=== PATIENT | female | born 1940 | race Caucasian/White ===

== ENCOUNTER 2016-12-10 15:22 | Emergency (ER) | payer OTHER, MEDICARE ==
[~2016-12-10] VITALS: Ht 154.9 cm; Wt 56.2 kg
[~2016-12-10 15:22] MED LIST: ACETAZOLAMIDE250 MG PO; ACETAZOLAMIDE500 MG; ALBUTEROL 3 ML3 ML INH; ALENDRONATE SOD70 M1 PO; ALLOPURINOL100 MG PO; AMOXIL500 MG PO; AUGMENTIN 875875 MG PO; Avelox PO; CARDIZEM 180 M180 MG PO; CARDIZEM CD 12120 MG PO; CIPRO500 M1 PO; COZAAR 25MG TAB25 MG PO; DIAMOX PO; DIFLUCAN100 M1 PO; DILTIAZEM HCL30 MG PO; DILTIAZEM30 MG PO; DULCOLAX5 MG PO; Dulcolax PO; FERROUS GLUCON325 MG PO; FOLIC ACID 1 MG PO; FUROSEMIDE20 MG PO; FUROSEMIDE40 MG PO; JANUVIA 100MG100 MG PO; K-DUR 20MEQ TA20 MEQ PO; KLOR-CON M1010 MEQ PO; KLOR-CON M2020 MEQ PO; LANTUS SOLOS100 U/ML SC; LASIX20 MG PO; LASIX40 MG PO; LEVOTHROID SOD0.1 MG PO; LEVOTHYROXIN0.112 MG PO; LEVOTHYROXIN0.125 M1 PO; LOSARTAN POTASS25 MG PO; MAG-OX 400400 MG PO; METOLAZONE5 MG PO; MIRALAX17 GM PO; NORCO 325 MG-51 TAB PO; NOVOLOG 10300 UNITS/; NOVOLOG 10300 UNITS/ SC; NOVOLOG FLEX100 U/ML SC; NOVOLOG100 U/ML SC; OMEPRAZOLE20 MG PO; OYSCO 500500 MG PO; PREDNISONE 10MG10 M1 PO; PREDNISONE 20MG20 MG PO; PREDNISONE10 MG PO; PREDNISONE5 MG PO; ROXICODONE5 MG PO; SALINE NAS; SENOKOT S 50 MG1 TAB PO; SPIRIVA 18 MCG18 MCG INH; SYMBICORT 160/41 PUF INH; Senokot S PO; THEO-24200 MG PO; TYLENOL500 MG PO; VANCO 1 GR1 GM/250 M IV; VITAMIN D2000 I1 PO; ZAROXOLYN - DIUL5 MG PO; ZOLOFT25 MG PO
--- NOTE | 2016-12-10 15:33 | ED SYNCOPE COMPLAINT ---
History of Present Illness General Chief Complaint: Syncope and Near-Syncope Stated Complaint: BIBA, SYNCOPE Source: patient, old records Exam Limitations: no limitations Vital Signs & Intake/Output Vital Signs & Intake/Output Vital Signs Date Time Temp Pulse Resp B/P B/P Pulse O2 O2 Flow FiO2 Mean Ox Delivery Rate 12/10 1714 96.8 101 20 142/69 92 Nasal 3.0L Cannula 12/10 1544 Room Air 12/10 1532 97.1 94 22 121/80 83 Nasal 3.0L Cannula Allergies Coded Allergies: heparin (Severe, BLEEDING 08/10/15) naproxen (Severe, GI BLEED 08/10/15) aspirin (Intermediate, BLEEDING 08/10/15) ibuprofen (Intermediate, STOMACH ULCERS 08/10/15) morphine (Intermediate, DROP IN BP 08/10/15) Reconcile Medications Acetazolamide (Diamox Sequels) 500 MG CAPSULE.ER 1 CAP PO Thursday UNKNOWN (Reported) Budesonide/Formoterol Fumarate (Symbicort 160-4.5 Mcg Inhaler) 160 MCG-4.5 MCG/ ACTUATION HFA.AER.AD 2 PUF INH BID RESPIRATORY (Reported) Calcium Carbonate/Vitamin D3 (Calcium 600 + Vit D 200 Tablet) (Unknown Strength) TABLET (Unknown Dose) PO DAILY SUPPLEMENT (Reported) Cholecalciferol (Vitamin D3) (Vitamin D3) 2,000 UNIT CAPSULE 1 CAP PO DAILY SUPPLEMENT (Reported) Cyanocobalamin (Vitamin B-12) (Vitamin B-12) 100 MCG TABLET 1 TAB PO DAILY SUPPLEMENT (Reported) Diltiazem HCl (Diltiazem 24HR ER) 180 MG CAP.ER.24H 1 CAP PO DAILY HEART/BP ( Reported) Ferrous Sulfate 325 MG (65 MG IRON) TABLET 1 TAB PO DAILY SUPPLEMENT ( Reported) Folic Acid 1 MG TABLET 1 TAB PO DAILY SUPPLEMENT (Reported) Furosemide 20 MG TABLET 60 MG PO BID DIURETIC (Reported) Insulin Detemir (Levemir Flextouch) 100 UNIT/ML (3 ML) INSULN.PEN 22 UNITS SC QPM DM (Reported) Levothyroxine Sodium 112 MCG TABLET 1 TAB PO DAILY THYROID (Reported) Magnesium Oxide 400 MG TABLET 1 TAB PO DAILY SUPPLEMENT (Reported) Omeprazole 20 MG CAPSULE.DR 1 CAP PO DAILY GI (Reported) Potassium Chloride (Klor-Con 10) 10 MEQ TABLET.ER 2 TAB PO BID SUPPLEMENT ( Reported) Prednisone 5 MG TABLET 1 TAB PO EOD STEROID (Reported) Prednisone 10 MG TABLET 1 TAB PO EOD STEROID (Reported) Sertraline HCl 50 MG TABLET 1 TAB PO QHS MENTAL HEALTH (Reported) Theophylline Anhydrous (Lawrence-24) 200 MG CAP.ER.24H 1 CAP PO EOD UNKNOWN ( Reported) Theophylline Anhydrous (Lawrence-24) 200 MG CAP.ER.24H 2 CAP PO EOD UNKNOWN ( Reported) Tiotropium [place] (Spiriva) 18 MCG CAP.W.DEV 1 CAP INH DAILY RESPIRATORY ( Reported) Triage Note: PT BIBA S/P FALL AT [facility]... PER PT SHE WENT TO THE BATHROOM AND SHE SQUATS AND DOES NOT SIT ON THE TOILET.. PT STATES THAT SHE THINKS THAT SHE PASSED OUT.. PT HIT HER HEAD, -LOC, - BLOOD THINNERS Triage Nurses Notes Reviewed? yes Timing: recent history Precipitating Factors: none Context: S/P IV LASIX Loss of Consciousness: dazed Associated Symptoms: DENIES HPI: 76 Year old female with past medical history of COPD currently on home oxygen, lung cancer, diabetes mellitus, hypertension, CHF presents brought in by ambulance after she had a fall while in the bathroom at the [facility]. The patient just went for her diuretic confusion which she goes for every other week. She states that she was sitting without her oxygen talking to the nurses, to the bathroom. She was squatting over the toilet she states she fell forward hitting her head. She is not sure she blacked out. The patient denies any prodromal dizziness lightheadedness chest pain palpitations prior to her fall. On arrival she presents without any complaints she is not on any blood thinners no neck or back pain. She denies any current chest pain shortness of breath abdominal pain (JAZZY WEI) Past History Travel History Traveled to [place] past 21 day No Medical History Any Pertinent Medical History? see below for history Neurological: NONE EENT: epistaxis Cardiovascular: CHF, hypertension Respiratory: COPD, LUNG CA Gastrointestinal: lower GI bleed Hepatic: NONE Renal: NONE Musculoskeletal: NONE Psychiatric: NONE Endocrine: diabetes, hypothyroidism Blood Disorders: NONE Cancer(s): LUNG TUMOR PREPLEATER/Reproductive: NONE History of MRSA: No History of VRE: No History of CDIFF: No Pneumonia Vaccine: 10/13/13 Surgical History Surgical History: L ELBOW SEPTIC LEFT OLECRANON BURSA BURSECTOMY Psychosocial History Who do you live with Spouse Services at Home Nursing, Oxygen What is your primary language Czech Family History Family History, If Any: MOTHER FH: diabetes mellitus FATHER (renal cell ca). FHx: kidney cancer BROTHER (multiple myleoma). Hx Contributory? No (JAZZY WEI) Review of Systems Review of Systems Constitutional: Reports: see HPI. All Other Systems: Reviewed and Negative Comments Review of systems: See HPI, All other systems negative. Constitutional, no chills no fever, no malaise HEENT: No visual changes no sore throat no congestion Cardiovascular: No chest pain , no palpitation , no orthopnea Skin: no rashes, no change in skin Respiratory: No dyspnea no cough no sputum GI: No nausea no vomiting, no diarrhea : No dysuria Muscle skeletal: No joint pain, no joint swelling, no back pain, no neck pain, Neurologic: No numbness no headache Psych: No stress Heme/endocrine: No bruising Immunology: No lymphadenopathy (JAZZY WEI) Physical Exam Physical Exam General Appearance: well developed/nourished, alert, awake Cranial Nerves: normal hearing, normal speech, PERRL Comments: Superficial abrasion noted to the left parietal scalp with dry blood Nontender small hematoma versus scalp and face are atraumatic Well-developed well- nourished person in no acute distress HEENT: Normal EENT exam; PERRL, EOMI, no nystagmus. HEAD is atraumatic. moist mucous membranes. Neck: Supple, , normal range of motion without pain or tenderness Back: Nontender, no CVA tenderness. Full range of motion Cardiovascular: Regular rate and rhythms no murmurs rubs Respiratory:No respiratory distress. Patient speaking in full complete sentences. Breath sounds clear to auscultation bilaterally: NO W/R/R Abdomen: Soft, nontender nondistended, no appreciable organomegaly. Normal bowel sounds. No rebound/guarding, Extremity: No edema, full range of motion of extremities, normal and equal pulses bilaterally, 5 out of 5 strength noted to bilateral upper and lower extremities Neuro: Alert oriented x3, motor sensory normal, cranial nerves II through XII grossly intact. There were no obvious focal neurologic abnormalities. Skin: No appreciable rash on exposed skin, skin is warm and dry. Psych: Mood and affect is normal, memory and judgment is normal. Core Measures ACS in differential dx? Yes CVA/TIA Diagnosis: No Severe Sepsis Present: No Septic Shock Present: No (ALMA GUNTER,JAZZY) Progress Differential Diagnosis: AMI, aortic dissection, aortic valve, drug induced syncope, hyperventilation, orthostatic syncope, pacemaker malfunction, pericardial tamponade, pulmonary embolus, subarachnoid hem., TIA/CVA Plan of Care: Orders Procedure Date/time Status Heart Healthy Diet 12/11 B Active MISTAKE 12/10 1530 Active Telemetry/Cad Technician 12/10 1530 Active FingerStick- Glucose 12/10 1530 Active TROPONIN LEVEL 12/10 1530 Complete COMPREHENSIVE METABOLIC PANEL 12/10 153 Complete CBC WITHOUT DIFFERENTIAL 12/10 153 Complete EKG 12/10 1530 Active Laboratory Tests 12/10/16 1547: Anion Gap 13, Estimated GFR 44 L, BUN/Creatinine Ratio 30.0 H, Glucose 101 H, Calcium 10.2, Total Bilirubin 0.8, AST 32, ALT 29, Alkaline Phosphatase 94, Troponin I 0.02, Total Protein 7.2, Albumin 4.7, Globulin 2.5, Albumin/Globulin Ratio 1.9, CBC w Diff MAN DIFF ORDERED, RBC 7.27 H, MCV 61.1 L, MCH 18.6 L, RDW 18.2 H, MPV 9.0, Gran % 91.3 H, Lymphocytes % 5.4 L, Monocytes % 3.1, Eosinophils % 0.2, Basophils % 0 L, Absolute Granulocytes 16.3 H, Absolute Lymphocytes 1.0 L, Absolute Monocytes 0.5, Absolute Eosinophils 0, Absolute Basophils 0, Platelet Estimate ADEQUATE, Hypochromic-Microcytic 1+, Poikilocytosis 1+, Target Cells 1+, Elliptocytes 1+, Schistocytes RARE, PUBS MCHC 30.5 L Patient offers no complaints at this time labs ordered old records reviewed CAT scan ordered chest x-ray ordered orthostatics are negative case discussed with Dr. Suazo The oxygen saturation of 82% taken in triage was without oxygen that she was not given while in transport. 1714 patient has been ambulatory around the emergency room with steady gait she denies any symptoms-however 02 saturations drop into the 80s on 5 L with ambulation she reports feeling dyspneic after walking given recent syncope and oxygen saturations knee as I believe premature discharge.Overall orthostatics are negative discussed with her at length all of her lab results her elevated white blood cell count is unchanged chronic she is on prednisone. I answered all of her questions she feels comfortable with plan. call placed to dr jolly the patient has no shortness of breath she states that she feels that she normally does I spoke with the patient's primary care physician Dr. jolly- he believes it could be a question of over diuresis today he states that is normal for her to desaturate given her end-stage COPD, he advised to have her double her prednisone dose I discussed with the patient return precautions and adverse effects of elevated prednisone need to continue monitoring her blood sugar, advised return anytime sooner with any concerns the patient feels comfortable with discharge- (ALMA GUNTER,JAZZY) Diagnostic Imaging: Viewed by Me: Radiology Read, CT Scan. Discussed w/RAD: Radiology Read, CT Scan. Radiology Impression: PATIENT: KEVIN IQBAL PRESENT AGE: 76 PATIENT ACCOUNT NO: [id number] : 41 LOCATION: [facility] ORDERING PHYSICIAN: JAZZY GUNTER SERVICE DATE: 12/10/16 EXAM TYPE: RAD - XRY-PORTABLE CHEST XRAY EXAMINATION: XR PORTABLE CHEST CLINICAL INFORMATION: Dyspnea, syncope COMPARISON: A 20 08/04/2015. TECHNIQUE: Portable frontal view of the chest was obtained. FINDINGS: The cardiomediastinal silhouette is unremarkable. There is been an increase in the nodularity in the left upper lung field laterally at the level of the aortic arch which may be an associated osseous lesion. Follow-up CT imaging on a nonurgent basis is recommended. There is scarring versus a small amount of fluid in the right costophrenic angle laterally. The lungs and pleural spaces otherwise appear clear without evidence of congestion, consolidation, or significant appearing effusion or atelectasis. There is no evidence of pneumothorax or pulmonary edema. Included osseous structures appear largely unremarkable. IMPRESSION: No evidence of an acute intrathoracic process, increasing nodule left upper lobe. DICTATED BY: BARBER RIOS MD DATE/TIME DICTATED:12/10/161611 FLEXOGRAPHIC PRESS PLATE SETTER:MONTY DATE/TIME TRANSCRIBED:12/10/161611 CONFIDENTIAL, DO NOT COPY WITHOUT APPROPRIATE AUTHORIZATION. <Electronically signed in Other Vendor System> SIGNED BY: BARBER RIOS MD 12/10/16 1621, PATIENT: KEVIN IQBAL PRESENT AGE: 76 PATIENT ACCOUNT NO: [id number] : 41 LOCATION: [facility] ORDERING PHYSICIAN: JAZZY GUNTER SERVICE DATE: 12/10/16 EXAM TYPE: CAT - CT HEAD WO IV CONTRAST EXAMINATION: CT HEAD WITHOUT CONTRAST CLINICAL INFORMATION: Trauma to head. Fall. Syncope. COMPARISON: 02/21/2014. TECHNIQUE: Contiguous axial images of the brain were obtained without IV contrast. DLP: 610 mGy-cm. FINDINGS: There are no pathologic extra-axial fluid collections. The lateral, third, fourth ventricles are mildly prominent, but age-appropriate, stable and concordant with the appearance of the sulci. There is a 9 mm high attenuation focus near the third ventricle, likely metals sales representative of a colloid cyst. There is no evidence for acute intraparenchymal hemorrhage or infarct. There is neither mass nor mass effect. There is no shift of midline structures. The paranasal sinuses and mastoid air cells are clear. There are no osseous lesions. IMPRESSION: No evidence for acute intracranial injury. Stable age-appropriate appearance of the brain. 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 DICTATED BY: TRACY RITTER MD DATE/TIME DICTATED:12/10/161644 FLEXOGRAPHIC PRESS PLATE SETTER:MONTY DATE/TIME TRANSCRIBED:12/10/161644 CONFIDENTIAL, DO NOT COPY WITHOUT APPROPRIATE AUTHORIZATION. <Electronically signed in Other Vendor System> SIGNED BY: TRACY RITTER MD 12/10/16 1654 Initial ED EKG: normal intervals, normal p-waves, normal QRS complex, normal sinus rhythm (90) (JAZZY WEI) Departure Departure Time of Disposition: 1713 Disposition: HOME OR SELF CARE Condition: Stable Clinical Impression Primary Impression: Syncope Referrals: CARRIE JOLLY MD (PCP/Family) Additional Instructions: FOLLOW UP WITH DR JOLLY TOMORROW. RETURN WITH ANY CONCERNS Departure Forms: Customer Survey General Discharge Information (JAZZY WEI) PA/KST OPERATOR Co-Sign Statement Statement: ED Attending supervision documentation- [X] I saw and evaluated the patient. I have also reviewed all the pertinent lab results and diagnostic results. I agree with the findings and the plan of care as documented in the PA's/KST OPERATOR's documentation. [X] I have reviewed the ED Record and agree with the PA's/KST OPERATOR's documentation. [] Additions or exceptions (if any) to the PAs/KST OPERATOR's note and plan are summarized below: [] (KEZIA CARBALLO,JAX)
[2016-12-10 15:59] LABS: ABSOLUTE BASOPHIL COUNT 0 /CUMM (0.0-0.2); BASOPHIL % 0 % (0.0-2.0)
[2016-12-10 16:04] LABS: ABSOLUTE EOSINOPHIL COUNT 0 /CUMM (0.0-0.7); ABSOLUTE GRANULOCYTE CT 16.3 /CUMM (1.4-6.5); ABSOLUTE MONOCYTE COUNT 0.5 /CUMM (0.10-0.60); EOSINOPHIL % 0.2 % (0-5); GRANULOCYTE % 91.3 % (42.2-75.2); HEMATOCRIT 44.4 % (37-47); MEAN CORPUSCULAR HGB 18.6 PG (27.0-31.0); MEAN CORPUSCULAR HGB CONC 30.5 G/DL (33.0-37.0); MEAN CORPUSCULAR VOLUME 61.1 FL (81.0-99.0); PLATELET COUNT 107 /CUMM (130-400); RBC DISTRIBUTION WIDTH 18.2 % (11.5-14.5)
[2016-12-10 16:05] LABS: RED BLOOD CELL CT 7.27 /CUMM (4.20-5.40); WHITE BLOOD CELL COUNT 17.9 /CUMM (4.8-10.8)
[2016-12-10] MEDS ORDERED: [UNRECOGNIZED DRUG - CODE] PO ×2 (16:13→16:14)
[2016-12-10] MEDS ORDERED: DILTIAZEM 24HR180 MG PO (16:13)
[2016-12-10] MEDS ORDERED: FOLIC ACID1 M1 PO (16:14)
[2016-12-10] MEDS ORDERED: FERROUS SULFAT325 M3 PO (16:15)
[2016-12-10] MEDS ORDERED: CALCIUM 600 +1 EA10 PO (16:15)
[2016-12-10] MEDS ORDERED: SYMBICORT 16010.2 GM INH (16:17)
[2016-12-10] MEDS ORDERED: SPIRIVA18 MCG INH (16:18)
[2016-12-10] MEDS ORDERED: VITAMIN D32000 UNIT PO (16:18)
[2016-12-10] MEDS ORDERED: OMEPRAZOLE20 M2 PO (16:19)
[2016-12-10] MEDS ORDERED: KLOR-CON 1010 ME1 PO (16:19)
[2016-12-10] MEDS ORDERED: SERTRALINE HCL50 MG PO (16:21)
--- NOTE | 2016-12-10 16:21 | RADIOLOGY REPORT ---
EXAMINATION: XR PORTABLE CHEST CLINICAL INFORMATION: Dyspnea, syncope COMPARISON: A 08/04/2015. TECHNIQUE: Portable frontal view of the chest was obtained. FINDINGS: The cardiomediastinal silhouette is unremarkable. There is been an increase in the nodularity in the left upper lung field laterally at the level of the aortic arch which may be an associated osseous lesion. Follow-up CT imaging on a nonurgent basis is recommended. There is scarring versus a small amount of fluid in the right costophrenic angle laterally. The lungs and pleural spaces otherwise appear clear without evidence of congestion, consolidation, or significant appearing effusion or atelectasis. There is no evidence of pneumothorax or pulmonary edema. Included osseous structures appear largely unremarkable. IMPRESSION: No evidence of an acute intrathoracic process, increasing nodule left upper lobe.
[2016-12-10] MEDS ORDERED: FUROSEMIDE20 M1 PO (16:22)
[2016-12-10] MEDS ORDERED: DIAMOX SEQUELS500 MG PO (16:22)
[2016-12-10] MEDS ORDERED: LEVEMIR FL100 UNIT/1 SC (16:23)
[2016-12-10] MEDS ORDERED: MAGNESIUM OXID400 M1 PO (16:24)
[2016-12-10] MEDS ORDERED: PREDNISONE5 M1 PO (16:24)
[2016-12-10] MEDS ORDERED: PREDNISONE10 M2 PO (16:26)
[2016-12-10] MEDS ORDERED: LEVOTHYROXINE112 MCG PO (16:27)
[2016-12-10] MEDS ORDERED: VITAMIN B-12100 MC1 PO (16:28)
--- NOTE | 2016-12-10 16:54 | CT SCAN REPORT ---
EXAMINATION: CT HEAD WITHOUT CONTRAST CLINICAL INFORMATION: Trauma to head. Fall. Syncope. COMPARISON: 02/21/2014. TECHNIQUE: Contiguous axial images of the brain were obtained without IV contrast. DLP: 610 mGy-cm. FINDINGS: There are no pathologic extra-axial fluid collections. The lateral, third, fourth ventricles are mildly prominent, but age-appropriate, stable and concordant with the appearance of the sulci. There is a 9 mm high attenuation focus near the third ventricle, likely operations representative of a colloid cyst. There is no evidence for acute intraparenchymal hemorrhage or infarct. There is neither mass nor mass effect. There is no shift of midline structures. The paranasal sinuses and mastoid air cells are clear. There are no osseous lesions. IMPRESSION: No evidence for acute intracranial injury. Stable age-appropriate appearance of the brain. 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
[2016-12-10 17:14] VITALS: BP 142/69
== END 2016-12-10 18:25 ==
LOC: ERH 15:22
PROVIDERS: Physician Assistant Medical
DX: R55 Syncope and collapse (principal)
CPT/HCPCS: 93005; 93010

== ENCOUNTER 2017-08-12 13:01 | Inpatient (IN) | payer OTHER, MEDICARE ==
[~2017-08-12] VITALS: Ht 157.5 cm; Wt 53.2 kg
[~2017-08-12 13:01] MED LIST changes: +AZITHROMYCIN250 M1 PO; +CALCIUM 600 +1 EA10 PO; +CEFUROXIME250 M1 PO; +CEFUROXIME500 MG PO; +DIAMOX SEQUELS500 MG PO; +DILTIAZEM 24HR180 MG PO; +FERROUS SULFAT325 M3 PO; +FOLIC ACID1 M1 PO; +FUROSEMIDE20 M1 PO; +KLOR-CON 1010 ME1 PO; +LEVEMIR FL100 UNIT/1 SC; +LEVOTHYROXINE112 MCG PO; +MAGNESIUM OXID400 M1 PO; +OMEPRAZOLE20 M2 PO; +PREDNISONE10 M2 PO; +PREDNISONE5 M1 PO; +PROAIR HFA8.5 GM INH; +SERTRALINE HCL50 MG PO; +SPIRIVA18 MCG INH; +SYMBICORT 16010.2 GM INH; +VITAMIN B-12100 MC1 PO; +VITAMIN D32000 UNIT PO; +[UNRECOGNIZED DRUG - CODE] PO
--- NOTE | 2017-08-12 13:26 | ED GENERAL ADULT ---
History of Present Illness General Chief Complaint: Syncope and Near-Syncope Stated Complaint: BIBA SYNCOPE Source: patient, family, old records, EMS Exam Limitations: no limitations Vital Signs & Intake/Output Vital Signs & Intake/Output Vital Signs Date Time Temp Pulse Resp B/P B/P Pulse O2 O2 Flow FiO2 Mean Ox Delivery Rate 08/12 1741 97.9 82 18 94/63 92 Nasal 3.0L Cannula 08/12 1637 98.4 78 18 115/55 99 08/12 1335 74 115/59 08/12 1314 95.6 74 18 98 Nasal 2.0L Cannula 08/12 1312 96 Nasal 2.0L Cannula Allergies Coded Allergies: rivaroxaban (From XARELTO) (Severe, RECTAL BLEEDING? 04/29/17) heparin (Severe, BLEEDING 04/29/17) naproxen (Severe, GI BLEED 04/29/17) aspirin (Intermediate, BLEEDING 04/29/17) ibuprofen (Intermediate, STOMACH ULCERS 04/29/17) morphine (Intermediate, DROP IN BP 04/29/17) Reconcile Medications Albuterol Sulfate (Proair Hfa) 90 MCG HFA.AER.AD 2 PUF INH Q4-6 PRN PRN RESP. (Reported) Azithromycin 250 MG TABLET 1 DP PO DAILY ANTIBIOTIC, INFECTION (Reported) 2 the first day followed by 1 for days 2-5 Budesonide/Formoterol Fumarate (Symbicort 160-4.5 Mcg Inhaler) 160 MCG-4.5 MCG/ ACTUATION HFA.AER.AD 2 PUF INH BID RESPIRATORY (Reported) Calcium Carbonate/Vitamin D3 (Calcium 600 + Vit D 200 Tablet) (Unknown Strength) TABLET (Unknown Dose) PO DAILY SUPPLEMENT (Reported) Cholecalciferol (Vitamin D3) (Vitamin D3) 2,000 UNIT CAPSULE 1 CAP PO DAILY SUPPLEMENT (Reported) Ciprofloxacin HCl 250 MG TABLET 1 TAB PO BID ANTIBIOTIC, INFECTION (Reported) Cyanocobalamin (Vitamin B-12) (Vitamin B-12) 100 MCG TABLET 1 TAB PO DAILY SUPPLEMENT (Reported) Diltiazem HCl (Diltiazem 24HR ER) 180 MG CAP.ER.24H 1 CAP PO DAILY HEART/BP ( Reported) Folic Acid 1 MG TABLET 1 TAB PO DAILY SUPPLEMENT (Reported) Furosemide 20 MG TABLET 1 TAB PO DAILY CHF Insulin Detemir (Levemir Flextouch) 100 UNIT/ML (3 ML) INSULN.PEN 8 UNITS SC BID DM (Reported) Levothyroxine Sodium 112 MCG TABLET 1 TAB PO DAILY THYROID (Reported) Magnesium Oxide 400 MG TABLET 1 TAB PO DAILY SUPPLEMENT (Reported) Omeprazole 20 MG CAPSULE.DR 1 CAP PO DAILY GI (Reported) Potassium Chloride (Klor-Con 10) 10 MEQ TABLET.ER 2 TAB PO BID SUPPLEMENT ( Reported) Prednisone 5 MG TABLET 3 TAB PO DAILY COPD (Reported) Sertraline HCl 50 MG TABLET 1 TAB PO QHS MENTAL HEALTH (Reported) Theophylline Anhydrous 200 MG TAB.ER.12H 2 CAP PO Q48 BREATHING PROBLEMS ( Reported) Theophylline Anhydrous 200 MG TAB.ER.12H 1 TAB PO Q48 BREATHING PROBLEMS ( Reported) Tiotropium [place] (Spiriva) 18 MCG CAP.W.DEV 1 CAP INH DAILY RESPIRATORY ( Reported) Triage Nurses Notes Reviewed? yes Onset: Gradual Duration: worse persistent since (OVER PAST 3 MONTHS) Timing: recent history Injury Environment: home Severity: moderate Modifying Factors: Improves With: immobilization. Worsens With: movement. 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 Most recently last Thursday. Patient reports it's mostly with positional changes. She usually sits on the toilet for "a while". She is comfortable she's been in the bathroom and gets up and gets lightheaded and dizzy and then falls to the ground. Patient usually ends up falling onto her face she reports. Unsure if she blacks out. She knows she hits her head because she gets bruising on her face. Patient also reports that on Thursday she hurt her neck. Denies any chest pain or shortness of breath prior to onset of syncopal episodes. She reports that she's been eating and drinking. No nausea or vomiting. Denies any change in bowel habits. No blood in the stool. (Dina Yanes) Past History Travel History Traveled to [place] past 21 day No Medical History Any Pertinent Medical History? 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 FHx: kidney cancer BROTHER (multiple myleoma). Hx Contributory? No (Dina Yanes) Review of Systems Review of Systems Constitutional: Reports: see HPI, malaise. Comments Review of systems: See HPI, All other systems negative. Constitutional, no chills fever or weight loss HEENT: No visual changes no sore throat no congestion Cardiovascular: No chest pain ,palpitation , orthopnea or ankle swelling Skin, no jaundice no rashes Respiratory: No dyspnea cough sputum or hemoptysis GI: No nausea no vomiting : No dysuria No hematuria Muscle skeletal: no back pain, no neck pain, Neurologic: No numbness no headaches Psych: No stress anxiety or depression,. Heme/endocrine: No bruising no bleeding no polyuria or polydipsia Immunology: No splenectomy or history of AIDS (Dina Yanes) Physical Exam Physical Exam General Appearance: no apparent distress, alert, awake, comfortable, thin Comments: THIN person in no acute distress HEENT: extraocular motion intact, no nystagmus. Pupils equally round and reactive to light and accommodation. Nose is atraumatic. External auditory canal and Tympanic membranes clear. Pharynx normal. No swelling or edema. No hemotympanum noted. Mild amount of cerumen in the external canal bilaterally. Ecchymosis noted above the right orbit, nontender to palpation. Ecchymosis approximately 3 cm in diameter. Dry oral mucosa. Neck: Supple, no lymphadenopathy, normal range of motion, tenderness palpation over the right cervical paraspinal muscles. Positive ecchymosis that tracts over the right trapezius muscle. Positive C-spine tenderness over C5, C6. Back: Nontender, no CVA tenderness. Full range of motion. No step-off deformities noted. No palpable crepitus. Patient does have diffuse ecchymosis over the low back, non-blanchable. Cardiovascular: Regular rate and rhythms , positive murmur appreciated. Respiratory: Chest nontender. No respiratory distress.breath sounds diminished to auscultation bilaterally, on nasal cannula. Abdomen: Soft, nontender nondistended, no appreciable organomegaly. Normal bowel sounds. No ascites, no rebound or guarding. Patient does have diffuse ecchymosis noted over the mid and lower abdomen. Lesions appear to be old. RECTAL: Brown stool, guaiac-negative, nontender. Extremity: No edema, no calf tenderness to palpation, normal and equal pulses. Full range of motion of lower extremities without difficulty or pain. Able to perform straight leg raise without difficulty. Muscular strength is 4 out of 5 in all extremities. Oceanographer Assistant strength is equal and symmetric bilaterally. Small area of ecchymosis and skin abrasion noted to right elbow. Abrasion is approximately 1 cm in size, no active bleeding. Nontender to palpation over this area. Full range of motion of right elbow without pain. Patient does have pain to palpation over bilateral shoulders with limited range of motion of right upper and left upper extremity secondary to pain in the shoulder. Neuro: Alert oriented x3, motor sensory normal, cranial nerves II through XII grossly intact. Patellar reflexes are 2+ bilaterally. Skin: See extremity and abdominal exam. OTHERWISE No appreciable rash on exposed skin, skin is warm and dry. Psych: Mood and affect is normal, memory and judgment is normal. Core Measures ACS in differential dx? Yes CVA/TIA Diagnosis: No Sepsis Present: No Sepsis Focused Exam Completed? No ([place]lando GUNTER,Dina) Progress Differential Diagnoses I considered the following diagnoses in my evaluation of the patient: Vasovagal episode, orthostatic hypotension, electrolyte abnormality, symptomatic anemia, cardiac arrhythmia, intracranial hemorrhage, intra-abdominal bleeding, thrombocytopenia Diagnostic Imaging: Viewed by Me: Radiology Read, CT Scan. Discussed w/RAD: Radiology Read, CT Scan. Radiology Impression: PATIENT: KEVIN IQBAL PRESENT AGE: 76 PATIENT ACCOUNT NO: [id number] : 41 LOCATION: [facility] ORDERING PHYSICIAN: Dina GUNTER SERVICE DATE: 08/12/17 EXAM TYPE: CAT - CT ABD & PELVIS W IV CONTRAST; CTA CHEST-PULMONARY EMBOLISM EXAMINATIONS: CT PULMONARY EMBOLISM STUDY AND CT ABDOMEN AND PELVIS WITH CONTRAST CLINICAL INFORMATION: Ecchymosis. Trauma. Pain. Fall. Syncope. COMPARISON: Same day chest radiograph. Chest CT from April 2017. TECHNIQUE: Contiguous helical images of the chest were obtained following the administration of IV contrast. Multiplanar reconstructions were performed. MIPS were obtained and reviewed. Contiguous helical images of the abdomen and pelvis were obtained following the administration of IV contrast. Oral contrast was not administered. DLP: 619 mGy-cm. CONTRAST: 95 mL of Optiray 320 were demonstrated without incident. FINDINGS: The heart is of normal size. There is no pericardial effusion. The great vessels are unremarkable. Specifically, there is no pulmonary arterial filling defect. There is no CT evidence for pulmonary embolism. There are no chest wall masses. Review of lung windows demonstrates that there are neither pleural effusions nor pneumothoraces. There is emphysema. There is a stable calcified pleural plaque within the anterior upper left hemithorax. Within the right upper lobe on image 73/462, there is a 3 mm nodular density. Also within the right upper lobe on image 95, there is a 4 mm nodular density. Within the right lower lobe on image 168, there is a semisolid nodular density identified, more prominent than on the prior exam measuring approximately 6 mm. Within the lateral segment right middle lobe on image 259, there is a stable 5 mm nodule. Newly identified within the left upper lobe is a irregular shaped 3.7 cm opacity. The liver is of normal size and attenuation without focal lesions nor intrahepatic biliary ductal dilation. A normal gallbladder is identified. There is no wall thickening or discernible pericholecystic fluid. The spleen, pancreas, adrenal glands are unremarkable. Both kidneys are of normal size and attenuation without hydronephrosis or nephrolithiasis. Following the administration of IV contrast, prompt symmetric nephrograms are displayed. There is no abdominal free fluid. There is neither mesenteric nor retroperitoneal lymphadenopathy. Normal unopacified loops of small and large bowel are identified. There are several calcified fibroids present. There is no pelvic free fluid. The urinary bladder is unremarkable. There is neither pelvic nor inguinal lymphadenopathy. There is multilevel disc height loss within the lumbar spine. IMPRESSION: No CT evidence for pulmonary embolism. Emphysema. Multiple subcentimeter pulmonary nodules and nodular densities. New demonstration of 3.7 cm wedge-shaped opacity within the left upper lobe. There is a broad differential diagnosis for this appearance including infarction (though none is seen at this time), pneumonia and mass lesion. A follow-up chest CT is warranted to assure resolution of this appearance following treatment and/or resolution of symptoms. DICTATED BY: Patrick Ramirez MD DATE/TIME DICTATED:08/12/171625 CHOPPER OPERATOR:MONTY DATE/ TIME TRANSCRIBED:08/12/171625 CONFIDENTIAL, DO NOT COPY WITHOUT APPROPRIATE AUTHORIZATION. <Electronically signed in Other Vendor System> SIGNED BY: Patrick Ramirez MD 08/12/171713, PATIENT: KEVIN IQBAL PRESENT AGE: 76 PATIENT ACCOUNT NO: [id number] : 41 LOCATION: ER ORDERING PHYSICIAN: Dina GUNTER SERVICE DATE: 08/12/17- EXAM TYPE: RAD - XRY-SHOULDER COMPLETE-LEFT; XRY-SHOULDER COMPLETE-RIGHT EXAMINATION: BILATERAL SHOULDERS. CLINICAL INFORMATION: Status post fall. COMPARISON: None TECHNIQUE: 3 views left shoulder and 3 views right shoulder. FINDINGS: LEFT SHOULDER: There is no visible fracture, dislocation or soft tissue abnormality. There is soft tissue calcification adjacent to greater tuberosity likely calcific bursitis. Small enthesophytes are seen along the lateral acromion and calcification superior AC joint laxity likely capsular calcification. RIGHT SHOULDER: No visible acute fracture, dislocation or subluxation seen. The soft tissues are normal. IMPRESSION: No visible acute fracture or dislocation in either shoulder joints. There is calcific bursitis left shoulder. In addition mild arthritic changes with capsular calcification left AC joint is noted. The right shoulder joint appears unremarkable. DICTATED BY: Zhao Almonte MD DATE/ TIME DICTATED:08/12/171701 CHOPPER OPERATOR:MONTY DATE/TIME TRANSCRIBED: 08/12/171701 CONFIDENTIAL, DO NOT COPY WITHOUT APPROPRIATE AUTHORIZATION. < Electronically signed in Other Vendor System> SIGNED BY: Zhao Almonte MD [id number], PATIENT: KEVIN IQBAL PRESENT AGE: 76 PATIENT ACCOUNT NO: [id number] : 41 LOCATION: [facility] ORDERING PHYSICIAN: Dina GUNTER SERVICE DATE: 08/12/17-1459 EXAM TYPE: CAT - CT CERV SPINE WO IV CONTRAST; CT HEAD WO IV CONTRAST EXAMINATION: CT HEAD WITHOUT CONTRAST CT CERVICAL SPINE WITHOUT CONTRAST CLINICAL INFORMATION: Pain after fall. Head strike. COMPARISON: Head and cervical spine CT from 03/08/2014. TECHNIQUE: Contiguous axial imaging was performed from the skull base to vertex without intravenous administration of contrast. In addition, helical noncontrast CT imaging was acquired through the cervical spine and source images were reviewed along with axial reconstructions and sagittal and coronal MPRs. 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 There is been no change in the caliber of the ventricular system, and there is no transependymal migration of CSF.. No hemorrhage, edema, mass effect, hydrocephalus, extra-axial collection, or shift the normally midline structures. There is mild generalized prominence of the ventricles and sulci, stable. Minor hypoattenuation scattered within the bihemispheric white matter compatible with chronic microangiopathy, stable. No acute osseous abnormalities. The imaged paranasal sinuses, mastoid air cells and middle ear cavities are clear. CERVICAL SPINE: There is no evidence of acute fracture. There is 6 mm of anterolisthesis of C4 on C5, progressive from 4 mm on the prior. This appears on the basis of progressive, advanced facet hypertrophy. There is no evidence of abnormal density within or surrounding the canal at this level and there is no evidence of prevertebral soft tissue swelling. There is also been progressive degenerative change at C3-C4 where there is now near complete intervertebral disc height loss with vacuum phenomenon, endplate sclerosis and spurring which was not present on the prior study. Severe degenerative changes at C5-C6 and C6-C7 are more stable. There remains moderate canal stenosis at C3-C4, C5-C6 and C6-C7. There appears to be fairly high-grade canal stenosis at C4-C5. If there are symptoms of myelopathy, correlation with MRI is recommended. As above there is no pre or paravertebral soft tissue abnormality identified. No adenopathy. No discrete thyroid lesions. There is a medialized right carotid creating an impression on the right pharyngeal wall. There are extensive emphysematous changes at the lung apices with mild biapical pleural-parenchymal scarring. IMPRESSION: 1. No acute intracranial pathology. 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 2. No convincing fracture or acute traumatic subluxation. There has been progressive anterolisthesis of C4 on C5, currently measuring 6 mm, appearing to be on the basis of progressive advanced facet hypertrophy. There is fairly pronounced canal stenosis at this level. If there are any symptoms of myelopathy, correlation with MRI of the cervical spine is recommended to assess the cord. There has been progressive degenerative change at C3-C4 with similar moderate canal stenosis. DICTATED BY: Tim Dixon MD DATE/TIME DICTATED:08/12/171622 CHOPPER OPERATOR:MONTY DATE/TIME TRANSCRIBED:08/12/171622 CONFIDENTIAL, DO NOT COPY WITHOUT APPROPRIATE AUTHORIZATION. <Electronically signed in Other Vendor System> SIGNED BY: Tim Dixon MD 08/12/17 1644 Initial ED EKG: SINUS RHYTHM AT 71 BPM (Orlando GUNTER,Dina) Differential Diagnoses I considered the following diagnoses in my evaluation of the patient: Plan of Care: Orders Procedure Date/time Status Regular Diet 08/13 B Active Misc Message 08/12 1918 Active ED Holding Orders 08/12 1918 Active Admit to inpatient 08/12 191 Active Vital Signs 08/12 1918 Active Code Status 08/12 191 Active MISTAKE 08/12 1331 Active Telemetry/Presser All Around 08/12 1331 Active URINALYSIS 08/12 1331 Complete TROPONIN LEVEL 08/12 1331 Complete PARTIAL THROMBOPLASTIN TIME 08/12 1331 Complete PROTHROMBIN TIME 08/12 1331 Complete COMPREHENSIVE METABOLIC PANEL 08/12 1331 Complete CBC WITHOUT DIFFERENTIAL 08/12 1331 Complete EKG 08/12 1326 Active Current Medications Sig/Vero Start time Last Medication Dose Stop Time Status Admin Sodium Chloride 1,000 ML BOLUS ONE 08/12 1845 CAN (Normal Saline 0.9%) 08/12 2043 Laboratory Tests 08/12/17 1520: Urinalysis LIGHT H, Urine Color YEL, Urine Clarity CLDY H, Urine pH 7.5, Ur Specific [place] 1.010, Urine Protein NEG, Urine Ketones NEG, Urine Nitrite NEG, Urine Bilirubin NEG, Urine Urobilinogen 0.2, Ur Leukocyte Esterase MOD H, Ur Microscopic SEDIMENT EXAMINED, Urine WBC 5-10 H, Ur Epithelial Cells FEW, Urine Bacteria MANY H, Urine Hemoglobin NEG, Urine Glucose NEG 08/12/17 1333: Anion Gap 10, Estimated GFR 44 L, BUN/Creatinine Ratio 27.5 H, Glucose 55 L, Calcium 9.8, Total Bilirubin 0.8, AST 22, ALT 20, Alkaline Phosphatase 64, Troponin I 0.02, Total Protein 5.6 L, Albumin 3.4 L, Globulin 2.2, Albumin/ Globulin Ratio 1.5, PT 11.0, INR 1.05, APTT 29, CBC w Diff NO MAN DIFF REQ, RBC 3.90 L, MCV 63.6 L, MCH 19.9 L, MCHC 31.3 L, RDW 16.6 H, MPV 9.5, Gran % 85.8 H, Lymphocytes % 6.6 L, Monocytes % 7.3, Eosinophils % 0.3, Basophils % 0 , Absolute Granulocytes 11.9 H, Absolute Lymphocytes 0.9 L, Absolute Monocytes 1.0 H, Absolute Eosinophils 0, Absolute Basophils 0 Patient informed of all lab work results and imaging study results. Patient will be admitted for frequent falls, symptomatic anemia and syncope. She'll need further evaluation. Patient increased fall risk. D/W DR MARIEE AND HE AGREES WITH PLAN. (Dina Yanes) Comments: 08/12/2017 7:17:59 PM patient's case discussed with Dr. Rudolph who recommends admission and transfusion of unit of blood. (Valerie CARBALLO,Wally Sanford) Departure Departure Time of Disposition: 1923 Disposition: STILL A PATIENT Condition: Stable Clinical Impression Primary Impression: Symptomatic anemia Secondary Impressions: Frequent falls Syncope Qualifiers: Syncope type: unspecified Qualified Code: R55 - Syncope and collapse Urinary tract infection Qualifiers: Urinary tract infection type: site unspecified Hematuria presence: without hematuria Qualified Code: N39.0 - Urinary tract infection, site not specified Weakness Referrals: Rachid Rudolph MD (PCP/Family) Departure Forms: Customer Survey General Discharge Information Admission Note Documentation of Exam: Documentation of any treatments & extenuating circumstances including Concerns Regarding Discharge (functional status, medication knowledge or non-compliance, living conditions, etc.) that warrant an admission rather than observation: Patient requiring physical therapy consultation secondary to weakness and frequent falls, may require hematology consultation due to acute on chronic anemia, consider transfusion if patient still symptomatic, IV hydration for dehydration, IV antibiotics for urinary tract infection, potential rehabilitation placement, discharge at this time is medically harmful as patient likely to home and FALL again. (Dina Yanes) Admission Note Spoke With: Ronni CARBALLO,Rachid Mcgee PA/SPOOLING MACHINE OPERATOR Co-Sign Statement Statement: ED Attending supervision documentation- [x] I saw and evaluated the patient. I have also reviewed all the pertinent lab results and diagnostic results. I agree with the findings and the plan of care as documented in the PA's/SPOOLING MACHINE OPERATOR's documentation. Patient presents for evaluation of multiple falls over the past few months. Physical examination reveals scattered ecchymoses consistent with falling. [] I have reviewed the ED Record and agree with the PA's/SPOOLING MACHINE OPERATOR's documentation. [] Additions or exceptions (if any) to the PAs/SPOOLING MACHINE OPERATOR's note and plan are summarized below: [] (Valerie CARBALLO,Wally Sanford) Critical Care Note Critical Care Note Critical Care Time: 30-74 min (Dina Yanes)
[2017-08-12 13:44] LABS: HEMATOCRIT 24.8 % (37-47); MEAN CORPUSCULAR HGB 19.9 PG (27.0-31.0); MEAN CORPUSCULAR HGB CONC 31.3 G/DL (33.0-37.0); MEAN CORPUSCULAR VOLUME 63.6 FL (81.0-99.0); MEAN PLATELET VOLUME 9.5 FL (7.4-10.4); PLATELET COUNT 196 /CUMM (130-400); RBC DISTRIBUTION WIDTH 16.6 % (11.5-14.5)
[2017-08-12 14:00] LABS: PTT 29 SEC (25-37)
[2017-08-12 14:05] LABS: ABSOLUTE BASOPHIL COUNT 0 /CUMM (0.0-0.2); ABSOLUTE EOSINOPHIL COUNT 0 /CUMM (0.0-0.7); ABSOLUTE GRANULOCYTE CT 11.9 /CUMM (1.4-6.5); ABSOLUTE LYMPH COUNT 0.9 /CUMM (1.2-3.4); BASOPHIL % 0 % (0.0-2.0); EOSINOPHIL % 0.3 % (0-5); GRANULOCYTE % 85.8 % (42.2-75.2); WHITE BLOOD CELL COUNT 13.8 /CUMM (4.8-10.8)
--- NOTE | 2017-08-12 14:27 | RADIOLOGY REPORT ---
EXAMINATION: XR PORTABLE CHEST CLINICAL INFORMATION: 76-year-old female with trauma to the chest. COMPARISON: CT the chest on 05/01/2017. (Emphysema and chronic scarring with calcification left upper lobe). Chest x-ray on 04/29/2017. TECHNIQUE: Portable AP semierect view of the chest was obtained. FINDINGS: The ill-defined opacity in left upper lobe corresponds to the dense pleural calcification and calcified scar demonstrated on the recent CT exam. The heart is top normal in size considering the AP technique. Emphysematous alterations of both upper lobes results in redistribution of blood flow to the lower lobes. There is no evidence of consolidating pneumonia or pleural effusion. No dilatation of the proximal pulmonary arteries and main pulmonary artery is consistent with some degree of pulmonary hypertension. There is no rib fracture, pneumothorax, or hemothorax. IMPRESSION: No pneumonia. No contusion. No definite fractures.
[2017-08-12] MEDS ORDERED: PREDNISONE5 M1 PO (14:42)
[2017-08-12] MEDS ORDERED: AZITHROMYCIN250 M1 PO (14:44)
[2017-08-12] MEDS ORDERED: CIPROFLOXACIN250 M1 PO (14:44)
[2017-08-12] MEDS ORDERED: THEOPHYLLINE A200 MG PO ×2 (14:45→14:46)
--- NOTE | 2017-08-12 16:44 | CT SCAN REPORT ---
EXAMINATION: CT HEAD WITHOUT CONTRAST CT CERVICAL SPINE WITHOUT CONTRAST CLINICAL INFORMATION: Pain after fall. Head strike. COMPARISON: Head and cervical spine CT from 03/08/2014. TECHNIQUE: Contiguous axial imaging was performed from the skull base to vertex without intravenous administration of contrast. In addition, helical noncontrast CT imaging was acquired through the cervical spine and source images were reviewed along with axial reconstructions and sagittal and coronal MPRs. 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 There is been no change in the caliber of the ventricular system, and there is no transependymal migration of CSF.. No hemorrhage, edema, mass effect, hydrocephalus, extra-axial collection, or shift the normally midline structures. There is mild generalized prominence of the ventricles and sulci, stable. Minor hypoattenuation scattered within the bihemispheric white matter compatible with chronic microangiopathy, stable. No acute osseous abnormalities. The imaged paranasal sinuses, mastoid air cells and middle ear cavities are clear. CERVICAL SPINE: There is no evidence of acute fracture. There is 6 mm of anterolisthesis of C4 on C5, progressive from 4 mm on the prior. This appears on the basis of progressive, advanced facet hypertrophy. There is no evidence of abnormal density within or surrounding the canal at this level and there is no evidence of prevertebral soft tissue swelling. There is also been progressive degenerative change at C3-C4 where there is now near complete intervertebral disc height loss with vacuum phenomenon, endplate sclerosis and spurring which was not present on the prior study. Severe degenerative changes at C5-C6 and C6-C7 are more stable. There remains moderate canal stenosis at C3-C4, C5-C6 and C6-C7. There appears to be fairly high-grade canal stenosis at C4-C5. If there are symptoms of myelopathy, correlation with MRI is recommended. As above there is no pre or paravertebral soft tissue abnormality identified. No adenopathy. No discrete thyroid lesions. There is a medialized right carotid creating an impression on the right pharyngeal wall. There are extensive emphysematous changes at the lung apices with mild biapical pleural-parenchymal scarring. IMPRESSION: 1. No acute intracranial pathology. 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 2. No convincing fracture or acute traumatic subluxation. There has been progressive anterolisthesis of C4 on C5, currently measuring 6 mm, appearing to be on the basis of progressive advanced facet hypertrophy. There is fairly pronounced canal stenosis at this level. If there are any symptoms of myelopathy, correlation with MRI of the cervical spine is recommended to assess the cord. There has been progressive degenerative change at C3-C4 with similar moderate canal stenosis.
--- NOTE | 2017-08-12 17:08 | RADIOLOGY REPORT ---
EXAMINATION: BILATERAL SHOULDERS. CLINICAL INFORMATION: Status post fall. COMPARISON: None TECHNIQUE: 3 views left shoulder and 3 views right shoulder. FINDINGS: LEFT SHOULDER: There is no visible fracture, dislocation or soft tissue abnormality. There is soft tissue calcification adjacent to greater tuberosity likely calcific bursitis. Small enthesophytes are seen along the lateral acromion and calcification superior AC joint laxity likely capsular calcification. RIGHT SHOULDER: No visible acute fracture, dislocation or subluxation seen. The soft tissues are normal. IMPRESSION: No visible acute fracture or dislocation in either shoulder joints. There is calcific bursitis left shoulder. In addition mild arthritic changes with capsular calcification left AC joint is noted. The right shoulder joint appears unremarkable.
--- NOTE | 2017-08-12 17:14 | CT SCAN REPORT ---
EXAMINATIONS: CT PULMONARY EMBOLISM STUDY AND CT ABDOMEN AND PELVIS WITH CONTRAST CLINICAL INFORMATION: Ecchymosis. Trauma. Pain. Fall. Syncope. COMPARISON: Same day chest radiograph. Chest CT from April 2017. TECHNIQUE: Contiguous helical images of the chest were obtained following the administration of IV contrast. Multiplanar reconstructions were performed. MIPS were obtained and reviewed. Contiguous helical images of the abdomen and pelvis were obtained following the administration of IV contrast. Oral contrast was not administered. DLP: 619 mGy-cm. CONTRAST: 95 mL of Optiray 320 were demonstrated without incident. FINDINGS: The heart is of normal size. There is no pericardial effusion. The great vessels are unremarkable. Specifically, there is no pulmonary arterial filling defect. There is no CT evidence for pulmonary embolism. There are no chest wall masses. Review of lung windows demonstrates that there are neither pleural effusions nor pneumothoraces. There is emphysema. There is a stable calcified pleural plaque within the anterior upper left hemithorax. Within the right upper lobe on image 73/462, there is a 3 mm nodular density. Also within the right upper lobe on image 95, there is a 4 mm nodular density. Within the right lower lobe on image 168, there is a semisolid nodular density identified, more prominent than on the prior exam measuring approximately 6 mm. Within the lateral segment right middle lobe on image 259, there is a stable 5 mm nodule. Newly identified within the left upper lobe is a irregular shaped 3.7 cm opacity. The liver is of normal size and attenuation without focal lesions nor intrahepatic biliary ductal dilation. A normal gallbladder is identified. There is no wall thickening or discernible pericholecystic fluid. The spleen, pancreas, adrenal glands are unremarkable. Both kidneys are of normal size and attenuation without hydronephrosis or nephrolithiasis. Following the administration of IV contrast, prompt symmetric nephrograms are displayed. There is no abdominal free fluid. There is neither mesenteric nor retroperitoneal lymphadenopathy. Normal unopacified loops of small and large bowel are identified. There are several calcified fibroids present. There is no pelvic free fluid. The urinary bladder is unremarkable. There is neither pelvic nor inguinal lymphadenopathy. There is multilevel disc height loss within the lumbar spine. IMPRESSION: No CT evidence for pulmonary embolism. Emphysema. Multiple subcentimeter pulmonary nodules and nodular densities. New demonstration of 3.7 cm wedge-shaped opacity within the left upper lobe. There is a broad differential diagnosis for this appearance including infarction (though none is seen at this time), pneumonia and mass lesion. A follow-up chest CT is warranted to assure resolution of this appearance following treatment and/or resolution of symptoms.
--- NOTE | 2017-08-12 20:37 | History & Physical ---
See Addendum General Information and HPI MD Statement: I have seen and personally examined KEVIN IQBAL and documented this H&P. The patient is a 76 year old F who presented with a patient stated chief complaint of [Syncope]. 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 Patient was recently at our emergency department for altered mental status and hypoglycemia, she was also having generalized fatigue at that time, she was discharged from the emergency department to [facility], patient reports that since she was at [facility] she wasn't feeling good she had her medications missed up including her Lasix dose and her antibiotic for UTI, after she left the [facility] she was using a walker to walk, with physical therapy visiting at home, her physical therapy course was finished at early June, she was doing fine after arteaga and able to ambulate without a walker, in the last 2 weeks she feels unsteady in her gait, she had to hold on things to walk so, she started to use the walker again. however she mentioned that over the last 3 months she at least fell one time, this month she fell twice, the last fall was last Thursday, she was at the bathroom when she finished, she tried to get up she fell forward, hit her face to the floor with brief loss of consciousness for seconds, she denies any palpitation, diaphoresis, vision changes, headache before the fall " it happened so quickly and I couldn't notice any symptoms", she didn't seek medical advice on Thursday because she is tired from being in hospital and she thought she will do well. Patient reports that over the last 2 weeks she sleeps a lot, she is all the time on her bed feeling tired, she had decreased appetite, "she used to cook at home"but in the last 2 weeks she was not able to do that, she reports that she lost weight, at [facility] her weight was 120's, last [facility] at [facility] which she followed for CHF and lung function"her weight was 114 "BUT THAT COULD BE RELATED TO LASIX ", patient denies any bleeding, no black stool. 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 Patient also reports burning sensation, funny smelling of the urine, she thinks that her urine infection is not cleared since she was on [place], she usually has frequency secondary to the Lasix. She denies any chest pain, palpitation, fever, chills, ear pain, sore throat, and there is no change in bowel habits. The only recent change in her medication as ciprofloxacin for UTI, and azithromycin was added. Offnote: As mentioned above, patient had history of GI bleed 2 years ago at that time she received about 10 units of blood transfusion, an extensive workup was done which include pillcam, with no clear source of bleeding, per patient she supposed to get colectomy!? or other kind of procedure that will endup with ileostomy bag BUT she refused. Allergies/Medications Allergies: Coded Allergies: rivaroxaban (From XARELTO) (Severe, RECTAL BLEEDING? 04/29/17) heparin (Severe, BLEEDING 04/29/17) naproxen (Severe, GI BLEED 04/29/17) aspirin (Intermediate, BLEEDING 04/29/17) ibuprofen (Intermediate, STOMACH ULCERS 04/29/17) morphine (Intermediate, DROP IN BP 04/29/17) Home Med list Albuterol Sulfate (Proair Hfa) 90 MCG HFA.AER.AD 2 PUF INH Q4-6 PRN PRN RESP. (Reported) Azithromycin 250 MG TABLET 1 DP PO DAILY ANTIBIOTIC, INFECTION (Reported) 2 the first day followed by 1 for days 2-5 Budesonide/Formoterol Fumarate (Symbicort 160-4.5 Mcg Inhaler) 160 MCG-4.5 MCG/ ACTUATION HFA.AER.AD 2 PUF INH BID RESPIRATORY (Reported) Calcium Carbonate/Vitamin D3 (Calcium 600 + Vit D 200 Tablet) (Unknown Strength) TABLET (Unknown Dose) PO DAILY SUPPLEMENT (Reported) Cholecalciferol (Vitamin D3) (Vitamin D3) 2,000 UNIT CAPSULE 1 CAP PO DAILY SUPPLEMENT (Reported) Ciprofloxacin HCl 250 MG TABLET 1 TAB PO BID ANTIBIOTIC, INFECTION (Reported) Cyanocobalamin (Vitamin B-12) (Vitamin B-12) 100 MCG TABLET 1 TAB PO DAILY SUPPLEMENT (Reported) Diltiazem HCl (Diltiazem 24HR ER) 180 MG CAP.ER.24H 1 CAP PO DAILY HEART/BP ( Reported) Folic Acid 1 MG TABLET 1 TAB PO DAILY SUPPLEMENT (Reported) Furosemide 20 MG TABLET 1 TAB PO DAILY CHF Insulin Detemir (Levemir Flextouch) 100 UNIT/ML (3 ML) INSULN.PEN 8 UNITS SC BID DM (Reported) Levothyroxine Sodium 112 MCG TABLET 1 TAB PO DAILY THYROID (Reported) Magnesium Oxide 400 MG TABLET 1 TAB PO DAILY SUPPLEMENT (Reported) Omeprazole 20 MG CAPSULE.DR 1 CAP PO DAILY GI (Reported) Potassium Chloride (Klor-Con 10) 10 MEQ TABLET.ER 2 TAB PO BID SUPPLEMENT ( Reported) Prednisone 5 MG TABLET 3 TAB PO DAILY COPD (Reported) Sertraline HCl 50 MG TABLET 1 TAB PO QHS MENTAL HEALTH (Reported) Theophylline Anhydrous 200 MG TAB.ER.12H 2 CAP PO Q48 BREATHING PROBLEMS ( Reported) Theophylline Anhydrous 200 MG TAB.ER.12H 1 TAB PO Q48 BREATHING PROBLEMS ( Reported) Tiotropium Umpire (Spiriva) 18 MCG CAP.W.DEV 1 CAP INH DAILY RESPIRATORY ( Reported) Compliance With Home Meds: GOOD Past History Travel History Traveled to [place] past 21 day No Medical History Neurological: NONE EENT: epistaxis Cardiovascular: CHF, hypertension Respiratory: COPD, LUNG CA Gastrointestinal: lower GI bleed Hepatic: NONE Renal: NONE Musculoskeletal: NONE Psychiatric: NONE Endocrine: diabetes, hypothyroidism Blood Disorders: anemia 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 FHx: kidney cancer BROTHER (multiple myleoma). Psychosocial History Who Do You Live With? spouse Services at Home: Nursing, Oxygen Functional Ability ADLs Independent: dressing, eating, toileting, bathing. Ambulation: independent IADLs Independent: shopping, housework, finances, food prep, telephone, transportation , medication admin. Review of Systems Review of Systems Constitutional: Reports: malaise. EENTM: Reports: no symptoms. Cardiovascular: Reports: no symptoms. Respiratory: Reports: no symptoms. GI: Reports: no symptoms. Genitourinary: Reports: dysuria, frequency. Musculoskeletal: Reports: joint pain, muscle pain, neck pain. Skin: Reports: change in skin color (Bruise). Neurological/Psychological: Reports: weakness. Hematologic/Endocrine: Reports: bruising. Immunologic/Allergic: Reports: no symptoms. All Other Systems: Reviewed and Negative Exam & Diagnostic Data Last 24 Hrs of Vital Signs/I&O Vital Signs Date Time Temp Pulse Resp B/P B/P Pulse O2 O2 Flow FiO2 Mean Ox Delivery Rate 08/12 1929 80 20 107/58 95 Nasal 3.0L Cannula 08/12 1741 97.9 82 18 94/63 92 Nasal 3.0L Cannula 08/12 1637 98.4 78 18 115/55 99 08/12 1335 74 115/59 08/12 1314 95.6 74 18 98 Nasal 2.0L Cannula 08/12 1312 96 Nasal 2.0L Cannula Intake & Output 08/12 1600 08/12 0800 08/12 0000 Intake Total Output Total Balance Patient 110 lb Weight Weight Reported by Patient Measurement Method Physical Exam General Appearance Alert, Oriented X3, Cooperative, No Acute Distress Skin No Rashes, No Breakdown, LARGE PAINLESS EARLY PURPLE BRUISE ON THE LOWER ABDOMEN EXTENDING TO THE BACK, BRUISE ON THE EPIGASTRIC REGION ATTRIBUTED TO INSULIN INJECTION, BRUISE ON THE RIGHT PERIORBITAL REGION Skin Temp/Moisture Exam: Warm/Dry HEENT PERRLA, EOMI, DRY MUCOUS MEMBRANE Neck Supple, No JVD, No thryomegaly Lymphatic Axillary nl, Cervical nl Cardiovascular Regular Rate, Normal S1, Normal S2, No Murmurs Lungs DECRAESE AIR ENTRY B/L Abdomen Normal Bowel Sounds, Soft, CVA TENDERNESS ON THE RIGHT, Neurological Normal Speech, Strength at 5/5 X4 Ext, Normal Tone, Sensation Intact Extremities No Edema, Normal Pulses Vascular Normal Pulses, Pulses Symmetrical Last 24 Hrs of Labs/Rayo: Laboratory Tests 08/12/17 1520: Urinalysis LIGHT H, Urine Color YEL, Urine Clarity CLDY H, Urine pH 7.5, Ur Specific [place] 1.010, Urine Protein NEG, Urine Ketones NEG, Urine Nitrite NEG, Urine Bilirubin NEG, Urine Urobilinogen 0.2, Ur Leukocyte Esterase MOD H, Ur Microscopic SEDIMENT EXAMINED, Urine WBC 5-10 H, Ur Epithelial Cells FEW, Urine Bacteria MANY H, Urine Hemoglobin NEG, Urine Glucose NEG 08/12/17 1333: Anion Gap 10, Estimated GFR 44 L, BUN/Creatinine Ratio 27.5 H, Glucose 55 L, Calcium 9.8, Total Bilirubin 0.8, AST 22, ALT 20, Alkaline Phosphatase 64, Troponin I 0.02, Total Protein 5.6 L, Albumin 3.4 L, Globulin 2.2, Albumin/ Globulin Ratio 1.5, PT 11.0, INR 1.05, APTT 29, CBC w Diff NO MAN DIFF REQ, RBC 3.90 L, MCV 63.6 L, MCH 19.9 L, MCHC 31.3 L, RDW 16.6 H, MPV 9.5, Gran % 85.8 H, Lymphocytes % 6.6 L, Monocytes % 7.3, Eosinophils % 0.3, Basophils % 0 , Absolute Granulocytes 11.9 H, Absolute Lymphocytes 0.9 L, Absolute Monocytes 1.0 H, Absolute Eosinophils 0, Absolute Basophils 0 Diagnostic Data EKG Results Sinus rhythm, rate 71, QTC 457 There is right bundle branch block, incomplete left axis diffusion, T-wave inversion on the inferior lead CXR Results No acute abnormality identified Other Results shoulder x-ray: IMPRESSION: No visible acute fracture or dislocation in either shoulder joints. There is calcific bursitis left shoulder. In addition mild arthritic changes with capsular calcification left AC joint is noted. The right shoulder joint appears unremarkable. CT Abdomen/pelvis, and chest CTA as the following: IMPRESSION: No CT evidence for pulmonary embolism. Emphysema. Multiple subcentimeter pulmonary nodules and nodular densities. New demonstration of 3.7 cm wedge-shaped opacity within the left upper lobe. There is a broad differential diagnosis for this appearance including infarction (though none is seen at this time), pneumonia and mass lesion. A follow-up chest CT is warranted to assure resolution of this appearance following treatment and/or resolution of symptoms. HEAD CT, cervical spine CT: IMPRESSION: 1. No acute intracranial pathology. 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 2. No convincing fracture or acute traumatic subluxation. There has been progressive anterolisthesis of C4 on C5, currently measuring 6 mm, appearing to be on the basis of progressive advanced facet hypertrophy. There is fairly pronounced canal stenosis at this level. If there are any symptoms of myelopathy, correlation with MRI of the cervical spine is recommended to assess the cord. There has been progressive degenerative change at C3-C4 with similar moderate canal stenosis. 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 Vitals, examination, labs, and imaging as above Assessment: #Syncopal episode #Symptomatic anemia #Frequent falls/unsteady gait #Hypoglycemia #UTI #Hypokalemia #History of COPD #History of diastolic dysfunction/right ventricular failure/pulmonary hypertension #History of GI bleed Plan: * We'll admit the patient to telemetry floor * exercise planner for any arrhythmia * Fall precautions * Check orthostatics * We'll repeat CBC at a.m., will order type and screen * Accu-Chek, insulin sliding scale, will start Levemir from tomorrow * We'll hydrate with IV normal saline * Urine culture * IV ceftriaxone * Check Guaiac * TRC evaluation/Nebs * Will repeat troponin and EKG now * We'll replete potassium * Vitals every shift * PT evaluation * We'll continue home medications except for Lasix * We'll repeat BEP at a.m. * Pain management pathway DVT prophylaxis with Alps She is a full code Above discussed with attending As Ranked By This Provider Problem List: 1. Hypoglycemia 2. Dehydration 3. Symptomatic anemia 4. Frequent falls 5. Weakness Core Measures/Misc (03/01) Acute Coronary Syndrome ACS Diagnosis: No Congestive Heart Failure Congestive Heart Failure Diagnosis No Cerebrovascular Accident CVA/TIA Diagnosis: No VTE (View Protocol) VTE Risk Factors Acute Medical Illness No Mechanical VTE Prophylaxis d/t N/A MechProphylax Ordered No VTE Pharm Prophylaxis d/t Other Sepsis (View protocol) Sepsis Present: No
[2017-08-13 05:57] VITALS: BP 107/56
[2017-08-13 06:16] LABS: ABSOLUTE BASOPHIL COUNT 0 /CUMM (0.0-0.2); ABSOLUTE EOSINOPHIL COUNT 0.1 /CUMM (0.0-0.7); ABSOLUTE GRANULOCYTE CT 7.8 /CUMM (1.4-6.5); ABSOLUTE LYMPH COUNT 1.2 /CUMM (1.2-3.4); ABSOLUTE MONOCYTE COUNT 0.3 /CUMM (0.10-0.60); BASOPHIL % 0 % (0.0-2.0); EOSINOPHIL % 0.7 % (0-5); GRANULOCYTE % 82.8 % (42.2-75.2); HEMATOCRIT 22.7 % (37-47); MEAN CORPUSCULAR HGB CONC 31.3 G/DL (33.0-37.0); MEAN PLATELET VOLUME 9.3 FL (7.4-10.4); PLATELET COUNT 171 /CUMM (130-400); RBC DISTRIBUTION WIDTH 16.7 % (11.5-14.5); RED BLOOD CELL CT 3.54 /CUMM (4.20-5.40); WHITE BLOOD CELL COUNT 9.4 /CUMM (4.8-10.8)
--- NOTE | 2017-08-13 08:07 | PN- Housestaff ---
See Addendum Subjective Follow-up For: Syncopal episode Symptomatic anemia Subjective: Patient resting comfortably, states she has bruises all over her abdomen and back which she was unaware of until the nurse in ER mentioned it to her. Also reports shoulder pain after the fall. Review of Systems Constitutional: Reports: no symptoms. EENTM: Reports: no symptoms. Cardiovascular: Reports: no symptoms. Respiratory: Reports: no symptoms. Gastrointestinal: Reports: no symptoms. Genitourinary: Reports: no symptoms. Musculoskeletal: Reports: joint pain. Skin: Reports: see HPI. Neurological/Psychological: Reports: no symptoms. Hematologic/Endocrine: Reports: no symptoms. Immunologic/Allergic: Reports: no symptoms. Objective Last 24 Hrs of Vital Signs/I&O Vital Signs Date Time Temp Pulse Resp B/P B/P Pulse O2 O2 Flow FiO2 Mean Ox Delivery Rate 08/13 1256 98.2 83 20 113/55 93 Room Air 08/13 0819 98.0 76 18 109/59 97 Nasal 4.0L Cannula 08/13 0810 96 Nasal 2.0L Cannula 08/13 0557 97.9 75 18 107/56 94 Nasal 4.0L Cannula 08/13 0550 97.9 75 18 107/56 94 Nasal 4.0L Cannula 08/13 0251 Room Air 08/12 2210 75 20 113/56 96 Nasal 4.0L Cannula 08/12 1929 80 20 107/58 95 Nasal 3.0L Cannula 08/12 1741 97.9 82 18 94/63 92 Nasal 3.0L Cannula 08/12 1637 98.4 78 18 115/55 99 Intake & Output 08/13 1600 08/13 0800 08/13 0000 Intake Total Output Total 250 500 Balance -250 -500 Output, Urine 250 500 Patient 110 lb Weight Physical Exam General Appearance: Alert, Oriented X3, Cooperative Skin: No Rashes, No Breakdown, Ecchymosis all over the lower abdomen and back. Cardiovascular: Regular Rate, Normal S1, Normal S2 Lungs: decreased breath sounds Abdomen: Normal Bowel Sounds, Soft, No Tenderness Extremities: No Clubbing, No Cyanosis, No Edema Current Medications: Current Medications Sig/Vero Start time Last Medication Dose Route Stop Time Status Admin Acetaminophen 650 MG Q6P PRN 08/12 2029 AC PO Acetaminophen 1,000 MG Q6P PRN 02/28 2030 AC IV Albuterol Sulfate 2 PUF Q4-6 PRN PRN 08/12 2230 AC INH Budesonide/ 2 PUF BID 08/13 1000 AC 08/13 Formoterol Fumarate INH 1010 Ceftriaxone Sodium 0 .STK-MED ONE 08/12 1903 DC .ROUTE Ceftriaxone Sodium 1,000 MG ONCE ONE 08/12 1845 DC 08/12 IV 08/12 1846 1929 Cholecalciferol 1,000 IU DAILY 08/13 1000 AC 08/13 PO 1010 Cyanocobalamin 1,000 MCG DAILY 08/13 1000 AC 08/13 PO 1010 Diltiazem HCl 180 MG DAILY 08/13 1000 AC 08/13 PO 1010 Folic Acid 1 MG DAILY 08/13 1000 AC 08/13 PO 1010 Insulin Detemir 8 UNITS BID 08/13 1000 AC 08/13 SC 1045 Levothyroxine Sodium 0.112 MG DAILY AC 08/13 0700 AC 08/13 PO 0658 Magnesium Oxide 400 MG DAILY 08/13 1000 AC 08/13 PO 1010 Omeprazole 20 MG DAILY 08/13 1000 AC 08/13 PO 1010 Potassium Chloride 20 MEQ BID 08/13 1000 AC 08/13 PO 1010 Potassium Chloride 80 MEQ ONCE ONE 08/13 0800 CAN PO 08/13 0801 Potassium Chloride 0 .STK-MED ONE 08/13 0649 DC PO Potassium Chloride 10 MEQ Q1H 08/13 0645 DC 08/13 IV 08/13 0746 0902 Potassium Chloride 80 MEQ ONCE ONE 08/13 0645 DC 08/13 PO 08/13 0646 0658 Potassium Chloride 10 MEQ Q1H 08/12 2215 DC 08/13 IV 08/12 2316 0002 Sertraline HCl 50 MG 2200 08/13 2200 AC PO Sodium Chloride 1,000 ML Q13H 08/12 2045 AC 08/13 IV 0902 Sodium Chloride 1,000 ML BOLUS ONE 08/12 1845 CAN IV 08/12 2044 Sodium Chloride 1,000 ML BOLUS ONE 08/12 1500 DC 08/12 IV 08/12 1659 1612 Theophylline 200 MG Q48 08/14 1000 AC PO Tiotropium [place] 1 PUF DAILY 08/13 1000 AC 08/13 INH 1010 Tramadol HCl 0 .STK-MED ONE 08/13 1104 DC PO Tramadol HCl 50 MG ONCE ONE 08/13 1100 DC 08/13 PO 08/13 1101 1112 Last 24 Hrs of Lab/Rayo Results Last 24 Hrs of Labs/Mics: Laboratory Tests 08/13/17 1253: CBC w Diff MAN DIFF ORDERED, RBC 3.62 L, MCV 63.4 L, MCH 19.6 L, MCHC 30.9 L , RDW 16.6 H, MPV 9.3, Segmented Neutrophils 93 H, Lymphocytes 3 L, Monocytes 2, Eosinophils 2, Platelet Estimate ADEQUATE, Polychromasia 1+, Hypochromic- Microcytic 3+, Poikilocytosis 2+, Basophilic Stippling , Anisocytosis 2+, Microcytic Cells 3+, Ovalocytes 1+, Schistocytes 1+ 08/13/17 1237: 08/13/17 0547: Anion Gap 8, Estimated GFR 44 L, BUN/Creatinine Ratio 21.7, CBC w Diff MAN DIFF ORDERED, RBC 3.54 L, MCV 64.0 L, MCH 20.0 L, MCHC 31.3 L, RDW 16.7 H, MPV 9.3, Gran % 82.8 H, Lymphocytes % 13.3 L, Monocytes % 3.2, Eosinophils % 0.7, Basophils % 0, Absolute Granulocytes 7.8 H, Segmented Neutrophils 78 H, Absolute Lymphocytes 1.2, Lymphocytes 12 L, Monocytes 7, Absolute Monocytes 0.3 , Eosinophils 2, Absolute Eosinophils 0.1, Basophils 1, Absolute Basophils 0, Platelet Estimate ADEQUATE, Normocytic RBCs VERIFIED, Normochromic RBCs VERIFIED 08/12/17 2215: Troponin I 0.03 08/12/17 1520: Urinalysis LIGHT H, Urine Color YEL, Urine Clarity CLDY H, Urine pH 7.5, Ur Specific [place] 1.010, Urine Protein NEG, Urine Ketones NEG, Urine Nitrite NEG, Urine Bilirubin NEG, Urine Urobilinogen 0.2, Ur Leukocyte Esterase MOD H, Ur Microscopic SEDIMENT EXAMINED, Urine WBC 5-10 H, Ur Epithelial Cells FEW, Urine Bacteria MANY H, Urine Hemoglobin NEG, Urine Glucose NEG Microbiology 08/13 0208 URINE ROUT: Urine Culture - RECD Assessment/Plan Assessment: Patient is a 76 YO F with PMH significant for 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 Problem list; #Syncopal episode #Symptomatic anemia #Frequent falls/unsteady gait #Hypoglycemia #UTI #Hypokalemia Plan: - Hemoglobin dropped down from 7.8 to 7.1 this morning. Repeat H&H at noon remains the same. Will transfuse 1 unot of PRBC. - Stool Guaiac - Continue gentle IV fluids. - Potassium repleted, repeat BEP in am. - Continue ceftriaxone for UTI. - Urine culture pending. - Accu-Chek, insulin sliding scale, will start Levemir from tomorrow - PT evaluation; Pending - We'll continue home medications except for Lasix DVT prophylaxis with Alps only given symptomatic anemia Patient is full code Problem List: 1. Symptomatic anemia 2. Hypoglycemia 3. Frequent falls Pain Ratin Pain Location: Shoulder Pain Goal: Remain pain free Pain Plan: Pain pathway Tomorrow's Labs & Rationales: CBC(Anemia),BEP
[2017-08-13 13:02] LABS: MEAN CORPUSCULAR HGB 19.6 PG (27.0-31.0); MEAN CORPUSCULAR HGB CONC 30.9 G/DL (33.0-37.0); MEAN CORPUSCULAR VOLUME 63.4 FL (81.0-99.0); MEAN PLATELET VOLUME 9.3 FL (7.4-10.4); PLATELET COUNT 169 /CUMM (130-400); RBC DISTRIBUTION WIDTH 16.6 % (11.5-14.5); RED BLOOD CELL CT 3.62 /CUMM (4.20-5.40); WHITE BLOOD CELL COUNT 10.2 /CUMM (4.8-10.8)
--- NOTE | 2017-08-13 13:30 | ECHOCARDIOGRAM REPORT ---
KEVIN IQBAL Age: 76 : 1940 Gender: F Exam Date: 08/13/2017 10:16 Exam Location: ER Ht (in): 61 Wt (lb): 110 BSA: 1.47 BP: 107 / 56 Ordering Physician: Renan Elmore MD Referring Physician: Renan Elmore MD Technologist: Fdiencio Bee ROXANN Room Number: 5 Indications: PRESYNCOPE/SYNCOPE Rhythm: Sinus Technical Quality: fair FINDINGS Left Ventricle Normal global left ventricular size, wall thickness, systolic function with no obvious regional wall motion abnormalities. Normal left ventricular ejection fraction estimated at 60-65%. Right Ventricle Mild right ventricular dilatation. Mildly reduced right ventricular global systolic function. Right Atrium Mild right atrial dilatation. Left Atrium Normal left atrial size. Mitral Valve Structurally normal mitral valve. Trace to mild mitral regurgitation. Aortic Valve Aortic valve is normal in structure and function. Tricuspid Valve Tricuspid valve is normal in structure and function. Moderate tricuspid regurgitation. Right ventricular systolic pressure estimated to be elevated at greater than 60 mmHg. Pulmonic Valve Pulmonic valve not well visualized, grossly normal. Pericardium No pericardial effusion. Great Vessels Normal size aortic root. CONCLUSIONS Normal left ventricular systolic function. Dilated Right Ventricle and right atrium with severe Pulmonary hypertension. Feliberto Oliver M.D. (Electronically Signed) Final Date: 13 August 2017 13:30 MEASUREMENTS (Male / Female) Normal Values 2D ECHO LV Diastolic Diameter PLAX 4.1 cm 4.2 - 5.9 / 3.9 - 5.3 cm LV Systolic Diameter PLAX 2.2 cm 2.1 - 4.0 cm LV Fractional Shortening PLAX 46.3 % 25 - 46 % LV Ejection Fraction 2D Teich 78.2 % IVS Diastolic Thickness 1.0 cm LVPW Diastolic Thickness 0.8 cm LV Relative Wall Thickness 0.4 RV Internal Dim ED PLAX 3.5 cm 1.9 - 3.8 cm LVOT Diameter 1.9 cm Aortic Root Diameter 3.0 cm LA Systolic Diameter LX 2.5 cm 3.0 - 4.0 / 2.7 - 3.8 cm LA Volume 25.0 cm 18 - 58 / 22 - 52 cm Ascending Aorta Diameter 3.2 cm DOPPLER AV Peak Velocity 141.0 cm/s AV Peak Gradient 8.0 mmHg AV Mean Velocity 94.9 cm/s AV Mean Gradient 4.0 mmHg AV Velocity Time Integral 27.9 cm LVOT Peak Velocity 83.7 cm/s LVOT Peak Gradient 2.8 mmHg LVOT Mean Velocity 57.0 cm/s LVOT Mean Gradient 2.0 mmHg LVOT Velocity Time Integral 19.4 cm LVOT Stroke Volume 55.0 cm AV Area Cont Eq vti 2.0 cm AV Area Cont Eq pk 1.7 cm MV Peak Velocity 137.0 cm/s MV Peak Gradient 7.5 mmHg MV Mean Velocity 89.8 cm/s MV Mean Gradient 4.0 mmHg Mitral E Point Velocity 104.0 cm/s Mitral A Point Velocity 122.0 cm/s Mitral E to A Ratio 0.9 MV PHT Velocity 116.0 cm/s MV Deceleration [place] 402.0 cm/s MV Pressure Half Time 86.6 ms MV Area PHT 2.5 cm MV Deceleration Time 194.0 ms TR Peak Velocity 453.0 cm/s TR Peak Gradient 82.1 mmHg Right Atrial Pressure 5.0 mmHg Pulmonary Artery Systolic Pressu 87.1 mmHg Right Ventricular Systolic Press 87.1 mmHg PV Peak Velocity 76.1 cm/s PV Peak Gradient 2.3 mmHg PV Mean Velocity 53.8 cm/s PV Mean Gradient 1.0 mmHg PV Velocity Time Integral 15.4 cm LV E' Lateral Velocity 15.9 cm/s Mitral E to LV E' Lateral Ratio 6.5 LV E' Septal Velocity 4.7 cm/s Mitral E to LV E' Septal Ratio 22.2
[2017-08-13 16:09] VITALS: BP 92/50
[2017-08-13 22:21] VITALS: BP 96/54
[2017-08-13 23:46] LABS: ABSOLUTE BASOPHIL COUNT 0 /CUMM (0.0-0.2); ABSOLUTE EOSINOPHIL COUNT 0.1 /CUMM (0.0-0.7); ABSOLUTE GRANULOCYTE CT 9.6 /CUMM (1.4-6.5); ABSOLUTE LYMPH COUNT 0.8 /CUMM (1.2-3.4); ABSOLUTE MONOCYTE COUNT 0.7 /CUMM (0.10-0.60); BASOPHIL % 0 % (0.0-2.0); HEMATOCRIT 27.9 % (37-47); MEAN CORPUSCULAR HGB 20.6 PG (27.0-31.0); MEAN CORPUSCULAR HGB CONC 30.4 G/DL (33.0-37.0); MEAN PLATELET VOLUME 9.4 FL (7.4-10.4); PLATELET COUNT 177 /CUMM (130-400); RBC DISTRIBUTION WIDTH 20.5 % (11.5-14.5); RED BLOOD CELL CT 4.13 /CUMM (4.20-5.40); WHITE BLOOD CELL COUNT 11.1 /CUMM (4.8-10.8)
[2017-08-13 23:51] LABS: MEAN CORPUSCULAR VOLUME 67.5 FL (81.0-99.0)
[2017-08-14 06:00] VITALS: BP 92/54
--- NOTE | 2017-08-14 06:15 | RADIOLOGY REPORT ---
EXAMINATION: XR PORTABLE CHEST CLINICAL INFORMATION: Shortness of breath COMPARISON: 08/12/2017 TECHNIQUE: Portable frontal view of the chest was obtained. FINDINGS: Cardiac leads overlie the chest. The lungs are well expanded. There is a small left pleural effusion which is new from prior. Minimal streaky basilar opacities. No pneumothorax. The cardiomediastinal silhouette is unchanged, with a calcified aorta. IMPRESSION: There is a new small left pleural effusion. Streaky bibasilar atelectasis.
--- NOTE | 2017-08-14 07:29 | PN- Housestaff ---
Subjective Follow-up For: Syncopal episode Symptomatic anemia Tele-Events Since Last Visit: Normal sinus rhythm Heart rate 68-83. Subjective: Patient is very lethargic and sleepy this am. States mild exertion, even going to the bathroom this am, makes her very tired. Review of Systems Constitutional: Reports: malaise. EENTM: Reports: no symptoms. Cardiovascular: Reports: no symptoms. Respiratory: Reports: no symptoms. Gastrointestinal: Reports: no symptoms. Genitourinary: Reports: no symptoms. Musculoskeletal: Reports: joint pain. Skin: Reports: no symptoms. Neurological/Psychological: Reports: no symptoms. Hematologic/Endocrine: Reports: no symptoms. Immunologic/Allergic: Reports: no symptoms. Objective Last 24 Hrs of Vital Signs/I&O Vital Signs Date Time Temp Pulse Resp B/P B/P Pulse O2 O2 Flow FiO2 Mean Ox Delivery Rate 08/14 1000 74/40 08/14 0600 98.7 72 18 92/54 92 Nasal 4.0L Cannula 08/14 0329 95 Nasal 6.0L Cannula 08/13 2221 98.7 83 20 96/54 93 Nasal Cannula 08/13 2057 Nasal 3.5L Cannula 08/13 2000 96 Nasal 4.5L Cannula 08/13 1609 98.7 77 20 92/50 93 Nasal Cannula 08/13 1602 Nasal 4.0L Cannula 08/13 1500 97.4 85 18 95/51 94 Nasal 4.0L Cannula 08/13 1450 97.6 84 18 94/51 92 Nasal 4.0L Cannula 08/13 1256 98.2 83 20 113/55 93 Room Air 08/13 1200 Nasal 4.0L Cannula Intake & Output 08/14 1600 08/14 0800 08/14 0000 Intake Total 525 150 Output Total 50 Balance 525 100 Intake, IV 525 150 Number 1 Bowel Movements Output, Urine 50 Patient 110 lb Weight Physical Exam General Appearance: Alert, Oriented X3, Cooperative Skin: No Rashes, No Breakdown Cardiovascular: Regular Rate, Normal S1, Normal S2 Lungs: decreased breath sounds Abdomen: Normal Bowel Sounds, Soft, No Tenderness, bruises all over the lower abdomen extending down the buttocks and all over her back Extremities: No Clubbing, No Cyanosis, No Edema Current Medications: Current Medications Sig/Vero Start time Last Medication Dose Route Stop Time Status Admin Acetaminophen 650 MG Q6P PRN 02/28 2030 AC PO Acetaminophen 1,000 MG Q6P PRN 08/12 2030 AC IV Albuterol Sulfate 3 ML BID 08/13 2200 AC 08/14 INH 1032 Albuterol Sulfate 2 PUF Q4-6 PRN PRN 08/12 2230 AC INH Budesonide/ 2 PUF BID 08/13 1000 AC 08/14 Formoterol Fumarate INH 0958 Ceftriaxone Sodium 1,000 MG 1900 08/13 1900 AC 08/13 IV 1836 Cholecalciferol 1,000 IU DAILY 08/13 1000 AC 08/14 PO 0956 Cyanocobalamin 1,000 MCG DAILY 08/13 1000 AC 08/14 PO 0956 Diltiazem HCl 180 MG DAILY 08/13 1000 AC 08/13 PO 1010 Folic Acid 1 MG DAILY 08/13 1000 AC 08/14 PO 0956 Insulin Detemir 8 UNITS BID 08/13 1000 AC 08/14 SC 0954 Levothyroxine Sodium 0.112 MG DAILY AC 08/13 0700 AC 08/14 PO 0509 Magnesium Oxide 400 MG DAILY 08/13 1000 AC 08/14 PO 0956 Omeprazole 20 MG DAILY 08/13 1000 AC 08/14 PO 0956 Polyethylene Glycol 17 GM DAILY 08/13 1656 AC 08/14 PO 0958 Potassium Chloride 20 MEQ BID 08/13 1000 AC 08/14 PO 0956 Prednisone 15 MG DAILY 08/14 1000 AC 08/14 PO 0956 Senna/Docusate Sodium 1 TAB BID PRN 08/13 1700 AC PO Sertraline HCl 50 MG 2200 08/13 2200 AC 08/13 PO 2042 Sodium Chloride 500 ML BOLUS ONE 08/14 1000 DC 08/14 IV 08/14 1059 1000 Sodium Chloride 2 SPRAY Q4P PRN 08/14 0145 AC TAMIE Sodium Chloride 500 ML BOLUS ONE 08/13 1630 DC 08/13 IV 08/13 1729 1804 Sodium Chloride 1,000 ML Q13H 08/12 2045 AC 08/13 IV 0902 Theophylline 400 MG Q48 08/15 1000 AC PO Theophylline 200 MG Q48 08/14 1000 AC 08/14 PO 0955 Tiotropium [place] 1 PUF DAILY 08/13 1000 AC 08/14 INH 0957 Tramadol HCl 25 MG Q4 HRS NEEDED PRN 08/13 1630 AC 08/14 PO 0119 Last 24 Hrs of Lab/Rayo Results Last 24 Hrs of Labs/Mics: Laboratory Tests 08/14/17 0614: Anion Gap 8, Estimated GFR 48 L, BUN/Creatinine Ratio 20.0, PT 10.7, INR 1.02, APTT 31, CBC w Diff NO MAN DIFF REQ, RBC 4.03 L, MCV 67.2 L, MCH 21.1 L, MCHC 31.4 L, RDW 19.2 H, MPV 9.5, Gran % 83.6 H, Lymphocytes % 8.9 L, Monocytes % 7.0, Eosinophils % 0.5, Basophils % 0, Absolute Granulocytes 9.8 H, Absolute Lymphocytes 1.0 L, Absolute Monocytes 0.8 H, Absolute Eosinophils 0.1, Absolute Basophils 0 08/13/17 2300: CBC w Diff NO MAN DIFF REQ, RBC 4.13 L, MCV 67.5 L, MCH 20.6 L, MCHC 30.4 L, RDW 20.5 H, MPV 9.4, Gran % 86.0 H, Lymphocytes % 7.0 L, Monocytes % 6.0, Eosinophils % 1.0, Basophils % 0, Absolute Granulocytes 9.6 H, Absolute Lymphocytes 0.8 L, Absolute Monocytes 0.7 H, Absolute Eosinophils 0.1, Absolute Basophils 0 08/13/17 1253: CBC w Diff MAN DIFF ORDERED, RBC 3.62 L, MCV 63.4 L, MCH 19.6 L, MCHC 30.9 L , RDW 16.6 H, MPV 9.3, Segmented Neutrophils 93 H, Lymphocytes 3 L, Monocytes 2, Eosinophils 2, Platelet Estimate ADEQUATE, Polychromasia 1+, Hypochromic- Microcytic 3+, Poikilocytosis 2+, Basophilic Stippling , Anisocytosis 2+, Microcytic Cells 3+, Ovalocytes 1+, Schistocytes 1+ 08/13/17 1237: Assessment/Plan Assessment: Patient is a 76 YO F with PMH significant for 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 Problem list; # Syncopal episode # Symptomatic anemia # Frequent falls/unsteady gait # ?? UTI # Severe Pulmonary Hypertension with End stage COPD # relative Cortisol deficiency Plan: -Patient was transfused 1 unit of PRBCs yesterday, repeat CBC this a.m. shows H& H of 7.8/27.1. Will continue to monitor. - Stool Guaiac - pending. patient deffered the stool guaiac on multiple occasions. - Blood pressure of 74/40, 500 mL of normal saline bolus given. Continue gentle IV fluids. - Patient is on prednisone 15mg daily at home, which was not given to her since her admisson to the hospital. Cortisol level was 10.7. Patient was given stress dose of steroid and started on a prednisone taper starting from 40mg daily. - Patient choked on her medication this morning, states she has experienced the same before at home as well. Swallow evaluation done, recommends continuing regular diet. Suggests GI Consult for dysphagia. - Cardiology consult; awaiting recommendations. - Potassium repleted. - Urine culture shows no growth after 1 day, Discontinue LAsix. - Accu-Chek, insulin sliding scale, and Levemir 8 units twice a day. - PT evaluation; Pending - We'll continue home medications except for Lasix. DVT prophylaxis with Alps only given symptomatic anemia Patient is full code Problem List: 1. Frequent falls 2. Symptomatic anemia 3. Syncope Pain Ratin Pain Location: Shoulder Pain Goal: Remain pain free Pain Plan: Pain Pathway Tomorrow's Labs & Rationales: CBC(Anemia)
[2017-08-14 08:02] LABS: ABSOLUTE BASOPHIL COUNT 0 /CUMM (0.0-0.2); ABSOLUTE EOSINOPHIL COUNT 0.1 /CUMM (0.0-0.7); ABSOLUTE GRANULOCYTE CT 9.8 /CUMM (1.4-6.5); ABSOLUTE MONOCYTE COUNT 0.8 /CUMM (0.10-0.60); BASOPHIL % 0 % (0.0-2.0); EOSINOPHIL % 0.5 % (0-5); HEMATOCRIT 27.1 % (37-47); MEAN CORPUSCULAR HGB 21.1 PG (27.0-31.0); MEAN CORPUSCULAR HGB CONC 31.4 G/DL (33.0-37.0); MEAN CORPUSCULAR VOLUME 67.2 FL (81.0-99.0); MEAN PLATELET VOLUME 9.5 FL (7.4-10.4); PLATELET COUNT 171 /CUMM (130-400); RBC DISTRIBUTION WIDTH 19.2 % (11.5-14.5); RED BLOOD CELL CT 4.03 /CUMM (4.20-5.40); WHITE BLOOD CELL COUNT 11.8 /CUMM (4.8-10.8)
[2017-08-14 08:29] LABS: PT 10.7 SEC (9.4-12.5); PTT 31 SEC (25-37)
[2017-08-14 09:21] LABS: GRANULOCYTE % 83.6 % (42.2-75.2)
[2017-08-14 10:00] VITALS: BP 74/40
--- NOTE | 2017-08-14 11:46 | Cons- Cardiology ---
General Information and HPI Consulting Request Date of Consult: 08/14/17 Requested By: Ronni CARBALLO,Rachid Mcgee Reason for Consult: Dyspnea, syncope Source of Information: patient, old records Exam Limitations: no limitations History of Present Illness: The patient is a 76-year-old woman with a past medical history of severe COPD and sees on home O2), severe pulmonary hypertension with RV dysfunction, diabetes mellitus, status post left upper lobe resection, prior GI bleed and documented congestive heart failure with preserved LV systolic function. She presents to our hospital with increasing dyspnea as well as possible syncopal episode. The patient states she arose from a seated position on the toilet approximately one week before arrival and had a syncopal episode with fall. Drum of chest pain nor palpitations noted. She denies a postictal state. She has had multiple such falls including other mechanical related falls. Presentation however, she states feeling severe increasing dyspnea as well. The patient has had multiple admissions to our hospital secondary to dyspnea, and is being followed in the outpatient CHF clinic for predominantly right sided failure. Allergies/Medications Allergies: Coded Allergies: rivaroxaban (From XARELTO) (Severe, RECTAL BLEEDING? 04/29/17) heparin (Severe, BLEEDING 04/29/17) naproxen (Severe, GI BLEED 04/29/17) aspirin (Intermediate, BLEEDING 04/29/17) ibuprofen (Intermediate, STOMACH ULCERS 04/29/17) morphine (Intermediate, DROP IN BP 04/29/17) Home Med List: Albuterol Sulfate (Proair Hfa) 90 MCG HFA.AER.AD 2 PUF INH Q4-6 PRN PRN RESP. (Reported) Azithromycin 250 MG TABLET 1 DP PO DAILY ANTIBIOTIC, INFECTION (Reported) 2 the first day followed by 1 for days 2-5 Budesonide/Formoterol Fumarate (Symbicort 160-4.5 Mcg Inhaler) 160 MCG-4.5 MCG/ ACTUATION HFA.AER.AD 2 PUF INH BID RESPIRATORY (Reported) Calcium Carbonate/Vitamin D3 (Calcium 600 + Vit D 200 Tablet) (Unknown Strength) TABLET (Unknown Dose) PO DAILY SUPPLEMENT (Reported) Cholecalciferol (Vitamin D3) (Vitamin D3) 2,000 UNIT CAPSULE 1 CAP PO DAILY SUPPLEMENT (Reported) Ciprofloxacin HCl 250 MG TABLET 1 TAB PO BID ANTIBIOTIC, INFECTION (Reported) Cyanocobalamin (Vitamin B-12) (Vitamin B-12) 100 MCG TABLET 1 TAB PO DAILY SUPPLEMENT (Reported) Diltiazem HCl (Diltiazem 24HR ER) 180 MG CAP.ER.24H 1 CAP PO DAILY HEART/BP ( Reported) Folic Acid 1 MG TABLET 1 TAB PO DAILY SUPPLEMENT (Reported) Furosemide 20 MG TABLET 1 TAB PO DAILY CHF Insulin Detemir (Levemir Flextouch) 100 UNIT/ML (3 ML) INSULN.PEN 8 UNITS SC BID DM (Reported) Levothyroxine Sodium 112 MCG TABLET 1 TAB PO DAILY THYROID (Reported) Magnesium Oxide 400 MG TABLET 1 TAB PO DAILY SUPPLEMENT (Reported) Omeprazole 20 MG CAPSULE.DR 1 CAP PO DAILY GI (Reported) Potassium Chloride (Klor-Con 10) 10 MEQ TABLET.ER 2 TAB PO BID SUPPLEMENT ( Reported) Prednisone 5 MG TABLET 3 TAB PO DAILY COPD (Reported) Sertraline HCl 50 MG TABLET 1 TAB PO QHS MENTAL HEALTH (Reported) Theophylline Anhydrous 200 MG TAB.ER.12H 2 CAP PO Q48 BREATHING PROBLEMS ( Reported) Theophylline Anhydrous 200 MG TAB.ER.12H 1 TAB PO Q48 BREATHING PROBLEMS ( Reported) Tiotropium [place] (Spiriva) 18 MCG CAP.W.DEV 1 CAP INH DAILY RESPIRATORY ( Reported) Current Medications: Current Medications Sig/Vero Start time Last Medication Dose Route Stop Time Status Admin Acetaminophen 650 MG Q6P PRN 08/12 2030 AC PO Acetaminophen 1,000 MG Q6P PRN 08/12 2030 AC IV Albuterol Sulfate 3 ML BID 08/13 2200 AC 08/14 INH 1032 Albuterol Sulfate 2 PUF Q4-6 PRN PRN 08/12 2230 AC INH Budesonide/ 2 PUF BID 08/13 1000 AC 08/14 Formoterol Fumarate INH 0958 Ceftriaxone Sodium 1,000 MG 1900 08/13 1900 AC 08/13 IV 1836 Cholecalciferol 1,000 IU DAILY 08/13 1000 AC 08/14 PO 0956 Cyanocobalamin 1,000 MCG DAILY 08/13 1000 AC 08/14 PO 0956 Diltiazem HCl 180 MG DAILY 08/13 1000 AC 08/13 PO 1010 Folic Acid 1 MG DAILY 08/13 1000 AC 08/14 PO 0956 Insulin Detemir 8 UNITS BID 08/13 1000 AC 08/14 SC 0954 Levothyroxine Sodium 0.112 MG DAILY AC 08/13 0700 AC 08/14 PO 0509 Magnesium Oxide 400 MG DAILY 08/13 1000 AC 08/14 PO 0956 Omeprazole 20 MG DAILY 08/13 1000 AC 08/14 PO 0956 Polyethylene Glycol 17 GM DAILY 08/13 1656 AC 08/14 PO 0958 Potassium Chloride 20 MEQ BID 08/13 1000 AC 08/14 PO 0956 Prednisone 15 MG DAILY 08/14 1000 AC 08/14 PO 0956 Senna/Docusate Sodium 1 TAB BID PRN 08/13 1700 AC PO Sertraline HCl 50 MG 2200 08/13 2200 AC 08/13 PO 2042 Sodium Chloride 500 ML BOLUS ONE 08/14 1000 DC 08/14 IV 08/14 1059 1000 Sodium Chloride 2 SPRAY Q4P PRN 08/14 0145 AC TAMIE Sodium Chloride 500 ML BOLUS ONE 08/13 1630 DC 08/13 IV 08/13 1729 1804 Sodium Chloride 1,000 ML Q13H 08/12 2045 AC 08/13 IV 0902 Theophylline 400 MG Q48 08/15 1000 AC PO Theophylline 200 MG Q48 08/14 1000 AC 08/14 PO 0955 Tiotropium [place] 1 PUF DAILY 08/13 1000 AC 08/14 INH 0957 Tramadol HCl 25 MG Q4 HRS NEEDED PRN 08/13 1630 AC 08/14 PO 0119 Review of Systems Review of Systems: The review of systems is negative for chest pains, palpitations nor lightheadedness. There has been multiple falls as well as syncopal episodes and dyspnea as above The remainder of the 14 point review of systems is noncontributory with the exception of above. 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 FHx: kidney cancer BROTHER (multiple myleoma). Psychosocial History Where Do You Live? Home Who Do You Live With? spouse Services at Home: Nursing, Oxygen Smoking Status: Former Smoker Functional Ability ADLs Independent: dressing, eating, toileting, bathing. Ambulation: independent IADLs Independent: shopping, housework, finances, food prep, telephone, transportation , medication admin. ECHO Results (as available) Report: Report date 04/03/2017. Normal left ventricular systolic function with septal abnormality consistent with right ventricular pressure overload. Severe pulmonary hypertension with right ventricle systolic pressure about 100 mmHg. Exam & Diagnostic Data Vital Signs and I&O Vital Signs Date Time Temp Pulse Resp B/P B/P Pulse O2 O2 Flow FiO2 Mean Ox Delivery Rate 08/14 1000 74/40 08/14 0600 98.7 72 18 92/54 92 Nasal 4.0L Cannula 08/14 0329 95 Nasal 6.0L Cannula 08/13 2221 98.7 83 20 96/54 93 Nasal Cannula 08/13 2057 Nasal 3.5L Cannula 08/13 2000 96 Nasal 4.5L Cannula 08/13 1609 98.7 77 20 92/50 93 Nasal Cannula 08/13 1602 Nasal 4.0L Cannula 08/13 1500 97.4 85 18 95/51 94 Nasal 4.0L Cannula 08/13 1450 97.6 84 18 94/51 92 Nasal 4.0L Cannula 08/13 1256 98.2 83 20 113/55 93 Room Air 08/13 1200 Nasal 4.0L Cannula Intake & Output 08/14 1600 08/14 0800 08/14 0000 08/13 1600 08/13 0800 08/13 0000 Intake Total 525 150 Output Total 50 250 500 Balance 525 100 -250 -500 Intake, IV 525 150 Number 1 Bowel Movements Output, Urine 50 250 500 Patient 110 lb 110 lb Weight Physical Exam: General: Nontoxic, no apparent distress. HEENT: Sclera and conjunctiva within normal limits, without xanthelasmas. Neck: Carotids 2+ without bruits. Respiratory: Diffuse rhonchi, air movement is decreased throughout, without accessory respiratory muscle use. Heart: Distant, Regular rate and rhythm, without murmurs, without JVD. Abdomen: Soft, nontender, no masses, normoactive bowel sounds. Extremities: Without clubbing, cyanosis, trace edema. Neuro: Nonfocal exam, strength, 5 out of 5 Skin: Within normal limits without lesions. Psych: Mood and affect: Normal Labs/Rayo Results: Laboratory Tests 08/14 08/13 0614 2300 Chemistry Sodium (137 - 145 mmol/L) 141 Potassium (3.5 - 5.1 mmol/L) 5.0 Chloride (98 - 107 mmol/L) 111 H Carbon Dioxide (22 - 30 mmol/L) 22 Anion Gap (5 - 16) 8 BUN (7 - 17 mg/dL) 22 H Creatinine (0.5 - 1.0 mg/dL) 1.1 H Estimated GFR (>60 ml/min) 48 L BUN/Creatinine Ratio (7 - 25 %) 20.0 Coagulation PT (9.4 - 12.5 SEC) 10.7 INR (0.90 - 1.19) 1.02 APTT (25 - 37 SEC) 31 Hematology CBC w Diff NO MAN DIFF REQ NO MAN DIFF REQ WBC (4.8 - 10.8 /CUMM) 11.8 H 11.1 H RBC (4.20 - 5.40 /CUMM) 4.03 L 4.13 L Hgb (12.0 - 16.0 G/DL) 8.5 L 8.5 L Hct (37 - 47 %) 27.1 L 27.9 L MCV (81.0 - 99.0 FL) 67.2 L 67.5 L MCH (27.0 - 31.0 PG) 21.1 L 20.6 L MCHC (33.0 - 37.0 G/DL) 31.4 L 30.4 L RDW (11.5 - 14.5 %) 19.2 H 20.5 H Plt Count (130 - 400 /CUMM) 171 177 MPV (7.4 - 10.4 FL) 9.5 9.4 Gran % (42.2 - 75.2 %) 83.6 H 86.0 H Lymphocytes % (20.5 - 51.1 %) 8.9 L 7.0 L Monocytes % (1.7 - 9.3 %) 7.0 6.0 Eosinophils % (0 - 5 %) 0.5 1.0 Basophils % (0.0 - 2.0 %) 0 0 Absolute Granulocytes (1.4 - 6.5 /CUMM) 9.8 H 9.6 H Absolute Lymphocytes (1.2 - 3.4 /CUMM) 1.0 L 0.8 L Absolute Monocytes (0.10 - 0.60 /CUMM) 0.8 H 0.7 H Absolute Eosinophils (0.0 - 0.7 /CUMM) 0.1 0.1 Absolute Basophils (0.0 - 0.2 /CUMM) 0 0 08/13 08/13 1253 1237 Chemistry Potassium (3.5 - 5.1 mmol/L) 4.6 Hematology CBC w Diff MAN DIFF ORDERED WBC (4.8 - 10.8 /CUMM) 10.2 RBC (4.20 - 5.40 /CUMM) 3.62 L Hgb (12.0 - 16.0 G/DL) 7.1 *L Hct (37 - 47 %) 23.0 L MCV (81.0 - 99.0 FL) 63.4 L MCH (27.0 - 31.0 PG) 19.6 L MCHC (33.0 - 37.0 G/DL) 30.9 L RDW (11.5 - 14.5 %) 16.6 H Plt Count (130 - 400 /CUMM) 169 MPV (7.4 - 10.4 FL) 9.3 Segmented Neutrophils (42.2 - 75.2 %) 93 H Lymphocytes (20.5 - 51.1 %) 3 L Monocytes (1.7 - 9.3 %) 2 Eosinophils (0 - 5.0 %) 2 Platelet Estimate (ADEQUATE) ADEQUATE Polychromasia 1+ Hypochromic-Microcytic 3+ Poikilocytosis 2+ Basophilic Stippling Anisocytosis 2+ Microcytic Cells 3+ Ovalocytes 1+ Schistocytes 1+ 08/13 08/12 0547 2215 Chemistry Sodium (137 - 145 mmol/L) 139 Potassium (3.5 - 5.1 mmol/L) 2.9 *L Chloride (98 - 107 mmol/L) 106 Carbon Dioxide (22 - 30 mmol/L) 25 Anion Gap (5 - 16) 8 BUN (7 - 17 mg/dL) 26 H Creatinine (0.5 - 1.0 mg/dL) 1.2 H Estimated GFR (>60 ml/min) 44 L BUN/Creatinine Ratio (7 - 25 %) 21.7 Troponin I (< 0.11 ng/ml) 0.03 Hematology CBC w Diff MAN DIFF ORDERED WBC (4.8 - 10.8 /CUMM) 9.4 RBC (4.20 - 5.40 /CUMM) 3.54 L Hgb (12.0 - 16.0 G/DL) 7.1 *L Hct (37 - 47 %) 22.7 L MCV (81.0 - 99.0 FL) 64.0 L MCH (27.0 - 31.0 PG) 20.0 L MCHC (33.0 - 37.0 G/DL) 31.3 L RDW (11.5 - 14.5 %) 16.7 H Plt Count (130 - 400 /CUMM) 171 MPV (7.4 - 10.4 FL) 9.3 Gran % (42.2 - 75.2 %) 82.8 H Lymphocytes % (20.5 - 51.1 %) 13.3 L Monocytes % (1.7 - 9.3 %) 3.2 Eosinophils % (0 - 5 %) 0.7 Basophils % (0.0 - 2.0 %) 0 Absolute Granulocytes (1.4 - 6.5 /CUMM) 7.8 H Segmented Neutrophils (42.2 - 75.2 %) 78 H Absolute Lymphocytes (1.2 - 3.4 /CUMM) 1.2 Lymphocytes (20.5 - 51.1 %) 12 L Monocytes (1.7 - 9.3 %) 7 Absolute Monocytes (0.10 - 0.60 /CUMM) 0.3 Eosinophils (0 - 5.0 %) 2 Absolute Eosinophils (0.0 - 0.7 /CUMM) 0.1 Basophils (0.0 - 2.0 %) 1 Absolute Basophils (0.0 - 0.2 /CUMM) 0 Platelet Estimate (ADEQUATE) ADEQUATE Normocytic RBCs VERIFIED Normochromic RBCs VERIFIED 08/12 08/12 1520 1333 Chemistry Sodium (137 - 145 mmol/L) 137 Potassium (3.5 - 5.1 mmol/L) 3.4 L Chloride (98 - 107 mmol/L) 99 Carbon Dioxide (22 - 30 mmol/L) 28 Anion Gap (5 - 16) 10 BUN (7 - 17 mg/dL) 33 H Creatinine (0.5 - 1.0 mg/dL) 1.2 H Estimated GFR (>60 ml/min) 44 L BUN/Creatinine Ratio (7 - 25 %) 27.5 H Glucose (65 - 99 mg/dL) 55 L Calcium (8.4 - 10.2 mg/dL) 9.8 Total Bilirubin (0.2 - 1.3 mg/dL) 0.8 AST (14 - 36 U/L) 22 ALT (9 - 52 U/L) 20 Alkaline Phosphatase (<127 U/L) 64 Troponin I (< 0.11 ng/ml) 0.02 Total Protein (6.3 - 8.2 g/dL) 5.6 L Albumin (3.5 - 5.0 g/dL) 3.4 L Globulin (1.9 - 4.2 gm/dL) 2.2 Albumin/Globulin Ratio (1.1 - 2.2 %) 1.5 Coagulation PT (9.4 - 12.5 SEC) 11.0 INR (0.90 - 1.19) 1.05 APTT (25 - 37 SEC) 29 Hematology CBC w Diff NO MAN DIFF REQ WBC (4.8 - 10.8 /CUMM) 13.8 H RBC (4.20 - 5.40 /CUMM) 3.90 L Hgb (12.0 - 16.0 G/DL) 7.8 L Hct (37 - 47 %) 24.8 L MCV (81.0 - 99.0 FL) 63.6 L MCH (27.0 - 31.0 PG) 19.9 L MCHC (33.0 - 37.0 G/DL) 31.3 L RDW (11.5 - 14.5 %) 16.6 H Plt Count (130 - 400 /CUMM) 196 MPV (7.4 - 10.4 FL) 9.5 Gran % (42.2 - 75.2 %) 85.8 H Lymphocytes % (20.5 - 51.1 %) 6.6 L Monocytes % (1.7 - 9.3 %) 7.3 Eosinophils % (0 - 5 %) 0.3 Basophils % (0.0 - 2.0 %) 0 Absolute Granulocytes (1.4 - 6.5 /CUMM) 11.9 H Absolute Lymphocytes (1.2 - 3.4 /CUMM) 0.9 L Absolute Monocytes (0.10 - 0.60 /CUMM) 1.0 H Absolute Eosinophils (0.0 - 0.7 /CUMM) 0 Absolute Basophils (0.0 - 0.2 /CUMM) 0 Urines Urinalysis LIGHT H Urine Color (YEL,AMB,STR) YEL Urine Clarity (CLEAR) CLDY H Urine pH (5.0 - 8.0) 7.5 Ur Specific [place] (1.001 - 1.035) 1.010 Urine Protein (NEG,<30 MG/DL) NEG Urine Ketones (NEG) NEG Urine Nitrite (NEG) NEG Urine Bilirubin (NEG) NEG Urine Urobilinogen (0.1 - 1.0 EU/dl) 0.2 Ur Leukocyte Esterase (NEG) MOD H Ur Microscopic SEDIMENT EXAMINED Urine WBC (0 - 2 /HPF) 5-10 H Ur Epithelial Cells (NONE,FEW) FEW Urine Bacteria (NEG/NONE) MANY H Urine Hemoglobin (NEG) NEG Urine Glucose (N MG/DL) NEG Assessment/Plan Assessment/Plan 76-year-old woman with a past medical history of severe COPD and sees on home O2 ), severe pulmonary hypertension with RV dysfunction, diabetes mellitus, status post left upper lobe resection, prior GI bleed and documented congestive heart failure with preserved LV systolic function. She presents to our hospital with increasing dyspnea as well as possible syncopal episode. Syncope: Patient presents with syncope which may be multifactorial. She was profoundly hypokalemic on admission which has been subsequently repleted, and so arrhythmias may be an underlying etiology. She has well has known severe pulmonary hypertension and is diuresed for peripheral edema. This likely significantly affects her overall blood pressures and cardiac output predisposing her to significant orthostatic changes. Dehydration avoidance will need to be closely monitored. At this point, she appears euvolemic and not in acute congestive heart failure. I would therefore attempt to maintain an overall euvolemic state. Systolic blood pressures may be checked. Dyspnea: Predominately due to severe underlying COPD and pulmonary hypertension. Given her pulmonary hypertension, anticoagulation should be considered; however, is currently contraindicated given her frequent falls. Continued input as per pulmonary will be followed. Thank you for allowing us to participate in the care of your patient. Please do not hesitate to contact us further with any questions. Sincerely, Kyle Stephens MD [facility] Consult Acknowledgment - Thank you for your consult request.
[2017-08-14 14:40] VITALS: BP 92/40
--- NOTE | 2017-08-14 14:50 | PN- Pulmonary ---
Subjective HPI/Critical Care Issues: Doing poorly Fatigue Objective Current Medications: Current Medications Sig/Vero Start time Last Medication Dose Route Stop Time Status Admin Acetaminophen 650 MG Q6P PRN 08/12 2030 AC PO Acetaminophen 1,000 MG Q6P PRN 08/12 2030 AC IV Albuterol Sulfate 3 ML BID 08/13 2200 AC 08/14 INH 1032 Albuterol Sulfate 2 PUF Q4-6 PRN PRN 08/12 2230 AC INH Budesonide/ 2 PUF BID 08/13 1000 AC 08/14 Formoterol Fumarate INH 0958 Ceftriaxone Sodium 1,000 MG 1900 08/13 1900 AC 08/13 IV 1836 Cholecalciferol 1,000 IU DAILY 08/13 1000 AC 08/14 PO 0956 Cyanocobalamin 1,000 MCG DAILY 08/13 1000 AC 08/14 PO 0956 Diltiazem HCl 180 MG DAILY 08/13 1000 AC 08/13 PO 1010 Folic Acid 1 MG DAILY 08/13 1000 AC 08/13 PO 1010 Hydrocortisone 50 MG Q8 08/14 2200 AC Sodium Succinate IV Hydrocortisone 100 MG ONE ONE 08/14 1200 DC 08/14 Sodium Succinate IV 08/14 1201 1424 Insulin Detemir 8 UNITS BID 08/13 1000 AC 08/14 SC 0954 Levothyroxine Sodium 0.112 MG DAILY AC 08/13 0700 AC 08/14 PO 0509 Magnesium Oxide 400 MG DAILY 08/13 1000 AC 08/14 PO 0956 Omeprazole 20 MG DAILY 08/13 1000 AC 08/13 PO 1010 Polyethylene Glycol 17 GM DAILY 08/13 1656 AC 08/14 PO 0958 Potassium Chloride 20 MEQ BID 08/13 1000 DC 08/13 PO 2042 Prednisone 15 MG DAILY 08/14 1000 DC PO Senna/Docusate Sodium 1 TAB BID PRN 08/13 1700 AC PO Sertraline HCl 50 MG 2200 08/13 2200 AC 08/13 PO 2042 Sodium Chloride 500 ML BOLUS ONE 08/14 1000 DC 08/14 IV 08/14 1059 1000 Sodium Chloride 2 SPRAY Q4P PRN 08/14 0145 AC TAMIE Sodium Chloride 500 ML BOLUS ONE 08/13 1630 DC 03 IV 08/13 1729 1804 Sodium Chloride 1,000 ML Q13H 08/12 2045 AC 08/13 IV 0902 Theophylline 400 MG Q48 08/15 1000 AC PO Theophylline 200 MG Q48 08/14 1000 AC 08/14 PO 0955 Tiotropium [place] 1 PUF DAILY 08/13 1000 AC 08/14 INH 0957 Tramadol HCl 25 MG Q4 HRS NEEDED PRN 08/13 1630 AC 08/14 PO 1332 Vital Signs & I&O Last 24 Hrs of Vitals and I&O: Vital Signs Date Time Temp Pulse Resp B/P B/P Pulse O2 O2 Flow FiO2 Mean Ox Delivery Rate 08/14 1030 93 Nasal 6.0L Cannula 08/14 1000 74/40 08/14 0600 98.7 72 18 92/54 92 Nasal 4.0L Cannula 08/14 0329 95 Nasal 6.0L Cannula 08/13 2221 98.7 83 20 96/54 93 Nasal Cannula 08/13 2057 Nasal 3.5L Cannula 08/13 2000 96 Nasal 4.5L Cannula 08/13 1609 98.7 77 20 92/50 93 Nasal Cannula 08/13 1602 Nasal 4.0L Cannula 08/13 1500 97.4 85 18 95/51 94 Nasal 4.0L Cannula 08/13 1450 97.6 84 18 94/51 92 Nasal 4.0L Cannula Intake & Output 08/14 1600 08/14 0800 08/14 0000 Intake Total 525 150 Output Total 50 Balance 525 100 Intake, IV 525 150 Number 1 Bowel Movements Output, Urine 50 Patient 110 lb Weight Impression/Plan Impression/Plan Impression/Plan: CHIOMA EOMI CHest mild crackles abd soft sig eccymosis trace edema This is a lady with end-stage COPD, cor pulmonale, 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, history of lung cancer status post radiation to the left upper lobe with gamma knife therapy with stage I lung cancer presumed cure with no recurrent lesion noted in the recent CAT scan now here with * Syncope or near sycope with multiple falls, pt with severe PUlm htn from copd, with sig corpulmonale, previous full work up for other causes are neg (no vte, no vasculitis etc) * Symtomatic anemia with sig ccymosis due to prednisone * RElative cortisol def * End stage copd with chronic resp failure * REcurrent diastolic chf now euvolemic after ivf as she was dehydrated upon admission * Profound fatigue significant shortness of breath muscle weakness most likely related to cortisol deficiency as she's been on steroids for years * Cor pulmonale with chronic right heart dysfunction with profound shortness of breath due to end-stage COPD and heart disease. Her lower extremity edema is related to that. * No clinical evidence suggestive of venous thromboembolism, neg ct * CHest ct abormality wedge shaped (no pe, prob atx vs pna unlikely malignancy) * History of lung cancer status post radiation therapy rule out recurrence * Diabetes on insulin * Hypothyroidism on appropriate supplementation therapy REC Prednisone 40 for 3 30 for 3 and then 20 daily COnt nebs hold lasix IVF till am and stop if stable Theophylline level HOld abx Watch crit and transfuse Check bnp for prognosis Will follow Ez de souza
--- NOTE | 2017-08-14 15:42 | Patient Discharge Instructions ---
Discharge Instructions General Discharge Information You were seen/treated for: # Right-sided heart failure. # Symptomatic anemia # Deep venous thrombosis # Syncopal episode # Leukocytosis Special Instructions: Please follow up with your speech professor within a week after discharge. Please follow-up with your accounts payable assistant in 1 week discharge please use Ipratropium only for nebs Please follow up with your PCP within a week after discharge. Please get CBCT in 3 days of discharge Diet Continue normal diet: Yes Recommended Diet: Heart Healthy Activity Full Activity/No Limits: Yes Acute Coronary Syndrome Inclusion Criteria At DC or during hospital stay patient has or had the following: ACS DIAGNOSIS No Discharge Core Measures Meds if any: Prescribed or Continued at Discharge Meds if any: NOT Prescribed or Continued at Discharge Congestive Heart Failure Inclusion Criteria At DC or during hospital stay patient has or had the following: CHF DIAGNOSIS No Discharge Core Measures Meds if any: Prescribed or Continued at Discharge Meds if any: NOT Prescribed or Continued at Discharge Cerebrovascular accident Inclusion Criteria At DC or during hospital stay patient has or had the following: CVA/TIA Diagnosis No Discharge Core Measures Meds if any: Prescribed or Continued at Discharge Meds if any: NOT Prescribed or Continued at Discharge Venous thromboembolism Inclusion Criteria VTE Diagnosis No VTE Type NONE VTE Confirmed by (Test) CT CHEST ANGIOGRAM Discharge Core Measures - Per Current guidelines, there needs to be overlap - treatment for the first 5 days of Warfarin therapy. - If discharged on Warfarin prior to 5 days of - overlap therapy, the patient will need to be - assessed for post discharge needs including - *Post discharge parental anticoagulation - *Warfarin and/or parental anticoagulation education - *Follow up date to check INR post discharge At least 5 days overlap therapy as Inpatient No Meds if any: Prescribed or Continued at Discharge Note: Overlap Therapy is Warfarin and Anticoagulant Meds if any: NOT Prescribed or Continued at Discharge
[2017-08-14 19:00] VITALS: BP 70/40
[2017-08-14 19:05] VITALS: BP 88/40
--- NOTE | 2017-08-14 19:55 | RADIOLOGY REPORT ---
EXAMINATION: XR PORTABLE CHEST CLINICAL INFORMATION: Hypoxia. Rule out fluid overload and aspiration COMPARISON: 08/14/2017 at 5:50 AM TECHNIQUE: Portable frontal view of the chest was obtained at 7:04 PM. FINDINGS: Pulmonary vascularity remains slightly prominent, unchanged from prior. Minimal bibasilar atelectasis. No new focal consolidation or mass. Chronic calcification of the left anterior chest again noted. Small left pleural effusion again noted. A tiny right pleural effusion may be present. Aortic arch is calcified and tortuous. Cardiac silhouette is enlarged. No acute osseous abnormality. IMPRESSION: Minimal prominence of the pulmonary vascularity consistent with pulmonary venous hypertension. No steve pulmonary edema. Small left pleural effusion and possible tiny right pleural effusion again seen. The cardiac silhouette remains enlarged.
[2017-08-14 21:30] VITALS: BP 78/44
--- NOTE | 2017-08-14 22:40 | Event Note ---
Event Note Event Note: Situation Worsening respiratory status requiring high flow, low blood pressure with Right sided heart failure Brief Patient is a 76 YO F with endstage COPD, Right sided failure presented with symptomatic anemia and syncope. She remained hypotensive requiring IV pushes and IV steroids occasionally. She became acutely dyspneic requiring high flow oxygen in the eveing. EKG shows junctional rhythm with diffuse T wave inversions, Troponins were negative. ProBNP elevated to 36,000. Assessment Worsening of cardiopulmonary status with increased work of breathing. EKG did show diffuse T wave inversions without any elevated troponin. Hypotensive however mentating well. Currently saturating well on high flow. Rediscussed goals of care - patient prefers full code Plan Transfer to ICU Maintain BP with gentle hydration Single dose of steroid If continues to drop consider dobutamine drip after talking to cardiology , aware.
--- NOTE | 2017-08-14 23:16 | Discharge Summary ---
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 Patient had recently been evaluated at [facility] emergency department for altered mental status, generalized fatigue and hypoglycemia. She was subsequently discharged from the emergency department to [facility] for rehabilitation. She was treated for UTI in the rehab and discharged home in early June 2017. However she experienced gait instability and multiple falls at home. One week prior to presentation, she arose from a seated position on the toilet and had a syncopal episode with fall. She did not recall how she fell and episode lasted for a few seconds. She denied preceding chest pain, palpitations. She did however, have severe increasing dyspnea. She also had a poor appetite for the past few weeks. In addition, she complained of burning sensation on urination. Vital signs on presentation as follows: T 95.6 F, P 74 bpm, RR 18/min, O2 sat 96 % on 2 L O2 by nasal canula. Physical exam at presentation: General Appearance Alert, Oriented X3, Cooperative, No Acute Distress Skin No Rashes, No Breakdown, LARGE PAINLESS EARLY PURPLE BRUISE ON THE LOWER ABDOMEN EXTENDING TO THE BACK, BRUISE ON THE EPIGASTRIC REGION ATTRIBUTED TO INSULIN INJECTION, BRUISE ON THE RIGHT PERIORBITAL REGION Skin Temp/Moisture Exam: Warm/Dry HEENT PERRLA, EOMI, DRY MUCOUS MEMBRANE Neck Supple, No JVD, No thryomegaly Lymphatic Axillary nl, Cervical nl Cardiovascular Regular Rate, Normal S1, Normal S2, No Murmurs Lungs DECRAESE AIR ENTRY B/L Abdomen Normal Bowel Sounds, Soft, CVA TENDERNESS ON THE RIGHT, Neurological Normal Speech, Strength at 5/5 X4 Ext, Normal Tone, Sensation Intact Extremities No Edema, Normal Pulses Vascular Normal Pulses, Pulses Symmetrical Significant labs on presentation: WBC 13.8, Hgb 7.8, platelets 196, K 3.4, Na 137, CO2 28, creatnine 1.2,troponin 0.02, glucose 55. EKG at presentation showed right bundle branch block, incomplete left axis diffusion, T-wave inversion on the inferior leads. CT head showed no intracranial bleed, and cervical CT showed no acute abnormality. Chest CT Angiogram was negative for a pulmonary embolism, but showed a 3.7 cm wedge-shaped opacity within the left upper lobe. She was admitted for syncope on the telemetry floor. She was initially started on IV ceftriaxone due to a urinalysis with WBCs and positive leukocyte esterase, but this was discontinued after her urine culture was negative. Serial EKG's and troponin were negative for an acute coronary syndrome. She had an echocardiogram that showed a normal ejection fraction of 60% but with elevated right ventricular systolic pressure of 60 mmhg. She was reviewed by batch heat treat operator Dr. Stephens. She had multiple episodes of hypotension on admission and a random AM cortisol was 10, which suggested partial adrenal insufficiency. She was treated IV normal saline and increased doses of by mouth prednisone However, she developed worsening shortness of breath requiring high flow oxygen as well as worsening hypotension despite IV fluid and IV steroid administration and she was transferred to the ICU. In the ICU: She was transferred to ICU on 08/14 for worsening respiratory status requiring high flow oxygen to maintain oxygen saturation and hypotension 82/52. Her random cortisol level was 10.7 she required 50 mg IV hydrocortisone and 2500 mL fluid bolus for BP maintaince. In ICU patient was treated for acute on chronic hypoxemic respiratory failure with end-stage COPD resulting in cor pulmonale/right sided heart failure. Initially she was maintained on BiPAP and later transitioned to high flow and is now on nasal cannula. Per pulmonology avoid CPAP at night if patient tolerates. For right-sided heart failure patient was started on dobutamine drip on and that was discontinued on 08/22. She was diuresed with Lasix IV and currently on 40 mg PO. Theophyline was initially held with the level of 9.6 was restarted on 08/19 200mg. Patient had transaminitis and hyperbilirubinemia likely secondary to congestion in setting of right-sided heart failure, her LFTs are improving. Patient was on prednisone 15mg daily at home, which was not given to her intially on admisson, recieved stress dose of hydrocortisone 50mg on 08/14 and was receiving IV methylprednisone in ICU for relative cortisol insufficiency and later transitioned to by mouth prednisone currently on 20 mg daily. Cardizem was initially held because of relative bradycardia which resolved and Cardizem was restarted on 08/17. On 08/18 patient was found to have nonocclusive right axillary vein DVT, DVT in one of the paired brachial veins and in the right basilic vein, likely secondary to right-sided passive congestion and patient's immobility. She was started on Lovenox 60 mg daily after performing guaiac which was negative. Her platelets initially downtrended and now are stable. HIT panel was negative. Patient is continued on lovenox with close monitoring of platelets. Patient presented with leukocytosis likely secondary to steroid use the patient was started on ceftriaxone for suspected UTI later was discontinued because urine culture was negative. Patient is being monitored off antibiotics. Her syncopal episode was likely multifactorial secondary to hypokalemia which could have contributed to arrhythmia vs orthostatic secondary to her diuresis. She also had LISSETT secondary to prerenal azotemia in setting of the diureses which is resolved now. Patient was initially hypokalemic and became hyperkalemic with repletion received calcium gluconate, insulin 10 units, dextrose 3 and Kayexalate 2 She became hypokalemic after diuresis, we have monitored and actively repleted her potassium. Of note patient has history of diverticular GI bleed and was resistant to Lovenox initially. Now is receiving Lovenox daily with close monitoring. As per Tele notes pt choked on her medication on 08/14, states she has experienced the same before at home as well. No dysphagia during ICU, consider GI consult outpatient. Mechanical ventilation None Noninvasive positive pressure ventilation BIPAP, CPAP Antibiotic plan None Patient was transferred to telemetry after stabilization and was treated for the following conditions: #Acute on chronic hypoxemic respiratory failure with end-stage COPD resulting in cor pulmonale/right-sided heart failure. She was kept on high flow oxygen with frequent attempt to switch to nasal cannula, however she was not able to be tapered off high oxygen due to frequent desaturation and shortness of breath. She was kept off off CPAP when possible, Goals greater than O2 88% -TRC/nebs. Only ipratropium for nebs, avoid albuterol due to tachycardia unless severe wheezing. -She was kept on prednisone 20 mg -Was treated with Theophyline-home dose #Leukocytosis: Most likely was secondary to steroid use , CT chest showed wedge-shaped opacity probably atelectasis, PNA, malignancy less likely. Patient remained afebrile. WBC was monitored #Suspected UTI Patient was initially started on ceftriaxone which was later on discontinued She was monitored off antibiotics #Syncopal episode Likely multifactorial. Patient was hypokalemic which could have contributed to an arrhythmia. She has hx of severe pulmonary hypertension and is diuresed for peripheral edema . She has relative cortisol deficiency due to steroid use Orthostatics contributing to her episodes. She was also hypoglycemic on presentation. #Right sided heart failure -She was treated with 12 PO 40 mg lasix - potassium replacement with Lasix administration #Hypotension, resolved Patient's blood pressure dropped and she required 2500 mL fluid bolus and 50 mg IV hydrocortisone secondary to relative cortisol deficiency. Patient was kept on prednisone 20 mg p.o. daily #Relative bradycardia, Resolved -continue p.o. Cardizem 180 mg daily # Symptomatic anemia Status post 1 unit PRBCs 08/13. Of note patient had history of GI bleed 2 years ago requiring 10 units of PRBC transfusion, likely diverticular. -Stool Guaiac - negative -H/H Stable continued to monitor #Thrombocytopenia: Patient's platelets have been downtrending, currently at 90, 000. Decline may be attributed to initiation of lovenox for anticoagulation. HIT planel was sent which was negative. Due to patient's significant bleeding risk, lovenox is the choice for anticoagualtion as it can be reversed with protamine. Platelets has been stable -Continued Lovenox 60 mg daily #Deep venous thrombosis: Per RUE ultrasound on August 18/2018: pt has DVT in the right upper extremity with nonocclusive right axillary vein DVT, DVT in one of the paired brachial veinsand in the right basilic vein. Etiology likely due to r. sided passive congeston and pt moving very little. #Hypokalemia/ Hyperkalemia-improved Patient was initially hypokalemic and became hyperkalemic with repletion received calcium gluconate, insulin 10 units, dextrose 3 and Kayexalate 2 She became hypokalemic after diuresis, potassium has been replaced and today potassium is 4.2 -Continue to monitor and replete #Relative Cortisol deficiency Cortisol level was 10.7. Patient is on prednisone 15mg daily at home, which was not given to her since her admisson to the hospital. Patient was given stress dose of steroid and started on a prednisone taper starting from 40mg daily. Overnight patient's blood pressure dropped and she received 50 mg IV hydrocortisone Continue p.o. prednisone 20 mg, and continue as above. #Transaminitis and hyperbilirubinemia Likely secondary to congestion in setting of right-sided heart failure.Transaminitis hyperbilirubinemia improving -Continue to monitor LFTs #DM One episode of hypoglycemia on 08/19 -Accu-Chek, insulin sliding scale -Levemir dose changed to 8 units BID, continue to monitor #Hypothyroidism -TSH/freeT4 WNL continue home dose of synthroid #Frequent falls/unsteady gait - PT evaluation - patient is currently an assist of 2. Will require STR after discharge. #Dysphagia Patient choked on her medication on 08/14, states she has experienced the same before at home as well. -No events -Consider GI Consult for dysphagia is persistent inpt vs outpt #LISSETT-Secondary to prerenal azotemia in setting of diuresis-resolved -Encourage PO intake -Continue to monitor Cr curve -Avoid nephrotoxins DVT prophylaxis: with Alps and lovenox Code Status: DNR/DNI Allergies: Coded Allergies: rivaroxaban (From XARELTO) (Severe, RECTAL BLEEDING? 04/29/17) heparin (Severe, BLEEDING 04/29/17) naproxen (Severe, GI BLEED 04/29/17) aspirin (Intermediate, BLEEDING 04/29/17) ibuprofen (Intermediate, STOMACH ULCERS 04/29/17) morphine (Intermediate, DROP IN BP 04/29/17) Disposition Summary Disposition Principal Diagnosis: 1. Syncope 2. Acute blood loss anemia 3. Hypotension 4. Partial adrenal insufficiency 5. Pulmonary hypertension 6. Diastolic heart failure Additional Diagnosis: 7. Endstage COPD 8. Diabetes Discharge Disposition: SNF Discharge Instructions General Discharge Information Code Status: Full Code Patient's Diet: Heart healthy diet Patient's Activity: Self-limited activity Follow-Up Instructions/Appts: 1please follow-up with your PCP in 1 week discharge 2please follow-up with your accreditation specialist in 1 week of discharge 3please follow-up with your batch heat treat operator in 1 week of discharge 4please get CBCs checked in 3 days of discharge Medications at Discharge Discharge Medications: Stop taking the following medications: Furosemide (Furosemide) 20 MG TABLET ORAL DAILY Qty = 60 Prednisone (Prednisone) 5 MG TABLET ORAL DAILY Ciprofloxacin HCl (Ciprofloxacin HCl) 250 MG TABLET ORAL TWICE DAILY Qty = 10 Azithromycin (Azithromycin) 250 MG TABLET ORAL DAILY Qty = 15 Continue taking these medications: Diltiazem HCl (Diltiazem 24HR ER) 180 MG CAP.ER.24H 1 Capsule ORAL DAILY Qty = 90 Comments: Last Taken: 09/01/17 Time: 0945 Folic Acid (Folic Acid) 1 MG TABLET 1 Tablet ORAL DAILY Qty = 90 Comments: Last Taken: NOT GIVEN IN HOSPITAL Time: Calcium Carbonate/Vitamin D3 (Calcium 600 + Vit D 200 Tablet) (Unknown Strength) TABLET Unknown Dose ORAL DAILY Comments: Last Taken: NOT GIVEN IN HOSPITAL Time: Budesonide/Formoterol Fumarate (Symbicort 160-4.5 Mcg Inhaler) 160 MCG-4.5 MCG/ ACTUATION HFA.AER.AD 2 Puff Inhale through mouth TWICE DAILY Qty = 10 Comments: Last Taken: 09/01/17 Time: 0945 Tiotropium [place] (Spiriva) 18 MCG CAP.W.DEV 1 Capsule Inhale through mouth DAILY Qty = 30 Comments: Last Taken: 09/01/17 Time: 0945 Cholecalciferol (Vitamin D3) (Vitamin D3) 2,000 UNIT CAPSULE 1 Capsule ORAL DAILY Comments: Last Taken: NOT GIVEN IN HOSPITAL Time: Omeprazole (Omeprazole) 20 MG CAPSULE.DR 1 Capsule ORAL DAILY Qty = 90 Comments: Last Taken: 09/01/17 Time: 0945 (RECEIVED IV PROTONIX) Potassium Chloride (Klor-Con 10) 10 MEQ TABLET.ER 2 Tablet ORAL TWICE DAILY Qty = 540 Comments: Last Taken: 09/01/17 Time: 0945 Sertraline HCl (Sertraline HCl) 50 MG TABLET 1 Tablet ORAL TAKE AT BEDTIME Qty = 90 Comments: Last Taken: 08/31/17 Time: 2200 Insulin Detemir (Levemir Flextouch) 100 UNIT/ML (3 ML) INSULN.PEN 8 Units Inject into fatty tissue TWICE DAILY Qty = 15 Comments: Last Taken: 09/01/17 Time: 1000 Magnesium Oxide (Magnesium Oxide) 400 MG TABLET 1 Tablet ORAL DAILY Qty = 90 Comments: Last Taken: 09/01/17 Time: 0945 Levothyroxine Sodium (Levothyroxine Sodium) 112 MCG TABLET 1 Tablet ORAL DAILY Qty = 90 Comments: Last Taken: 09/01/17 Time: 0645 Cyanocobalamin (Vitamin B-12) (Vitamin B-12) 100 MCG TABLET 1 Tablet ORAL DAILY Comments: Last Taken: NOT GIVEN IN HOSPITAL Time: Albuterol Sulfate (Proair Hfa) 90 MCG HFA.AER.AD 2 Puff Inhale through mouth EVERY 4-6 HOURS NEEDED as needed for RESP. Qty = 9 Comments: Last Taken: NOT GIVEN IN HOSPITAL Time: Theophylline Anhydrous (Theophylline Anhydrous) 200 MG TAB.ER.12H 2 Capsule ORAL EVERY 48 HOURS (Every 2 days) Theophylline Anhydrous (Theophylline Anhydrous) 200 MG TAB.ER.12H 1 Tablet ORAL EVERY 48 HOURS (Every 2 days) Comments: Last Taken: 09/01/17 Time: 0945 Start taking the following new medications: Enoxaparin Sodium (Lovenox) 60 MG/0.6 ML SYRINGE 60 Milligram Inject into fatty tissue 5 PM Qty = 30 No Refills Comments: Last Taken: 08/31/17 Time: 1700 Acetaminophen (Tylenol) 325 MG TABLET 650 Milligram ORAL EVERY SIX HOURS NEEDED as needed for PAIN SCALE 1-3 ( MILD) Qty = 90 No Refills Comments: Last Taken: NOT GIVEN IN HOSPITAL Time: Acetaminophen (Ofirmev) 1,000 MG/100 ML (10 MG/ML) VIAL 1,000 Milligram INTRAVEN EVERY 12 HOURS as needed for PAIN SCALE 7-10 ( SEVERE) Qty = 20 No Refills Comments: Last Taken: NOT GIVEN IN HOSPITAL Time: Furosemide (Lasix) 40 MG TABLET 40 Milligram ORAL DAILY Qty = 30 No Refills Comments: Last Taken: 09/01/17 Time: 0945 Guaifenesin (Guaifenesin ER) 600 MG TAB.ER.12H 600 Milligram ORAL EVERY 12 HOURS as needed for cough Qty = 60 No Refills Comments: Last Taken: 09/01/17 Time: 0945 Sodium Chloride (Deep Sea) 0.65 % SPRAY 2 [place] In the nose EVERY 4 HOURS NEEDED as needed for CONGESTION Days = 28 No Refills Comments: Last Taken: NOT GIVEN IN HOSPITAL Time: Calcium Carbonate (Calcium Carbonate) 200 MG CALCIUM (500 MG) TAB.CHEW 500 Milligram ORAL THREE TIMES A DAY NEEDED as needed for indigestion Qty = 60 No Refills Comments: Last Taken: 08/24/17 Time: 1050 Polyethylene Glycol 3350 (Miralax) 17 GRAM/DOSE POWDER 17 Gram ORAL DAILY as needed for constipation Days = 30 No Refills Comments: Last Taken: 09/01/17 Time: 0945 Sennosides/Docusate Sodium (Senna Plus Tablet) 8.6 MG-50 MG TABLET 1 Tablet ORAL TWICE DAILY as needed for CONSTIPATION Days = 60 No Refills Comments: Last Taken: NOT GIVEN IN HOSPITAL Time: Prednisone (Prednisone) 20 MG TABLET 20 Milligram ORAL DAILY Days = 30 No Refills Comments: Last Taken: 09/01/17 Time: 45 Insulin Aspart (Novolog) 100 UNIT/ML VIAL 0 Units Inject into fatty tissue 3 TIMES DAILY BEFORE MEALS Days = 30 No Refills Instructions: blood sugar insulin less than 80 initiate hypoglycemia <150 mg/dl No change 151-200 mg/dl one unit 201-250 mg/dl two units 251-300 mg/dl three units 301-350 mg/dl four units 351-400 mg/dl six units more than 400 plus eight units and call MD Comments: Last Taken: 08/31/17 Time: 09 Lidocaine (Lidoderm) 5 % ADH..PATCH 1 Patch ON SKIN DAILY as needed for pain Days = 30 No Refills Comments: Last Taken: 08/31/17 Time: 1800 Diphenhydramine HCl/Zinc Acet (Itch Relief Cream) 2 %-0.1 % CREAM..G. 1 Application On the skin THREE TIMES DAILY as needed for itch Days = 30 No Refills Comments: Last Taken: 09/01/17 Time: 45 Emollient Combination No.92 (Lubriderm Daily Moisture) 177 ML LOTION 1 Application ON SKIN THREE TIMES DAILY as needed for dry skin Days = 30 No Refills Comments: Last Taken: 09/01/17 Time: 45 Multivitamin (One Daily Multivitamin) 1 EACH TABLET 1 Tablet ORAL DAILY Days = 30 No Refills Comments: Last Taken: 09/01/17 Time: 45 Copies To: Ronni CARBALLO,Rachid Mcgee; Angelo CARBALLO,Kyle
[2017-08-15] VITALS: BP 100/52
[2017-08-15 03:00] LABS: MEAN CORPUSCULAR HGB 20.9 PG (27.0-31.0); MEAN CORPUSCULAR VOLUME 67.4 FL (81.0-99.0); MEAN PLATELET VOLUME 9.3 FL (7.4-10.4); PLATELET COUNT 195 /CUMM (130-400); RBC DISTRIBUTION WIDTH 20.3 % (11.5-14.5); WHITE BLOOD CELL COUNT 15.2 /CUMM (4.8-10.8)
[2017-08-15 08:00] VITALS: BP 82/52
--- NOTE | 2017-08-15 08:15 | Cons- [facility] ---
General Information and HPI Allergies/Medications Allergies: Coded Allergies: rivaroxaban (From XARELTO) (Severe, RECTAL BLEEDING? 04/29/17) heparin (Severe, BLEEDING 04/29/17) naproxen (Severe, GI BLEED 04/29/17) aspirin (Intermediate, BLEEDING 04/29/17) ibuprofen (Intermediate, STOMACH ULCERS 04/29/17) morphine (Intermediate, DROP IN BP 04/29/17) Home Med List: Albuterol Sulfate (Proair Hfa) 90 MCG HFA.AER.AD 2 PUF INH Q4-6 PRN PRN RESP. (Reported) Azithromycin 250 MG TABLET 1 DP PO DAILY ANTIBIOTIC, INFECTION (Reported) 2 the first day followed by 1 for days 2-5 Budesonide/Formoterol Fumarate (Symbicort 160-4.5 Mcg Inhaler) 160 MCG-4.5 MCG/ ACTUATION HFA.AER.AD 2 PUF INH BID RESPIRATORY (Reported) Calcium Carbonate/Vitamin D3 (Calcium 600 + Vit D 200 Tablet) (Unknown Strength) TABLET (Unknown Dose) PO DAILY SUPPLEMENT (Reported) Cholecalciferol (Vitamin D3) (Vitamin D3) 2,000 UNIT CAPSULE 1 CAP PO DAILY SUPPLEMENT (Reported) Ciprofloxacin HCl 250 MG TABLET 1 TAB PO BID ANTIBIOTIC, INFECTION (Reported) Cyanocobalamin (Vitamin B-12) (Vitamin B-12) 100 MCG TABLET 1 TAB PO DAILY SUPPLEMENT (Reported) Diltiazem HCl (Diltiazem 24HR ER) 180 MG CAP.ER.24H 1 CAP PO DAILY HEART/BP ( Reported) Folic Acid 1 MG TABLET 1 TAB PO DAILY SUPPLEMENT (Reported) Furosemide 20 MG TABLET 1 TAB PO DAILY CHF Insulin Detemir (Levemir Flextouch) 100 UNIT/ML (3 ML) INSULN.PEN 8 UNITS SC BID DM (Reported) Levothyroxine Sodium 112 MCG TABLET 1 TAB PO DAILY THYROID (Reported) Magnesium Oxide 400 MG TABLET 1 TAB PO DAILY SUPPLEMENT (Reported) Omeprazole 20 MG CAPSULE.DR 1 CAP PO DAILY GI (Reported) Potassium Chloride (Klor-Con 10) 10 MEQ TABLET.ER 2 TAB PO BID SUPPLEMENT ( Reported) Prednisone 5 MG TABLET 3 TAB PO DAILY COPD (Reported) Sertraline HCl 50 MG TABLET 1 TAB PO QHS MENTAL HEALTH (Reported) Theophylline Anhydrous 200 MG TAB.ER.12H 2 CAP PO Q48 BREATHING PROBLEMS ( Reported) Theophylline Anhydrous 200 MG TAB.ER.12H 1 TAB PO Q48 BREATHING PROBLEMS ( Reported) Tiotropium [place] (Spiriva) 18 MCG CAP.W.DEV 1 CAP INH DAILY RESPIRATORY ( Reported) Past History Travel History Traveled to [place] past 21 day No Medical History Blood Transfusion Hx: No Neurological: NONE EENT: epistaxis Cardiovascular: CHF, hypertension Respiratory: COPD, LUNG CA Gastrointestinal: lower GI bleed Hepatic: NONE Renal: NONE Musculoskeletal: NONE Psychiatric: NONE Endocrine: diabetes, hypothyroidism Blood Disorders: anemia 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 FHx: kidney cancer BROTHER (multiple myleoma). Psychosocial History Where Do You Live? Home Who Do You Live With? spouse Services at Home: Nursing, Oxygen Smoking Status: Former Smoker Functional Ability ADLs Independent: dressing, eating, toileting, bathing. Ambulation: independent IADLs Independent: shopping, housework, finances, food prep, telephone, transportation , medication admin. Assessment/Plan [facility] Consult Acknowledgment - Thank you for your consult request.
--- NOTE | 2017-08-15 09:11 | PN- Resident CRCU ---
See Addendum Jayme CARBALLO,Sangita 08/15/17 0910: Subjective HPI/CRCU Issues: Patient seen and examined. Lying in bed on high flow oxygen. emotional about her diagnosis. States becoming short of breath despite movement. Tmax 98 Heart rate ranging from 40s to 60s Junction rhythm on the telemetry strip respiratory rate ranging from 18-26 blood pressure borderline 100 over 50s on high guilherme FiO2 55% 24 Hour Events: She was transferred to ICU overnight for worsening respiratory status requiring high flow oxygen to maintain oxygen saturation and hypotension. Her random cortisol level was 7. She received 50 mg IV hydrocortisone and to 500 mL boluses to maintain her blood pressure during the day she has been relatively bradycardic and maintaining blood pressure 106/56 Hypotension was 6.5 she received calcium gluconate 10 units of insulin and dextrosex2 and Kayexalate as well Objective Vital Signs & I&O Last 8 Hrs of Vitals and I&O: Vital Signs Date Time Temp Pulse Resp B/P B/P Pulse O2 O2 Flow FiO2 Mean Ox Delivery Rate 08/15 1135 64 100 08/15 1123 96 Nasal 55% Cannula 08/15 0800 96 Nasal 45% Cannula 08/15 0800 98.0 60 30 82/52 96 Nasal 45% Cannula 08/15 0400 97 Nasal 55% Cannula 08/15 0059 96 Nasal 55% Cannula 08/15 0000 95 Nasal 55% Cannula 08/15 0000 98.9 64 20 100/52 95 Nasal 55% Cannula 08/14 2231 95 Nasal 55% Cannula 08/14 2130 97.3 67 22 78/44 90 / 1905 66 88/40 08/14 1900 68 70/40 08/14 1900 92 Nasal 45% Cannula 08/14 1825 100 Non 100% ReBreather 08/14 1600 Nasal 4.0L Cannula Intake & Output 08/15 1600 08/15 0800 08/15 0000 Intake Total 885 700 Output Total 100 200 Balance 785 500 Intake, IV 585 450 Intake, Oral 300 250 Number 0 1 Bowel Movements Output, Urine 100 200 Patient 134 lb Weight Weight Bed scale Measurement Method Exam General Appearance: alert, awake, anxious Head: contusions, ecchymosis Neck: normal inspection Respiratory: chest non-tender, rhonchi, wheezing Cardiovascular: regular rate/rhythm Gastrointestinal: soft, non-tender, brusies Extremities: normal inspection Cranial Nerves: normal hearing, normal speech Skin: intact Current Medications: Current Medications Sig/Vero Start time Last Medication Dose Route Stop Time Status Admin Acetaminophen 650 MG Q6P PRN 08/12 2030 AC PO Acetaminophen 1,000 MG Q6P PRN 08/12 2030 AC IV Albuterol Sulfate 3 ML BID 08/13 2200 AC 08/15 INH 1120 Albuterol Sulfate 2 PUF Q4-6 PRN PRN 08/12 2230 AC INH Budesonide/ 2 PUF BID 08/13 1000 AC 08/15 Formoterol Fumarate INH 0834 Calcium Gluconate 1 GM ONCE ONE 08/15 1045 DC 08/15 Sodium Chloride 100 ML IV 08/15 1144 1122 Calcium Gluconate 1 GM ONCE ONE 08/15 0330 DC 08/15 Sodium Chloride 100 ML IV 08/15 0429 0349 Ceftriaxone Sodium 1,000 MG 1900 08/13 1900 DC 08/13 IV 1836 Cholecalciferol 1,000 IU DAILY 08/13 1000 AC 08/15 PO 1431 Cyanocobalamin 1,000 MCG DAILY 08/13 1000 AC 08/15 PO 1431 Dextrose 25 GM ONCE ONE 08/15 1045 DC 08/15 IV 08/15 1046 1122 Dextrose 25 GM ONCE ONE 08/15 0330 DC 08/15 IV 08/15 0331 0349 Diltiazem HCl 180 MG DAILY 08/13 1000 AC 08/15 PO 0833 Folic Acid 1 MG DAILY 08/13 1000 AC 08/15 PO 1440 Hydrocortisone 50 MG Q8 08/14 2200 CAN Sodium Succinate IV Hydrocortisone 50 MG ONE ONE 08/14 2200 DC 08/14 Sodium Succinate IV 08/14 2201 2234 Insulin Aspart 6 UNITS ONCE ONE 08/15 0400 DC 08/15 SC 08/15 0401 0359 Insulin Detemir 8 UNITS BID 08/13 1000 AC 08/15 SC 1127 Insulin Human Regular 10 UNITS ONCE ONE 08/15 1045 DC 08/15 IV 08/15 1046 1127 Insulin Human Regular 10 UNITS ONCE ONE 08/15 0330 DC 08/15 IV 08/15 0331 0355 Levothyroxine Sodium 0.112 MG DAILY AC 08/13 0700 AC 08/15 PO 1432 Lidocaine 1 PAT DAILY 08/14 2215 AC 08/15 EXT 0836 Magnesium Oxide 400 MG DAILY 08/13 1000 AC 03/03 PO 1431 Omeprazole 20 MG DAILY 08/13 1000 AC 08/15 PO 0833 Ondansetron HCl 4 MG ONCE ONE 08/15 1430 DC 08/15 PO 08/15 1431 1424 Patient Medication 1 ED ONE ONE 08/14 1530 DC Teaching ED 08/14 1531 Polyethylene Glycol 17 GM DAILY 08/13 1656 AC 08/15 PO 1440 Prednisone 20 MG 1500 08/20 1500 AC PO 08/27 1459 Prednisone 30 MG 1500 08/17 1500 AC PO 08/20 1459 Prednisone 30 MG DAILY 08/15 1000 DC PO Prednisone 40 MG DAILY 08/14 1500 CAN PO 08/27 1459 Prednisone 40 MG 1500 08/14 1500 AC 08/14 PO 08/17 1459 1720 Senna/Docusate Sodium 1 TAB BID PRN 08/13 1700 AC PO Sertraline HCl 50 MG 2200 08/13 2200 AC 08/14 PO 2124 Sodium Chloride 2 SPRAY Q4P PRN 08/14 0145 AC TAMIE Sodium Chloride 1,000 ML Q13H 08/12 2045 AC 08/15 IV 0230 Sodium Polystyrene 120 ML ONCE ONE 08/15 0400 DC 08/15 Sulfonate PO 08/15 0401 0418 Theophylline 400 MG Q48 08/15 1000 AC 08/15 PO 0835 Theophylline 200 MG Q48 / 1000 AC 08/14 PO 0955 Tiotropium [place] 1 PUF DAILY 08/13 1000 AC 08/15 INH 0838 Tramadol HCl 25 MG Q4 HRS NEEDED PRN 08/13 1630 AC 08/15 PO 0833 Impression/Plan Impression/Problem List Impression: Patient is a 76 YO F with PMH significant for 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 The patient was transferred overnight to ICU for increased oxygen requirement and hypotension. Respiratory #Acute on chronic hypoxemic respiratory failure with end-stage COPD resulting in cor pulmonale/right-sided heart failure. -Patient was started on BiPAP in am -Currently on high flow if respiratory distress restart on BiPAP -Goals greater than 88% -TRC/nebs -Continue steroids Infection #Leukocytosis secondary to steroid use most likely -Continue to monitor #Suspected UTI Patient was initially started on ceftriaxone which was later discontinued because urine culture was negative. Cardiology #Syncopal episode Likely multifactorial. Patient was hyp hypokalemic which could have contributed to an arrhythmia. She has hx of severe pulmonary hypertension and is diuresed for peripheral edema . She has relative cortisol deficiency due to steroid use Orthostatics contributing to her episodes. She was also hypoglycemic on presentation. And had -Continue to monitor on telemetry -Avoid dehydration, Lasix on hold -Maintain euvolemic state #Hypotension Patient's blood pressure dropped to she required 2500 mL fluid bolus and 50 mg IV hydrocortisone secondary to relative cortisol deficiency. -Normal saline at the rate of 75 ML per hour patient maintaining blood pressure 100s/50s -Discontinue Cardizem -Lasix on hold #Relative bradycardia -D/C Cardizem Hematology # Symptomatic anemia Status post 1 unit PRBCs 08/13. Of note patient had history of GI bleed 2 years ago requiring 10 units of PRBC transfusion, without any etiology being found -Stool Guaiac - pending. patient deffered the rectal exam on multiple occasions. -H/H Stable continue to monitor Metabolic #Hyperkalemia Initially the patient was hypokalemic and potassium was repleted aggressively at present patient hyperkalemic and has received calcium gluconate, insulin 10 units, dextrose 2 and Kayexalate 1 -Repeat BEP @4pm #Relative Cortisol deficiency Cortisol level was 10.7. Patient is on prednisone 15mg daily at home, which was not given to her since her admisson to the hospital. Patient was given stress dose of steroid and started on a prednisone taper starting from 40mg daily. Overnight patient's blood pressure dropped and she received 50 mg IV hydrocortisone -Continue steroid taper #DM Accu-Chek, insulin sliding scale, and Levemir 8 units twice a day. Musculoskeletal #Frequent falls/unsteady gait - PT evaluation; Pending Alimantary #Dysphagia Patient choked on her medication on 08/14, states she has experienced the same before at home as well. -Swallow evaluation done, recommends continuing regular diet. -Consider GI Consult for dysphagia is persistent inpt vs outpt Nephrology #[place] Creatinine is 1.2, Secondary to prerenal azotemia in setting of diuresis -Gentle IVF, encourage PO intake -Continue to monitor Cr curve -Avoid nephrotoxins Lasix on hold DVT prophylaxis with Alps and lovenox Code Status Full code, Dr. Grant talked to the patient she is considering changing to DNR/DNI Problem List: 1. CHRONIC RENAL FAILURE Pain Ratin Tomorrow's Labs & Rationales: alps Plan DVT/Prophylaxis: mechanical, pharmacological Code Status: Full Code Chandu Grant MD 08/15/17 0929: Attending MD Review Statement Attending Sign Off Attending Cosign Statement: I have: examined this patient, reviewed [facility] EMR data, personally reviewd images, discussd w/resident/PA/TIME BUYER, discussed mgmt plan w/sadaf, discussed mgmt plan w/CM, discussed mgmt plan w/pt, agreed w/resident/PA/TIME BUYER, amended to note. Other Findings: I, Chandu Grant M.D. have examined this patient, reviewed available EMR data, personally reviewed images, discussed with resident/PA/TIME BUYER, discussed management plan with housestaff and nursing staff, discussed managment plan all of healthcare providers, discussed management plan with patient and/or family, agreed with resident/PA/TIME BUYER. The past history and parts of the chart have been autopopulated. Impression 76 year old woman * end stage COPD with resultant cor pulmonale/right sided heart failure * hx of lung ca * acute on chronic hypoxemic respiratory failure Plan -supplementation of o2, goal >88% -cardiology follow up -steroids -trc/nebs -ins/outs -prognosis is poor DVT prophylaxis at all times TTS 35 min
--- NOTE | 2017-08-15 15:29 | PN- Cardiology ---
Subjective Subjective: The patient continues to be short of breath. She remains on high flow oxygen. No chest pain. benefits consultant reveals accelerated junctional rhythm at a rate of 62 Objective Vital Signs and I&Os Vital Signs Date Time Temp Pulse Resp B/P B/P Pulse O2 O2 Flow FiO2 Mean Ox Delivery Rate 08/15 1135 64 100 08/15 1123 96 Nasal 55% Cannula 08/15 0800 96 Nasal 45% Cannula 08/15 0800 98.0 60 30 82/52 96 Nasal 45% Cannula 08/15 0400 97 Nasal 55% Cannula 08/15 0059 96 Nasal 55% Cannula 08/15 0000 95 Nasal 55% Cannula 08/15 0000 98.9 64 20 100/52 95 Nasal 55% Cannula 08/14 2231 95 Nasal 55% Cannula 08/14 2130 97.3 67 22 78/44 90 08/14 1905 66 88/40 08/14 1900 68 70/40 08/14 1900 92 Nasal 45% Cannula 08/14 1825 100 Non 100% ReBreather 08/14 1600 Nasal 4.0L Cannula Intake & Output 08/15 1600 08/15 0800 08/15 0000 08/14 1600 08/14 0800 08/14 0000 Intake Total 520 761 7786 525 150 Output Total 100 200 275 50 Balance 924 845 9160 525 100 Intake, IV 585 450 875 525 150 Intake, Oral 300 250 400 Number 0 1 0 1 Bowel Movements Output, Urine 100 200 275 50 Patient 134 lb 110 lb Weight Weight Bed scale Measurement Method Physical Exam: Gen: NAD HEENT: normal Lungs: Decreased breath sounds, increased respiratory Heart: RRR, S1, S2, no murmurs Abdomen: Soft, nontender, no masses Extremities: No clubbing, cyanosis, or edema. Neuro: Alert and oriented x 3, cranial nerves intact Current Medications: Current Medications Sig/Vero Start time Last Medication Dose Route Stop Time Status Admin Acetaminophen 650 MG Q6P PRN 08/12 2029 AC PO Acetaminophen 1,000 MG Q6P PRN 08/12 2030 AC IV Albuterol Sulfate 3 ML BID 08/13 2200 AC 08/15 INH 1120 Albuterol Sulfate 2 PUF Q4-6 PRN PRN 08/12 2230 AC INH Budesonide/ 2 PUF BID 08/13 1000 AC 08/15 Formoterol Fumarate INH 0834 Calcium Gluconate 1 GM ONCE ONE 08/15 1045 DC 08/15 Sodium Chloride 100 ML IV 08/15 1144 1122 Calcium Gluconate 1 GM ONCE ONE 08/15 0330 DC 08/15 Sodium Chloride 100 ML IV 08/15 0429 0349 Cholecalciferol 1,000 IU DAILY 08/13 1000 AC 08/15 PO 1431 Cyanocobalamin 1,000 MCG DAILY 08/13 1000 AC 08/15 PO 1431 Dextrose 25 GM ONCE ONE 08/15 1045 DC 08/15 IV 08/15 1046 1122 Dextrose 25 GM ONCE ONE 08/15 0330 DC 08/15 IV 08/15 0331 0349 Diltiazem HCl 180 MG DAILY 08/13 1000 AC 08/15 PO 0833 Folic Acid 1 MG DAILY 08/13 1000 AC 08/15 PO 1440 Hydrocortisone 50 MG ONE ONE 08/14 2200 DC 08/14 Sodium Succinate IV 08/14 2201 2234 Insulin Aspart 6 UNITS ONCE ONE 08/15 0400 DC 08/15 SC 08/15 0401 0359 Insulin Detemir 8 UNITS BID 08/13 1000 AC 08/15 SC 1127 Insulin Human Regular 10 UNITS ONCE ONE 08/15 1045 DC 08/15 IV 08/15 1046 1127 Insulin Human Regular 10 UNITS ONCE ONE 08/15 0330 DC 08/15 IV 08/15 0331 0355 Levothyroxine Sodium 0.112 MG DAILY AC 08/13 0700 AC 08/15 PO 1432 Lidocaine 1 PAT DAILY 08/14 2215 AC 08/15 EXT 0836 Magnesium Oxide 400 MG DAILY 08/13 1000 AC 08/15 PO 1431 Omeprazole 20 MG DAILY 08/13 1000 AC 08/15 PO 0833 Ondansetron HCl 4 MG ONCE ONE 08/15 1430 DC 08/15 PO 08/15 1431 1424 Patient Medication 1 ED ONE ONE 08/14 1530 DC Teaching ED 08/14 1531 Polyethylene Glycol 17 GM DAILY 08/13 1656 AC 08/15 PO 1440 Prednisone 20 MG 1500 08/20 1500 AC PO 08/27 1459 Prednisone 30 MG 1500 08/17 1500 AC PO 08/20 1459 Prednisone 40 MG 1500 08/14 1500 AC 08/15 PO 08/17 1459 1504 Senna/Docusate Sodium 1 TAB BID PRN 08/13 1700 AC PO Sertraline HCl 50 MG 2200 08/13 2200 AC 08/14 PO 2124 Sodium Chloride 2 SPRAY Q4P PRN 08/14 0145 AC TAMIE Sodium Chloride 1,000 ML Q13H 08/12 2045 AC 08/15 IV 1448 Sodium Polystyrene 120 ML ONCE ONE 08/15 0400 DC 08/15 Sulfonate PO 08/15 0401 0418 Theophylline 400 MG Q48 08/15 1000 AC 08/15 PO 0835 Theophylline 200 MG Q48 08/14 1000 AC 08/14 PO 0955 Tiotropium [place] 1 PUF DAILY 08/13 1000 AC 08/15 INH 0838 Tramadol HCl 25 MG Q4 HRS NEEDED PRN 08/13 1630 AC 08/15 PO 0833 Results Last 48 Hrs of Labs/Mics: Laboratory Tests 08/15/17 0815: 08/15/17 0245: Troponin I 0.04 08/15/17 0245: Anion Gap 11, Estimated GFR 44 L, BUN/Creatinine Ratio 22.5, CBC w Diff MAN DIFF ORDERED, RBC 4.30, MCV 67.4 L, MCH 20.9 L, MCHC 31.0 L, RDW 20.3 H, MPV 9.3, Segmented Neutrophils 94 H, Band Neutrophils 4, Lymphocytes 1 L, Monocytes 1 L, Platelet Estimate ADEQUATE, Hypochromic-Microcytic 2+, Poikilocytosis 1+, Anisocytosis 1+, Microcytic Cells 1+, Target Cells FEW, Ovalocytes FEW, Triston Cells RARE, Elliptocytes 1+, Schistocytes 1+ 08/14/172109: pH 7.40, pCO2 23 L, pO2 61 L, HCO3 14 L, ABG O2 Sat (Measured) 89.0 L, P-50 (Temp Corrected) N, Carboxyhemoglobin 1.4 L, O2 Concentration % 50%, Temperature 97.9, O2 Delivery Method HIGH FLOW 45L, Phlebotomy Draw Site LEFT BRACHIAL 08/14/172001: Troponin I 0.04 08/14/17 2002: [id number] Pept 17923 H 08/14/17 1640: Theophylline 1.8 L 08/14/17 1459: Theophylline Cancelled 08/14/17 0614: Anion Gap 8, Estimated GFR 48 L, BUN/Creatinine Ratio 20.0, Cortisol AM Sample 10.7, PT 10.7, INR 1.02, APTT 31, CBC w Diff NO MAN DIFF REQ, RBC 4.03 L, MCV 67.2 L, MCH 21.1 L, MCHC 31.4 L, RDW 19.2 H, MPV 9.5, Gran % 83.6 H, Lymphocytes % 8.9 L, Monocytes % 7.0, Eosinophils % 0.5, Basophils % 0, Absolute Granulocytes 9.8 H, Absolute Lymphocytes 1.0 L, Absolute Monocytes 0.8 H, Absolute Eosinophils 0.1, Absolute Basophils 0 08/13/17 2300: CBC w Diff NO MAN DIFF REQ, RBC 4.13 L, MCV 67.5 L, MCH 20.6 L, MCHC 30.4 L, RDW 20.5 H, MPV 9.4, Gran % 86.0 H, Lymphocytes % 7.0 L, Monocytes % 6.0, Eosinophils % 1.0, Basophils % 0, Absolute Granulocytes 9.6 H, Absolute Lymphocytes 0.8 L, Absolute Monocytes 0.7 H, Absolute Eosinophils 0.1, Absolute Basophils 0 Assessment/Plan Assessment/Plan Assessment: 1. Severe COPD 2. Pulmonary hypertension 3. Diabetes mellitus 4. Respiratory failure and syncope 5. Borderline hypotension, and showed a junctional rhythm Recommendations: * Discontinue diltiazem given hypotension and relative bradycardia * Treatment of COPD as per pulmonate * Continue to monitor and to limit Continue telemetry? Yes
[2017-08-15 16:00] VITALS: BP 98/54
[2017-08-16] VITALS: BP 100/60
[2017-08-16 06:08] LABS: HEMATOCRIT 29.3 % (37-47); MEAN CORPUSCULAR HGB 21.3 PG (27.0-31.0); MEAN CORPUSCULAR HGB CONC 31.4 G/DL (33.0-37.0); MEAN CORPUSCULAR VOLUME 67.8 FL (81.0-99.0); MEAN PLATELET VOLUME 9.4 FL (7.4-10.4); PLATELET COUNT 203 /CUMM (130-400); RBC DISTRIBUTION WIDTH 21.7 % (11.5-14.5); RED BLOOD CELL CT 4.32 /CUMM (4.20-5.40)
[2017-08-16 08:00] VITALS: BP 102/62
--- NOTE | 2017-08-16 09:36 | PN- Resident CRCU ---
Impression/Plan Plan DVT/Prophylaxis: mechanical, pharmacological Code Status: Full Code
--- NOTE | 2017-08-16 10:25 | PN- Resident CRCU ---
Pankaj De Guzman 08/16/17 1024: Subjective HPI/CRCU Issues: 76-year-old woman with long-standing history of COPD (end-stage) with resultant cor pulmonale, history of lung cancer here with acute on chronic hypoxemic respiratory failure. Patient states that she continues to feel short of breath at rest and with conversation. She denies any chest pain, palpitations. Objective Vital Signs & I&O Last 8 Hrs of Vitals and I&O: Intake & Output 08/16 1600 Intake Total 1240 Output Total 700 Balance 540 Intake, IV 600 Intake, Oral 640 Output, Urine 700 Exam General Appearance: well developed/nourished, no apparent distress Neck: normal inspection Respiratory: decreased breath sounds, accessory muscle use, wheezing (expiratory ), respiratory distress Cardiovascular: regular rate/rhythm Gastrointestinal: normal bowel sounds, soft Extremities: normal inspection, normal capillary refill Current Medications: Current Medications Sig/Vero Start time Last Medication Dose Route Stop Time Status Admin Acetaminophen 650 MG Q6P PRN 08/12 2030 AC PO Acetaminophen 1,000 MG Q6P PRN 08/12 2030 AC IV Albuterol Sulfate 3 ML EVERY 4 HRS/AWAKE 08/16 1200 AC 08/16 INH 1200 Albuterol Sulfate 3 ML BID 08/13 2200 DC 08/16 INH 0815 Albuterol Sulfate 2 PUF Q4-6 PRN PRN 08/12 2230 AC INH Budesonide/ 2 PUF BID 08/13 1000 AC 08/16 Formoterol Fumarate INH 0810 Calcium Gluconate 1 GM ONCE ONE 08/15 1900 DC 08/15 Sodium Chloride 100 ML IV 08/15 1959 1908 Cholecalciferol 1,000 IU DAILY 08/13 1000 AC 08/16 PO 0809 Cyanocobalamin 1,000 MCG DAILY 08/13 1000 AC 08/16 PO 0809 Dextrose 25 GM ONCE ONE 08/15 1900 DC 08/15 IV 08/15 1901 1908 Diltiazem HCl 180 MG DAILY 08/13 1000 DC 08/15 PO 0833 Docusate Sodium 100 MG ONCE ONE 08/15 1800 DC PO 08/15 1801 Folic Acid 1 MG DAILY 08/13 1000 AC 08/16 PO 0857 Heparin Sodium 5,000 UNIT Q8 08/15 2200 DC (Porcine) SC Insulin Detemir 8 UNITS BID 08/13 1000 AC 08/16 SC 0930 Insulin Human Regular 10 UNITS ONCE ONE 08/15 1900 DC 08/15 IV 08/15 1901 1908 Lactulose 20 GM ONCE ONE 08/15 1900 DC 08/15 PO 08/15 1901 1856 Levothyroxine Sodium 0.112 MG DAILY AC 08/13 0700 AC 08/16 PO 0809 Lidocaine 1 PAT DAILY 08/14 2215 AC 08/16 EXT 0857 Magnesium Oxide 400 MG DAILY 08/13 1000 AC 08/16 PO 0809 Methylprednisolone 40 MG Q12 08/16 1032 AC IV Omeprazole 20 MG DAILY 08/13 1000 AC 08/16 PO 0857 Polyethylene Glycol 17 GM DAILY 08/13 1656 AC 08/16 PO 0857 Prednisone 20 MG 1500 08/20 1500 CAN PO 08/27 1459 Prednisone 30 MG 1500 08/17 1500 CAN PO 08/20 1459 Prednisone 40 MG 1500 08/14 1500 DC 08/15 PO 08/17 1459 1504 Senna/Docusate Sodium 1 TAB BID PRN 08/13 1700 AC PO Sertraline HCl 50 MG 2200 08/13 2200 AC 08/15 PO 2154 Sodium Chloride 2 SPRAY Q4P PRN 08/14 0145 AC TAMIE Sodium Chloride 1,000 ML Q13H 08/12 2045 AC 08/15 IV 1448 Sodium Polystyrene 60 ML ONCE ONE 08/16 0715 DC 08/16 Sulfonate [place] 08/16 0716 0809 Theophylline 400 MG Q48 08/15 1000 AC 08/15 PO 0835 Theophylline 200 MG Q48 08/14 1000 AC 08/16 PO 0812 Tiotropium [place] 1 PUF DAILY 08/13 1000 AC 08/16 INH 0810 Tramadol HCl 25 MG Q4 HRS NEEDED PRN 08/13 1630 AC 08/16 PO 1132 Impression/Plan Impression/Problem List Impression: 76-year-old woman with long-standing history of COPD (end-stage) with resultant cor pulmonale, history of lung cancer here with acute on chronic hypoxemic respiratory failure. 1. Acute on chronic hypoxemic respiratory failure. TRC nebs. Change by mouth prednisone to IV steroids. A chest CTA was obtained which showed no evidence of pulmonary embolism on 08/12/2017, but opacity was seen on the CT which was concerning for pneumonia or mass lesion (cancer recurrence may be a possibility) at the time. However, the white count trended down spontaneously (without antibiotics) following that, and subsequently started rising again the following day. She has been on steroids, and persistent leukocytosis has been attributed to the demargination of peripheral neutrophils. She has remained afebrile throughout. We will order chest x-ray today. Will order sputum culture. Strep pneumo, Legionella urinary antigen and aspergillus antigen given demonstration of left upper lobe with shift opacity, no eosinophilia noted. We'll obtain ID consult to guide us through the need for empiric treatment for pneumonic process. 2. Hyperkalemia. 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 Other etiology could be normal saline infusion and renal tubular compensation by removing excess sodium and retaining electropositive potassium. Kayexalate given this morning. Will recheck potassium later this evening. Tighter glucose control. Increase Levemir to 10 units twice a day. Especially while on steroids, and the steroids itself should help with transient hypoaldosteronism. BiPAP when necessary. Continue to monitor. Continue other medications as is. Full code. Heartily diet. Problem List: 1. TYPE 2 DIABETES Pain Ratin Tomorrow's Labs & Rationales: Critically Ill Plan DVT/Prophylaxis: mechanical, pharmacological Code Status: Full Code Chandu Grant MD 08/16/17 1024: Attending MD Review Statement Attending Sign Off Attending Cosign Statement: I have: examined this patient, reviewed [facility] EMR data, personally reviewd images, discussd w/resident/PA/FIRER MARINE, discussed mgmt plan w/sadaf, discussed mgmt plan w/CM, discussed mgmt plan w/pt, agreed w/resident/PA/FIRER MARINE, amended to note. Other Findings: Chandu Yan M.D. have examined this patient, reviewed available EMR data, personally reviewed images, discussed with resident/PA/FIRER MARINE, discussed management plan with housestaff and nursing staff, discussed managment plan all of healthcare providers, discussed management plan with patient and/or family, agreed with resident/PA/FIRER MARINE. The past history and parts of the chart have been autopopulated. Impression 76 year old woman * end stage COPD with resultant cor pulmonale/right sided heart failure * hx of lung ca * acute on chronic hypoxemic respiratory failure Plan -CXR today, ID consultation for worsened leukocytosis -supplementation of o2, goal >88%, use BIPAP as needed to reduce work of breathing -cardiology follow up -dc prednisone, begin solumedrol 40mg q12h -trc/nebs -ins/outs -prognosis is poor DVT prophylaxis at all times TTS 35 min
--- NOTE | 2017-08-16 11:53 | RADIOLOGY REPORT ---
EXAMINATION: XR PORTABLE CHEST CLINICAL INFORMATION: 76-year-old woman with leukocytosis. COMPARISON: 08/14/2017 chest radiograph TECHNIQUE: Portable frontal view of the chest was obtained. FINDINGS: The lungs remain generally well expanded. Patchy and groundglass airspace opacity is again seen in the right infrahilar region and at both lung bases. Calcification in the left anterior chest is again visualized as well. No overt pulmonary edema is identified. There may be small bilateral effusions. Moderate cardiomegaly is unchanged. IMPRESSION: Stable radiographic appearance of the chest.
--- NOTE | 2017-08-16 12:59 | Cons- Infect Disease ---
General Information and HPI Consulting Request Date of Consult: 08/16/17 Requested By: Ronni CARBALLO,Rachid Mcgee Reason for Consult: worsening leukocytosis Source of Information: patient, primary team Exam Limitations: clinical condition History of Present Illness: 76 y/o WF with PMH significant for end stage COPD (on 3L home oxygen), diastolic heart failure, pulm HTN, RV dysfunction, hypothyroidism, DM2, lung cancer stg I status post radiation to the left upper lobe with gamma knife therapy, GI bleed presented to emergency department with syncope on 08/12. Patient was recently at our emergency department for altered mental status and hypoglycemia, she was also having generalized fatigue at that time, [facility]. 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 On admision she also reported burning sensation when voiding. recently treated w / Cipro for UTI. She denied chest pain, palpitation, fever, chills, ear pain, sore throat, or any change in bowel habits. She was transferred to ICU 2 days ago overnight for worsening respiratory status requiring high flow oxygen to maintain oxygen saturation and hypotension. Blood work today revealed worsening leukocytosis; ID consult called for further advice Allergies/Medications Allergies: Coded Allergies: rivaroxaban (From XARELTO) (Severe, RECTAL BLEEDING? 04/29/17) heparin (Severe, BLEEDING 04/29/17) naproxen (Severe, GI BLEED 04/29/17) aspirin (Intermediate, BLEEDING 04/29/17) ibuprofen (Intermediate, STOMACH ULCERS 04/29/17) morphine (Intermediate, DROP IN BP 04/29/17) Home Med List: Albuterol Sulfate (Proair Hfa) 90 MCG HFA.AER.AD 2 PUF INH Q4-6 PRN PRN RESP. (Reported) Azithromycin 250 MG TABLET 1 DP PO DAILY ANTIBIOTIC, INFECTION (Reported) 2 the first day followed by 1 for days 2-5 Budesonide/Formoterol Fumarate (Symbicort 160-4.5 Mcg Inhaler) 160 MCG-4.5 MCG/ ACTUATION HFA.AER.AD 2 PUF INH BID RESPIRATORY (Reported) Calcium Carbonate/Vitamin D3 (Calcium 600 + Vit D 200 Tablet) (Unknown Strength) TABLET (Unknown Dose) PO DAILY SUPPLEMENT (Reported) Cholecalciferol (Vitamin D3) (Vitamin D3) 2,000 UNIT CAPSULE 1 CAP PO DAILY SUPPLEMENT (Reported) Ciprofloxacin HCl 250 MG TABLET 1 TAB PO BID ANTIBIOTIC, INFECTION (Reported) Cyanocobalamin (Vitamin B-12) (Vitamin B-12) 100 MCG TABLET 1 TAB PO DAILY SUPPLEMENT (Reported) Diltiazem HCl (Diltiazem 24HR ER) 180 MG CAP.ER.24H 1 CAP PO DAILY HEART/BP ( Reported) Folic Acid 1 MG TABLET 1 TAB PO DAILY SUPPLEMENT (Reported) Furosemide 20 MG TABLET 1 TAB PO DAILY CHF Insulin Detemir (Levemir Flextouch) 100 UNIT/ML (3 ML) INSULN.PEN 8 UNITS SC BID DM (Reported) Levothyroxine Sodium 112 MCG TABLET 1 TAB PO DAILY THYROID (Reported) Magnesium Oxide 400 MG TABLET 1 TAB PO DAILY SUPPLEMENT (Reported) Omeprazole 20 MG CAPSULE.DR 1 CAP PO DAILY GI (Reported) Potassium Chloride (Klor-Con 10) 10 MEQ TABLET.ER 2 TAB PO BID SUPPLEMENT ( Reported) Prednisone 5 MG TABLET 3 TAB PO DAILY COPD (Reported) Sertraline HCl 50 MG TABLET 1 TAB PO QHS MENTAL HEALTH (Reported) Theophylline Anhydrous 200 MG TAB.ER.12H 2 CAP PO Q48 BREATHING PROBLEMS ( Reported) Theophylline Anhydrous 200 MG TAB.ER.12H 1 TAB PO Q48 BREATHING PROBLEMS ( Reported) Tiotropium [place] (Spiriva) 18 MCG CAP.W.DEV 1 CAP INH DAILY RESPIRATORY ( Reported) Current Medications: Current Medications Sig/Vero Start time Last Medication Dose Route Stop Time Status Admin Acetaminophen 650 MG Q6P PRN 08/12 2030 AC PO Acetaminophen 1,000 MG Q6P PRN 08/12 2030 AC IV Albuterol Sulfate 3 ML EVERY 4 HRS/AWAKE 08/16 1200 AC 08/16 INH 1200 Albuterol Sulfate 3 ML BID 08/13 2200 DC 08/16 INH 0815 Albuterol Sulfate 2 PUF Q4-6 PRN PRN 08/12 2230 AC INH Budesonide/ 2 PUF BID 08/13 1000 AC 08/16 Formoterol Fumarate INH 0810 Calcium Gluconate 1 GM ONCE ONE 08/15 1900 DC 08/15 Sodium Chloride 100 ML IV 08/15 1959 1908 Cholecalciferol 1,000 IU DAILY 08/13 1000 AC 08/16 PO 0809 Cyanocobalamin 1,000 MCG DAILY 08/13 1000 AC 08/16 PO 0809 Dextrose 25 GM ONCE ONE 08/15 1900 DC 08/15 IV 08/15 1901 1908 Diltiazem HCl 180 MG DAILY 08/13 1000 DC 08/15 PO 0833 Docusate Sodium 100 MG ONCE ONE 08/15 1800 DC PO 08/15 1801 Folic Acid 1 MG DAILY 08/13 1000 AC 08/16 PO 0857 Heparin Sodium 5,000 UNIT Q8 08/15 2200 DC (Porcine) SC Insulin Detemir 8 UNITS BID 08/13 1000 AC 08/16 SC 0930 Insulin Human Regular 10 UNITS ONCE ONE 08/15 1900 DC 08/15 IV 08/15 1901 1908 Lactulose 20 GM ONCE ONE 08/15 1900 DC 08/15 PO 08/15 1901 1856 Levothyroxine Sodium 0.112 MG DAILY AC 08/13 0700 AC 08/16 PO 0809 Lidocaine 1 PAT DAILY 08/14 2215 AC 08/16 EXT 0857 Magnesium Oxide 400 MG DAILY 08/13 1000 AC 08/16 PO 0809 Methylprednisolone 40 MG Q12 08/16 1032 AC IV Omeprazole 20 MG DAILY 08/13 1000 AC 08/16 PO 0857 Ondansetron HCl 4 MG ONCE ONE 08/15 1430 DC 08/15 PO 08/15 1431 1424 Ondansetron HCl 4 MG .STK-MED ONE 08/15 1421 DC IM 08/15 1422 Polyethylene Glycol 17 GM DAILY 08/13 1656 AC 08/16 PO 0857 Prednisone 20 MG 1500 08/20 1500 CAN PO 08/27 1459 Prednisone 30 MG 1500 08/17 1500 CAN PO 08/20 1459 Prednisone 40 MG 1500 / 1500 DC 08/15 PO 08/17 1459 1504 Senna/Docusate Sodium 1 TAB BID PRN 08/13 1700 AC PO Sertraline HCl 50 MG 2200 08/13 2200 AC 08/15 PO 2154 Sodium Chloride 2 SPRAY Q4P PRN 08/14 0145 AC TAMIE Sodium Chloride 1,000 ML Q13H 08/12 2045 AC 08/15 IV 1448 Sodium Polystyrene 60 ML ONCE ONE 08/16 0715 DC 08/16 Sulfonate NM 08/16 0716 0809 Theophylline 400 MG Q48 08/15 1000 AC 08/15 PO 0835 Theophylline 200 MG Q48 08/14 1000 AC 08/16 PO 0812 Tiotropium [place] 1 PUF DAILY 08/13 1000 AC 08/16 INH 0810 Tramadol HCl 25 MG Q4 HRS NEEDED PRN 08/13 1630 AC 08/16 PO 1132 Past History Travel History Traveled to [place] past 21 day No Medical History Blood Transfusion Hx: No Neurological: NONE EENT: epistaxis Cardiovascular: CHF, hypertension Respiratory: COPD, LUNG CA Gastrointestinal: lower GI bleed Hepatic: NONE Renal: NONE Musculoskeletal: NONE Psychiatric: NONE Endocrine: diabetes, hypothyroidism Blood Disorders: anemia Cancer(s): LUNG TUMOR GLOBAL RECRUITER/Reproductive: NONE History of MRSA: No History of VRE: No History of CDIFF: No Isolation History: Standard Influenza Vaccine: 04/15/17 Surgical History Surgical History: L ELBOW SEPTIC LEFT OLECRANON BURSA BURSECTOMY Family History Relations & Conditions If Any: MOTHER FH: diabetes mellitus FATHER (renal cell ca). FHx: kidney cancer BROTHER (multiple myleoma). Psychosocial History Where Do You Live? Home Who Do You Live With? spouse Services at Home: Nursing, Oxygen Smoking Status: Former Smoker Functional Ability ADLs Independent: dressing, eating, toileting, bathing. Ambulation: independent IADLs Independent: shopping, housework, finances, food prep, telephone, transportation , medication admin. Review of Systems Comments 12 points reviewed as noted, otherwise negative. No palpitations, diaphoresis, vision changes, headaches. Exam & Diagnostic Data Last 24 Hrs of Vital Signs/I&O Vital Signs Date Time Temp Pulse Resp B/P B/P Pulse O2 O2 Flow FiO2 Mean Ox Delivery Rate 08/16 1211 98 08/16 1200 92 BIPAP 35% 08/16 0852 95 Nasal 55% Cannula 08/16 0851 59 95 08/16 0800 100 BIPAP 50% 08/16 0800 97.3 60 28 102/62 100 BIPAP 50% 08/16 0554 62 97 08/16 0400 98 Nasal 55% Cannula 08/16 0013 68 98 08/16 0000 98 Nasal 55% Cannula 08/16 0000 98.2 66 16 100/60 98 Nasal 55% Cannula 08/15 2237 98 Nasal 55% Cannula 08/15 2103 64 99 08/15 2000 98 BIPAP 50% 08/15 1925 92 Nasal 55% Cannula 08/15 1615 98 Nasal 55% Cannula 08/15 1600 96 Nasal 45% Cannula 08/15 1600 98.0 62 22 98/54 96 Nasal 45% Cannula Intake & Output 08/16 1600 08/16 0800 08/16 0000 Intake Total 562 605 Output Total 160 300 Balance 402 305 Intake, IV 562 545 Intake, Oral 0 60 Number 0 0 Bowel Movements Output, Urine 160 300 Patient 135 lb Weight Weight Bed scale Measurement Method Physical Exam Other Physical Findings: General Appearance: alert, awake, anxious Head: contusions, ecchymosis Neck: normal inspection Respiratory: chest non-tender, b/l rhonchi, wheezing Cardiovascular: regular rate/rhythm Gastrointestinal: soft, non-tender, brusies Extremities: normal inspection Cranial Nerves: normal hearing, normal speech Skin: intact, extensive bruising lower abd Last 24 Hours of Lab Results: Laboratory Tests 08/16 08/16 08/15 0555 0020 1720 Chemistry Sodium (137 - 145 mmol/L) 134 L 137 136 L Potassium (3.5 - 5.1 mmol/L) 6.2 *H 4.9 6.5 *H Chloride (98 - 107 mmol/L) 108 H 116 H 110 H Carbon Dioxide (22 - 30 mmol/L) 15 L 13 L 17 L Anion Gap (5 - 16) 10 9 9 BUN (7 - 17 mg/dL) 33 H 27 H 32 H Creatinine (0.5 - 1.0 mg/dL) 1.4 H 1.1 H 1.2 H Estimated GFR (>60 ml/min) 37 L 48 L 44 L BUN/Creatinine Ratio (7 - 25 %) 24.5 26.7 H Glucose (65 - 99 mg/dL) 227 H Calcium (8.4 - 10.2 mg/dL) 8.9 Phosphorus (2.5 - 4.5 mg/dL) 4.3 Magnesium (1.6 - 2.3 mg/dL) 2.2 1.8 Total Bilirubin (0.2 - 1.3 mg/dL) 1.6 H AST (14 - 36 U/L) 286 H ALT (9 - 52 U/L) 527 H Albumin (3.5 - 5.0 g/dL) 2.9 L Hematology CBC w Diff MAN DIFF ORDERED WBC (4.8 - 10.8 /CUMM) 27.0 H RBC (4.20 - 5.40 /CUMM) 4.32 Hgb (12.0 - 16.0 G/DL) 9.2 L Hct (37 - 47 %) 29.3 L MCV (81.0 - 99.0 FL) 67.8 L MCH (27.0 - 31.0 PG) 21.3 L MCHC (33.0 - 37.0 G/DL) 31.4 L RDW (11.5 - 14.5 %) 21.7 H Plt Count (130 - 400 /CUMM) 203 MPV (7.4 - 10.4 FL) 9.4 Segmented Neutrophils (42.2 - 75.2 %) 95 H Lymphocytes (20.5 - 51.1 %) 2 L Monocytes (1.7 - 9.3 %) 3 Nucleated RBCs (0.0 - 0.0 /100WBC) 1 H Platelet Estimate (ADEQUATE) ADEQUATE Polychromasia 1+ Hypochromic-Microcytic 1+ Poikilocytosis 1+ Anisocytosis 2+ Microcytic Cells 2+ Target Cells FEW Ovalocytes 1+ Other Body Source Fld Total RBCs Counted (%) 100 Last 24 Hours of Rayo Results: SPEC #: [id number] JONATHAN: 08/14/17 STATUS: COMP RECD: 08/14/[address] S[facility]: UPPER RESP ENTR: 08/14/[address]: RAIZAC: NOSTRILS ORDERED: ACT SURV NARES Procedure Result > ACTIVE SURVEILLANCE CULTURE Final 08/16/17 NO METHICILLIN RESISTANT STAPH AUREUS ISOLATED Diagnostic Data Recent Imaging Findings: CXR FINDINGS: The lungs remain generally well expanded. Patchy and groundglass airspace opacity is again seen in the right infrahilar region and at both lung bases. Calcification in the left anterior chest is again visualized as well. No overt pulmonary edema is identified. There may be small bilateral effusions. Moderate cardiomegaly is unchanged. IMPRESSION: Stable radiographic appearance of the chest. DICTATED BY: Martha Lobato MD DATE/TIME DICTATED:08/16/171148 RING CUTTER LATHE OPERATOR:MONTY DATE/TIME TRANSCRIBED:08/16/171148 CTA 08/12 IMPRESSION: No CT evidence for pulmonary embolism. Emphysema. Multiple subcentimeter pulmonary nodules and nodular densities. New demonstration of 3.7 cm wedge-shaped opacity within the left upper lobe. There is a broad differential diagnosis for this appearance including infarction (though none is seen at this time), pneumonia and mass lesion. A follow-up chest CT is warranted to assure resolution of this appearance following treatment and/or resolution of symptoms. DICTATED BY: Patrick Ramirez MD DATE/TIME DICTATED:08/12/171625 RING CUTTER LATHE OPERATOR:MONTY DATE/TIME TRANSCRIBED:08/12/171625 Assessment/Plan Assessment/Plan Impression: 76 y/o WF with PMH significant for end stage COPD (on 3L home oxygen), diastolic heart failure, pulm HTN, RV dysfunction, hypothyroidism, DM2, lung cancer status post RT*, GI bleed admitted 08/12. Worsening leukocytosis Abnormal CT chest (wedge shaped opacity); with broad differential diagnosis for this appearance including pneumonia and mass lesion; sputum cx from 05/01 (MSSA/mold). Suggestion: 1. Sputum cx if productive cough. Would observe off abx for now. 2. Aspergillus antigen. 3. Trend CBC. 4. C. difficile stool assay if diarrhea (got CTX on 08/13). 5. Interval f/u CT chest eval recurrent lung ca/? post obstructive pneumonia. Consult Acknowledgment - Thank you for your consult request.
--- NOTE | 2017-08-16 15:24 | PN- Cardiology ---
Subjective Subjective: The patient continues to be short of breath. She is on BiPAP. No chest pain. No palpitations. Diltiazem was discontinued, and she is now back in sinus rhythm Objective Vital Signs and I&Os Vital Signs Date Time Temp Pulse Resp B/P B/P Pulse O2 O2 Flow FiO2 Mean Ox Delivery Rate 08/16 1420 97 03/ 1211 98 03/ 1200 92 BIPAP 35% / 0852 95 Nasal 55% Cannula / 0851 59 95 / 0800 100 BIPAP 50% / 0800 97.3 60 28 102/62 100 BIPAP 50% 08/16 0554 62 97 03/04 0400 98 Nasal 55% Cannula / 0013 68 98 03/ 0000 98 Nasal 55% Cannula 08/16 0000 98.2 66 16 100/60 98 Nasal 55% Cannula 08/15 2237 98 Nasal 55% Cannula 08/15 2103 64 99 / 2000 98 BIPAP 50% 08/15 1925 92 Nasal 55% Cannula 08/15 1615 98 Nasal 55% Cannula 08/15 1600 96 Nasal 45% Cannula 08/15 1600 98.0 62 22 98/54 96 Nasal 45% Cannula Intake & Output 08/16 1600 / 0800 03/04 0000 /03 1600 08/15 0800 08/15 0000 Intake Total 562 605 800 885 700 Output Total 160 300 500 100 200 Balance 402 305 300 785 500 Intake, IV 562 545 700 585 450 Intake, Oral 0 60 100 300 250 Number 0 0 0 1 Bowel Movements Output, Urine 160 300 500 100 200 Patient 135 lb 134 lb Weight Weight Bed scale Bed scale Measurement Method Physical Exam: Gen: NAD HEENT: normal Lungs: Decreased breath sounds, increased respiratory Heart: RRR, S1, S2, no murmurs Abdomen: Soft, nontender, no masses Extremities: No clubbing, cyanosis, or edema. Neuro: Alert and oriented x 3, cranial nerves intact Current Medications: Current Medications Sig/Vero Start time Last Medication Dose Route Stop Time Status Admin Acetaminophen 650 MG Q6P PRN 08/12 2029 AC PO Acetaminophen 1,000 MG Q6P PRN 08/12 2030 AC IV Albuterol Sulfate 3 ML EVERY 4 HRS/AWAKE 08/16 1200 AC 08/16 INH 1200 Albuterol Sulfate 3 ML BID 08/13 2200 DC 08/16 INH 0815 Albuterol Sulfate 2 PUF Q4-6 PRN PRN 08/12 2230 AC INH Budesonide/ 2 PUF BID 08/13 1000 AC 08/16 Formoterol Fumarate INH 0810 Calcium Gluconate 1 GM ONCE ONE 08/15 1900 DC 08/15 Sodium Chloride 100 ML IV 08/15 1959 1908 Cholecalciferol 1,000 IU DAILY 08/13 1000 AC 08/16 PO 0809 Cyanocobalamin 1,000 MCG DAILY 08/13 1000 AC 08/16 PO 0809 Dextrose 25 GM ONCE ONE 08/15 1900 DC 08/15 IV 08/15 1901 1908 Diltiazem HCl 180 MG DAILY 08/13 1000 DC 08/15 PO 0833 Docusate Sodium 100 MG ONCE ONE 08/15 1800 DC PO 08/15 1801 Folic Acid 1 MG DAILY 08/13 1000 AC 08/16 PO 0857 Heparin Sodium 5,000 UNIT Q8 08/15 2200 DC (Porcine) SC Insulin Detemir 8 UNITS BID 08/13 1000 AC 08/16 SC 0930 Insulin Human Regular 10 UNITS ONCE ONE 08/15 1900 DC 08/15 IV 08/15 1901 1908 Lactulose 20 GM ONCE ONE 08/15 1900 DC 08/15 PO 08/15 1901 1856 Levothyroxine Sodium 0.112 MG DAILY AC 08/13 0700 AC 08/16 PO 0809 Lidocaine 1 PAT DAILY 08/14 2215 AC 08/16 EXT 0857 Magnesium Oxide 400 MG DAILY 08/13 1000 AC 08/16 PO 0809 Methylprednisolone 40 MG Q12 08/16 1032 AC IV Omeprazole 20 MG DAILY 08/13 1000 AC 08/16 PO 0857 Polyethylene Glycol 17 GM DAILY 08/13 1656 AC 08/16 PO 0857 Prednisone 20 MG 1500 08/20 1500 CAN PO 08/27 1459 Prednisone 30 MG 1500 08/17 1500 CAN PO 08/20 1459 Prednisone 40 MG 1500 08/14 1500 DC 08/15 PO 08/17 1459 1504 Senna/Docusate Sodium 1 TAB BID PRN 08/13 1700 AC PO Sertraline HCl 50 MG 2200 08/13 2200 AC 08/15 PO 2154 Sodium Chloride 2 SPRAY Q4P PRN 08/14 0145 AC TAMIE Sodium Chloride 1,000 ML Q13H 08/12 2045 AC 08/15 IV 1448 Sodium Polystyrene 60 ML ONCE ONE 08/16 0715 DC 08/16 Sulfonate [place] 08/16 0716 0809 Theophylline 400 MG Q48 08/15 1000 AC 08/15 PO 0835 Theophylline 200 MG Q48 08/14 1000 AC 08/16 PO 0812 Tiotropium [place] 1 PUF DAILY 08/13 1000 AC 08/16 INH 0810 Tramadol HCl 25 MG Q4 HRS NEEDED PRN 08/13 1630 AC 08/16 PO 1132 Results Last 48 Hrs of Labs/Mics: Laboratory Tests 08/16/17 0555: Anion Gap 10, Estimated GFR 37 L, Glucose 227 H, Calcium 8.9, Phosphorus 4.3, Magnesium 2.2, Total Bilirubin 1.6 H, AST 286 H, ALT 527 H, Albumin 2.9 L, CBC w Diff MAN DIFF ORDERED, RBC 4.32, MCV 67.8 L, MCH 21.3 L, MCHC 31.4 L, RDW 21.7 H, MPV 9.4, Segmented Neutrophils 95 H, Lymphocytes 2 L, Monocytes 3 , Nucleated RBCs 1 H, Platelet Estimate ADEQUATE, Polychromasia 1+, Hypochromic -Microcytic 1+, Poikilocytosis 1+, Anisocytosis 2+, Microcytic Cells 2+, Target Cells FEW, Ovalocytes 1+, Fld Total RBCs Counted 100 08/16/17 0020: Anion Gap 9, Estimated GFR 48 L, BUN/Creatinine Ratio 24.5, Magnesium 1.8 08/15/17 1720: Anion Gap 9, Estimated GFR 44 L, BUN/Creatinine Ratio 26.7 H 08/15/17 0815: 08/15/17 0245: Troponin I 0.04 08/15/17 0245: Anion Gap 11, Estimated GFR 44 L, BUN/Creatinine Ratio 22.5, CBC w Diff MAN DIFF ORDERED, RBC 4.30, MCV 67.4 L, MCH 20.9 L, MCHC 31.0 L, RDW 20.3 H, MPV 9.3, Segmented Neutrophils 94 H, Band Neutrophils 4, Lymphocytes 1 L, Monocytes 1 L, Platelet Estimate ADEQUATE, Hypochromic-Microcytic 2+, Poikilocytosis 1+, Anisocytosis 1+, Microcytic Cells 1+, Target Cells FEW, Ovalocytes FEW, [place] Cells RARE, Elliptocytes 1+, Schistocytes 1+ 08/14/172109: pH 7.40, pCO2 23 L, pO2 61 L, HCO3 14 L, ABG O2 Sat (Measured) 89.0 L, P-50 (Temp Corrected) N, Carboxyhemoglobin 1.4 L, O2 Concentration % 50%, Temperature 97.9, O2 Delivery Method HIGH FLOW 45L, Phlebotomy Draw Site LEFT BRACHIAL 08/14/17 2002: Troponin I 0.04 08/14/17 2002: Daj-S-Vuhyispdsvc Pept 20997 H 08/14/17 1640: Theophylline 1.8 L Microbiology 08/14 2204 UPPER RESP: Surveillance Culture - COMP 08/14 2204 GI: Surveillance Culture - COMP Recent Imaging Studies: The lungs remain generally well expanded. Patchy and groundglass airspace opacity is again seen in the right infrahilar region and at both lung bases. Calcification in the left anterior chest is again visualized as well. No overt pulmonary edema is identified. There may be small bilateral effusions. Moderate cardiomegaly is unchanged. Assessment/Plan Assessment/Plan Assessment: 1. Severe COPD 2. Pulmonary hypertension 3. Diabetes mellitus 4. Respiratory failure and syncope 5. Borderline hypotension, and showed a junctional rhythm 6. Acute kidney injury and had Recommendations: * Keep off diltiazem for now given recent hypotension and junctional rhythm * Treatment of COPD as per pulmonate * Monitor for further arrhythmia Continue telemetry? Yes
[2017-08-16 16:00] VITALS: BP 124/72
[2017-08-16 23:00] VITALS: BP 126/72
[2017-08-17 06:36] LABS: HEMATOCRIT 27.9 % (37-47); MEAN CORPUSCULAR HGB 20.9 PG (27.0-31.0); MEAN CORPUSCULAR HGB CONC 30.6 G/DL (33.0-37.0); MEAN CORPUSCULAR VOLUME 68.1 FL (81.0-99.0); MEAN PLATELET VOLUME 9.5 FL (7.4-10.4); PLATELET COUNT 164 /CUMM (130-400); RBC DISTRIBUTION WIDTH 22.8 % (11.5-14.5); WHITE BLOOD CELL COUNT 17.8 /CUMM (4.8-10.8)
--- NOTE | 2017-08-17 07:14 | PN- Resident CRCU ---
Subjective HPI/CRCU Issues: Acute on chronic hypoxemic respiratory failure with end-stage COPD resulting in cor pulmonale/right-sided heart failure. 24 Hour Events: Patient seen and examined. Lying in bed on high flow oxygen. Continues to complain of exertional dyspnea with minimal movement. -MAXIMUM TEMPERATURE 99.2, heart rate ranging in 100s to 60s is normal sinus rhythm junctional rythm, RR in 20s, results: Blood pressure ranging in 100 to 120s/60s to 70s, oxygen saturation and 100% on high flow Did not use BiPAP overnight prefers to be on high flow. Normal saline @75 ML per hour running Intake 2581 output 1575, no bm for past 3 days -WBC count has trended down from 27-17.8 ,H/H8.6/28 stable platelet count 164 -Sodium 137 potassium 4.7 chloride 109, HCO3 20, creatinine 1.1 BUN 33 -AST 424 ALT 928 total bili 0.2 CXR 3/4 Stable radiographic appearance of the chest. Objective Vital Signs & I&O Last 8 Hrs of Vitals and I&O: Vital Signs Date Time Temp Pulse Resp B/P B/P Pulse O2 O2 Flow FiO2 Mean Ox Delivery Rate 03/ 1435 94 Nasal 55% Cannula 03/05 1353 93 Nasal 55% Cannula 03/05 1220 92 Nasal 55% Cannula 03/05 1218 90 93 03/05 1200 95 BIPAP 40% 03/05 1040 103 93 03/05 0951 93 Nasal 55% Cannula 03/05 0800 96 Nasal 55% Cannula 03/05 0800 98.0 98 22 118/70 96 Nasal 55% Cannula 03/05 0400 93 Nasal 60% Cannula 03/05 0022 104 89 03/05 0000 96 Nasal 60% Cannula 03/04 2300 99.2 101 16 126/72 95 Nasal 60% Cannula 03/04 2018 95 BIPAP 40% 03/04 2000 93 BIPAP 40% 03/04 1930 90 95 03/04 1615 80 95 03/04 1600 88 Nasal 60% Cannula 03/04 1600 96.7 92 30 124/72 88 Nasal 60% Cannula Intake & Output 03/05 1600 03/05 0800 03/05 0000 Intake Total 741 610 731 Output Total 200 600 275 Balance 541 10 456 Intake, IV 381 490 371 Intake, Oral 360 120 360 Number 0 0 0 Bowel Movements Output, Urine 200 600 275 Intake & Output 08/17 1600 Intake Total 741 Output Total 200 Balance 541 Intake, IV 381 Intake, Oral 360 Number 0 Bowel Movements Output, Urine 200 Exam General Appearance: alert, awake, mild distress Head: atraumatic Neck: normal inspection Respiratory: crackles, stridor, wheezing Cardiovascular: regular rate/rhythm Gastrointestinal: normal bowel sounds, soft, non-tender Extremities: no edema Cranial Nerves: normal hearing, normal speech Current Medications: Current Medications Sig/Vero Start time Last Medication Dose Route Stop Time Status Admin Acetaminophen 650 MG Q6P PRN 08/12 2029 AC PO Acetaminophen 1,000 MG Q6P PRN 08/12 2030 AC IV Albuterol Sulfate 3 ML EVERY 4 HRS/AWAKE 08/16 1200 DC 08/17 INH 1351 Albuterol Sulfate 2 PUF Q4-6 PRN PRN 08/12 2230 DC INH Budesonide/ 2 PUF BID 08/13 1000 AC 08/17 Formoterol Fumarate INH 0850 Cholecalciferol 1,000 IU DAILY 08/13 1000 AC 08/17 PO 0849 Cyanocobalamin 1,000 MCG DAILY 08/13 1000 AC 08/17 PO 0849 Diltiazem HCl 180 MG DAILY 08/17 1500 AC PO Folic Acid 1 MG DAILY 08/13 1000 AC 08/17 PO 0849 Insulin Detemir 10 UNITS BID 08/16 2200 AC 08/17 SC 0849 Insulin Detemir 8 UNITS BID 08/13 1000 DC 08/16 SC 0930 Levothyroxine Sodium 0.112 MG DAILY AC 08/13 0700 AC 08/17 PO 0638 Lidocaine 1 PAT DAILY 08/14 2215 AC 08/17 EXT 1044 Magnesium Oxide 400 MG DAILY 08/13 1000 AC 08/17 PO 0849 Methylprednisolone 40 MG DAILY 08/18 1000 AC IV Methylprednisolone 40 MG Q12 08/16 1032 DC 05 IV 0849 Omeprazole 20 MG DAILY 08/13 1000 DC 08/17 PO 0849 Pantoprazole Sodium 40 MG DAILY 08/18 1000 AC IV Polyethylene Glycol 17 GM DAILY 08/13 1656 AC 05 PO 0849 Senna/Docusate Sodium 1 TAB BID PRN 08/13 1700 AC PO Sertraline HCl 50 MG 2200 08/13 2200 AC 04 PO 2122 Sodium Chloride 2 SPRAY Q4P PRN 03/02 0145 AC TAMIE Sodium Chloride 1,000 ML Q13H 08/12 2045 DC 05 IV 1049 Theophylline 400 MG Q48 08/15 1000 DC 08/17 PO 0850 Theophylline 200 MG Q48 08/14 1000 DC 08/16 PO 0812 Tiotropium [place] 1 PUF DAILY 08/13 1000 AC /05 INH 1045 Tramadol HCl 25 MG Q4 HRS NEEDED PRN 08/13 1630 AC 08/17 PO 1045 Impression/Plan Impression/Problem List Impression: Patient is a 76 YO F with PMH significant for 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 The patient was transferred overnight to ICU for increased oxygen requirement and hypotension. Respiratory #Acute on chronic hypoxemic respiratory failure with end-stage COPD resulting in cor pulmonale/right-sided heart failure. -Currently on high flow if respiratory distress restart on BiPAP -Goals greater than O2 88% -ABGs today -TRC/nebs. Only ipratropium for nebs, avoid albuterol unless severe wheezing. -Continue steroids, IV methylprednisone 40mg -D/C Theophylline Infection #Leukocytosis secondary to steroid use most likely -Continue to monitor -ID on board monitor off abx -CT chest showed wedge-shaped opacity probably atelectasis, PNA, malignancy less likely #Suspected UTI Patient was initially started on ceftriaxone which was later discontinued because urine culture was negative. Cardiology #Syncopal episode Likely multifactorial. Patient was hypokalemic which could have contributed to an arrhythmia. She has hx of severe pulmonary hypertension and is diuresed for peripheral edema . She has relative cortisol deficiency due to steroid use Orthostatics contributing to her episodes. She was also hypoglycemic on presentation. -Continue to monitor on telemetry -Avoid dehydration, Lasix on hold -Maintain euvolemic state #Right sided heart failure -Consider addition of dobutamine tomorrow, theophyline d/marcia today can potentiate tachycardia #Hypotension, resolving Patient's blood pressure dropped to she required 2500 mL fluid bolus and 50 mg IV hydrocortisone secondary to relative cortisol deficiency. -Lasix on hold -Maintaing blood pressure around 120/60s #Relative bradycardia, Resolved -Continue Cardizem, will start dobutamine tomorrow for right-sided heart failure Hematology # Symptomatic anemia Status post 1 unit PRBCs 08/13. Of note patient had history of GI bleed 2 years ago requiring 10 units of PRBC transfusion, without any etiology being found -Stool Guaiac - pending. patient deffered the rectal exam on multiple occasions. -H/H Stable continue to monitor Metabolic #Hyperkalemia Initially the patient was hypokalemic and potassium was repleted aggressively at present patient hyperkalemic and has received calcium gluconate, insulin 10 units, dextrose 3 and Kayexalate 2 -Resolved 4.7 today #Relative Cortisol deficiency Cortisol level was 10.7. Patient is on prednisone 15mg daily at home, which was not given to her since her admisson to the hospital. Patient was given stress dose of steroid and started on a prednisone taper starting from 40mg daily. Overnight patient's blood pressure dropped and she received 50 mg IV hydrocortisone -Continue IV methylprednisone 40 mg #DM Accu-Chek, insulin sliding scale, and Levemir 10 units twice a day. Musculoskeletal #Frequent falls/unsteady gait - PT evaluation; Pending Alimantary #Dysphagia Patient choked on her medication on 08/14, states she has experienced the same before at home as well. -Dr. Rudolph encouraged patient to take oral intake if not able try atleast liquids -Consider GI Consult for dysphagia is persistent inpt vs outpt Nephrology #[place]IS[place]T- improving Creatinine is 1.2, Secondary to prerenal azotemia in setting of diuresis -Gentle IVF, encourage PO intake -Continue to monitor Cr curve -Avoid nephrotoxins Lasix on hold DVT prophylaxis with Alps and lovenox Code Status DNR/DNI Problem List: 1. BRONCHITIS, CHRONIC OBSTRUCTIVE W/ACUTE EXACERBATION Pain Ratin Tomorrow's Labs & Rationales: cbc Plan DVT/Prophylaxis: mechanical, pharmacological Code Status: Full Code
[2017-08-17 08:00] VITALS: BP 118/70
--- NOTE | 2017-08-17 09:59 | PN- Infect Dx ---
Subjective Subjective: Afebrile on steroids. She does not offer any complaints and feels improved from yesterday. Objective Last 24 Hrs of Vital Signs/I&O Vital Signs Date Time Temp Pulse Resp B/P B/P Pulse O2 O2 Flow FiO2 Mean Ox Delivery Rate 08/17 0400 93 Nasal 60% Cannula 08/17 0022 104 89 08/17 0000 96 Nasal 60% Cannula 08/16 2300 99.2 101 16 126/72 95 Nasal 60% Cannula 08/16 2018 95 BIPAP 40% 08/17 1999 93 BIPAP 40% 08/16 1930 90 95 08/16 1615 80 95 08/16 1600 88 Nasal 60% Cannula 08/16 1600 96.7 92 30 124/72 88 Nasal 60% Cannula 08/16 1420 97 08/16 1211 98 08/16 1200 92 BIPAP 35% Intake & Output 08/17 1600 08/17 0800 08/17 0000 Intake Total 610 731 Output Total 600 275 Balance 10 456 Intake, IV 490 371 Intake, Oral 120 360 Number 0 0 Bowel Movements Output, Urine 600 275 Physical Exam Other Physical Findings: She appears comfortable on high flow oxygen in no acute distress Lungs bilateral inspiratory wheezes Heart regular rhythm with no murmur Abdomen is soft, nontender with positive bowel sounds Extremities no cyanosis, clubbing or edema Results Last 24 Hours of Lab Results: Laboratory Tests 08/17 08/17 08/16 0608 0000 1730 Chemistry Sodium (137 - 145 mmol/L) 137 140 138 Potassium (3.5 - 5.1 mmol/L) 4.7 4.5 5.4 H Chloride (98 - 107 mmol/L) 109 H 109 H 108 H Carbon Dioxide (22 - 30 mmol/L) 20 L 19 L 20 L Anion Gap (5 - 16) 8 11 10 BUN (7 - 17 mg/dL) 33 H 34 H 36 H Creatinine (0.5 - 1.0 mg/dL) 1.1 H 1.2 H 1.5 H Estimated GFR (>60 ml/min) 48 L 44 L 34 L Glucose (65 - 99 mg/dL) 195 H 213 H 196 H Calcium (8.4 - 10.2 mg/dL) 8.8 9.0 9.2 Phosphorus (2.5 - 4.5 mg/dL) 3.7 3.6 4.2 Magnesium (1.6 - 2.3 mg/dL) 2.1 2.0 2.1 Total Bilirubin (0.2 - 1.3 mg/dL) 2.2 H 2.1 H 2.1 H AST (14 - 36 U/L) 424 H 624 H 724 H ALT (9 - 52 U/L) 928 H 1064 H 1246 H Albumin (3.5 - 5.0 g/dL) 2.8 L 2.9 L 3.3 L Hematology CBC w Diff MAN DIFF ORDERED WBC (4.8 - 10.8 /CUMM) 17.8 H RBC (4.20 - 5.40 /CUMM) 4.10 L Hgb (12.0 - 16.0 G/DL) 8.6 L Hct (37 - 47 %) 27.9 L MCV (81.0 - 99.0 FL) 68.1 L MCH (27.0 - 31.0 PG) 20.9 L MCHC (33.0 - 37.0 G/DL) 30.6 L RDW (11.5 - 14.5 %) 22.8 H Plt Count (130 - 400 /CUMM) 164 MPV (7.4 - 10.4 FL) 9.5 Segmented Neutrophils (42.2 - 75.2 %) 94 H Band Neutrophils (0.0 - 5.0 %) 2 Lymphocytes (20.5 - 51.1 %) 2 L Monocytes (1.7 - 9.3 %) 2 Nucleated RBCs (0.0 - 0.0 /100WBC) 1 H Platelet Estimate (ADEQUATE) ADEQUATE Polychromasia 1+ Poikilocytosis 1+ Basophilic Stippling 1+ Anisocytosis 1+ Microcytic Cells 1+ Target Cells FEW [place] Cells 1+ Elliptocytes 1+ Last 24 Hours of Rayo Results: Urine strep pneumo antigen and Legionella antigen August 16 negative Assessment/Plan ID Impression: Stable off antibiotics with temperatures remaining normal (on steroids) and white blood cell count, though still elevated, decreasing and likely secondary to the steroids. Her chest x-ray and CT of the chest did reveal a wedge-shaped opacity, in the left upper lobe, of unclear significance and, as she appears to be stable, she can continue to be followed off antibiotics. Suggestion: 1. Continue to follow off antibiotics
--- NOTE | 2017-08-17 12:00 | PN- Cardiology ---
Subjective Subjective: The patient is awake, alert Telemetry demonstrates no further significant bradycardia The events of the last 24 hours as well as telemetry were reviewed. Review of Systems: The review of systems is negative for chest pains, palpitations nor lightheadedness. The remainder of the 14 point review of systems is noncontributory with the exception of above. Objective Vital Signs and I&Os Vital Signs Date Time Temp Pulse Resp B/P B/P Pulse O2 O2 Flow FiO2 Mean Ox Delivery Rate 08/17 1040 103 93 08/17 0951 93 Nasal 55% Cannula 08/17 0800 96 Nasal 55% Cannula 08/17 08 98.0 98 22 118/70 96 Nasal 55% Cannula 08/17 0400 93 Nasal 60% Cannula 08/17 0022 104 89 03/ 0000 96 Nasal 60% Cannula 08/16 2300 99.2 101 16 126/72 95 Nasal 60% Cannula 08/16 2018 95 BIPAP 40% 08/16 2000 93 BIPAP 40% 08/16 1930 90 95 08/16 1615 80 95 08/16 1600 88 Nasal 60% Cannula 08/16 1600 96.7 92 30 124/72 88 Nasal 60% Cannula 08/16 1420 97 / 1211 98 03/04 1200 92 BIPAP 35% Intake & Output 08/17 1600 / 0800 03/05 0000 03/04 1600 / 0800 03/ 0000 Intake Total 313 034 4298 562 605 Output Total 600 275 700 160 300 Balance 10 456 540 402 305 Intake, IV 490 371 600 562 545 Intake, Oral 120 360 640 0 60 Number 0 0 0 0 Bowel Movements Output, Urine 600 275 700 160 300 Patient 135 lb Weight Weight Bed scale Measurement Method Physical Exam: General: Nontoxic, no apparent distress. HEENT: Sclera and conjunctiva within normal limits, without xanthelasmas. Neck: Carotids 2+ without bruits. Respiratory: Scattered rhonchi, air movement is decreased at bases, without accessory respiratory muscle use. Heart: Regular rate and rhythm, without murmurs, without JVD. Abdomen: Soft, nontender, no masses, normoactive bowel sounds. Extremities: Without clubbing, cyanosis, without edema. Neuro: Nonfocal exam, strength, 5 out of 5 Skin: Within normal limits without lesions. Psych: Mood and affect: Normal Current Medications: Current Medications Sig/Vero Start time Last Medication Dose Route Stop Time Status Admin Acetaminophen 650 MG Q6P PRN 08/12 2030 AC PO Acetaminophen 1,000 MG Q6P PRN 08/12 2030 AC IV Albuterol Sulfate 3 ML EVERY 4 HRS/AWAKE 08/16 1200 AC 08/17 INH 0946 Albuterol Sulfate 2 PUF Q4-6 PRN PRN 08/12 2230 AC INH Budesonide/ 2 PUF BID 08/13 1000 AC 08/17 Formoterol Fumarate INH 0850 Cholecalciferol 1,000 IU DAILY 08/13 1000 AC 08/17 PO 0849 Cyanocobalamin 1,000 MCG DAILY 08/13 1000 AC 08/17 PO 0849 Folic Acid 1 MG DAILY 08/13 1000 AC 08/17 PO 0849 Insulin Detemir 10 UNITS BID 08/16 2200 AC 08/17 SC 0849 Insulin Detemir 8 UNITS BID 08/13 1000 DC 08/16 SC 0930 Levothyroxine Sodium 0.112 MG DAILY AC 08/13 0700 AC 08/17 PO 0638 Lidocaine 1 PAT DAILY 08/14 2215 AC 08/17 EXT 1044 Magnesium Oxide 400 MG DAILY 08/13 1000 AC 08/17 PO 0849 Methylprednisolone 40 MG DAILY 08/18 1000 AC IV Methylprednisolone 40 MG Q12 08/16 1032 DC 08/17 IV 0849 Omeprazole 20 MG DAILY 08/13 1000 DC 08/17 PO 0849 Pantoprazole Sodium 40 MG DAILY 08/18 1000 AC IV Polyethylene Glycol 17 GM DAILY 08/13 1656 AC 08/17 PO 0849 Senna/Docusate Sodium 1 TAB BID PRN 08/13 1700 AC PO Sertraline HCl 50 MG 2200 08/13 2200 AC 08/16 PO 2122 Sodium Chloride 2 SPRAY Q4P PRN 08/14 0145 AC TAMIE Sodium Chloride 1,000 ML Q13H 08/12 2045 DC 08/17 IV 1049 Theophylline 400 MG Q48 08/15 1000 AC 08/17 PO 0850 Theophylline 200 MG Q48 08/14 1000 AC 08/16 PO 0812 Tiotropium [place] 1 PUF DAILY 08/13 1000 AC 08/17 INH 1045 Tramadol HCl 25 MG Q4 HRS NEEDED PRN 08/13 1630 AC 08/17 PO 1045 Results Last 48 Hrs of Labs/Mics: Laboratory Tests 08/17/17 0608: Anion Gap 8, Estimated GFR 48 L, Glucose 195 H, Calcium 8.8, Phosphorus 3.7, Magnesium 2.1, Total Bilirubin 2.2 H, AST 424 H, ALT 928 H, Albumin 2.8 L, CBC w Diff MAN DIFF ORDERED, RBC 4.10 L, MCV 68.1 L, MCH 20.9 L, MCHC 30.6 L , RDW 22.8 H, MPV 9.5, Segmented Neutrophils 94 H, Band Neutrophils 2, Lymphocytes 2 L, Monocytes 2, Nucleated RBCs 1 H, Platelet Estimate ADEQUATE, Polychromasia 1+, Poikilocytosis 1+, Basophilic Stippling 1+, Anisocytosis 1+, Microcytic Cells 1+, Target Cells FEW, [place] Cells 1+, Elliptocytes 1+ 08/17/17 0000: Anion Gap 11, Estimated GFR 44 L, Glucose 213 H, Calcium 9.0, Phosphorus 3.6, Magnesium 2.0, Total Bilirubin 2.1 H, Direct Bilirubin 1.2 H, AST 624 H, ALT 1064 H, Alkaline Phosphatase 103, [id number] Pept 05677 H, Albumin 2.9 L, Theophylline 9.6 L 08/16/17 1730: Anion Gap 10, Estimated GFR 34 L, Glucose 196 H, Calcium 9.2, Phosphorus 4.2, Magnesium 2.1, Total Bilirubin 2.1 H, AST 724 H, ALT 1246 H, Albumin 3.3 L 08/16/17 0555: Anion Gap 10, Estimated GFR 37 L, Glucose 227 H, Calcium 8.9, Phosphorus 4.3, Magnesium 2.2, Total Bilirubin 1.6 H, AST 286 H, ALT 527 H, Albumin 2.9 L, CBC w Diff MAN DIFF ORDERED, RBC 4.32, MCV 67.8 L, MCH 21.3 L, MCHC 31.4 L, RDW 21.7 H, MPV 9.4, Segmented Neutrophils 95 H, Lymphocytes 2 L, Monocytes 3 , Nucleated RBCs 1 H, Platelet Estimate ADEQUATE, Polychromasia 1+, Hypochromic -Microcytic 1+, Poikilocytosis 1+, Anisocytosis 2+, Microcytic Cells 2+, Target Cells FEW, Ovalocytes 1+, Fld Total RBCs Counted 100 08/16/17 0020: Anion Gap 9, Estimated GFR 48 L, BUN/Creatinine Ratio 24.5, Magnesium 1.8 08/15/17 1720: Anion Gap 9, Estimated GFR 44 L, BUN/Creatinine Ratio 26.7 H Microbiology 08/16 175 URINE ROUT: Legionella Antigen - COMP 08/16 1749 URINE ROUT: Streptococcus pneumoniae Antigen (M - COMP Assessment/Plan Assessment/Plan 76-year-old woman with a past medical history of severe COPD and sees on home O2 ), severe pulmonary hypertension with RV dysfunction, diabetes mellitus, status post left upper lobe resection, prior GI bleed and documented congestive heart failure with preserved LV systolic function. She presents to our hospital with increasing dyspnea as well as possible syncopal episode. Syncope: Patient presents with syncope which may be multifactorial. She was profoundly hypokalemic on admission which has been subsequently repleted, and so arrhythmias may be an underlying etiology. She has well has known severe pulmonary hypertension and is diuresed for peripheral edema. This likely significantly affects her overall blood pressures and cardiac output predisposing her to significant orthostatic changes. Dehydration avoidance will need to be closely monitored. At this point, she appears euvolemic and not in acute congestive heart failure. I would therefore attempt to maintain an overall euvolemic state. Bradycardia: Following admission, the patient was corrected for electrolytes and became hyperkalemic with subsequent junctional rhythm/sinus bradycardia. She is currently improved and we will remain off of her regimen of metoprolol and diltiazem. Dyspnea: Predominately due to severe underlying COPD and pulmonary hypertension. Given her pulmonary hypertension, anticoagulation should be considered; however, is currently contraindicated given her frequent falls. Continued input as per pulmonary will be followed. Continue telemetry? Yes
--- NOTE | 2017-08-17 13:56 | PN- CRCU ---
Subjective HPI/Critical Care Issues: Doing poorly fatigued Still dyspnea Objective Current Medications: Current Medications Sig/Vero Start time Last Medication Dose Route Stop Time Status Admin Acetaminophen 650 MG Q6P PRN 08/12 2030 AC PO Acetaminophen 1,000 MG Q6P PRN 08/12 2030 AC IV Albuterol Sulfate 3 ML EVERY 4 HRS/AWAKE 08/16 1200 AC 08/17 INH 0946 Albuterol Sulfate 2 PUF Q4-6 PRN PRN 08/12 2230 AC INH Budesonide/ 2 PUF BID 08/13 1000 AC 08/17 Formoterol Fumarate INH 0850 Cholecalciferol 1,000 IU DAILY 08/13 1000 AC 08/17 PO 0849 Cyanocobalamin 1,000 MCG DAILY 08/13 1000 AC 08/17 PO 0849 Folic Acid 1 MG DAILY 08/13 1000 AC 08/17 PO 0849 Insulin Detemir 10 UNITS BID 08/16 2200 AC 08/17 SC 0849 Insulin Detemir 8 UNITS BID 08/13 1000 DC 08/16 SC 0930 Levothyroxine Sodium 0.112 MG DAILY AC 08/13 0700 AC 08/17 PO 0638 Lidocaine 1 PAT DAILY 08/14 2215 AC 08/17 EXT 1044 Magnesium Oxide 400 MG DAILY 08/13 1000 AC 08/17 PO 0849 Methylprednisolone 40 MG DAILY 08/18 1000 AC IV Methylprednisolone 40 MG Q12 08/16 1032 DC 08/17 IV 0849 Omeprazole 20 MG DAILY 08/13 1000 DC 08/17 PO 0849 Pantoprazole Sodium 40 MG DAILY 08/18 1000 AC IV Polyethylene Glycol 17 GM DAILY 08/13 1656 AC 08/17 PO 0849 Senna/Docusate Sodium 1 TAB BID PRN 08/13 1700 AC PO Sertraline HCl 50 MG 2200 08/13 2200 AC 08/16 PO 2122 Sodium Chloride 2 SPRAY Q4P PRN 08/14 0145 AC TAMIE Sodium Chloride 1,000 ML Q13H 08/12 2045 DC 05 IV 1049 Theophylline 400 MG Q48 08/15 1000 AC 08/17 PO 0850 Theophylline 200 MG Q48 08/14 1000 AC 08/16 PO 0812 Tiotropium [place] 1 PUF DAILY 08/13 1000 AC 08/17 INH 1045 Tramadol HCl 25 MG Q4 HRS NEEDED PRN 08/13 1630 AC 08/17 PO 1045 Vital Signs & I&O Last 24 Hrs of Vitals and I&O: Vital Signs Date Time Temp Pulse Resp B/P B/P Pulse O2 O2 Flow FiO2 Mean Ox Delivery Rate 08/17 1220 92 Nasal 55% Cannula / 1218 90 93 03/ 1200 95 BIPAP 40% 03/ 1040 103 93 03/ 0951 93 Nasal 55% Cannula / 0800 96 Nasal 55% Cannula / 0800 98.0 98 22 118/70 96 Nasal 55% Cannula 08/17 0400 93 Nasal 60% Cannula / 0022 104 89 03/05 0000 96 Nasal 60% Cannula / 2300 99.2 101 16 126/72 95 Nasal 60% Cannula / 2018 95 BIPAP 40% / 2000 93 BIPAP 40% / 1930 90 95 /04 1615 80 95 / 1600 88 Nasal 60% Cannula / 1600 96.7 92 30 124/72 88 Nasal 60% Cannula / 1420 97 Intake & Output / 1600 /05 0800 03/05 0000 Intake Total 610 731 Output Total 600 275 Balance 10 456 Intake, IV 490 371 Intake, Oral 120 360 Number 0 0 Bowel Movements Output, Urine 600 275 Impression/Plan Impression/Plan Impression/Plan: EOMI CHest mild crackles abd soft sig eccymosis trace edema This is a lady with end-stage COPD, cor pulmonale, 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, history of lung cancer status post radiation to the left upper lobe with gamma knife therapy with stage I lung cancer presumed cure with no recurrent lesion noted in the recent CAT scan now here with * Syncope or near sycope with multiple falls, pt with severe PUlm htn from copd, with sig corpulmonale, previous full work up for other causes are neg (no vte, no vasculitis etc) * Symtomatic anemia with sig ccymosis due to prednisone * RElative cortisol def * End stage copd with chronic resp failure * REcurrent diastolic chf now euvolemic after ivf as she was dehydrated upon admission * Profound fatigue significant shortness of breath muscle weakness most likely related to cortisol deficiency as she's been on steroids for years * Cor pulmonale with chronic right heart dysfunction with profound shortness of breath due to end-stage COPD and heart disease. Her lower extremity edema is related to that. * No clinical evidence suggestive of venous thromboembolism, neg ct * CHest ct abormality wedge shaped (no pe, prob atx vs pna unlikely malignancy) * History of lung cancer status post radiation therapy rule out recurrence * Diabetes on insulin * Hypothyroidism on appropriate supplementation therapy REC Cont all meds HOld lasix Try Dobutamine at 2.5 mics and observe heart rate and if ok can increase to 5 (discussed with cardio) in am Nebs only prn Use ipratropium only for nebs, till heart rate is down and use albuterol only if needed for sever wheezing Keep her on steroids at 40 mg daily Cont dilt No role for anticoag as she has pulm htn due to copd Follow sugar DNR and DNi and discussed with the family Code Status: Full Code
[2017-08-17 16:00] VITALS: BP 124/82
--- NOTE | 2017-08-17 18:21 | Event Note ---
Event Note Event Note: Had a detailed discussion with pt, Pt is changing her CODE STATUS from full code to DNR/DNI patient's daughter was present at bedside and witnessed the conversation. Pt was very emotional about her prognosis.
[2017-08-18] VITALS: BP 120/70
[2017-08-18 05:28] LABS: HEMATOCRIT 28.1 % (37-47); MEAN CORPUSCULAR HGB 21.4 PG (27.0-31.0); MEAN CORPUSCULAR HGB CONC 31.3 G/DL (33.0-37.0); MEAN CORPUSCULAR VOLUME 68.3 FL (81.0-99.0); MEAN PLATELET VOLUME 9.3 FL (7.4-10.4); PLATELET COUNT 157 /CUMM (130-400); RED BLOOD CELL CT 4.12 /CUMM (4.20-5.40)
[2017-08-18 05:55] LABS: WHITE BLOOD CELL COUNT 18.1 /CUMM (4.8-10.8)
--- NOTE | 2017-08-18 07:29 | PN- Resident CRCU ---
Subjective HPI/CRCU Issues: Patient seen and examined continues to complain of exertional dyspnea with slight movement Tmax 98 Heart rate ranging in 100s to 90s Sinus rhythm and sinus tachycardia Respiratory rate ranging from 20-24 Blood pressure ranging in the 130s to 120s/70s to 80s Patient was on BiPAP for 1 hour overnight she remains on high flow setting in 90s Intake 1261 output 1100 WBC count 18.1 trending up secondary to steroids H/H stable, chloride 109 bicarbonate 21 Transaminitis (improving ) with hyperbilirubinemia continues TSH/free T4 WNL Objective Vital Signs & I&O Last 8 Hrs of Vitals and I&O: Vital Signs Date Time Temp Pulse Resp B/P B/P Pulse O2 O2 Flow FiO2 Mean Ox Delivery Rate 08/18 0809 94 Nasal 65% Cannula / 0400 95 Nasal 65% Cannula / 0348 95 Nasal 65% Cannula / 0035 91 92 03/ 0000 90 Nasal 65% Cannula 03/ 0000 98.1 100 26 120/70 90 Nasal 65% Cannula / 0000 90 Nasal 65% Cannula /05 2020 93 Nasal 60% Cannula 03/05 2000 95 Nasal 60% Cannula 03/05 1630 96 Nasal 55% Cannula 03/05 1600 94 Nasal 55% Cannula 03/05 1600 98.5 108 124/82 94 Nasal 55% Cannula 03/05 1435 94 Nasal 55% Cannula 03/05 1353 93 Nasal 55% Cannula 03/05 1220 92 Nasal 55% Cannula 03/05 1218 90 93 03/05 1200 95 BIPAP 40% 03/05 1040 103 93 03/05 0951 93 Nasal 55% Cannula Intake & Output 03/06 1600 03/06 0800 03/06 0000 Intake Total 160 360 Output Total 500 400 Balance -340 -40 Intake, Oral 160 360 Number 0 Bowel Movements Output, Urine 500 400 Patient 135 lb Weight Weight Bed scale Measurement Method Exam General Appearance: alert Head: atraumatic Respiratory: chest non-tender, wheezing Cardiovascular: regular rate/rhythm Gastrointestinal: large brusie on abd 2/2 to fall Extremities: normal inspection Cranial Nerves: normal hearing, normal speech Current Medications: Current Medications Sig/Vero Start time Last Medication Dose Route Stop Time Status Admin Acetaminophen 650 MG Q6P PRN 08/12 2029 AC PO Acetaminophen 1,000 MG Q6P PRN 08/12 2029 AC IV Albuterol Sulfate 3 ML Q4P PRN 08/17 1630 AC 08/18 INH 0348 Albuterol Sulfate 3 ML EVERY 4 HRS/AWAKE 08/16 1200 DC 08/17 INH 1351 Albuterol Sulfate 2 PUF Q4-6 PRN PRN 08/12 2230 DC INH Budesonide/ 2 PUF BID 08/13 1000 AC 08/18 Formoterol Fumarate INH 1120 Calcium Carbonate 500 MG ONCE ONE 08/17 2100 DC 08/17 PO 08/17 2101 2220 Cholecalciferol 1,000 IU DAILY 08/13 1000 AC 08/17 PO 0849 Cyanocobalamin 1,000 MCG DAILY 08/13 1000 AC 08/17 PO 0849 Diltiazem HCl 180 MG DAILY 08/17 1500 AC 08/18 PO 1122 Dobutamine HCl 250 MG ONCE ONE 08/18 0900 DC 08/18 Dextrose/Water 250 ML IV 08/18 0901 1037 Folic Acid 1 MG DAILY 08/13 1000 AC 08/18 PO 1122 Furosemide 20 MG ONCE ONE 08/18 1300 AC IV 08/18 1301 Insulin Aspart 0 TIDAC 08/18 1200 CAN SC Insulin Detemir 10 UNITS AT BEDTIME 08/18 2200 AC SC Insulin Detemir 12 UNITS DAILY 08/18 1000 AC 08/18 SC 1119 Insulin Detemir 10 UNITS BID 08/16 2200 DC 08/17 SC 2222 Ipratropium [place] 2.5 ML EVERY 4 HRS/AWAKE 08/17 2000 AC 08/18 INH 0806 Levothyroxine Sodium 0.112 MG DAILY AC 08/13 0700 AC 08/18 PO 1018 Lidocaine 1 PAT DAILY 08/14 2215 AC 08/17 EXT 1044 Magnesium Oxide 400 MG DAILY 08/13 1000 AC 08/18 PO 1122 Methylprednisolone 40 MG DAILY 08/18 1000 AC 08/18 IV 1022 Pantoprazole Sodium 40 MG DAILY 08/18 1000 AC 08/18 IV 1022 Polyethylene Glycol 17 GM DAILY 08/13 1656 AC 08/17 PO 0849 Senna/Docusate Sodium 1 TAB BID PRN 08/13 1700 AC PO Sertraline HCl 50 MG 2200 08/13 2200 AC 08/17 PO 2222 Sodium Chloride 2 SPRAY Q4P PRN 08/14 0145 AC TAMIE Theophylline 400 MG Q48 08/15 1000 DC 08/17 PO 0850 Theophylline 200 MG Q48 08/14 1000 DC 08/16 PO 0812 Tiotropium [place] 1 PUF DAILY 08/13 1000 AC 08/18 INH 1120 Tramadol HCl 25 MG Q4 HRS NEEDED PRN 08/13 1630 AC 08/17 PO 1045 Impression/Plan Impression/Problem List Impression: Patient is a 76 YO F with PMH significant for 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 The patient was transferred overnight to ICU for increased oxygen requirement and hypotension. Respiratory #Acute on chronic hypoxemic respiratory failure with end-stage COPD resulting in cor pulmonale/right-sided heart failure. -Used bipap 1hr over night, continues to be on high flow. -Goals greater than O2 88% -TRC/nebs. Only ipratropium for nebs, avoid albuterol unless severe wheezing. -Continue steroids, IV methylprednisone 40mg -D/C Theophylline on 08/17 Infection #Leukocytosis secondary to steroid use most likely -Continue to monitor -ID on board monitor off abx -CT chest showed wedge-shaped opacity probably atelectasis, PNA, malignancy less likely #Suspected UTI Patient was initially started on ceftriaxone which was later discontinued because urine culture was negative. Cardiology #Syncopal episode Likely multifactorial. Patient was hypokalemic which could have contributed to an arrhythmia. She has hx of severe pulmonary hypertension and is diuresed for peripheral edema . She has relative cortisol deficiency due to steroid use Orthostatics contributing to her episodes. She was also hypoglycemic on presentation. -Continue to monitor on telemetry -Avoid dehydration, Lasix on hold -Maintain euvolemic state #Right sided heart failure -Dobutamine drip started @2.5 if patient tolerates well will build upto 5micg -Will proceed with small dose of IV lasix to prompt diuresis if pt remains hemodynamically stable #Hypotension, resolving Patient's blood pressure dropped to she required 2500 mL fluid bolus and 50 mg IV hydrocortisone secondary to relative cortisol deficiency. -Lasix on hold -Maintaing blood pressure around 120/60s #Relative bradycardia, Resolved -Initially Cardizem was held and has been restarted. Hematology # Symptomatic anemia Status post 1 unit PRBCs 08/13. Of note patient had history of GI bleed 2 years ago requiring 10 units of PRBC transfusion, without any etiology being found -Stool Guaiac - pending. patient deffered the rectal exam on multiple occasions. -H/H Stable continue to monitor Metabolic #Hyperkalemia Initially the patient was hypokalemic and potassium was repleted aggressively at present patient hyperkalemic and has received calcium gluconate, insulin 10 units, dextrose 3 and Kayexalate 2 -Resolved 4.1 today #Relative Cortisol deficiency Cortisol level was 10.7. Patient is on prednisone 15mg daily at home, which was not given to her since her admisson to the hospital. Patient was given stress dose of steroid and started on a prednisone taper starting from 40mg daily. Overnight patient's blood pressure dropped and she received 50 mg IV hydrocortisone -Continue IV methylprednisone 40 mg #Transaminitis and hyperbilirubinemia Likely secondary to congestion in setting of right-sided heart failure.Transaminitis is improving hyperbilirubinemia continues to trend up -Continue to monitor LFTs #DM -Accu-Chek, insulin sliding scale -FS 302,160,134 -Levemir dose changed to 12 units in the a.m. and 10 units in p.m. #Hypothyroidism -TSH/freeT4 WNL continue home dose of synthroid Musculoskeletal #Frequent falls/unsteady gait - PT evaluation; Pending Alimantary #Dysphagia Patient choked on her medication on 08/14, states she has experienced the same before at home as well. -Dr. Rudolph encouraged patient to take oral intake if not able try atleast liquids -Consider GI Consult for dysphagia is persistent inpt vs outpt Nephrology #LISSETT-Secondary to prerenal azotemia in setting of diuresis-resolved Creatinine is 0.9 today, encourage PO intake -Continue to monitor Cr curve -Avoid nephrotoxins Lasix on hold DVT prophylaxis with Alps and lovenox Code Status DNR/DNI Problem List: 1. COPD Pain Ratin Tomorrow's Labs & Rationales: CBC ICU BUNDLE Plan DVT/Prophylaxis: mechanical, pharmacological Code Status: Full Code
[2017-08-18 08:00] VITALS: BP 126/80
--- NOTE | 2017-08-18 08:48 | PN- CRCU ---
Subjective HPI/Critical Care Issues: Doing about the same fatigued still has dyspnea Objective Current Medications: Current Medications Sig/Vero Start time Last Medication Dose Route Stop Time Status Admin Acetaminophen 650 MG Q6P PRN 08/12 2030 AC PO Acetaminophen 1,000 MG Q6P PRN 08/12 2030 AC IV Albuterol Sulfate 3 ML Q4P PRN 08/17 1630 AC 08/18 INH 0348 Albuterol Sulfate 3 ML EVERY 4 HRS/AWAKE 08/16 1200 DC 08/17 INH 1351 Albuterol Sulfate 2 PUF Q4-6 PRN PRN 08/12 2230 DC INH Budesonide/ 2 PUF BID 08/13 1000 AC 08/17 Formoterol Fumarate INH 2146 Calcium Carbonate 500 MG ONCE ONE 08/17 2100 DC 08/17 PO 08/17 2101 2220 Cholecalciferol 1,000 IU DAILY 08/13 1000 AC 08/17 PO 0849 Cyanocobalamin 1,000 MCG DAILY 08/13 1000 AC 08/17 PO 0849 Diltiazem HCl 180 MG DAILY 08/17 1500 AC 08/17 PO 1602 Folic Acid 1 MG DAILY 08/13 1000 AC 08/17 PO 0849 Insulin Aspart 0 TIDAC 08/18 1200 UNVr SC Insulin Detemir 10 UNITS BID 08/16 2200 AC 08/17 SC 2222 Ipratropium [place] 2.5 ML EVERY 4 HRS/AWAKE 08/17 2000 AC 08/18 INH 0806 Levothyroxine Sodium 0.112 MG DAILY AC 08/13 0700 AC 08/17 PO 0638 Lidocaine 1 PAT DAILY 08/14 2215 AC 08/17 EXT 1044 Magnesium Oxide 400 MG DAILY 08/13 1000 AC 08/17 PO 0849 Methylprednisolone 40 MG DAILY 08/18 1000 AC IV Methylprednisolone 40 MG Q12 08/16 1032 DC 08/17 IV 0849 Omeprazole 20 MG DAILY 08/13 1000 DC 08/17 PO 0849 Pantoprazole Sodium 40 MG DAILY 08/18 1000 AC IV Polyethylene Glycol 17 GM DAILY 08/13 1656 AC 08/17 PO 0849 Senna/Docusate Sodium 1 TAB BID PRN 08/13 1700 AC PO Sertraline HCl 50 MG 2200 08/13 2200 AC 05 PO 2222 Sodium Chloride 2 SPRAY Q4P PRN 08/14 0145 AC TAMIE Sodium Chloride 1,000 ML Q13H 022044 DC 03/05 IV 1049 Theophylline 400 MG Q48 08/15 1000 DC 08/17 PO 0850 Theophylline 200 MG Q48 08/14 1000 DC 08/16 PO 0812 Tiotropium [place] 1 PUF DAILY 08/13 1000 AC 08/17 INH 1045 Tramadol HCl 25 MG Q4 HRS NEEDED PRN 08/13 1630 AC 08/17 PO 1045 Vital Signs & I&O Last 24 Hrs of Vitals and I&O: Vital Signs Date Time Temp Pulse Resp B/P B/P Pulse O2 O2 Flow FiO2 Mean Ox Delivery Rate 08/18 0809 94 Nasal 65% Cannula 08/18 0400 95 Nasal 65% Cannula 08/18 0348 95 Nasal 65% Cannula 08/18 0035 91 92 08/18 0000 90 Nasal 65% Cannula 08/18 0000 98.1 100 26 120/70 90 Nasal 65% Cannula 08/18 0000 90 Nasal 65% Cannula 08/17 2020 93 Nasal 60% Cannula 08/17 2000 95 Nasal 60% Cannula 08/17 1630 96 Nasal 55% Cannula 08/17 1600 94 Nasal 55% Cannula 08/17 1600 98.5 108 124/82 94 Nasal 55% Cannula 08/17 1435 94 Nasal 55% Cannula 08/17 1353 93 Nasal 55% Cannula 08/17 1220 92 Nasal 55% Cannula 08/17 1218 90 93 08/17 1200 95 BIPAP 40% 08/17 1040 103 93 08/17 0951 93 Nasal 55% Cannula Intake & Output 08/18 1600 0306 0800 03/ 0000 Intake Total 160 360 Output Total 500 400 Balance -340 -40 Intake, Oral 160 360 Number 0 Bowel Movements Output, Urine 500 400 Patient 135 lb Weight Weight Bed scale Measurement Method Laboratory Tests 08/1805 0500 1900 1859 Blood Gas pH (7.35 - 7.45 PH) 7.41 pCO2 (35 - 45 TORR) 29 L pO2 (80 - 100 TORR) 63 L HCO3 (21 - 28 MEQ/L) 18 L ABG O2 Sat (Measured) (>96.0 %) 89.0 L P-50 (Temp Corrected) N Carboxyhemoglobin (1.5 - 5.0 %) 1.1 L O2 Concentration % 60% HIGH FLOW Temperature (97.0 - 100.0 FARH) 98.5 O2 Delivery Method 45L/NC Chemistry Sodium (137 - 145 mmol/L) 140 Potassium (3.5 - 5.1 mmol/L) 4.1 Chloride (98 - 107 mmol/L) 109 H Carbon Dioxide (22 - 30 mmol/L) 21 L Anion Gap (5 - 16) 10 BUN (7 - 17 mg/dL) 32 H Creatinine (0.5 - 1.0 mg/dL) 0.9 Estimated GFR (>60 ml/min) > 60 Glucose (65 - 99 mg/dL) 182 H Calcium (8.4 - 10.2 mg/dL) 9.1 Phosphorus (2.5 - 4.5 mg/dL) 3.0 Magnesium (1.6 - 2.3 mg/dL) 2.1 Total Bilirubin (0.2 - 1.3 mg/dL) 2.4 H AST (14 - 36 U/L) 180 H ALT (9 - 52 U/L) 755 H Albumin (3.5 - 5.0 g/dL) 3.0 L Free T4 (0.78 - 2.44 ng/dL) 1.46 Hematology CBC w Diff MAN DIFF ORDERED WBC (4.8 - 10.8 /CUMM) 18.1 H RBC (4.20 - 5.40 /CUMM) 4.12 L Hgb (12.0 - 16.0 G/DL) 8.8 L Hct (37 - 47 %) 28.1 L MCV (81.0 - 99.0 FL) 68.3 L MCH (27.0 - 31.0 PG) 21.4 L MCHC (33.0 - 37.0 G/DL) 31.3 L RDW (11.5 - 14.5 %) 24.0 H Plt Count (130 - 400 /CUMM) 157 MPV (7.4 - 10.4 FL) 9.3 Segmented Neutrophils (42.2 - 75.2 %) 92 H Band Neutrophils (0.0 - 5.0 %) 5 Monocytes (1.7 - 9.3 %) 3 Nucleated RBCs (0.0 - 0.0 /100WBC) 6 H Platelet Estimate (ADEQUATE) ADEQUATE Polychromasia 1+ Hypochromic-Microcytic 2+ Poikilocytosis 2+ Anisocytosis 3+ Microcytic Cells 3+ Target Cells RARE Ovalocytes 1+ Triston Cells FEW Elliptocytes FEW Miscellaneous Phlebotomy Draw Site RIGHT BRACHIAL Other Body Source Fld Total RBCs Counted (%) 100 0308/17 0608 0000 1730 Chemistry Sodium (137 - 145 mmol/L) 137 140 138 Potassium (3.5 - 5.1 mmol/L) 4.7 4.5 5.4 H Chloride (98 - 107 mmol/L) 109 H 109 H 108 H Carbon Dioxide (22 - 30 mmol/L) 20 L 19 L 20 L Anion Gap (5 - 16) 8 11 10 BUN (7 - 17 mg/dL) 33 H 34 H 36 H Creatinine (0.5 - 1.0 mg/dL) 1.1 H 1.2 H 1.5 H Estimated GFR (>60 ml/min) 48 L 44 L 34 L Glucose (65 - 99 mg/dL) 195 H 213 H 196 H Calcium (8.4 - 10.2 mg/dL) 8.8 9.0 9.2 Phosphorus (2.5 - 4.5 mg/dL) 3.7 3.6 4.2 Magnesium (1.6 - 2.3 mg/dL) 2.1 2.0 2.1 Total Bilirubin (0.2 - 1.3 mg/dL) 2.2 H 2.1 H 2.1 H Direct Bilirubin (< 0.4 mg/dL) 1.2 H AST (14 - 36 U/L) 424 H 624 H 724 H ALT (9 - 52 U/L) 928 H 1064 H 1246 H Alkaline Phosphatase (<127 U/L) 103 [id number] Pept (<125 pg/mL) 45761 H Albumin (3.5 - 5.0 g/dL) 2.8 L 2.9 L 3.3 L TSH (0.270 - 4.200 uIU/mL) 1.600 Thyroxine (T4) (4.5 - 10.9 ug/dL) 5.2 Total T3 (0.97 - 1.69 ng/mL) 0.62 L Hematology CBC w Diff MAN DIFF ORDERED WBC (4.8 - 10.8 /CUMM) 17.8 H RBC (4.20 - 5.40 /CUMM) 4.10 L Hgb (12.0 - 16.0 G/DL) 8.6 L Hct (37 - 47 %) 27.9 L MCV (81.0 - 99.0 FL) 68.1 L MCH (27.0 - 31.0 PG) 20.9 L MCHC (33.0 - 37.0 G/DL) 30.6 L RDW (11.5 - 14.5 %) 22.8 H Plt Count (130 - 400 /CUMM) 164 MPV (7.4 - 10.4 FL) 9.5 Segmented Neutrophils (42.2 - 75.2 %) 94 H Band Neutrophils (0.0 - 5.0 %) 2 Lymphocytes (20.5 - 51.1 %) 2 L Monocytes (1.7 - 9.3 %) 2 Nucleated RBCs (0.0 - 0.0 /100WBC) 1 H Platelet Estimate (ADEQUATE) ADEQUATE Polychromasia 1+ Poikilocytosis 1+ Basophilic Stippling 1+ Anisocytosis 1+ Microcytic Cells 1+ Target Cells FEW [place] Cells 1+ Elliptocytes 1+ Toxicology Theophylline (10.0 - 20.0 uG/mL) 9.6 L Microbiology Date/Time Procedure - Status Source Growth 08/16 1839 Clostridium difficile Toxin A & B - CAN STOOL Cancelled: SPECIMEN NOT RECEIVED IN LABORATORY 08/16 1750 Legionella Antigen - COMP URINE ROUT 08/16 1750 Streptococcus pneumoniae Antigen (M - COMP URINE ROUT 08/16 1453 Respiratory Culture - CAN LOWER RESP Cancelled: SPECIMEN NOT RECEIVED IN LABORATORY 08/16 1453 Gram Stain - CAN LOWER RESP Cancelled: SPECIMEN NOT RECEIVED IN LABORATORY Impression/Plan Impression/Plan Impression/Plan: EOMI CHest mild crackles abd soft sig eccymosis trace edema This is a lady with end-stage COPD, cor pulmonale, 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, history of lung cancer status post radiation to the left upper lobe with gamma knife therapy with stage I lung cancer presumed cure with no recurrent lesion noted in the recent CAT scan now here with * Syncope or near sycope with multiple falls, pt with severe PUlm htn from copd, with sig corpulmonale, previous full work up for other causes are neg (no vte, no vasculitis etc) * Symtomatic anemia with sig ccymosis due to prednisone * RElative cortisol def * End stage copd with chronic resp failure * REcurrent diastolic chf now euvolemic after ivf as she was dehydrated upon admission * Profound fatigue significant shortness of breath muscle weakness most likely related to cortisol deficiency as she's been on steroids for years * Cor pulmonale with chronic right heart dysfunction with profound shortness of breath due to end-stage COPD and heart disease. Her lower extremity edema is related to that. * No clinical evidence suggestive of venous thromboembolism, neg ct * CHest ct abormality wedge shaped (no pe, prob atx vs pna unlikely malignancy) * History of lung cancer status post radiation therapy rule out recurrence * Diabetes on insulin * Hypothyroidism on appropriate supplementation therapy REC Cont all meds Start dobutamine drip at 2.5 and if [place] 5 mics IF stable on dobutamine one dose of iv lasix can be tried after few hours to promot diuresis if able Nebs only prn Use ipratropium only for nebs, till heart rate is down and use albuterol only if needed for sever wheezing Keep her on steroids at 40 mg daily Cont dilt No role for anticoag as she has pulm htn due to copd, no PE by cta Follow sugar DNR and DNi and discussed with the family Code Status: DNR and dni Code Status: Full Code
--- NOTE | 2017-08-18 10:21 | PN- Cardiology ---
Subjective Subjective: The patient is awake, alert The events of the last 24 hours as well as telemetry were reviewed. Review of Systems: The review of systems is negative for chest pains, palpitations nor lightheadedness. The remainder of the 14 point review of systems is noncontributory with the exception of above. Objective Vital Signs and I&Os Vital Signs Date Time Temp Pulse Resp B/P B/P Pulse O2 O2 Flow FiO2 Mean Ox Delivery Rate 08/18 0809 94 Nasal 65% Cannula 08/18 0800 95 Nasal 65% Cannula 08/18 0800 97.6 84 18 126/80 95 Nasal 65% Cannula / 0400 95 Nasal 65% Cannula 08/18 0348 95 Nasal 65% Cannula / 0035 91 92 08/18 0000 90 Nasal 65% Cannula / 0000 98.1 100 26 120/70 90 Nasal 65% Cannula 08/18 0000 90 Nasal 65% Cannula / 2020 93 Nasal 60% Cannula 03/ 2000 95 Nasal 60% Cannula 03/05 1630 96 Nasal 55% Cannula 03/05 1600 94 Nasal 55% Cannula 03/05 1600 98.5 108 124/82 94 Nasal 55% Cannula 03/05 1435 94 Nasal 55% Cannula 03/05 1353 93 Nasal 55% Cannula 03/05 1220 92 Nasal 55% Cannula 03/05 1218 90 93 03/05 1200 95 BIPAP 40% 03/05 1040 103 93 Intake & Output /06 1600 03/06 0800 03/06 0000 03/05 1600 03/05 0800 03/05 0000 Intake Total 160 360 741 610 731 Output Total 500 400 200 600 275 Balance -340 -40 541 10 456 Intake, IV 381 490 371 Intake, Oral 160 360 360 120 360 Number 0 0 0 0 Bowel Movements Output, Urine 500 400 200 600 275 Patient 135 lb Weight Weight Bed scale Measurement Method Physical Exam: General: Nontoxic, no apparent distress. HEENT: Sclera and conjunctiva within normal limits, without xanthelasmas. Neck: Carotids 2+ without bruits. Respiratory: Scattered rhonchi, air movement is decreased throughout, without accessory respiratory muscle use. Heart: Regular rate and rhythm, without murmurs, without JVD. Abdomen: Soft, nontender, no masses, normoactive bowel sounds. Extremities: Without clubbing, cyanosis, without edema. Neuro: Nonfocal exam, strength, 5 out of 5 Skin: Within normal limits without lesions. Psych: Mood and affect: Normal Current Medications: Current Medications Sig/Vero Start time Last Medication Dose Route Stop Time Status Admin Acetaminophen 650 MG Q6P PRN 08/12 2030 AC PO Acetaminophen 1,000 MG Q6P PRN 08/12 2030 AC IV Albuterol Sulfate 3 ML Q4P PRN 08/17 1630 AC 08/18 INH 0348 Albuterol Sulfate 3 ML EVERY 4 HRS/AWAKE 08/16 1200 DC 08/17 INH 1351 Albuterol Sulfate 2 PUF Q4-6 PRN PRN 08/12 2230 DC INH Budesonide/ 2 PUF BID 08/13 1000 AC 08/17 Formoterol Fumarate INH 2146 Calcium Carbonate 500 MG ONCE ONE 08/17 2100 DC 08/17 PO 08/17 2101 2220 Cholecalciferol 1,000 IU DAILY 08/13 1000 AC 08/17 PO 0849 Cyanocobalamin 1,000 MCG DAILY 08/13 1000 AC 08/17 PO 0849 Diltiazem HCl 180 MG DAILY 08/17 1500 AC 08/17 PO 1602 Dobutamine HCl 250 MG ONCE ONE 08/18 0900 DC Dextrose/Water 250 ML IV 08/18 0901 Folic Acid 1 MG DAILY 08/13 1000 AC 08/17 PO 0849 Insulin Aspart 0 TIDAC 08/18 1200 CAN SC Insulin Detemir 10 UNITS AT BEDTIME 08/18 2200 AC SC Insulin Detemir 12 UNITS DAILY 08/18 1000 AC SC Insulin Detemir 10 UNITS BID 08/16 2200 DC 08/17 SC 2222 Ipratropium [place] 2.5 ML EVERY 4 HRS/AWAKE 08/17 2000 AC 08/18 INH 0806 Levothyroxine Sodium 0.112 MG DAILY AC 08/13 0700 AC 08/17 PO 0638 Lidocaine 1 PAT DAILY 08/14 2215 AC 08/17 EXT 1044 Magnesium Oxide 400 MG DAILY 08/13 1000 AC 08/17 PO 0849 Methylprednisolone 40 MG DAILY 08/18 1000 AC IV Methylprednisolone 40 MG Q12 08/16 1032 DC 03/05 IV 0849 Omeprazole 20 MG DAILY 08/13 1000 DC 08/17 PO 0849 Pantoprazole Sodium 40 MG DAILY 08/18 1000 AC IV Polyethylene Glycol 17 GM DAILY 08/13 1656 AC 08/17 PO 0849 Senna/Docusate Sodium 1 TAB BID PRN 08/13 1700 AC PO Sertraline HCl 50 MG 2200 08/13 2200 AC 08/17 PO 2222 Sodium Chloride 2 SPRAY Q4P PRN 08/14 0145 AC TAMIE Sodium Chloride 1,000 ML Q13H 08/12 2045 DC 08/17 IV 1049 Theophylline 400 MG Q48 08/15 1000 DC 08/17 PO 0850 Theophylline 200 MG Q48 08/14 1000 DC 08/16 PO 0812 Tiotropium [place] 1 PUF DAILY 08/13 1000 AC 08/17 INH 1045 Tramadol HCl 25 MG Q4 HRS NEEDED PRN 08/13 1630 AC 08/17 PO 1045 Results Last 48 Hrs of Labs/Mics: Laboratory Tests 08/18/17 0500: Anion Gap 10, Estimated GFR > 60, Glucose 182 H, Calcium 9.1, Phosphorus 3.0, Magnesium 2.1, Total Bilirubin 2.4 H, AST 180 H, ALT 755 H, Albumin 3.0 L, CBC w Diff MAN DIFF ORDERED, RBC 4.12 L, MCV 68.3 L, MCH 21.4 L, MCHC 31.3 L , RDW 24.0 H, MPV 9.3, Segmented Neutrophils 92 H, Band Neutrophils 5, Monocytes 3, Nucleated RBCs 6 H, Platelet Estimate ADEQUATE, Polychromasia 1+, Hypochromic-Microcytic 2+, Poikilocytosis 2+, Anisocytosis 3+, Microcytic Cells 3+, Target Cells RARE, Ovalocytes 1+, [place] Cells FEW, Elliptocytes FEW, Fld Total RBCs Counted 100 08/17/17 1900: pH 7.41, pCO2 29 L, pO2 63 L, HCO3 18 L, ABG O2 Sat (Measured) 89.0 L, P-50 (Temp Corrected) N, Carboxyhemoglobin 1.1 L, O2 Concentration % 60% HIGH FLOW, Temperature 98.5, O2 Delivery Method 45L/NC, Phlebotomy Draw Site RIGHT BRACHIAL 08/17/17 1859: Free T4 1.46 08/17/17 0608: Anion Gap 8, Estimated GFR 48 L, Glucose 195 H, Calcium 8.8, Phosphorus 3.7, Magnesium 2.1, Total Bilirubin 2.2 H, AST 424 H, ALT 928 H, Albumin 2.8 L, CBC w Diff MAN DIFF ORDERED, RBC 4.10 L, MCV 68.1 L, MCH 20.9 L, MCHC 30.6 L , RDW 22.8 H, MPV 9.5, Segmented Neutrophils 94 H, Band Neutrophils 2, Lymphocytes 2 L, Monocytes 2, Nucleated RBCs 1 H, Platelet Estimate ADEQUATE, Polychromasia 1+, Poikilocytosis 1+, Basophilic Stippling 1+, Anisocytosis 1+, Microcytic Cells 1+, Target Cells FEW, [place] Cells 1+, Elliptocytes 1+ 08/17/17 0000: Anion Gap 11, Estimated GFR 44 L, Glucose 213 H, Calcium 9.0, Phosphorus 3.6, Magnesium 2.0, Total Bilirubin 2.1 H, Direct Bilirubin 1.2 H, AST 624 H, ALT 1064 H, Alkaline Phosphatase 103, Uuy-D-Wwbeuznxqvz Pept 29093 H, Albumin 2.9 L, TSH 1.600, Thyroxine (T4) 5.2, Total T3 0.62 L, Theophylline 9.6 L 08/16/17 1730: Anion Gap 10, Estimated GFR 34 L, Glucose 196 H, Calcium 9.2, Phosphorus 4.2, Magnesium 2.1, Total Bilirubin 2.1 H, AST 724 H, ALT 1246 H, Albumin 3.3 L Microbiology 08/16 1749 URINE ROUT: Legionella Antigen - COMP 08/16 1749 URINE ROUT: Streptococcus pneumoniae Antigen (M - COMP Assessment/Plan Assessment/Plan 76-year-old woman with a past medical history of severe COPD and (on home O2), severe pulmonary hypertension with RV dysfunction, diabetes mellitus, status post left upper lobe resection, prior GI bleed and documented congestive heart failure with preserved LV systolic function. She presents to our hospital with increasing dyspnea as well as possible syncopal episode. Syncope: Patient presents with syncope which may be multifactorial. She was profoundly hypokalemic on admission which has been subsequently repleted, and so arrhythmias may be an underlying etiology. She has well has known severe pulmonary hypertension and is diuresed for peripheral edema. This likely significantly affects her overall blood pressures and cardiac output predisposing her to significant orthostatic changes. Dehydration avoidance will need to be closely monitored. At this point, she appears euvolemic and not in acute congestive heart failure. I would therefore attempt to maintain an overall euvolemic state. Bradycardia: Following admission, the patient was corrected for electrolytes and became hyperkalemic with subsequent junctional rhythm/sinus bradycardia. She is currently improved and we will remain off of her regimen of metoprolol and diltiazem. Dyspnea: Predominately due to severe underlying COPD and pulmonary hypertension. Given her pulmonary hypertension, anticoagulation should be considered; however, is currently contraindicated given her frequent falls. We will attempt the use of dobutamine to assist RV function and improve symptoms. Continue telemetry? Yes
--- NOTE | 2017-08-18 10:48 | PN- Infect Dx ---
Subjective Subjective: Afebrile on steroids. She offers no complaints, with no chest pain or cough, but she remains hypoxic Objective Last 24 Hrs of Vital Signs/I&O Vital Signs Date Time Temp Pulse Resp B/P B/P Pulse O2 O2 Flow FiO2 Mean Ox Delivery Rate 08/18 1037 87 134/81 08/18 0809 94 Nasal 65% Cannula 08/18 0800 95 Nasal 65% Cannula 08/18 0800 97.6 84 18 126/80 95 Nasal 65% Cannula 08/18 0400 95 Nasal 65% Cannula 08/18 0348 95 Nasal 65% Cannula 08/18 0035 91 92 08/18 0000 90 Nasal 65% Cannula 08/18 0000 98.1 100 26 120/70 90 Nasal 65% Cannula 08/18 0000 90 Nasal 65% Cannula 08/17 2020 93 Nasal 60% Cannula 08/17 2000 95 Nasal 60% Cannula 08/17 1630 96 Nasal 55% Cannula 08/17 1600 94 Nasal 55% Cannula 08/17 1600 98.5 108 124/82 94 Nasal 55% Cannula 08/17 1435 94 Nasal 55% Cannula 08/17 1353 93 Nasal 55% Cannula 08/17 1220 92 Nasal 55% Cannula 08/17 1218 90 93 08/17 1200 95 BIPAP 40% Intake & Output 08/18 1600 06 0800 / 0000 Intake Total 160 360 Output Total 500 400 Balance -340 -40 Intake, Oral 160 360 Number 0 Bowel Movements Output, Urine 500 400 Patient 135 lb Weight Weight Bed scale Measurement Method Physical Exam Other Physical Findings: She appears comfortable on high flow oxygen in no acute distress Lungs mostly clear with minimal wheeze Heart regular rhythm with no murmur Extremities no cyanosis, clubbing or edema Results Last 24 Hours of Lab Results: Laboratory Tests 08/1805 0500 1900 1859 Blood Gas pH (7.35 - 7.45 PH) 7.41 pCO2 (35 - 45 TORR) 29 L pO2 (80 - 100 TORR) 63 L HCO3 (21 - 28 MEQ/L) 18 L ABG O2 Sat (Measured) (>96.0 %) 89.0 L P-50 (Temp Corrected) N Carboxyhemoglobin (1.5 - 5.0 %) 1.1 L O2 Concentration % 60% HIGH FLOW Temperature (97.0 - 100.0 FARH) 98.5 O2 Delivery Method 45L/NC Chemistry Sodium (137 - 145 mmol/L) 140 Potassium (3.5 - 5.1 mmol/L) 4.1 Chloride (98 - 107 mmol/L) 109 H Carbon Dioxide (22 - 30 mmol/L) 21 L Anion Gap (5 - 16) 10 BUN (7 - 17 mg/dL) 32 H Creatinine (0.5 - 1.0 mg/dL) 0.9 Estimated GFR (>60 ml/min) > 60 Glucose (65 - 99 mg/dL) 182 H Calcium (8.4 - 10.2 mg/dL) 9.1 Phosphorus (2.5 - 4.5 mg/dL) 3.0 Magnesium (1.6 - 2.3 mg/dL) 2.1 Total Bilirubin (0.2 - 1.3 mg/dL) 2.4 H AST (14 - 36 U/L) 180 H ALT (9 - 52 U/L) 755 H Albumin (3.5 - 5.0 g/dL) 3.0 L Free T4 (0.78 - 2.44 ng/dL) 1.46 Hematology CBC w Diff MAN DIFF ORDERED WBC (4.8 - 10.8 /CUMM) 18.1 H RBC (4.20 - 5.40 /CUMM) 4.12 L Hgb (12.0 - 16.0 G/DL) 8.8 L Hct (37 - 47 %) 28.1 L MCV (81.0 - 99.0 FL) 68.3 L MCH (27.0 - 31.0 PG) 21.4 L MCHC (33.0 - 37.0 G/DL) 31.3 L RDW (11.5 - 14.5 %) 24.0 H Plt Count (130 - 400 /CUMM) 157 MPV (7.4 - 10.4 FL) 9.3 Segmented Neutrophils (42.2 - 75.2 %) 92 H Band Neutrophils (0.0 - 5.0 %) 5 Monocytes (1.7 - 9.3 %) 3 Nucleated RBCs (0.0 - 0.0 /100WBC) 6 H Platelet Estimate (ADEQUATE) ADEQUATE Polychromasia 1+ Hypochromic-Microcytic 2+ Poikilocytosis 2+ Anisocytosis 3+ Microcytic Cells 3+ Target Cells RARE Ovalocytes 1+ [place] Cells FEW Elliptocytes FEW Miscellaneous Phlebotomy Draw Site RIGHT BRACHIAL Other Body Source Fld Total RBCs Counted (%) 100 Last 24 Hours of Rayo Results: No new cultures Assessment/Plan ID Impression: Stable off antibiotics with temperatures remaining normal (on steroids) but with a persistent leukocytosis, most likely secondary to the steroids. Her chest x- ray and CT of the chest did reveal a wedge-shaped opacity in the left upper lobe of unclear significance and, as she appears to be stable, she can continue to be followed off antibiotics. Suggestion: 1. Continue to follow off antibiotics.
--- NOTE | 2017-08-18 15:06 | ULTRASOUND REPORT ---
EXAMINATION: US TRIPLEX OF LOWER EXTREMITIES, BILATERAL CLINICAL INFORMATION: Swelling in bilateral lower extremity. COMPARISON: Left lower extremity ultrasound 04/29/2017 bilateral lower extremity ultrasound 07/06/2014 TECHNIQUE: Color-flow triplex imaging with spectral analysis and compression Doppler were performed on the lower extremities. FINDINGS: Respiratory variation, normal compression and augmented flow are noted throughout the lower extremities. The visualized common femoral vein, superficial femoral vein, profunda femoral vein, popliteal vein and midcalf peroneal and posterior tibial venous segments show no evidence of deep venous thrombosis. There is no Aguilar's cyst. IMPRESSION: Normal triplex scan without evidence of deep venous thrombosis involving the lower extremities.
--- NOTE | 2017-08-18 15:16 | ULTRASOUND REPORT ---
EXAMINATION: RIGHT UPPER EXTREMITY VENOUS DOPPLER ULTRASOUND CLINICAL INFORMATION: Right upper extremity Doppler. Arm is very swollen on that side. Evaluate for DVT. COMPARISON: None. TECHNIQUE: Doppler spectral analysis and color flow Doppler imaging was performed of the right upper extremity. Compression and augmentation maneuvers were performed. FINDINGS: The right internal jugular vein, proximal brachiocephalic vein, and subclavian vein are all patent with normal color flow and phasic changes seen. There is nonocclusive thrombus seen within the right axillary vein and in one of the paired brachial veins with low-level internal echoes, and noncompressibility and only minimal residual color flow seen. The basilic vein is also thrombosed with no color flow or compressibility demonstrated. The cephalic vein is patent with normal compressibility and color flow demonstrated. The proximal radial and ulnar veins are not studied. IMPRESSION: Positive deep venous thrombosis in the right upper extremity with nonocclusive right axillary vein DVT, DVT in one of the paired brachial veins and in the right basilic vein. This critical result was discussed with Dr. Ann Caballero 08/18/2017, 3:11 PM and it was ascertained that the content and urgency of this report was understood at the time of direct communication.
[2017-08-18 16:00] VITALS: BP 120/74
--- NOTE | 2017-08-18 16:21 | Event Note ---
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 Cor pulmonale right-sided heart failure secondary to end-stage lung disease. She also has history of diverticular bleed requiring 10 units of packed RBC transfusion. A/R; patient underwent right upper extremity Doppler secondary to right upper arm swelling which showed nonocclusive thrombus in the axillary, basilic and one of the Brachial veins. Attending Dr. Rudolph was made aware. Patient's past medical history regarding GI bleed was also addressed with him. Guacic was performed which was negative. Patient is to be started on Lovenox 60 mg
[2017-08-19] VITALS: BP 140/70
[2017-08-19 05:33] LABS: HEMATOCRIT 28.4 % (37-47); MEAN CORPUSCULAR HGB 21.5 PG (27.0-31.0); MEAN CORPUSCULAR HGB CONC 31.9 G/DL (33.0-37.0); MEAN CORPUSCULAR VOLUME 67.3 FL (81.0-99.0); MEAN PLATELET VOLUME 9.6 FL (7.4-10.4); PLATELET COUNT 104 /CUMM (130-400); RBC DISTRIBUTION WIDTH 24.5 % (11.5-14.5); RED BLOOD CELL CT 4.22 /CUMM (4.20-5.40); WHITE BLOOD CELL COUNT 19.1 /CUMM (4.8-10.8)
--- NOTE | 2017-08-19 07:53 | PN- Resident CRCU ---
Subjective HPI/CRCU Issues: Patient seen and examined, currently on BiPAP being transitioned to high flow. Evening/Overnight events -Patient was started on BiPAP around 2 AM in the morning, being transitioned to high flow today in the morning around 9:00 -Patient had an episode of hypoglycemia down to 40s. Received IV push of 25mg dextrose, blood sugars came up to 200, her morning blood sugar is 97, her insulin dose was changed to Levemir 12 units scheduled in the morning at 10:00am and 10 units in the evening. Of note patient has been started on dobutamine@ 2.5mcg on 08/18 -Patient received 20 mg of IV Lasix yesterday, she desatted while using a bedpan hence Mcguire catheter was placed with the output of 2850 since yesterday and intake 643 -DVT in upper right extremity, guaiac negative patient was started on Lovenox 60 mg Vitals MAXIMUM TEMPERATURE 98.5 heart rate 80s to 100 100s normal sinus rhythm, manual blood pressure readings ranging 140s to 120s/80s to 70s Intake 2850, output 643 last 24h, total balance 7237/6635 Labs -Leukocytosis Trending 19.1, bands stable at 3 2/2 sterods -H/H 03/12 stable , platelet count trended down to 104 from 157, patient has been started on heparin for DVT -K 3.4 2/2 to diuresis -Total bilirubin 2.1 AST 159 ALT 260 2/2 to congestion from right heart failure -Blood glucose 46 Interventions planed for today -Levemir dose adjusted to 8units BID -Active potassium repletion 40mg Kdur x3 -Platelet count trending down, pt has been started on lovenox for R upper extremity DVT, continue to monitor closely , HIT is a possiblity but unlikely, as platelet count dropped was less than 50%, there is no hemodynamic instability , No necrosis at heparin site, no evidence of new thrombosis so far -increase dobutamine drip to 5 mics? lasix diuresis? -Will continue steriods and cardizem Objective Vital Signs & I&O Last 8 Hrs of Vitals and I&O: Vital Signs Date Time Temp Pulse Resp B/P B/P Pulse O2 O2 Flow FiO2 Mean Ox Delivery Rate 08/19 1201 94 Nasal 55% Cannula 08/19 1200 92 Nasal 60% Cannula 08/19 0836 96 BIPAP 45% 08/19 0832 83 96 08/19 0800 96.9 85 24 128/64 96 BIPAP 45% 08/19 0800 96 BIPAP 45% 08/19 0530 85 95 08/19 0400 94 BIPAP 45% / 0337 94 93 / 0055 92 Nasal 60% Cannula 08/19 0043 97 92 03 0000 94 Nasal 60% Cannula 08/19 0000 98.5 98 22 140/70 94 Nasal 60% Cannula 08/18 2000 98 Nasal 60% Cannula 08/18 1942 95 Nasal 60% Cannula 08/18 1636 98 BIPAP 55% / 1600 98 BIPAP 55% 08/18 1600 97.9 90 28 120/74 98 BIPAP 55% 08/18 1600 92 98 08/18 1326 99 92 Intake & Output 08/19 1600 08/19 0800 08/19 0000 Intake Total 194 179 Output Total 400 1400 Balance -206 -1221 Intake, IV 74 59 Intake, Oral 120 120 Number 0 0 Bowel Movements Output, Urine 400 1400 Patient 140 lb Weight Weight Bed scale Measurement Method Exam General Appearance: alert, awake Current Medications: Current Medications Sig/Vero Start time Last Medication Dose Route Stop Time Status Admin Acetaminophen 650 MG Q6P PRN 08/12 2030 AC PO Acetaminophen 1,000 MG Q6P PRN 08/12 2030 AC IV Albuterol Sulfate 3 ML Q4P PRN 08/17 1630 AC 08/19 INH 1159 Bisacodyl 10 MG ONCE ONE 08/19 1145 DC 08/19 MD 08/19 1146 1151 Budesonide/ 2 PUF BID 08/13 1000 AC 08/19 Formoterol Fumarate INH 1043 Calcium Carbonate 500 MG .STK-MED ONE 08/19 0106 DC PO 08/19 0107 Calcium Carbonate 500 MG ONCE ONE 08/18 2315 DC 08/19 PO 08/18 2316 0108 Cholecalciferol 1,000 IU DAILY 08/13 1000 AC 08/18 PO 1819 Cyanocobalamin 1,000 MCG DAILY 08/13 1000 AC 08/18 PO 1819 Dextrose 25 GM ONCE ONE 08/19 0615 DC 08/19 IV 08/19 0616 0615 Dextrose 12.5 GM ONCE ONE 08/19 06 DC 08/19 IV 08/19 0601 0603 Diltiazem HCl 180 MG DAILY 08/17 1500 AC 08/19 PO 0951 Dobutamine HCl 250 MG Q24H 08/19 1445 AC Dextrose/Water 250 ML IV Enoxaparin Sodium 60 MG DAILY 08/20 1000 CAN SC Enoxaparin Sodium 60 MG DAILY 08/19 1525 AC SC Enoxaparin Sodium 40 MG ONCE ONE 08/19 1415 CAN SC 08/19 1416 Enoxaparin Sodium 60 MG ONCE ONE 08/18 1700 DC 08/18 SC 08/18 1701 1822 Folic Acid 1 MG DAILY 08/13 1000 AC 08/19 PO 0953 Furosemide 20 MG 7:30 AM, & 4:30 PM 08/20 0730 AC IV Furosemide 20 MG 08/19 AC IV Furosemide 20 MG ONCE ONE 08/19 1415 DC 08/19 IV 08/19 1416 1514 Guaifenesin 600 MG Q12 08/18 2200 AC 08/19 PO 0951 Insulin Detemir 8 UNITS AT BEDTIME 08/19 2200 AC SC Insulin Detemir 8 UNITS DAILY 08/19 1000 AC 08/19 SC 1101 Insulin Detemir 10 UNITS AT BEDTIME 08/18 2200 DC 08/18 SC 2346 Insulin Detemir 12 UNITS DAILY 08/18 1000 DC 08/18 SC 1119 Ipratropium [place] 2.5 ML EVERY 4 HRS/AWAKE 08/18 1999 AC 08/19 INH 1159 Levothyroxine Sodium 0.112 MG DAILY AC 08/13 0700 AC 08/19 PO 0514 Lidocaine 1 PAT DAILY 08/14 2215 AC 08/19 EXT 1151 Magnesium Oxide 400 MG DAILY 08/13 1000 AC 08/19 PO 0953 Methylprednisolone 40 MG DAILY 08/18 1000 AC 08/19 IV 1040 Pantoprazole Sodium 40 MG DAILY 08/18 1000 AC 08/19 IV 1040 Polyethylene Glycol 17 GM DAILY 08/13 1656 AC 08/18 PO 1817 Potassium Chloride 40 MEQ 1800 08/19 1800 AC PO Potassium Chloride 40 MEQ ONCE ONE 08/19 1415 DC PO 08/19 1416 Potassium Chloride 40 MEQ ONCE ONE 08/19 1100 DC 08/19 PO 08/19 1101 1050 Potassium Chloride 20 MEQ BID 08/19 1000 DC PO 08/20 0000 Potassium Chloride 40 MEQ ONCE ONE 08/19 0900 CAN PO 08/19 0901 Senna/Docusate Sodium 1 TAB BID PRN 08/13 1700 AC PO Sertraline HCl 50 MG 2200 08/13 2200 AC 08/18 PO 2337 Sodium Chloride 2 SPRAY Q4P PRN 08/14 0145 AC TAMIE Theophylline 200 MG AT BEDTIME 08/19 2200 AC PO Tiotropium [place] 1 PUF DAILY 08/13 1000 AC 08/19 INH 1043 Tramadol HCl 25 MG Q4 HRS NEEDED PRN 08/13 1630 AC 08/19 PO 0038 Impression/Plan Impression/Problem List Impression: Patient is a 76 YO F with PMH significant for 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 The patient was transferred overnight to ICU for increased oxygen requirement and hypotension. Respiratory #Acute on chronic hypoxemic respiratory failure with end-stage COPD resulting in cor pulmonale/right-sided heart failure. -Continues to be on high flow. -Goals greater than O2 88% -TRC/nebs. Only ipratropium for nebs, avoid albuterol unless severe wheezing. -Continue steroids, IV methylprednisone 40mg -Theophyline restarted 08/19 200mg at bedtime Infection #Leukocytosis secondary to steroid use most likely -Continue to monitor -ID on board monitor off abx -CT chest showed wedge-shaped opacity probably atelectasis, PNA, malignancy less likely #Suspected UTI Patient was initially started on ceftriaxone which was later discontinued because urine culture was negative. Cardiology #Syncopal episode Likely multifactorial. Patient was hypokalemic which could have contributed to an arrhythmia. She has hx of severe pulmonary hypertension and is diuresed for peripheral edema . She has relative cortisol deficiency due to steroid use Orthostatics contributing to her episodes. She was also hypoglycemic on presentation. -Continue to monitor on telemetry -Maintain euvolemic state #Right sided heart failure -Dobutamine drip started @2.5 -IV lasix 20mg BID #Hypotension, resolved Patient's blood pressure dropped to she required 2500 mL fluid bolus and 50 mg IV hydrocortisone secondary to relative cortisol deficiency. #Relative bradycardia, Resolved -Initially Cardizem was held and has been restarted. Hematology # Symptomatic anemia Status post 1 unit PRBCs 08/13. Of note patient had history of GI bleed 2 years ago requiring 10 units of PRBC transfusion, likely diverticular. -Stool Guaiac - negative -H/H Stable continue to monitor Metabolic #Hypokalemia Initially the patient was hypokalemic and potassium was repleted aggressively at present patient hyperkalemic and has received calcium gluconate, insulin 10 units, dextrose 3 and Kayexalate 2 Patient became hypokalemic after diuresis we are aggressively repleting potassium repeat BEP at midnight #Relative Cortisol deficiency Cortisol level was 10.7. Patient is on prednisone 15mg daily at home, which was not given to her since her admisson to the hospital. Patient was given stress dose of steroid and started on a prednisone taper starting from 40mg daily. Overnight patient's blood pressure dropped and she received 50 mg IV hydrocortisone -Continue IV methylprednisone 40 mg #Transaminitis and hyperbilirubinemia Likely secondary to congestion in setting of right-sided heart failure.Transaminitis hyperbilirubinemia improving -Continue to monitor LFTs #DM -Accu-Chek, insulin sliding scale -episode of hypoglycemia overnight -Levemir dose changed to 8units BID #Hypothyroidism -TSH/freeT4 WNL continue home dose of synthroid Musculoskeletal #Frequent falls/unsteady gait - PT evaluation; Pending Alimantary #Dysphagia Patient choked on her medication on 08/14, states she has experienced the same before at home as well. -Dr. Rudolph encouraged patient to take oral intake if not able try atleast liquids -Consider GI Consult for dysphagia is persistent inpt vs outpt Nephrology #[place]T-Secondary to prerenal azotemia in setting of diuresis-resolved Creatinine is 0.9 today, encourage PO intake -Continue to monitor Cr curve -Avoid nephrotoxins Lasix on hold DVT prophylaxis with Alps and lovenox Code Status DNR/DNI Problem List: 1. CONGESTIVE HEART FAILURE Pain Ratin Tomorrow's Labs & Rationales: cbc Plan DVT/Prophylaxis: mechanical, pharmacological Code Status: Full Code
[2017-08-19 08:00] VITALS: BP 128/64
--- NOTE | 2017-08-19 10:56 | PN- Cardiology ---
Subjective Subjective: The patient is awake, alert The events of the last 24 hours as well as telemetry were reviewed. Review of Systems: The review of systems is negative for chest pains, palpitations nor lightheadedness. The remainder of the 14 point review of systems is noncontributory with the exception of above. Objective Vital Signs and I&Os Vital Signs Date Time Temp Pulse Resp B/P B/P Pulse O2 O2 Flow FiO2 Mean Ox Delivery Rate 08/19 0836 96 BIPAP 45% 08/19 0832 83 96 08/19 08 96.9 85 24 128/64 96 BIPAP 45% 08/19 0800 96 BIPAP 45% 08/19 0530 85 95 08/19 0400 94 BIPAP 45% 08/19 0337 94 93 08/19 0055 92 Nasal 60% Cannula 08/19 0043 97 92 08/19 0000 94 Nasal 60% Cannula 08/19 0000 98.5 98 22 140/70 94 Nasal 60% Cannula 08/18 2000 98 Nasal 60% Cannula 08/18 1942 95 Nasal 60% Cannula 08/18 1636 98 BIPAP 55% 08/18 1600 98 BIPAP 55% 08/18 1600 97.9 90 28 120/74 98 BIPAP 55% / 1600 92 98 03/ 1326 99 92 03/ 1200 90 Nasal 65% Cannula Intake & Output 08/19 1600 / 0800 03/07 0000 /06 1600 / 0800 03/06 0000 Intake Total 194 179 270 160 360 Output Total 400 1400 1050 500 400 Balance -206 -1221 -780 -340 -40 Intake, IV 74 59 30 Intake, Oral 120 120 240 160 360 Number 0 0 0 Bowel Movements Output, Urine 400 1400 1050 500 400 Patient 140 lb 135 lb Weight Weight Bed scale Bed scale Measurement Method Physical Exam: General: Nontoxic, no apparent distress. HEENT: Sclera and conjunctiva within normal limits, without xanthelasmas. Neck: Carotids 2+ without bruits. Respiratory: Scattered rhonchi and rales, air movement is decreased at bases, without accessory respiratory muscle use. Heart: Regular rate and rhythm, 2/6 systolic ejection murmur left sternal border , without JVD. Abdomen: Soft, nontender, no masses, normoactive bowel sounds. Extremities: Without clubbing, cyanosis, without edema. Neuro: Nonfocal exam, strength, 5 out of 5 Skin: Within normal limits without lesions. Psych: Mood and affect: Normal Current Medications: Current Medications Sig/Vero Start time Last Medication Dose Route Stop Time Status Admin Acetaminophen 650 MG Q6P PRN 08/12 2030 AC PO Acetaminophen 1,000 MG Q6P PRN 08/12 2030 AC IV Albuterol Sulfate 3 ML Q4P PRN 08/17 1630 AC 08/19 INH 0836 Budesonide/ 2 PUF BID 08/13 1000 AC 08/19 Formoterol Fumarate INH 1043 Calcium Carbonate 500 MG .STK-MED ONE 08/19 0106 DC PO 08/19 0107 Calcium Carbonate 500 MG ONCE ONE 08/18 2315 DC 08/19 PO 08/18 2316 0108 Cholecalciferol 1,000 IU DAILY 08/13 1000 AC 08/18 PO 1819 Cyanocobalamin 1,000 MCG DAILY 08/13 1000 AC 08/18 PO 1819 Dextrose 25 GM ONCE ONE 08/19 0615 DC 08/19 IV 08/19 0616 0615 Dextrose 12.5 GM ONCE ONE 08/19 0600 DC 08/19 IV 08/19 0601 0603 Diltiazem HCl 180 MG DAILY 08/17 1500 AC 08/19 PO 0951 Enoxaparin Sodium 60 MG ONCE ONE 08/18 1700 DC 08/18 SC 08/18 1701 1822 Folic Acid 1 MG DAILY 08/13 1000 AC 08/19 PO 0953 Furosemide 20 MG ONCE ONE 08/18 1300 DC / IV 08/18 1301 1339 Guaifenesin 600 MG Q12 08/18 2200 AC 08/19 PO 0951 Insulin Detemir 8 UNITS AT BEDTIME 08/19 2200 AC SC Insulin Detemir 8 UNITS DAILY 08/19 1000 AC SC Insulin Detemir 10 UNITS AT BEDTIME 08/18 2200 DC 08/18 SC 2346 Insulin Detemir 12 UNITS DAILY 08/18 1000 DC 08/18 SC 1119 Ipratropium [place] 2.5 ML EVERY 4 HRS/AWAKE 08/17 2000 AC 08/19 INH 0834 Levothyroxine Sodium 0.112 MG DAILY AC 08/13 0700 AC 08/19 PO 0514 Lidocaine 1 PAT DAILY 08/14 2215 AC 08/18 EXT 1302 Magnesium Oxide 400 MG DAILY 08/13 1000 AC 08/19 PO 0953 Methylprednisolone 40 MG DAILY 08/18 1000 AC 08/19 IV 1040 Pantoprazole Sodium 40 MG DAILY 08/18 1000 AC 08/19 IV 1040 Polyethylene Glycol 17 GM DAILY 08/13 1656 AC 08/18 PO 1817 Potassium Chloride 40 MEQ ONCE ONE 08/19 1100 AC PO 08/19 1101 Potassium Chloride 20 MEQ BID 08/19 1000 DC PO 08/20 0000 Potassium Chloride 40 MEQ ONCE ONE 08/19 0900 CAN PO 08/19 0901 Senna/Docusate Sodium 1 TAB BID PRN 08/13 1700 AC PO Sertraline HCl 50 MG 2200 08/13 2200 AC 08/18 PO 2337 Sodium Chloride 2 SPRAY Q4P PRN 08/14 0145 AC TAMIE Tiotropium [place] 1 PUF DAILY 08/13 1000 AC 08/19 INH 1043 Tramadol HCl 25 MG Q4 HRS NEEDED PRN 08/13 1630 AC 08/19 PO 0038 Results Last 48 Hrs of Labs/Mics: Laboratory Tests 08/19/17 0520: Anion Gap 6, Estimated GFR > 60, Glucose 46 *L, Calcium 9.2, Phosphorus 2.7, Magnesium 2.0, Total Bilirubin 2.1 H, AST 159 H, ALT 620 H, Albumin 2.8 L, CBC w Diff MAN DIFF ORDERED, RBC 4.22, MCV 67.3 L, MCH 21.5 L, MCHC 31.9 L, RDW 24.5 H, MPV 9.6, Segmented Neutrophils 89 H, Band Neutrophils 3, Lymphocytes 1 L, Monocytes 6, Eosinophils 1, Nucleated RBCs 1 H, Platelet Estimate DECREASED, Polychromasia 2+, Hypochromic-Microcytic 2+, Basophilic Stippling 1+, Anisocytosis 2+, Microcytic Cells 2+, Target Cells 1+, Elliptocytes 1+ 08/18/17 0500: Anion Gap 10, Estimated GFR > 60, Glucose 182 H, Calcium 9.1, Phosphorus 3.0, Magnesium 2.1, Total Bilirubin 2.4 H, AST 180 H, ALT 755 H, Albumin 3.0 L, CBC w Diff MAN DIFF ORDERED, RBC 4.12 L, MCV 68.3 L, MCH 21.4 L, MCHC 31.3 L , RDW 24.0 H, MPV 9.3, Segmented Neutrophils 92 H, Band Neutrophils 5, Monocytes 3, Nucleated RBCs 6 H, Platelet Estimate ADEQUATE, Polychromasia 1+, Hypochromic-Microcytic 2+, Poikilocytosis 2+, Anisocytosis 3+, Microcytic Cells 3+, Target Cells RARE, Ovalocytes 1+, Triston Cells FEW, Elliptocytes FEW, Fld Total RBCs Counted 100 08/17/17 1900: pH 7.41, pCO2 29 L, pO2 63 L, HCO3 18 L, ABG O2 Sat (Measured) 89.0 L, P-50 (Temp Corrected) N, Carboxyhemoglobin 1.1 L, O2 Concentration % 60% HIGH FLOW, Temperature 98.5, O2 Delivery Method 45L/NC, Phlebotomy Draw Site RIGHT BRACHIAL 08/17/17 1859: Free T4 1.46 Assessment/Plan Assessment/Plan 76-year-old woman with a past medical history of severe COPD and (on home O2), severe pulmonary hypertension with RV dysfunction, diabetes mellitus, status post left upper lobe resection, prior GI bleed and documented congestive heart failure with preserved LV systolic function. She presents to our hospital with increasing dyspnea as well as possible syncopal episode. Syncope: Patient presents with syncope which may be multifactorial. She was profoundly hypokalemic on admission which has been subsequently repleted, and so arrhythmias may be an underlying etiology. She has well has known severe pulmonary hypertension and is diuresed for peripheral edema. This likely significantly affects her overall blood pressures and cardiac output predisposing her to significant orthostatic changes. Dehydration avoidance will need to be closely monitored. At this point, she appears euvolemic and not in acute congestive heart failure. I would therefore attempt to maintain an overall euvolemic state. Bradycardia: Following admission, the patient was corrected for electrolytes and became hyperkalemic with subsequent junctional rhythm/sinus bradycardia. She is currently improved and we will remain off of her regimen of metoprolol and diltiazem. Dyspnea: Predominately due to severe underlying COPD and pulmonary hypertension. Given her pulmonary hypertension, anticoagulation should be considered; however, is currently contraindicated given her frequent falls. We will attempt the use of dobutamine to assist RV function and improve symptoms. Discussion regarding CODE STATUS as well as goals of care has been undertaken and appreciated. Continue telemetry? Yes
--- NOTE | 2017-08-19 13:55 | PN- CRCU ---
Subjective HPI/Critical Care Issues: Much improved this morning Significant diuresis noted after dobutamine was started with Lasix Left upper extremity DVT noted now on Lovenox Still fatigued and significantly hypoxemic Other data reviewed as noted BUN is down to 29 creatinine 0.8 blood sugar was low this morning potassium is low at 3.4 white count still elevated at 19 hemoglobin 9.1 platelets are low at 104. Ultrasound as noted Objective Current Medications: Current Medications Sig/Vero Start time Last Medication Dose Route Stop Time Status Admin Acetaminophen 650 MG Q6P PRN 08/12 2030 AC PO Acetaminophen 1,000 MG Q6P PRN 08/12 2030 AC IV Albuterol Sulfate 3 ML Q4P PRN 08/17 1630 AC 08/19 INH 1159 Bisacodyl 10 MG ONCE ONE 08/19 1145 DC 08/19 VA 08/19 1146 1151 Budesonide/ 2 PUF BID 08/13 1000 AC 08/19 Formoterol Fumarate INH 1043 Calcium Carbonate 500 MG .STK-MED ONE 08/19 0106 DC PO 08/19 0107 Calcium Carbonate 500 MG ONCE ONE 08/18 2315 DC 08/19 PO 08/18 2316 0108 Cholecalciferol 1,000 IU DAILY 08/13 1000 AC 08/18 PO 1819 Cyanocobalamin 1,000 MCG DAILY 08/13 1000 AC 08/18 PO 1819 Dextrose 25 GM ONCE ONE 08/19 0615 DC 08/19 IV 08/19 0616 0615 Dextrose 12.5 GM ONCE ONE 08/19 0600 DC 08/19 IV 08/19 0601 0603 Diltiazem HCl 180 MG DAILY 08/17 1500 AC 08/19 PO 0951 Enoxaparin Sodium 60 MG ONCE ONE 08/18 1700 DC 08/18 SC 08/18 1701 1822 Folic Acid 1 MG DAILY 08/13 1000 AC 08/19 PO 0953 Guaifenesin 600 MG Q12 08/18 2200 AC 08/19 PO 0951 Insulin Detemir 8 UNITS AT BEDTIME 08/19 2200 AC SC Insulin Detemir 8 UNITS DAILY 08/19 1000 AC 08/19 SC 1101 Insulin Detemir 10 UNITS AT BEDTIME 08/18 2200 DC 08/18 SC 2346 Insulin Detemir 12 UNITS DAILY 08/18 1000 DC 08/18 SC 1119 Ipratropium [place] 2.5 ML EVERY 4 HRS/AWAKE 08/18 1999 AC 08/19 INH 1159 Levothyroxine Sodium 0.112 MG DAILY AC 08/13 0700 AC 08/19 PO 0514 Lidocaine 1 PAT DAILY 08/14 2215 AC 08/19 EXT 1151 Magnesium Oxide 400 MG DAILY 08/13 1000 AC 08/19 PO 0953 Methylprednisolone 40 MG DAILY 08/18 1000 AC 08/19 IV 1040 Pantoprazole Sodium 40 MG DAILY 08/18 1000 AC 08/19 IV 1040 Polyethylene Glycol 17 GM DAILY 08/13 1656 AC 08/18 PO 1817 Potassium Chloride 40 MEQ ONCE ONE 08/19 1100 DC 08/19 PO 08/19 1101 1050 Potassium Chloride 20 MEQ BID 08/19 1000 DC PO 08/20 0000 Potassium Chloride 40 MEQ ONCE ONE 08/19 0900 CAN PO 08/19 0901 Senna/Docusate Sodium 1 TAB BID PRN 08/13 1700 AC PO Sertraline HCl 50 MG 2200 08/13 2200 AC 08/18 PO 2337 Sodium Chloride 2 SPRAY Q4P PRN 08/14 0145 AC TAMIE Tiotropium [place] 1 PUF DAILY 08/13 1000 AC 08/19 INH 1043 Tramadol HCl 25 MG Q4 HRS NEEDED PRN 08/13 1630 AC 08/19 PO 0038 Vital Signs & I&O Last 24 Hrs of Vitals and I&O: Vital Signs Date Time Temp Pulse Resp B/P B/P Pulse O2 O2 Flow FiO2 Mean Ox Delivery Rate 08/19 1201 94 Nasal 55% Cannula 08/19 1200 92 Nasal 60% Cannula 08/19 0836 96 BIPAP 45% 08/19 0832 83 96 08/19 0800 96.9 85 24 128/64 96 BIPAP 45% 08/19 0800 96 BIPAP 45% 08/19 0530 85 95 08/19 0400 94 BIPAP 45% 08/19 0337 94 93 08/19 0055 92 Nasal 60% Cannula 08/19 0043 97 92 08/19 0000 94 Nasal 60% Cannula 08/19 0000 98.5 98 22 140/70 94 Nasal 60% Cannula 08/19 1999 98 Nasal 60% Cannula 08/18 1942 95 Nasal 60% Cannula 08/18 1636 98 BIPAP 55% 08/18 1600 98 BIPAP 55% 08/18 1600 97.9 90 28 120/74 98 BIPAP 55% 08/18 1600 92 98 Intake & Output 08/19 1600 08/19 0800 08/19 0000 Intake Total 194 179 Output Total 400 1400 Balance -206 -1221 Intake, IV 74 59 Intake, Oral 120 120 Number 0 0 Bowel Movements Output, Urine 400 1400 Patient 140 lb Weight Weight Bed scale Measurement Method Impression/Plan Impression/Plan Impression/Plan: General: Nontoxic, no apparent distress. HEENT: Sclera and conjunctiva within normal limits, without xanthelasmas. Neck: Carotids 2+ without bruits. Respiratory: Scattered rhonchi and rales, air movement is decreased at bases, without accessory respiratory muscle use. Heart: Regular rate and rhythm, 2/6 systolic ejection murmur left sternal border , without JVD. Abdomen: Soft, nontender, no masses, normoactive bowel sounds. Extremities: Without clubbing, cyanosis, without edema. Neuro: Nonfocal exam, strength, 5 out of 5 Skin: Within normal limits without lesions. 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 Her lower extremity edema is related to that. Pt has rt heart failure and now on dobutamine and lasix * Resolved Syncope or near sycope with multiple falls, pt with severe PUlm htn from copd, with sig corpulmonale, previous full work up for other causes are neg (no vte, no vasculitis etc) * Symtomatic anemia with sig ccymosis due to prednisone s/p transfusion * RElative cortisol def * End stage copd with chronic resp failure * REcurrent diastolic chf now euvolemic after ivf as she was dehydrated upon admission * Profound fatigue significant shortness of breath muscle weakness most likely related to cortisol deficiency as she's been on steroids for years * VTE upper ext now on lovenox * CHest ct abormality wedge shaped (no pe, prob atx vs pna unlikely malignancy) * History of lung cancer status post radiation therapy rule out recurrence * Diabetes on insulin * Hypothyroidism on appropriate supplementation therapy REC Cont dobutamine Lasix 20 mg q 12 hrs Po potassium 40 meq for 3 doses today Use ipratropium only for nebs, till heart rate is down and use albuterol only if needed for sever wheezing Keep her on steroids at 40 mg daily Cont dilt Lovenox 40 mg this pm and start lovenox 60 mg daily from am Follow sugar and titrate insulin dose down Start theophylline 200 mg at hs from tonight check mohit level in 2 days FSG to be checked Pt continues to be critcally ill tts 40 mins DNR and DNi and discussed with the family Code Status: DNR and dni Code Status: Full Code
[2017-08-19 16:00] VITALS: BP 118/68
[2017-08-20] VITALS: BP 120/60
[2017-08-20 04:29] LABS: HEMATOCRIT 31.8 % (37-47); MEAN CORPUSCULAR HGB 21.3 PG (27.0-31.0); MEAN CORPUSCULAR VOLUME 68.6 FL (81.0-99.0); MEAN PLATELET VOLUME 9.7 FL (7.4-10.4); PLATELET COUNT 96 /CUMM (130-400); RBC DISTRIBUTION WIDTH 25.1 % (11.5-14.5); RED BLOOD CELL CT 4.63 /CUMM (4.20-5.40)
[2017-08-20 04:49] LABS: WHITE BLOOD CELL COUNT 17.7 /CUMM (4.8-10.8)
[2017-08-20 08:00] VITALS: BP 138/80
--- NOTE | 2017-08-20 08:13 | PN- Resident CRCU ---
Subjective HPI/CRCU Issues: Patient seen and examined, currently on BiPAP Evening/Overnight events -Patient desatted to 80s on 60% high flow later in the afternoon, her high flow saturation was increased to 70% which was later decreased to 55%, was started on BiPAP around 3 AM in the morning -No overnight acute events Vitals MAXIMUM TEMPERATURE 98.7 heart rate 80s to 90s normal sinus rhythm, manual blood pressure readings ranging 120s to 110s/60s Intake 643, output 2850 last 24h, total balance 8048/8700 Labs -Leukocytosis 17.7, No bands 2/2 sterods -H/H stable , platelet count trended down to 157>104>96, patient has been started on heparin for DVT 60mg Day 2 -K 5.4 -Total bilirubin 2.0 AST 133 ALT 559 2/ to congestion from right heart failure -Finger sticks 137, 138, 124, 97 -UA urine urobilinogen 2, hyaline cast, granular casts, urine sodium 151 Interventions planed for today -Levemir dose adjusted to 7 units BID -Platelet count trending down, pt has been started on lovenox for R upper extremity DVT, continue to monitor closely , HIT is a possiblity but unlikely, as platelet count dropped was less than 50%, there is no hemodynamic instability , No necrosis at heparin site, no evidence of new thrombosis so far, patient's scores low probability <5% on 4T's crieteria for HIT, nevertheless we will draw HIT antibody to rule out out -Continue dobutamine @2.5 MCG and Continue diuresis @IV lasix -Will continue steriods and cardizem Objective Vital Signs & I&O Last 8 Hrs of Vitals and I&O: Vital Signs Date Time Temp Pulse Resp B/P B/P Pulse O2 O2 Flow FiO2 Mean Ox Delivery Rate 08/21 799 98.0 78 24 138/80 99 BIPAP 45% 08/20 0759 95 BIPAP 45% 08/20 0758 78 95 08/20 0550 81 97 08/20 0400 96 BIPAP 45% 08/20 0258 89 95 08/20 0131 93 Nasal 55% Cannula 08/20 0029 94 Nasal 55% Cannula 08/20 0000 94 Nasal 55% Cannula 08/20 0000 98.4 94 14 120/60 94 Nasal 55% Cannula 08/19 2239 92 Nasal 55% Cannula 08/19 2000 94 Nasal 60% Cannula 08/19 1905 93 Nasal 60% Cannula 08/19 1621 91 119/76 08/19 1600 90 Nasal 60% Cannula 08/19 1600 98.1 94 22 118/68 90 Nasal 60% Cannula 08/19 1550 91 Nasal 60% Cannula 08/19 1530 80 Nasal 50% Cannula 08/19 1201 94 Nasal 55% Cannula 08/19 1200 92 Nasal 60% Cannula Intake & Output 08/20 1600 08/20 0800 08/20 0000 Intake Total 191.2 310 Output Total 640 900 Balance -448.8 -590 Intake, IV 71.2 70 Intake, Oral 120 240 Number 2 Bowel Movements Output, Urine 640 900 Patient 127 lb Weight Weight Bed scale Measurement Method Intake & Output 08/20 1600 Intake Total Output Total Balance Patient 127 lb Weight Weight Bed scale Measurement Method Exam General Appearance: on Bipap Respiratory: chest non-tender, decreased breath sounds Cardiovascular: regular rate/rhythm Gastrointestinal: normal bowel sounds Extremities: no edema Cranial Nerves: normal hearing, normal speech Current Medications: Current Medications Sig/Vero Start time Last Medication Dose Route Stop Time Status Admin Acetaminophen 650 MG Q6P PRN 08/12 2030 AC PO Acetaminophen 1,000 MG Q6P PRN 08/12 2030 AC IV Albuterol Sulfate 3 ML Q4P PRN 08/17 1630 AC 08/20 INH 0754 Bisacodyl 10 MG ONCE ONE 08/19 1145 DC 08/19 MI 08/19 1146 1151 Budesonide/ 2 PUF BID 08/13 1000 AC 08/19 Formoterol Fumarate INH 2138 Calcium Carbonate 500 MG ONCE ONE 08/19 1900 DC 08/19 PO 08/19 1901 1913 Cholecalciferol 1,000 IU DAILY 08/13 1000 AC 08/20 PO 1115 Cyanocobalamin 1,000 MCG DAILY 08/13 1000 AC 08/18 PO 1819 Diltiazem HCl 180 MG DAILY 08/17 1500 AC 08/20 PO 1109 Dobutamine HCl 250 MG Q24H 08/19 1445 AC 08/19 Dextrose/Water 250 ML IV 1621 Enoxaparin Sodium 60 MG DAILY 08/20 1000 CAN SC Enoxaparin Sodium 60 MG DAILY 08/19 1525 AC 08/19 SC 1800 Enoxaparin Sodium 40 MG ONCE ONE 08/19 1415 CAN SC 08/19 1416 Folic Acid 1 MG DAILY 08/13 1000 AC 08/20 PO 1115 Furosemide 20 MG Q8 08/20 1400 AC IV Furosemide 20 MG 7:30 AM, & 4:30 PM 08/20 07 DC 08/20 IV 0637 Furosemide 20 MG 08/19 DC 08/19 IV 2103 Furosemide 20 MG ONCE ONE 08/19 1415 DC 08/19 IV 08/19 1416 1514 Guaifenesin 600 MG Q12 08/18 2200 AC 08/19 PO 2132 Insulin Detemir 7 UNITS BID 08/20 1000 AC 08/20 SC 1009 Insulin Detemir 8 UNITS AT BEDTIME 08/19 2200 DC 08/19 SC 2142 Insulin Detemir 8 UNITS DAILY 08/19 1000 DC 08/19 SC 1101 Ipratropium [place] 2.5 ML EVERY 4 HRS/AWAKE 08/18 1999 AC 08/20 INH 0754 Levothyroxine Sodium 0.112 MG DAILY AC 08/13 0700 AC 08/20 PO 1108 Lidocaine 1 PAT DAILY 08/14 2215 AC 08/19 EXT 1151 Magnesium Oxide 400 MG DAILY 08/13 1000 AC 08/19 PO 0953 Methylprednisolone 40 MG DAILY 08/18 1000 AC 08/20 IV 1008 Pantoprazole Sodium 40 MG DAILY 08/18 1000 AC 08/20 IV 1008 Polyethylene Glycol 17 GM DAILY 08/13 1656 AC 08/20 PO 1117 Potassium Chloride 40 MEQ 1400 08/20 1400 AC PO Potassium Chloride 40 MEQ 1800 08/19 1800 DC 08/19 PO 2137 Potassium Chloride 40 MEQ ONCE ONE 08/19 1415 DC 08/19 PO 08/19 1416 1955 Senna/Docusate Sodium 1 TAB BID PRN 08/13 1700 AC PO Sertraline HCl 50 MG 0 08/13 2200 AC 08/19 PO 2135 Sodium Chloride 2 SPRAY Q4P PRN 08/14 0145 AC TAMIE Theophylline 200 MG AT BEDTIME 08/19 2200 AC 08/19 PO 2131 Tiotropium [place] 1 PUF DAILY 08/13 1000 AC 08/19 INH 1043 Tramadol HCl 25 MG Q4 HRS NEEDED PRN 08/13 1630 AC 08/19 PO 0038 Impression/Plan Impression/Problem List Impression: Patient is a 76 YO F with PMH significant for 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 The patient was transferred overnight to ICU for increased oxygen requirement and hypotension. Respiratory #Acute on chronic hypoxemic respiratory failure with end-stage COPD resulting in cor pulmonale/right-sided heart failure. -Continues to be on high flow abd Bipap overnight -Goals greater than O2 88% -TRC/nebs. Only ipratropium for nebs, avoid albuterol unless severe wheezing. -Continue steroids, IV methylprednisone 40mg -Theophyline restarted 08/19 200mg at bedtime -F/U theophyline level on 08/21 Infection #Leukocytosis secondary to steroid use most likely, CT chest showed wedge-shaped opacity probably atelectasis, PNA, malignancy less likely -Continue to monitor -ID on board monitor off abx #Suspected UTI Patient was initially started on ceftriaxone which was later discontinued because urine culture was negative. Cardiology #Syncopal episode Likely multifactorial. Patient was hypokalemic which could have contributed to an arrhythmia. She has hx of severe pulmonary hypertension and is diuresed for peripheral edema . She has relative cortisol deficiency due to steroid use Orthostatics contributing to her episodes. She was also hypoglycemic on presentation. -Continue to monitor on telemetry -Maintain euvolemic state #Right sided heart failure -Dobutamine drip started @2.5, IV lasix 20mg Q8 #Hypotension, resolved Patient's blood pressure dropped to she required 2500 mL fluid bolus and 50 mg IV hydrocortisone secondary to relative cortisol deficiency. #Relative bradycardia, Resolved -Initially Cardizem was held and has been restarted. Hematology # Symptomatic anemia Status post 1 unit PRBCs 08/13. Of note patient had history of GI bleed 2 years ago requiring 10 units of PRBC transfusion, likely diverticular. -Stool Guaiac - negative -H/H Stable continue to monitor Metabolic #Hypokalemia/ Hyperkalemia Initially the patient was hypokalemic and potassium was repleted aggressively at present patient hyperkalemic and has received calcium gluconate, insulin 10 units, dextrose 3 and Kayexalate 2 Patient became hypokalemic after diuresis, potassium has been replaced and today potassium is 5.4, even a with though potassium level is slightly higher than normal we are continuing to replete with Kdur x40mg x1 recheck BP with evening labs, because Lasix dose has been increased to every 8 #Relative Cortisol deficiency Cortisol level was 10.7. Patient is on prednisone 15mg daily at home, which was not given to her since her admisson to the hospital. Patient was given stress dose of steroid and started on a prednisone taper starting from 40mg daily. Overnight patient's blood pressure dropped and she received 50 mg IV hydrocortisone -Continue IV methylprednisone 40 mg #Transaminitis and hyperbilirubinemia Likely secondary to congestion in setting of right-sided heart failure.Transaminitis hyperbilirubinemia improving -Continue to monitor LFTs #DM One episode of hypoglycemia on 08/19 -Accu-Chek, insulin sliding scale -Levemir dose changed to 7 units BID #Hypothyroidism -TSH/freeT4 WNL continue home dose of synthroid Musculoskeletal #Frequent falls/unsteady gait - PT evaluation; Pending Alimantary #Dysphagia Patient choked on her medication on 08/14, states she has experienced the same before at home as well. -No events -Consider GI Consult for dysphagia is persistent inpt vs outpt Nephrology #[facility]-Secondary to prerenal azotemia in setting of diuresis-resolved Creatinine is 0.9 today, encourage PO intake -Continue to monitor Cr curve -Avoid nephrotoxins Lasix on hold DVT prophylaxis with Alps and lovenox Code Status DNR/DNI Problem List: 1. CONGESTIVE HEART FAILURE Pain Ratin Tomorrow's Labs & Rationales: cbc icu bundle Plan DVT/Prophylaxis: mechanical, pharmacological Code Status: Full Code
--- NOTE | 2017-08-20 09:31 | PN- Cardiology ---
Subjective Subjective: Patient remains in sinus rhythm. Currently on BiPAP because of increased oxygen requirements. Objective Vital Signs and I&Os Vital Signs Date Time Temp Pulse Resp B/P B/P Pulse O2 O2 Flow FiO2 Mean Ox Delivery Rate 08/21 799 98.0 78 24 138/80 99 BIPAP 45% 08/20 0759 95 BIPAP 45% 08/20 0758 78 95 / 0550 81 97 / 0400 96 BIPAP 45% 08/20 0258 89 95 08/20 0131 93 Nasal 55% Cannula 08/20 0029 94 Nasal 55% Cannula 08/20 0000 94 Nasal 55% Cannula 08/20 0000 98.4 94 14 120/60 94 Nasal 55% Cannula 08/19 2239 92 Nasal 55% Cannula 08/19 2000 94 Nasal 60% Cannula 08/19 1905 93 Nasal 60% Cannula 08/19 1621 91 119/76 08/19 1600 90 Nasal 60% Cannula 08/19 1600 98.1 94 22 118/68 90 Nasal 60% Cannula 08/19 1550 91 Nasal 60% Cannula 08/19 1530 80 Nasal 50% Cannula 08/19 1201 94 Nasal 55% Cannula 08/19 1200 92 Nasal 60% Cannula Intake & Output 08/20 1600 /08 0800 03/08 0000 03/07 1600 /07 0800 03/ 0000 Intake Total 191.2 310 310 194 179 Output Total 640 900 139 127 7418 Balance -448.8 -590 -215 -206 -1221 Intake, IV 71.2 70 70 74 59 Intake, Oral 120 240 240 120 120 Number 2 0 0 Bowel Movements Output, Urine [id number] Patient 127 lb 140 lb Weight Weight Bed scale Bed scale Measurement Method Physical Exam: In general exam patient appears crouched resting. Head normocephalic atraumatic Eyes sclera anicteric conjunctiva showed no pallor extraocular muscles were normal Chest lungs revealed distant air entry bilaterally Heart regular rhythm with a 1 and a son abdomen soft no organomegaly bowel sounds normal Extremities no clubbing cyanosis or edema Neurological no gross motor deficits. Current Medications: Current Medications Sig/Vero Start time Last Medication Dose Route Stop Time Status Admin Acetaminophen 650 MG Q6P PRN 08/12 2030 AC PO Acetaminophen 1,000 MG Q6P PRN 08/12 2030 AC IV Albuterol Sulfate 3 ML Q4P PRN 08/17 1630 AC 08/20 INH 0754 Bisacodyl 10 MG ONCE ONE 08/19 1145 DC 08/19 ME 08/19 1146 1151 Budesonide/ 2 PUF BID 08/13 1000 AC 08/19 Formoterol Fumarate INH 2138 Calcium Carbonate 500 MG ONCE ONE 08/19 1900 DC 08/19 PO 08/19 1901 1913 Cholecalciferol 1,000 IU DAILY 08/13 1000 AC 08/18 PO 1819 Cyanocobalamin 1,000 MCG DAILY 08/13 1000 AC 08/18 PO 1819 Diltiazem HCl 180 MG DAILY 08/17 1500 AC 08/19 PO 0951 Dobutamine HCl 250 MG Q24H 08/19 1445 AC 08/19 Dextrose/Water 250 ML IV 1621 Enoxaparin Sodium 60 MG DAILY 08/20 1000 CAN SC Enoxaparin Sodium 60 MG DAILY 08/19 1525 AC 08/19 SC 1800 Enoxaparin Sodium 40 MG ONCE ONE 08/19 1415 CAN SC 08/19 1416 Folic Acid 1 MG DAILY 08/13 1000 AC 08/19 PO 0953 Furosemide 20 MG 7:30 AM, & 4:30 PM 08/20 0730 AC 08/20 IV 0637 Furosemide 20 MG 08/19 AC 08/19 IV 2103 Furosemide 20 MG ONCE ONE 08/19 1415 DC 08/19 IV 08/19 1416 1514 Guaifenesin 600 MG Q12 08/18 2200 AC 08/19 PO 2132 Insulin Detemir 7 UNITS BID 08/20 1000 SC Insulin Detemir 8 UNITS AT BEDTIME 08/19 220 DC 08/19 SC 2142 Insulin Detemir 8 UNITS DAILY 08/19 1000 DC 08/19 SC 1101 Insulin Detemir 12 UNITS DAILY 08/18 1000 DC 08/18 SC 1119 Ipratropium [place] 2.5 ML EVERY 4 HRS/AWAKE 08/18 1999 AC 08/20 INH 0754 Levothyroxine Sodium 0.112 MG DAILY AC 08/13 0700 AC 08/19 PO 0514 Lidocaine 1 PAT DAILY 08/14 2215 AC 08/19 EXT 1151 Magnesium Oxide 400 MG DAILY 08/13 1000 AC 08/19 PO 0953 Methylprednisolone 40 MG DAILY 08/18 1000 AC 08/19 IV 1040 Pantoprazole Sodium 40 MG DAILY 08/18 1000 AC 08/19 IV 1040 Polyethylene Glycol 17 GM DAILY 08/13 1656 AC 08/19 PO 1620 Potassium Chloride 40 MEQ 1800 08/19 1800 DC 08/19 PO 2137 Potassium Chloride 40 MEQ ONCE ONE 08/19 1415 DC 08/19 PO 08/19 1416 1955 Potassium Chloride 40 MEQ ONCE ONE 08/19 1100 DC 08/19 PO 08/19 1101 1050 Potassium Chloride 20 MEQ BID 08/19 1000 DC PO 08/20 0000 Potassium Chloride 40 MEQ ONCE ONE 08/19 0900 CAN PO 08/19 0901 Senna/Docusate Sodium 1 TAB BID PRN 08/13 1700 AC PO Sertraline HCl 50 MG 08/13 2200 AC 08/19 PO 2135 Sodium Chloride 2 SPRAY Q4P PRN 08/14 0145 AC TAMIE Theophylline 200 MG AT BEDTIME 08/19 2199 AC 08/19 PO 2131 Tiotropium [place] 1 PUF DAILY 08/13 1000 AC 08/19 INH 1043 Tramadol HCl 25 MG Q4 HRS NEEDED PRN 08/13 1630 AC 08/19 PO 0038 Results Last 48 Hrs of Labs/Mics: Laboratory Tests 08/20/17 0354: Anion Gap 7, Estimated GFR > 60, Glucose 148 H, Calcium 9.6, Phosphorus 3.2, Magnesium 2.0, Total Bilirubin 2.0 H, AST 133 H, ALT 559 H, Albumin 2.9 L, CBC w Diff MAN DIFF ORDERED, RBC 4.63, MCV 68.6 L, MCH 21.3 L, MCHC 31.0 L, RDW 25.1 H, MPV 9.7, Segmented Neutrophils 90 H, Band Neutrophils 2, Lymphocytes 2 L, Monocytes 5, Metamyelocytes 1, Nucleated RBCs 9 H, Platelet Estimate DECREASED, Polychromasia 1+, Hypochromic-Microcytic 2+, Poikilocytosis 3+, Anisocytosis 3+, Microcytic Cells 3+, Target Cells FEW, Ovalocytes 1+, Stomatocytes FEW, Elliptocytes FEW, Fld Total RBCs Counted 100 08/19/17 2220: Anion Gap 7, Estimated GFR > 60, BUN/Creatinine Ratio 35.0 H, Magnesium 2.0 08/19/17 1324: Anion Gap 8, Estimated GFR > 60, Glucose 191 H, Calcium 9.3, Phosphorus 2.8, Magnesium 2.0, Total Bilirubin 2.6 H, AST 155 H, ALT 632 H, Albumin 3.0 L 08/19/17 1320: Urine Color YEL, Urine Clarity HAZY H, Urine pH 6.5, Ur Specific Branch 1.015, Urine Protein TRACE H, Urine Ketones NEG, Urine Nitrite NEG, Urine Bilirubin NEG, Urine Urobilinogen 2.0 H, Ur Leukocyte Esterase SMALL H, Ur Microscopic SEDIMENT EXAMINED, Urine RBC 5-10 H, Urine WBC 15-25 H, Ur Epithelial Cells FEW, Urine Bacteria FEW H, Hyaline Casts 1-3 H, Granular Casts RARE H, Urine Mucus FEW, Micro UA Comment [place] H, Urine Hemoglobin MOD H, Urine Glucose 100 H 08/19/17 1320: Ur Random Creatinine 23.0, Ur Random Sodium 151 H, Ur Random Potassium 13.9, Fraction Sodium Excret 3.8 H 08/19/17 0520: Anion Gap 6, Estimated GFR > 60, Glucose 46 *L, Calcium 9.2, Phosphorus 2.7, Magnesium 2.0, Iron 51, TIBC 274, Ferritin 98.8, Total Bilirubin 2.1 H, AST 159 H, ALT 620 H, Albumin 2.8 L, CBC w Diff MAN DIFF ORDERED, RBC 4.22, MCV 67.3 L, MCH 21.5 L, MCHC 31.9 L, RDW 24.5 H, MPV 9.6, Segmented Neutrophils 89 H, Band Neutrophils 3, Lymphocytes 1 L, Monocytes 6, Eosinophils 1, Nucleated RBCs 1 H, Platelet Estimate DECREASED, Polychromasia 2+, Hypochromic-Microcytic 2+, Basophilic Stippling 1+, Anisocytosis 2+, Microcytic Cells 2+, Target Cells 1+, Elliptocytes 1+, Retic Count 5.86 H Assessment/Plan Assessment/Plan In summary this 76-year-old woman with a past medical history of severe COPD and (on home O2), severe pulmonary hypertension with RV dysfunction, diabetes mellitus, status post left upper lobe resection, prior GI bleed and documented congestive heart failure with preserved LV systolic function. She presents to our hospital with increasing dyspnea as well as possible syncopal episode. She had some bradycardia which improved after discontinuing medication and correction of electrolyte abnormalities. Her increased oxygen requirements are probably related to pulmonary hypertension. She is currently on dobutamine. Thrombocytopenia noted. She is on Lovenox. Diltiazem has been reinitiated. No arrhythmias. Continue telemetry? Yes
--- NOTE | 2017-08-20 09:36 | PN- CRCU ---
Subjective HPI/Critical Care Issues: Events and data reviewed. Patient is sleeping comfortably this morning on BiPAP Did become short of breath and desaturated last night and had to be started on BiPAP around 3 AM. Continues to be afebrile on steroids in sinus rhythm with adequate blood pressure Significant data BUN continues to be 27 creatinine stable potassium is high at 5.3 patient has been receiving potassium by mouth Total bilirubin still elevated at 2 which has reduced since yesterday alkaline phosphatase normal White count is reduced to 17 platelets are down to 96 which needs to be followed patient is on Lovenox Previous ABGs have not revealed hypercarbia Objective Current Medications: Current Medications Sig/Vero Start time Last Medication Dose Route Stop Time Status Admin Acetaminophen 650 MG Q6P PRN 08/12 2030 AC PO Acetaminophen 1,000 MG Q6P PRN 08/12 2030 AC IV Albuterol Sulfate 3 ML Q4P PRN 08/17 1630 AC 08/20 INH 0754 Bisacodyl 10 MG ONCE ONE 08/19 1145 DC 08/19 TX 08/19 1146 1151 Budesonide/ 2 PUF BID 08/13 1000 AC 08/19 Formoterol Fumarate INH 2138 Calcium Carbonate 500 MG ONCE ONE 08/19 1900 DC 08/19 PO 08/19 1901 1913 Cholecalciferol 1,000 IU DAILY 08/13 1000 AC 08/18 PO 1819 Cyanocobalamin 1,000 MCG DAILY 08/13 1000 AC 08/18 PO 1819 Diltiazem HCl 180 MG DAILY 08/17 1500 AC 08/19 PO 0951 Dobutamine HCl 250 MG Q24H 08/19 1445 AC 08/19 Dextrose/Water 250 ML IV 1621 Enoxaparin Sodium 60 MG DAILY 08/20 1000 CAN SC Enoxaparin Sodium 60 MG DAILY 08/19 1525 AC 08/19 SC 1800 Enoxaparin Sodium 40 MG ONCE ONE 08/19 1415 CAN SC 08/19 1416 Folic Acid 1 MG DAILY 08/13 1000 AC 08/19 PO 0953 Furosemide 20 MG 7:30 AM, & 4:30 PM 08/20 0730 AC 08/20 IV 0637 Furosemide 20 MG 2000 08/20 1999 AC 03 IV 2103 Furosemide 20 MG ONCE ONE 08/19 1415 DC 08/19 IV 08/19 1416 1514 Guaifenesin 600 MG Q12 08/18 2200 AC 08/19 PO 2132 Insulin Detemir 7 UNITS BID 08/20 1000 AC SC Insulin Detemir 8 UNITS AT BEDTIME 08/19 2200 DC 08/19 SC 2142 Insulin Detemir 8 UNITS DAILY 08/19 1000 DC 08/19 SC 1101 Insulin Detemir 12 UNITS DAILY 08/18 1000 DC 08/18 SC 1119 Ipratropium [place] 2.5 ML EVERY 4 HRS/AWAKE 08/18 1999 AC 08/20 INH 0754 Levothyroxine Sodium 0.112 MG DAILY AC 08/13 0700 AC 08/19 PO 0514 Lidocaine 1 PAT DAILY 08/14 2215 AC 08/19 EXT 1151 Magnesium Oxide 400 MG DAILY 08/13 1000 AC 08/19 PO 0953 Methylprednisolone 40 MG DAILY 08/18 1000 AC 08/19 IV 1040 Pantoprazole Sodium 40 MG DAILY 08/18 1000 AC 08/19 IV 1040 Polyethylene Glycol 17 GM DAILY 08/13 1656 AC 08/19 PO 1620 Potassium Chloride 40 MEQ 1800 08/19 1800 DC 08/19 PO 2137 Potassium Chloride 40 MEQ ONCE ONE 08/19 1415 DC 08/19 PO 08/19 1416 1955 Potassium Chloride 40 MEQ ONCE ONE 08/19 1100 DC 08/19 PO 08/19 1101 1050 Potassium Chloride 20 MEQ BID 08/19 1000 DC PO 08/20 0000 Potassium Chloride 40 MEQ ONCE ONE 08/19 0900 CAN PO 08/19 0901 Senna/Docusate Sodium 1 TAB BID PRN 08/13 1700 AC PO Sertraline HCl 50 MG 2200 08/13 2200 AC 08/19 PO 2135 Sodium Chloride 2 SPRAY Q4P PRN 08/14 0145 AC TAMIE Theophylline 200 MG AT BEDTIME 08/19 2200 AC 08/19 PO 2131 Tiotropium [place] 1 PUF DAILY 08/13 1000 AC 08/19 INH 1043 Tramadol HCl 25 MG Q4 HRS NEEDED PRN 08/13 1630 AC 08/19 PO 0038 Vital Signs & I&O Last 24 Hrs of Vitals and I&O: Vital Signs Date Time Temp Pulse Resp B/P B/P Pulse O2 O2 Flow FiO2 Mean Ox Delivery Rate 08/21 799 98.0 78 24 138/80 99 BIPAP 45% 08/20 0759 95 BIPAP 45% 08/20 0758 78 95 08/20 0550 81 97 08/20 0400 96 BIPAP 45% 08/20 0258 89 95 08/20 0131 93 Nasal 55% Cannula 08/20 0029 94 Nasal 55% Cannula 08/20 0000 94 Nasal 55% Cannula 08/20 0000 98.4 94 14 120/60 94 Nasal 55% Cannula 08/19 2239 92 Nasal 55% Cannula 08/19 2000 94 Nasal 60% Cannula 08/19 1905 93 Nasal 60% Cannula 08/19 1621 91 119/76 08/19 1600 90 Nasal 60% Cannula 08/19 1600 98.1 94 22 118/68 90 Nasal 60% Cannula 08/19 1550 91 Nasal 60% Cannula 08/19 1530 80 Nasal 50% Cannula 08/19 1201 94 Nasal 55% Cannula 08/19 1200 92 Nasal 60% Cannula Intake & Output 08/20 1600 08/20 0800 08/20 0000 Intake Total 191.2 310 Output Total 640 900 Balance -448.8 -590 Intake, IV 71.2 70 Intake, Oral 120 240 Number 2 Bowel Movements Output, Urine 640 900 Patient 127 lb Weight Weight Bed scale Measurement Method Impression/Plan Impression/Plan Impression/Plan: General: Nontoxic, no apparent distress. on bipap HEENT: Sclera and conjunctiva within normal limits, without xanthelasmas. Neck: Carotids 2+ without bruits. Respiratory: Scattered rhonchi and rales, air movement is decreased at bases, without accessory respiratory muscle use. Heart: Regular rate and rhythm, 2/6 systolic ejection murmur left sternal border , without JVD. Abdomen: Soft, nontender, no masses, normoactive bowel sounds. Extremities: Without clubbing, cyanosis, without edema. Neuro: Nonfocal exam, strength, 5 out of 5 Skin: Within normal limits without lesions. 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 Her lower extremity edema is related to that. Pt has rt heart failure and now on dobutamine and lasix * Resolved Syncope or near sycope with multiple falls, pt with severe PUlm htn from copd, with sig corpulmonale, previous full work up for other causes are neg (no vte, no vasculitis etc) * Symtomatic anemia with sig eccymosis due to prednisone s/p transfusion * RElative cortisol def * End stage copd with chronic resp failure * REcurrent diastolic chf now euvolemic after ivf as she was dehydrated upon admission * Profound fatigue significant shortness of breath muscle weakness most likely related to cortisol deficiency as she's been on steroids for years * VTE upper ext now on lovenox with thrombocytopenia * CHest ct abormality wedge shaped (no pe, prob atx vs pna unlikely malignancy) * History of lung cancer status post radiation therapy rule out recurrence * Diabetes on insulin * Hypothyroidism on appropriate supplementation therapy REC Cont dobutamine Lasix 20 mg q 8 hrs if tolerated Check labs and replace potassium Check heparin antibody profile Use ipratropium only for nebs, till heart rate is down and use albuterol only if needed for sever wheezing Keep her on steroids at 40 mg daily Cont dilt Lovenox 60 mg daily and check cbc daily and if platelets further drop will consider noacs Follow sugar and titrate insulin dose down Theophylline 200 mg at hs check mohit level in 2 days FSG to be checked Pt continues to be critcally ill tts 40 mins DNR and DNi and discussed with the family Code Status: DNR and dni Code Status: Do Not Resucitate/Intubat
[2017-08-20 12:00] VITALS: BP 140/80
[2017-08-20 16:00] VITALS: BP 132/80
[2017-08-20 18:57] LABS: HEMATOCRIT 34.8 % (37-47); MEAN CORPUSCULAR HGB 21.2 PG (27.0-31.0); MEAN CORPUSCULAR HGB CONC 30.9 G/DL (33.0-37.0); MEAN CORPUSCULAR VOLUME 68.7 FL (81.0-99.0); MEAN PLATELET VOLUME 10.1 FL (7.4-10.4); PLATELET COUNT 101 /CUMM (130-400); RBC DISTRIBUTION WIDTH 25.1 % (11.5-14.5); RED BLOOD CELL CT 5.06 /CUMM (4.20-5.40); WHITE BLOOD CELL COUNT 18.6 /CUMM (4.8-10.8)
[2017-08-20 19:10] LABS: PTT 34 SEC (25-37)
[2017-08-21] VITALS: BP 106/62
[2017-08-21 05:08] LABS: HEMATOCRIT 31.5 % (37-47); MEAN CORPUSCULAR HGB 20.8 PG (27.0-31.0); MEAN CORPUSCULAR HGB CONC 30.7 G/DL (33.0-37.0); MEAN CORPUSCULAR VOLUME 67.8 FL (81.0-99.0); MEAN PLATELET VOLUME 8.9 FL (7.4-10.4); PLATELET COUNT 90 /CUMM (130-400); RBC DISTRIBUTION WIDTH 25.3 % (11.5-14.5); RED BLOOD CELL CT 4.65 /CUMM (4.20-5.40)
[2017-08-21 05:23] LABS: WHITE BLOOD CELL COUNT 17.9 /CUMM (4.8-10.8)
--- NOTE | 2017-08-21 07:04 | PN- Resident CRCU ---
Subjective HPI/CRCU Issues: Patient seen and examined, currently on BiPAP Evening/Overnight events -Patient has been on and off BiPAP all day -No overnight acute events Vitals MAXIMUM TEMPERATURE 99.3 heart rate 70s to 90s normal sinus rhythm, manual blood pressure readings ranging 130s to 100s/60s to 80s Intake 811, output 2865 last 24h, total balance 9160/70918 Labs -Leukocytosis 17.9, No bands 2/2 sterods -H/H 9.7/31.5 mild drop should expect hemoconcentration secondary to Lasix; Guacic was negative -platelet count trended down to 157>104>96-101>90, patient has been started on heparin for DVT 60mg Day 3 -K 4.0, HCO3 33 -Total bilirubin 1.6 AST 82 ALT 440 2/2 to congestion from right heart failure - improving -Finger sticks 201, 130, 99, 83 -Theophyline level of 2.6 -HIT panel pending -ABG 7.53/36/69 Interventions planed for today -Levemir 7 units BID -Platelet count trending down, pt has been started on lovenox for R upper extremity DVT, continue to monitor closely , HIT is a possiblity but unlikely patient's scores low probability <5% on 4T's crieteria for HIT, nevertheless we have drawn HIT antibody to rule out which is pending -Continue dobutamine @2.5 MCG and Continue diuresis IV lasix Q8 -Will continue steriods and cardizem -Continue K repletion 40mEQ BID -Try to transition to nasal cannula, unlikely patient will tolerate Objective Vital Signs & I&O Last 8 Hrs of Vitals and I&O: Vital Signs Date Time Temp Pulse Resp B/P B/P Pulse O2 O2 Flow FiO2 Mean Ox Delivery Rate 08/21 808 97 Nasal 50% Cannula 08/21 0804 72 94 08/21 08 93 BIPAP 40% 08/21 08 97.6 76 26 98/60 93 BIPAP 40% 08/21 0542 89 93 08/21 0400 92 BIPAP 40% 08/21 0308 77 97 08/21 0050 92 93 08/21 0047 93 Nasal 55% Cannula 08/21 0000 94 Nasal 55% Cannula 08/21 0000 99.3 90 20 106/62 94 Nasal 55% Cannula 08/20 2230 94 Nasal 55% Cannula 08/20 2131 97.2 88 30 112/69 08/20 2000 97 Nasal 55% Cannula 08/20 1800 94 Nasal 55% Cannula 08/20 1605 81 98 08/20 1600 97 BIPAP 40% 08/20 1600 97.4 80 22 132/80 97 BIPAP 40% 08/20 1332 92 95 / 1200 96 Nasal 55% Cannula 08/20 1200 97.9 89 32 140/80 96 Nasal 55% Cannula 08/20 1104 97 Nasal 55% Cannula 08/20 1103 84 97 Intake & Output 08/21 1600 08/21 0800 08/21 0000 Intake Total 202 433.6 Output Total 655 850 Balance -453 -416.4 Intake, IV 152 73.6 Intake, Oral 50 360 Output, Urine 655 850 Patient 126 lb Weight Weight Bed scale Measurement Method Exam General Appearance: alert Head: atraumatic Neck: normal inspection Respiratory: decreased breath sounds Cardiovascular: regular rate/rhythm Gastrointestinal: normal bowel sounds Cranial Nerves: normal hearing, normal speech Current Medications: Current Medications Sig/Vero Start time Last Medication Dose Route Stop Time Status Admin Acetaminophen 650 MG Q6P PRN 08/12 2030 AC PO Acetaminophen 1,000 MG Q6P PRN 08/12 2030 AC IV Albuterol Sulfate 3 ML Q4P PRN 08/17 1630 AC 08/21 INH 0809 Budesonide/ 2 PUF BID 08/13 1000 AC 08/21 Formoterol Fumarate INH 1156 Calcium Carbonate 500 MG TIDPRN PRN 08/21 0745 AC 08/21 PO 0939 Cholecalciferol 1,000 IU DAILY 08/13 1000 DC 08/20 PO 1115 Cyanocobalamin 1,000 MCG DAILY 08/13 1000 DC 08/20 PO 1243 Diltiazem HCl 180 MG DAILY 08/17 1500 AC 08/21 PO 0939 Dobutamine HCl 250 MG Q24H 08/19 1445 AC 08/20 Dextrose/Water 250 ML IV 08/22 0800 2131 Enoxaparin Sodium 60 MG DAILY 08/19 1525 AC 08/21 SC 1047 Folic Acid 1 MG DAILY 08/13 1000 DC 08/20 PO 1115 Furosemide 20 MG Q8 08/20 1400 AC 08/21 IV 0652 Guaifenesin 600 MG Q12 08/18 2200 AC 08/21 PO 0943 Insulin Detemir 7 UNITS BID 08/20 1000 AC 08/21 SC 1047 Ipratropium [place] 2.5 ML EVERY 4 HRS/AWAKE 08/18 1999 AC 08/21 INH 1135 Levothyroxine Sodium 0.112 MG DAILY AC 08/13 0700 AC 08/21 PO 0658 Lidocaine 1 PAT DAILY 08/14 2215 AC 08/21 EXT 0942 Magnesium Oxide 400 MG DAILY 08/13 1000 AC 08/21 PO 1155 Methylprednisolone 40 MG DAILY 08/18 1000 DC 08/20 IV 1008 Multivitamins 1 TAB DAILY 08/21 1000 AC 08/21 PO 1155 Pantoprazole Sodium 40 MG DAILY 08/18 1000 AC 08/21 IV 0738 Polyethylene Glycol 17 GM DAILY 08/13 1656 AC 08/20 PO 1117 Potassium Chloride 40 MEQ BID 08/21 1200 AC PO Potassium Chloride 40 MEQ BID 08/21 1000 DC PO Potassium Chloride 40 MEQ 1400 08/20 1400 DC PO Prednisone 30 MG DAILY 08/21 1100 AC PO Senna/Docusate Sodium 1 TAB BID PRN 08/13 1700 AC PO Sertraline HCl 50 MG 2200 08/13 2200 AC 08/20 PO 2129 Sodium Chloride 2 SPRAY Q4P PRN 08/14 0145 AC TAMIE Theophylline 200 MG AT BEDTIME 08/21 2200 AC PO Theophylline 200 MG AT BEDTIME 08/19 2200 DC 08/20 PO 2131 Tiotropium [place] 1 PUF DAILY 08/13 1000 AC 08/21 INH 1156 Tramadol HCl 25 MG Q4 HRS NEEDED PRN 08/13 1630 AC 08/21 PO 1153 Impression/Plan Impression/Problem List Impression: Patient is a 76 YO F with PMH significant for 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 The patient was transferred overnight to ICU for increased oxygen requirement and hypotension. Respiratory #Acute on chronic hypoxemic respiratory failure with end-stage COPD resulting in cor pulmonale/right-sided heart failure. -Continues to be on high flow and Bipap overnight -Goals greater than O2 88% -TRC/nebs. Only ipratropium for nebs, avoid albuterol unless severe wheezing. -Taper steroids prednisone 30 mg -Theophyline restarted 08/19 200mg at bedtime -F/U theophyline level on 08/23 Infection #Leukocytosis secondary to steroid use most likely, CT chest showed wedge-shaped opacity probably atelectasis, PNA, malignancy less likely -Continue to monitor -ID on board monitor off abx #Suspected UTI Patient was initially started on ceftriaxone which was later discontinued because urine culture was negative. Cardiology #Syncopal episode Likely multifactorial. Patient was hypokalemic which could have contributed to an arrhythmia. She has hx of severe pulmonary hypertension and is diuresed for peripheral edema . She has relative cortisol deficiency due to steroid use Orthostatics contributing to her episodes. She was also hypoglycemic on presentation. -Continue to monitor on telemetry -Maintain euvolemic state #Right sided heart failure -Continue dopamine drip for today may see in the a.m. -Continue IV Lasix 20 mg every 8 hours -Continue potassium the patient with Lasix administration #Hypotension, resolved Patient's blood pressure dropped to she required 2500 mL fluid bolus and 50 mg IV hydrocortisone secondary to relative cortisol deficiency. #Relative bradycardia, Resolved -Initially Cardizem was held and has been restarted. Hematology # Symptomatic anemia Status post 1 unit PRBCs 08/13. Of note patient had history of GI bleed 2 years ago requiring 10 units of PRBC transfusion, likely diverticular. -Stool Guaiac - negative -H/H Stable continue to monitor Metabolic #Hypokalemia/ Hyperkalemia Patient was initially hypokalemic and became hyperkalemic with repletion received calcium gluconate, insulin 10 units, dextrose 3 and Kayexalate 2 She became hypokalemic after diuresis, potassium has been replaced and today potassium is 4.0 -Continue to monitor and replete #Relative Cortisol deficiency Cortisol level was 10.7. Patient is on prednisone 15mg daily at home, which was not given to her since her admisson to the hospital. Patient was given stress dose of steroid and started on a prednisone taper starting from 40mg daily. Overnight patient's blood pressure dropped and she received 50 mg IV hydrocortisone -Taper steroids prednisone 30 mg #Transaminitis and hyperbilirubinemia Likely secondary to congestion in setting of right-sided heart failure.Transaminitis hyperbilirubinemia improving -Continue to monitor LFTs #DM One episode of hypoglycemia on 08/19 -Accu-Chek, insulin sliding scale -Levemir dose changed to 7 units BID, continue to monitor #Hypothyroidism -TSH/freeT4 WNL continue home dose of synthroid Musculoskeletal #Frequent falls/unsteady gait - PT evaluation; Pending Alimantary #Dysphagia Patient choked on her medication on 08/14, states she has experienced the same before at home as well. -No events -Consider GI Consult for dysphagia is persistent inpt vs outpt Nephrology #[facility]-Secondary to prerenal azotemia in setting of diuresis-resolved -Encourage PO intake -Continue to monitor Cr curve -Avoid nephrotoxins DVT prophylaxis with Alps and lovenox Code Status DNR/DNI Problem List: 1. CONGESTIVE HEART FAILURE Pain Ratin Tomorrow's Labs & Rationales: cbc Plan DVT/Prophylaxis: mechanical, pharmacological Code Status: Do Not Resucitate/Intubat
--- NOTE | 2017-08-21 07:54 | Transfer of Care Summary ---
See Addendum Hospital Course Course Hospital Course: Reason for ICU admission Acute on chronic hypoxemic respiratory failure with end -stage COPD resulting in cor pulmonale/right-sided heart failure. 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 She was being treated and evaluated for syncopal episode, Severe Pulmonary Hypertension with End stage COPD, hypokalemia and relative Cortisol deficiency. She is status post 1 unit PRBC 08/13 for symptomatic anemia Interval events She was transferred to ICU on 08/14 for worsening respiratory status requiring high flow oxygen to maintain oxygen saturation and hypotension 82/52. Her random cortisol level was 10.7 she required 50 mg IV hydrocortisone and 2500 mL fluid bolus for BP maintaince. In ICU patient was treated for acute on chronic hypoxemic respiratory failure with end-stage COPD resulting in cor pulmonale/right sided heart failure. Initially she was maintained on BiPAP and later transitioned to high flow and is now on nasal cannula. Per pulmonology avoid CPAP at night if patient tolerates. For right-sided heart failure patient was started on dobutamine drip on and that was discontinued on 08/22. She was diuresed with Lasix IV and currently on 40 mg PO. Theophyline was initially held with the level of 9.6 was restarted on 08/19 200mg. Patient had transaminitis and hyperbilirubinemia likely secondary to congestion in setting of right-sided heart failure, her LFTs are improving. Patient was on prednisone 15mg daily at home, which was not given to her intially on admisson, recieved stress dose of hydrocortisone 50mg on 08/14 and was receiving IV methylprednisone in ICU for relative cortisol insufficiency and later transitioned to by mouth prednisone currently on 20 mg daily. Cardizem was initially held because of relative bradycardia which resolved and Cardizem was restarted on 08/17. On 08/18 patient was found to have nonocclusive right axillary vein DVT, DVT in one of the paired brachial veins and in the right basilic vein, likely secondary to right-sided passive congestion and patient's immobility. She was started on Lovenox 60 mg daily after performing guaiac which was negative. Her platelets initially downtrended and now are stable. HIT panel was negative. Patient is continued on lovenox with close monitoring of platelets. Patient presented with leukocytosis likely secondary to steroid use the patient was started on ceftriaxone for suspected UTI later was discontinued because urine culture was negative. Patient is being monitored off antibiotics. Her syncopal episode was likely multifactorial secondary to hypokalemia which could have contributed to arrhythmia vs orthostatic secondary to her diuresis. She also had LISSETT secondary to prerenal azotemia in setting of the diureses which is resolved now. Patient was initially hypokalemic and became hyperkalemic with repletion received calcium gluconate, insulin 10 units, dextrose 3 and Kayexalate 2 She became hypokalemic after diuresis, we have monitored and actively repleted her potassium. Of note patient has history of diverticular GI bleed and was resistant to Lovenox initially. Now is receiving Lovenox daily with close monitoring. As per Tele notes pt choked on her medication on 08/14, states she has experienced the same before at home as well. No dysphagia during ICU, consider GI consult outpatient. Mechanical ventilation None Noninvasive positive pressure ventilation BIPAP, CPAP Antibiotic plan None Things to be followed up -Continue to wean off oxygen as tolerated. Currently on 4L NC. Avoid CPAP at night if possible. -Her oxygen saturation goal is >88%. -Avoid albuterol unless severe wheezing. -Follow accuchecks and adjust insulin as required. Started on low dose insulin SS and levemir. -Continue to monitor LFTs -Continue to monitor platelet count -Continue to monitor H/H -Continue to monitor electrolytes and replete accordingly -PT evaluation recommend STR. Continue to follow up PT recommendations. Nutrition heart healthy DVT prophylaxis with Lovenox 60mg, ALPs CODE STATUS DNR/DNI Assessment/Plan: See above
[2017-08-21 08:00] VITALS: BP 98/60
--- NOTE | 2017-08-21 09:10 | PN- CRCU ---
Subjective HPI/Critical Care Issues: -Patient has been on and off BiPAP all day -No overnight acute events Vitals MAXIMUM TEMPERATURE 99.3 heart rate 70s to 90s normal sinus rhythm, manual blood pressure readings ranging 130s to 100s/60s to 80s Intake 811, output 2865 last 24h, total balance [id number]/62606 Objective Current Medications: Current Medications Sig/Vero Start time Last Medication Dose Route Stop Time Status Admin Acetaminophen 650 MG Q6P PRN 08/12 2030 AC PO Acetaminophen 1,000 MG Q6P PRN 08/12 2030 AC IV Albuterol Sulfate 3 ML Q4P PRN 08/17 1630 AC 08/21 INH 0809 Budesonide/ 2 PUF BID 08/13 1000 AC 08/20 Formoterol Fumarate INH 2129 Calcium Carbonate 500 MG TIDPRN PRN 08/21 0745 AC PO Cholecalciferol 1,000 IU DAILY 08/13 1000 DC 08/20 PO 1115 Cyanocobalamin 1,000 MCG DAILY 08/13 1000 DC 08/20 PO 1243 Diltiazem HCl 180 MG DAILY 08/17 1500 AC 08/20 PO 1109 Dobutamine HCl 250 MG Q24H 08/19 1445 AC 08/20 Dextrose/Water 250 ML IV 2131 Enoxaparin Sodium 60 MG DAILY 08/19 1525 AC 08/20 SC 1233 Folic Acid 1 MG DAILY 08/13 1000 DC 08/20 PO 1115 Furosemide 20 MG Q8 08/20 1400 AC 08/21 IV 0652 Furosemide 20 MG 7:30 AM, & 4:30 PM 08/20 0730 DC 08/20 IV 0637 Furosemide 20 MG 2000 08/19 2000 DC 08/19 IV 2103 Guaifenesin 600 MG Q12 08/18 2200 AC 08/20 PO 2129 Insulin Detemir 7 UNITS BID 08/20 1000 AC 08/20 SC 2130 Ipratropium [place] 2.5 ML EVERY 4 HRS/AWAKE 08/18 1999 AC 08/21 INH 0809 Levothyroxine Sodium 0.112 MG DAILY AC 08/13 0700 AC 08/21 PO 0658 Lidocaine 1 PAT DAILY 08/14 2215 AC 08/20 EXT 1232 Magnesium Oxide 400 MG DAILY 08/13 1000 AC 08/19 PO 0953 Methylprednisolone 40 MG DAILY 08/18 1000 AC 08/20 IV 1008 Multivitamins 1 TAB DAILY 08/21 1000 AC PO Pantoprazole Sodium 40 MG DAILY 08/18 1000 AC 08/21 IV 0738 Polyethylene Glycol 17 GM DAILY 08/13 1656 AC 08/20 PO 1117 Potassium Chloride 40 MEQ BID 08/21 1000 AC PO Potassium Chloride 40 MEQ 1400 08/20 1400 DC PO Senna/Docusate Sodium 1 TAB BID PRN 08/13 1700 AC PO Sertraline HCl 50 MG 2200 08/13 2200 AC 08/20 PO 2129 Sodium Chloride 2 SPRAY Q4P PRN 08/14 0145 AC TAMIE Theophylline 200 MG AT BEDTIME 08/21 2200 AC PO Theophylline 200 MG AT BEDTIME 08/19 2200 DC 08/20 PO 2131 Tiotropium [place] 1 PUF DAILY 08/13 1000 AC 08/20 INH 1233 Tramadol HCl 25 MG Q4 HRS NEEDED PRN 08/13 1630 AC 08/19 PO 0038 Vital Signs & I&O Last 24 Hrs of Vitals and I&O: Vital Signs Date Time Temp Pulse Resp B/P B/P Pulse O2 O2 Flow FiO2 Mean Ox Delivery Rate 08/22 0709 97 Nasal 50% Cannula 08/21 0804 72 94 08/21 0800 93 BIPAP 40% 08/21 0800 97.6 76 26 98/60 93 BIPAP 40% 08/21 0542 89 93 08/21 0400 92 BIPAP 40% 08/21 0308 77 97 08/21 0050 92 93 08/21 0047 93 Nasal 55% Cannula 08/21 0000 94 Nasal 55% Cannula 08/21 0000 99.3 90 20 106/62 94 Nasal 55% Cannula 08/20 2230 94 Nasal 55% Cannula 08/20 2131 97.2 88 30 112/69 08/20 2000 97 Nasal 55% Cannula 08/20 1800 94 Nasal 55% Cannula 08/20 1605 81 98 08/20 1600 97 BIPAP 40% 08/20 1600 97.4 80 22 132/80 97 BIPAP 40% 08/20 1332 92 95 08/20 1200 96 Nasal 55% Cannula 08/20 1200 97.9 89 32 140/80 96 Nasal 55% Cannula 08/20 1104 97 Nasal 55% Cannula 08/20 1103 84 97 Intake & Output 08/21 1600 08/21 0800 08/21 0000 Intake Total 202 433.6 Output Total 655 850 Balance -453 -416.4 Intake, IV 152 73.6 Intake, Oral 50 360 Output, Urine 655 850 Patient 126 lb Weight Weight Bed scale Measurement Method Laboratory Tests 08/21 08/20 0415 1800 Chemistry Sodium (137 - 145 mmol/L) 141 Cancelled Potassium (3.5 - 5.1 mmol/L) 4.0 Cancelled Chloride (98 - 107 mmol/L) 101 Cancelled Carbon Dioxide (22 - 30 mmol/L) 33 H Cancelled Anion Gap (5 - 16) 7 Cancelled BUN (7 - 17 mg/dL) 33 H Cancelled Creatinine (0.5 - 1.0 mg/dL) 1.0 Cancelled Estimated GFR (>60 ml/min) 54 L BUN/Creatinine Ratio Cancelled Glucose (65 - 99 mg/dL) 72 Calcium (8.4 - 10.2 mg/dL) 9.5 Phosphorus (2.5 - 4.5 mg/dL) 3.8 Magnesium (1.6 - 2.3 mg/dL) 2.1 Total Bilirubin (0.2 - 1.3 mg/dL) 1.6 H AST (14 - 36 U/L) 82 H ALT (9 - 52 U/L) 440 H Albumin (3.5 - 5.0 g/dL) 2.9 L Hematology CBC w Diff MAN DIFF ORDERED WBC (4.8 - 10.8 /CUMM) 17.9 H RBC (4.20 - 5.40 /CUMM) 4.65 Hgb (12.0 - 16.0 G/DL) 9.7 L Hct (37 - 47 %) 31.5 L MCV (81.0 - 99.0 FL) 67.8 L MCH (27.0 - 31.0 PG) 20.8 L MCHC (33.0 - 37.0 G/DL) 30.7 L RDW (11.5 - 14.5 %) 25.3 H Plt Count (130 - 400 /CUMM) 90 L MPV (7.4 - 10.4 FL) 8.9 Segmented Neutrophils (42.2 - 75.2 %) 88 H Band Neutrophils (0.0 - 5.0 %) 1 Lymphocytes (20.5 - 51.1 %) 3 L Monocytes (1.7 - 9.3 %) 7 Metamyelocytes (0.0 - 1.0 %) 1 Nucleated RBCs (0.0 - 0.0 /100WBC) 8 H Platelet Estimate (ADEQUATE) DECREASED Polychromasia 1+ Hypochromic-Microcytic 2+ Poikilocytosis 2+ Basophilic Stippling 1+ Anisocytosis 3+ Microcytic Cells 3+ Ovalocytes 1+ Stomatocytes RARE Elliptocytes 1+ Other Body Source Fld Total RBCs Counted (%) 100 Toxicology Theophylline (10.0 - 20.0 uG/mL) 2.6 L 08/20 08/20 1740 0354 Chemistry Sodium (137 - 145 mmol/L) 139 140 Potassium (3.5 - 5.1 mmol/L) 4.6 5.3 H Chloride (98 - 107 mmol/L) 101 106 Carbon Dioxide (22 - 30 mmol/L) 32 H 27 Anion Gap (5 - 16) 6 7 BUN (7 - 17 mg/dL) 30 H 27 H Creatinine (0.5 - 1.0 mg/dL) 0.9 0.9 Estimated GFR (>60 ml/min) > 60 > 60 Glucose (65 - 99 mg/dL) 77 148 H Calcium (8.4 - 10.2 mg/dL) 9.5 9.6 Phosphorus (2.5 - 4.5 mg/dL) 3.6 3.2 Magnesium (1.6 - 2.3 mg/dL) 2.1 2.0 Total Bilirubin (0.2 - 1.3 mg/dL) 1.9 H 2.0 H AST (14 - 36 U/L) 119 H 133 H ALT (9 - 52 U/L) 547 H 559 H Albumin (3.5 - 5.0 g/dL) 3.2 L 2.9 L Coagulation PT (9.4 - 12.5 SEC) 12.0 INR (0.90 - 1.19) 1.10 APTT (25 - 37 SEC) 34 Fibrinogen Activity (200 - 393 MG/DL) 269 Hematology CBC w Diff MAN DIFF ORDERED MAN DIFF ORDERED WBC (4.8 - 10.8 /CUMM) 18.6 H 17.7 H RBC (4.20 - 5.40 /CUMM) 5.06 4.63 Hgb (12.0 - 16.0 G/DL) 10.7 L 9.9 L Hct (37 - 47 %) 34.8 L 31.8 L MCV (81.0 - 99.0 FL) 68.7 L 68.6 L MCH (27.0 - 31.0 PG) 21.2 L 21.3 L MCHC (33.0 - 37.0 G/DL) 30.9 L 31.0 L RDW (11.5 - 14.5 %) 25.1 H 25.1 H Plt Count (130 - 400 /CUMM) 101 L 96 L MPV (7.4 - 10.4 FL) 10.1 9.7 Segmented Neutrophils (42.2 - 75.2 %) 94 H 90 H Band Neutrophils (0.0 - 5.0 %) 2 Lymphocytes (20.5 - 51.1 %) 2 L 2 L Monocytes (1.7 - 9.3 %) 4 5 Metamyelocytes (0.0 - 1.0 %) 1 Nucleated RBCs (0.0 - 0.0 /100WBC) 5 H 9 H Platelet Estimate (ADEQUATE) ADEQUATE DECREASED Polychromasia 1+ 1+ Hypochromic-Microcytic 2+ 2+ Poikilocytosis 1+ 3+ Basophilic Stippling 1+ Anisocytosis 1+ 3+ Microcytic Cells 2+ 3+ Target Cells FEW Ovalocytes 1+ Stomatocytes FEW Elliptocytes FEW Immunology Heparin-induced Plt Ab Pending Heparin-PF4 AB OD Pending Other Body Source Fld Total RBCs Counted (%) 100 08/19 08/19 08/19 2220 1324 1320 Chemistry Sodium (137 - 145 mmol/L) 140 139 Potassium (3.5 - 5.1 mmol/L) 4.0 3.7 Chloride (98 - 107 mmol/L) 106 103 Carbon Dioxide (22 - 30 mmol/L) 28 29 Anion Gap (5 - 16) 7 8 BUN (7 - 17 mg/dL) 28 H 27 H Creatinine (0.5 - 1.0 mg/dL) 0.8 0.8 Estimated GFR (>60 ml/min) > 60 > 60 BUN/Creatinine Ratio (7 - 25 %) 35.0 H Glucose (65 - 99 mg/dL) 191 H Calcium (8.4 - 10.2 mg/dL) 9.3 Phosphorus (2.5 - 4.5 mg/dL) 2.8 Magnesium (1.6 - 2.3 mg/dL) 2.0 2.0 Total Bilirubin (0.2 - 1.3 mg/dL) 2.6 H AST (14 - 36 U/L) 155 H ALT (9 - 52 U/L) 632 H Albumin (3.5 - 5.0 g/dL) 3.0 L Urines Urine Color (YEL,AMB,STR) YEL Urine Clarity (CLEAR) HAZY H Urine pH (5.0 - 8.0) 6.5 Ur Specific [place] (1.001 - 1.035) 1.015 Urine Protein (NEG,<30 MG/DL) TRACE H Urine Ketones (NEG) NEG Urine Nitrite (NEG) NEG Urine Bilirubin (NEG) NEG Urine Urobilinogen (0.1 - 1.0 EU/dl) 2.0 H Ur Leukocyte Esterase (NEG) SMALL H Ur Microscopic SEDIMENT EXAMINED Urine RBC (0 - 5 /HPF) 5-10 H Urine WBC (0 - 2 /HPF) 15-25 H Ur Epithelial Cells (NONE,FEW) FEW Urine Bacteria (NEG/NONE) FEW H Hyaline Casts (0/LPF) 1-3 H Granular Casts (NONE /LPF) RARE H Urine Mucus (FEW,NONE) FEW Micro UA Comment BUDDING YEAST H Urine Hemoglobin (NEG) MOD H Urine Glucose (N MG/DL) 100 H 03/07 1320 Urines Ur Random Creatinine (mg/dL) 23.0 Ur Random Sodium (30 - 90 mmol/L) 151 H Ur Random Potassium (mmol/L) 13.9 Fraction Sodium Excret (<1% %) 3.8 H Microbiology Date/Time Procedure - Status Source Growth 08/18 1620 Urine Culture - COMP URINE ROUT Impression/Plan Impression/Plan Impression/Plan: General: Nontoxic, no apparent distress. on bipap HEENT: Sclera and conjunctiva within normal limits, without xanthelasmas. Neck: Carotids 2+ without bruits. Respiratory: Scattered rhonchi and rales, air movement is decreased at bases, without accessory respiratory muscle use. Heart: Regular rate and rhythm, 2/6 systolic ejection murmur left sternal border , without JVD. Abdomen: Soft, nontender, no masses, normoactive bowel sounds. Extremities: Without clubbing, cyanosis, without edema. Neuro: Nonfocal exam, strength, 5 out of 5 Skin: Within normal limits without lesions. 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 Her lower extremity edema is related to that. Pt has rt heart failure and now on dobutamine and lasix * Resolved Syncope or near sycope with multiple falls, pt with severe PUlm htn from copd, with sig corpulmonale, previous full work up for other causes are neg (no vte, no vasculitis etc) * Symtomatic anemia with sig eccymosis due to prednisone s/p transfusion * RElative cortisol def * End stage copd with chronic resp failure * REcurrent diastolic chf now euvolemic after ivf as she was dehydrated upon admission * Profound fatigue significant shortness of breath muscle weakness most likely related to cortisol deficiency as she's been on steroids for years * VTE upper ext now on lovenox with thrombocytopenia * CHest ct abormality wedge shaped (no pe, prob atx vs pna unlikely malignancy) * History of lung cancer status post radiation therapy rule out recurrence * Diabetes on insulin * Hypothyroidism on appropriate supplementation therapy REC Cont dobutamine till tommorow and stop Lasix 20 mg q 8 hrs if tolerated Check labs and replace potassium Use ipratropium only for nebs, till heart rate is down and use albuterol only if needed for sever wheezing Reduce to prednisone 30 mg Cont dilt Lovenox 60 mg daily and check cbc daily and if platelets further drop will consider noacs Follow sugar and titrate insulin dose down Theophylline 200 mg at hs check mohit level in 2 days FSG to be checked Pt continues to be critcally ill tts 40 mins DNR and DNi and discussed with the family Code Status: DNR and dni Code Status: Do Not Resucitate/Intubat
--- NOTE | 2017-08-21 11:16 | PN- Infect Dx ---
Subjective Subjective: Afebrile on steroids. She feels improved with no complaints at this time. Objective Last 24 Hrs of Vital Signs/I&O Vital Signs Date Time Temp Pulse Resp B/P B/P Pulse O2 O2 Flow FiO2 Mean Ox Delivery Rate 08/22 0709 97 Nasal 50% Cannula 08/21 0804 72 94 08/21 08 93 BIPAP 40% 08/21 08 97.6 76 26 98/60 93 BIPAP 40% 08/21 0542 89 93 08/21 0400 92 BIPAP 40% 08/21 0308 77 97 08/21 0050 92 93 08/21 0047 93 Nasal 55% Cannula 08/21 0000 94 Nasal 55% Cannula 08/21 0000 99.3 90 20 106/62 94 Nasal 55% Cannula 08/20 2230 94 Nasal 55% Cannula 08/20 2131 97.2 88 30 112/69 08/20 2000 97 Nasal 55% Cannula 08/20 1800 94 Nasal 55% Cannula 08/20 1605 81 98 08/20 1600 97 BIPAP 40% 08/20 1600 97.4 80 22 132/80 97 BIPAP 40% 08/20 1332 92 95 08/20 1200 96 Nasal 55% Cannula 08/20 1200 97.9 89 32 140/80 96 Nasal 55% Cannula Intake & Output 08/21 1600 08/21 0800 08/21 0000 Intake Total 202 433.6 Output Total 655 850 Balance -453 -416.4 Intake, IV 152 73.6 Intake, Oral 50 360 Output, Urine 655 850 Patient 126 lb Weight Weight Bed scale Measurement Method Physical Exam Other Physical Findings: She appears more comfortable in no acute distress Lungs are clear Heart regular rhythm with no murmur Extremities decreased edema both lower extremities; mild edema of the right upper extremity Results Last 24 Hours of Lab Results: Laboratory Tests 08/21 08/20 0415 1800 Chemistry Sodium (137 - 145 mmol/L) 141 Cancelled Potassium (3.5 - 5.1 mmol/L) 4.0 Cancelled Chloride (98 - 107 mmol/L) 101 Cancelled Carbon Dioxide (22 - 30 mmol/L) 33 H Cancelled Anion Gap (5 - 16) 7 Cancelled BUN (7 - 17 mg/dL) 33 H Cancelled Creatinine (0.5 - 1.0 mg/dL) 1.0 Cancelled Estimated GFR (>60 ml/min) 54 L BUN/Creatinine Ratio Cancelled Glucose (65 - 99 mg/dL) 72 Calcium (8.4 - 10.2 mg/dL) 9.5 Phosphorus (2.5 - 4.5 mg/dL) 3.8 Magnesium (1.6 - 2.3 mg/dL) 2.1 Total Bilirubin (0.2 - 1.3 mg/dL) 1.6 H AST (14 - 36 U/L) 82 H ALT (9 - 52 U/L) 440 H Albumin (3.5 - 5.0 g/dL) 2.9 L Hematology CBC w Diff MAN DIFF ORDERED WBC (4.8 - 10.8 /CUMM) 17.9 H RBC (4.20 - 5.40 /CUMM) 4.65 Hgb (12.0 - 16.0 G/DL) 9.7 L Hct (37 - 47 %) 31.5 L MCV (81.0 - 99.0 FL) 67.8 L MCH (27.0 - 31.0 PG) 20.8 L MCHC (33.0 - 37.0 G/DL) 30.7 L RDW (11.5 - 14.5 %) 25.3 H Plt Count (130 - 400 /CUMM) 90 L MPV (7.4 - 10.4 FL) 8.9 Segmented Neutrophils (42.2 - 75.2 %) 88 H Band Neutrophils (0.0 - 5.0 %) 1 Lymphocytes (20.5 - 51.1 %) 3 L Monocytes (1.7 - 9.3 %) 7 Metamyelocytes (0.0 - 1.0 %) 1 Nucleated RBCs (0.0 - 0.0 /100WBC) 8 H Platelet Estimate (ADEQUATE) DECREASED Polychromasia 1+ Hypochromic-Microcytic 2+ Poikilocytosis 2+ Basophilic Stippling 1+ Anisocytosis 3+ Microcytic Cells 3+ Ovalocytes 1+ Stomatocytes RARE Elliptocytes 1+ Other Body Source Fld Total RBCs Counted (%) 100 Toxicology Theophylline (10.0 - 20.0 uG/mL) 2.6 L 08/20 1740 Chemistry Sodium (137 - 145 mmol/L) 139 Potassium (3.5 - 5.1 mmol/L) 4.6 Chloride (98 - 107 mmol/L) 101 Carbon Dioxide (22 - 30 mmol/L) 32 H Anion Gap (5 - 16) 6 BUN (7 - 17 mg/dL) 30 H Creatinine (0.5 - 1.0 mg/dL) 0.9 Estimated GFR (>60 ml/min) > 60 Glucose (65 - 99 mg/dL) 77 Calcium (8.4 - 10.2 mg/dL) 9.5 Phosphorus (2.5 - 4.5 mg/dL) 3.6 Magnesium (1.6 - 2.3 mg/dL) 2.1 Total Bilirubin (0.2 - 1.3 mg/dL) 1.9 H AST (14 - 36 U/L) 119 H ALT (9 - 52 U/L) 547 H Albumin (3.5 - 5.0 g/dL) 3.2 L Coagulation PT (9.4 - 12.5 SEC) 12.0 INR (0.90 - 1.19) 1.10 APTT (25 - 37 SEC) 34 Fibrinogen Activity (200 - 393 MG/DL) 269 Hematology CBC w Diff MAN DIFF ORDERED WBC (4.8 - 10.8 /CUMM) 18.6 H RBC (4.20 - 5.40 /CUMM) 5.06 Hgb (12.0 - 16.0 G/DL) 10.7 L Hct (37 - 47 %) 34.8 L MCV (81.0 - 99.0 FL) 68.7 L MCH (27.0 - 31.0 PG) 21.2 L MCHC (33.0 - 37.0 G/DL) 30.9 L RDW (11.5 - 14.5 %) 25.1 H Plt Count (130 - 400 /CUMM) 101 L MPV (7.4 - 10.4 FL) 10.1 Segmented Neutrophils (42.2 - 75.2 %) 94 H Lymphocytes (20.5 - 51.1 %) 2 L Monocytes (1.7 - 9.3 %) 4 Nucleated RBCs (0.0 - 0.0 /100WBC) 5 H Platelet Estimate (ADEQUATE) ADEQUATE Polychromasia 1+ Hypochromic-Microcytic 2+ Poikilocytosis 1+ Basophilic Stippling 1+ Anisocytosis 1+ Microcytic Cells 2+ Immunology Heparin-induced Plt Ab Pending Heparin-PF4 AB OD Pending Last 24 Hours of Rayo Results: Urine culture August 18 negative Recent Imaging Studies: Right upper extremity Doppler August 18 positive for DVT in the right upper extremity with a nonocclusive right axillary vein DVT Dopplers of both lower extremities August 18 negative Assessment/Plan ID Impression: Stable off antibiotics, with improvement in her respiratory status likely related to diuresis, with temperatures remaining normal (on steroids) but with a persistent leukocytosis, most likely secondary to the steroids. She is now on Lovenox for a recently diagnosed right upper extremity DVT. Suggestion: 1. Continue diuresis per Cardiology and Pulmonary 2. Follow-up CT of the chest at some point per Radiology 3. Continue to follow off antibiotics
--- NOTE | 2017-08-21 14:48 | PN- Cardiology ---
Subjective Subjective: Overall stable, rhythm stable. Remains on high flow nasal oxygen. No other new complaints. Feeling somewhat better than yesterday. Objective Vital Signs and I&Os Vital Signs Date Time Temp Pulse Resp B/P B/P Pulse O2 O2 Flow FiO2 Mean Ox Delivery Rate 08/21 1200 95 Nasal 55% Cannula 08/21 1146 97 Nasal 50% Cannula 08/21 0809 97 Nasal 50% Cannula 08/21 0804 72 94 08/21 08 93 BIPAP 40% 08/21 08 97.6 76 26 98/60 93 BIPAP 40% 08/21 0542 89 93 08/21 0400 92 BIPAP 40% 08/21 0308 77 97 08/21 0050 92 93 08/21 0047 93 Nasal 55% Cannula 08/21 0000 94 Nasal 55% Cannula 08/21 0000 99.3 90 20 106/62 94 Nasal 55% Cannula 08/20 2230 94 Nasal 55% Cannula 08/20 2131 97.2 88 30 112/69 08/20 2000 97 Nasal 55% Cannula 08/20 1800 94 Nasal 55% Cannula 08/20 1605 81 98 08/20 1600 97 BIPAP 40% 08/20 1600 97.4 80 22 132/80 97 BIPAP 40% Intake & Output 08/21 1600 08/21 0800 / 0000 08/20 1600 08/20 0800 08/20 0000 Intake Total 430 202 433.6 459 191.2 310 Output Total 850 742 315 0635 640 900 Balance -420 -453 -416.4 -541 -448.8 -590 Intake, IV 70 152 73.6 99 71.2 70 Intake, Oral 360 50 360 360 120 240 Number 1 2 Bowel Movements Output, Urine 850 669 164 4293 640 900 Patient 126 lb 127 lb Weight Weight Bed scale Bed scale Measurement Method Physical Exam: Head: normocephalic atraumatic Eyes: sclera anicteric conjunctiva showed no pallor extraocular muscles were normal Chest: Scattered rhonchi with decreased breath sounds bilaterally Heart: Regular S1, S2, distant heart sounds Abdomen: soft no organomegaly bowel sounds normal Extremities: no clubbing, cyanosis or edema Neurological: Grossly normal/nonfocal Current Medications: Current Medications Sig/Vero Start time Last Medication Dose Route Stop Time Status Admin Acetaminophen 650 MG Q6P PRN 08/12 2029 AC PO Acetaminophen 1,000 MG Q6P PRN 02/28 2030 AC IV Albuterol Sulfate 3 ML Q4P PRN 08/17 1630 AC 08/21 INH 0809 Budesonide/ 2 PUF BID 08/13 1000 AC 08/21 Formoterol Fumarate INH 1156 Calcium Carbonate 500 MG TIDPRN PRN 08/21 0745 AC 08/21 PO 0939 Cholecalciferol 1,000 IU DAILY 08/13 1000 DC 08/20 PO 1115 Cyanocobalamin 1,000 MCG DAILY 08/13 1000 DC 08/20 PO 1243 Diltiazem HCl 180 MG DAILY 08/17 1500 AC 08/21 PO 0939 Dobutamine HCl 250 MG Q24H 08/19 1445 AC 08/20 Dextrose/Water 250 ML IV 08/22 0800 2131 Enoxaparin Sodium 60 MG DAILY 08/19 1525 AC 08/21 SC 1047 Folic Acid 1 MG DAILY 08/13 1000 DC 08/20 PO 1115 Furosemide 20 MG Q8 08/20 1400 AC 08/21 IV 1406 Guaifenesin 600 MG Q12 08/18 2200 AC 08/21 PO 0943 Insulin Detemir 7 UNITS BID 08/20 1000 AC 08/21 SC 1047 Ipratropium [place] 2.5 ML EVERY 4 HRS/AWAKE 08/17 2000 AC 08/21 INH 1135 Levothyroxine Sodium 0.112 MG DAILY AC 08/13 0700 AC 08/21 PO 0658 Lidocaine 1 PAT DAILY 08/14 2215 AC 08/21 EXT 0942 Magnesium Oxide 400 MG DAILY 08/13 1000 AC 08/21 PO 1155 Methylprednisolone 40 MG DAILY 08/18 1000 DC 08/20 IV 1008 Multivitamins 1 TAB DAILY 08/21 1000 AC 08/21 PO 1155 Pantoprazole Sodium 40 MG DAILY 08/18 1000 AC 08/21 IV 0738 Polyethylene Glycol 17 GM DAILY 08/13 1656 AC 08/21 PO 1406 Potassium Chloride 40 MEQ BID 08/21 1200 AC 08/21 PO 1406 Potassium Chloride 40 MEQ BID 08/21 1000 DC PO Potassium Chloride 40 MEQ 1400 08/20 1400 DC PO Prednisone 30 MG DAILY 08/21 1100 AC 08/21 PO 1406 Senna/Docusate Sodium 1 TAB BID PRN 08/13 1700 AC PO Sertraline HCl 50 MG 2200 08/13 2200 AC 08/20 PO 2129 Sodium Chloride 2 SPRAY Q4P PRN 08/14 0145 AC TAMIE Theophylline 200 MG AT BEDTIME 08/21 2200 AC PO Theophylline 200 MG AT BEDTIME 08/19 2200 DC 08/20 PO 2131 Tiotropium [place] 1 PUF DAILY 08/13 1000 AC 08/21 INH 1156 Tramadol HCl 25 MG Q4 HRS NEEDED PRN 08/13 1630 AC 08/21 PO 1153 Results Last 48 Hrs of Labs/Mics: Laboratory Tests 08/21/17 1130: pH 7.53 H, pCO2 36, pO2 69 L, HCO3 29 H, ABG O2 Sat (Measured) 93.0 L, P-50 (Temp Corrected) N, Carboxyhemoglobin 1.5, O2 Concentration % 50%, O2 Delivery Method HFNC WITH 50L FLOW, Phlebotomy Draw Site LEFT BRACHIAL 08/21/17 0415: Anion Gap 7, Estimated GFR 54 L, Glucose 72, Calcium 9.5, Phosphorus 3.8, Magnesium 2.1, Total Bilirubin 1.6 H, AST 82 H, ALT 440 H, Albumin 2.9 L, CBC w Diff MAN DIFF ORDERED, RBC 4.65, MCV 67.8 L, MCH 20.8 L, MCHC 30.7 L, RDW 25.3 H, MPV 8.9, Segmented Neutrophils 88 H, Band Neutrophils 1, Lymphocytes 3 L, Monocytes 7, Metamyelocytes 1, Nucleated RBCs 8 H, Platelet Estimate DECREASED, Polychromasia 1+, Hypochromic-Microcytic 2+, Poikilocytosis 2+, Basophilic Stippling 1+, Anisocytosis 3+, Microcytic Cells 3+, Ovalocytes 1+ , Stomatocytes RARE, Elliptocytes 1+, Fld Total RBCs Counted 100, Theophylline 2.6 L 08/20/17 1800: Sodium Cancelled, Potassium Cancelled, Chloride Cancelled, Carbon Dioxide Cancelled, Anion Gap Cancelled, BUN Cancelled, Creatinine Cancelled, BUN/ Creatinine Ratio Cancelled 08/20/17 1740: Anion Gap 6, Estimated GFR > 60, Glucose 77, Calcium 9.5, Phosphorus 3.6, Magnesium 2.1, Total Bilirubin 1.9 H, AST 119 H, ALT 547 H, Albumin 3.2 L, PT 12.0, INR 1.10, APTT 34, Fibrinogen Activity 269, CBC w Diff MAN DIFF ORDERED , RBC 5.06, MCV 68.7 L, MCH 21.2 L, MCHC 30.9 L, RDW 25.1 H, MPV 10.1, Segmented Neutrophils 94 H, Lymphocytes 2 L, Monocytes 4, Nucleated RBCs 5 H, Platelet Estimate ADEQUATE, Polychromasia 1+, Hypochromic-Microcytic 2+, Poikilocytosis 1+, Basophilic Stippling 1+, Anisocytosis 1+, Microcytic Cells 2+ , Heparin-induced Plt Ab Pending, Heparin-PF4 AB OD Pending 08/20/17 0354: Anion Gap 7, Estimated GFR > 60, Glucose 148 H, Calcium 9.6, Phosphorus 3.2, Magnesium 2.0, Total Bilirubin 2.0 H, AST 133 H, ALT 559 H, Albumin 2.9 L, CBC w Diff MAN DIFF ORDERED, RBC 4.63, MCV 68.6 L, MCH 21.3 L, MCHC 31.0 L, RDW 25.1 H, MPV 9.7, Segmented Neutrophils 90 H, Band Neutrophils 2, Lymphocytes 2 L, Monocytes 5, Metamyelocytes 1, Nucleated RBCs 9 H, Platelet Estimate DECREASED, Polychromasia 1+, Hypochromic-Microcytic 2+, Poikilocytosis 3+, Anisocytosis 3+, Microcytic Cells 3+, Target Cells FEW, Ovalocytes 1+, Stomatocytes FEW, Elliptocytes FEW, Fld Total RBCs Counted 100 08/19/17 2220: Anion Gap 7, Estimated GFR > 60, BUN/Creatinine Ratio 35.0 H, Magnesium 2.0 Assessment/Plan Assessment/Plan Assessment: 1. Syncope 2. Severe COPD on home oxygen 3. Pulmonary hypertension with right ventricular dysfunction 4. History of HFpEF 5. Diabetes 6. History of prior GI bleed 7. Bradycardia Recommendations: -Continue current management. -Continue as per the ICU team. -Continue current respiratory therapy and management. -Continue dobutamine for another 24 hours and reassess in the morning. -Follow-up labs in the morning -Continue to monitor her intakes, outputs, and daily weights. Continue telemetry? Yes
[2017-08-21 17:00] VITALS: BP 114/60
[2017-08-21 23:00] VITALS: BP 115/66
[2017-08-22 05:10] LABS: HEMATOCRIT 31.1 % (37-47); MEAN CORPUSCULAR HGB CONC 30.6 G/DL (33.0-37.0); MEAN CORPUSCULAR VOLUME 68.7 FL (81.0-99.0); MEAN PLATELET VOLUME 10.3 FL (7.4-10.4); PLATELET COUNT 76 /CUMM (130-400); RBC DISTRIBUTION WIDTH 25.1 % (11.5-14.5); RED BLOOD CELL CT 4.52 /CUMM (4.20-5.40); WHITE BLOOD CELL COUNT 12.5 /CUMM (4.8-10.8)
[2017-08-22 08:00] VITALS: BP 110/60
--- NOTE | 2017-08-22 08:34 | PN- Resident CRCU ---
Subjective HPI/CRCU Issues: Hypoxic respiratory failure due to end stage COPD Saw pt at bedside this AM. She was doing better than yesterday. She said she overall felt better after diuresis and dobutamine. Informed her the plan was to stop pressors and monitor her hemodynamic status. 24 Hour Events: Vitals: Tmax 98.9, HR 73-88, RR 18-26, BP manual 98/60-124/72, satting 93-97% on Hiflo 55% and overnight on bipap IPAP16/EPAP 6 with FIO2 40% TOTAL IN: 24240.6/TOTAL OUT: 27906. Yesterday total in was 1087 and total out was 2035 WBC 12.5, HB 9.5 HCT 31.1, PLT 76 BMP: Na 139, K 3.9, Cl 102, CO2 32, BUN 31, Cr .8 TBILI 1.5 AST 37, ALT 287 Theophylline lvl on Aug 21, 2017 was 2.6 HIT AB pending Objective Vital Signs & I&O Last 8 Hrs of Vitals and I&O: -- Exam General Appearance: well developed/nourished, no apparent distress, alert, awake Head: atraumatic, normal appearance Ears, Nose, Throat: normal pharynx Neck: normal inspection, supple, full range of motion Respiratory: diminished air movmement bilat. sig rhonchi but no wheeze or crackles Cardiovascular: regular rate/rhythm Gastrointestinal: soft, non-tender Extremities: sig diuresis visible in bilat LE with new skinfolds Skin: sig ecchymoses in abdomen and pelvis and on r. shoulder and back Current Medications: Current Medications Sig/Vero Start time Last Medication Dose Route Stop Time Status Admin Acetaminophen 650 MG ONCE ONE 08/22 1814 CAN PO 08/23 1815 Acetaminophen 650 MG Q6P PRN 08/12 2029 AC PO Acetaminophen 1,000 MG Q6P PRN 02/28 2030 AC IV Albuterol Sulfate 3 ML Q4P PRN 08/17 1630 AC 08/21 INH 0809 Budesonide/ 2 PUF BID 08/13 1000 AC 08/22 Formoterol Fumarate INH 2128 Calcium Carbonate 500 MG TIDPRN PRN 08/21 0745 AC 08/22 PO 1309 Diltiazem HCl 180 MG DAILY 08/17 1500 AC 08/22 PO 1038 Dobutamine HCl 250 MG Q24H 08/19 1445 DC 08/22 Dextrose/Water 250 ML IV 08/22 0800 0020 Enoxaparin Sodium 60 MG DAILY 08/19 1525 DC 08/21 SC 1047 Furosemide 40 MG DAILY 08/22 1000 AC 08/22 PO 1317 Furosemide 20 MG Q8 08/20 1400 DC 08/22 IV 0608 Guaifenesin 600 MG Q12 08/18 2200 AC 08/22 PO 2127 Insulin Detemir 8 UNITS BID 08/22 1000 AC 08/22 SC 2144 Insulin Detemir 7 UNITS BID 08/20 1000 DC 08/21 SC 2135 Ipratropium [place] 2.5 ML EVERY 4 HRS/AWAKE 08/17 2000 AC 08/22 INH 2148 Levothyroxine Sodium 0.112 MG DAILY AC 08/13 0700 AC 08/22 PO 0614 Lidocaine 1 PAT DAILY 08/22 1801 DC EXT Lidocaine 1 PAT DAILY 08/14 2215 AC 08/22 EXT 1100 Magnesium Oxide 400 MG DAILY 08/13 1000 AC 08/22 PO 1320 Multivitamins 1 TAB DAILY 08/21 1000 AC 08/22 PO 1040 Pantoprazole Sodium 40 MG DAILY 08/18 1000 AC 08/22 IV 1041 Polyethylene Glycol 17 GM DAILY 08/13 1656 AC 08/21 PO 1406 Potassium Chloride 40 MEQ DAILY 08/23 1000 AC PO Potassium Chloride 40 MEQ BID 08/21 1200 DC 08/22 PO 1320 Prednisone 30 MG DAILY 08/21 1100 AC 08/22 PO 1039 Senna/Docusate Sodium 1 TAB BID PRN 08/13 1700 AC PO Sertraline HCl 50 MG 2200 08/13 2200 AC 08/22 PO 2127 Sodium Chloride 2 SPRAY Q4P PRN 08/14 0145 AC TAMIE Theophylline 200 MG AT BEDTIME 08/21 2200 AC 08/22 PO 2128 Tiotropium [place] 1 PUF DAILY 08/13 1000 AC 08/22 INH 1043 Tramadol HCl 25 MG Q4 HRS NEEDED PRN 08/13 1630 AC 08/22 PO 0654 Impression/Plan Impression/Problem List Impression: ASSESSMENT:This is a 76 YO F with PMH significant for Endstage COPD (on 3L home oxygen) wtih cor pulmonale, Pulm HTN, RV dysfunction, Hypothyroidism, Diabetes, Lung cancer status post left upper lobe, GI bleed with extensive workup done and no source was identified (about 2 years ago) presented to emergency department with a chief complaint of syncope. The patient was transferred overnight to ICU for increased oxygen requirement and hypotension. PLAN: Respiratory #Acute on chronic hypoxemic respiratory failure with end-stage COPD resulting in cor pulmonale/right-sided heart failure. * Continues to be on high flow and Bipap overnight * Goals greater than O2 88% * TRC/nebs. Only ipratropium for nebs, avoid albuterol unless severe wheezing. * Con't PO prednisone 30 mg daily * Theophyline restarted 08/19 200mg at bedtime * F/U theophyline level on 08/23 Infection Leukocytosis secondary to steroid use most likely, CT chest showed wedge-shaped opacity probably atelectasis, PNA, malignancy less likely * Continue to monitor * ID on board; monitor off abx Suspected UTI. RESOLVED. Cardiology Syncopal episode Likely multifactorial. Patient was hypokalemic which could have contributed to an arrhythmia. She has hx of severe pulmonary hypertension and is diuresed for peripheral edema . She has relative cortisol deficiency due to steroid use Orthostatics contributing to her episodes. She was also hypoglycemic on presentation. * Continue to monitor on telemetry * Maintain euvolemic state Right sided heart failure * D/C Dobutamine drip today. Her pressures continue to remain stable. * Switch IV to PO lasix. * Continue potassium the patient with Lasix administration * Check cxr today * REduce O2 to keep sat at 90% Hypotension: RESOLVED Relative bradycardia: RESOLVED * Initially Cardizem was held, but now it has been restarted. Hematology Symptomatic anemia: Status post 1 unit PRBCs 08/13. Of note patient had history of GI bleed 2 years ago requiring 10 units of PRBC transfusion, likely diverticular. Today H/H stable. * Stool Guaiac - negative * H/H Stable continue to monitor Thrombocytopenia: Her plt has continuously trended down from 157-->104-->96--> 101-->90--> and today at 76. Sh was started on Lovenox on August 19 and since then her plt has been trending downwards. Likely of HIT is low but an antibody has been sent out. * D/C Lovenox today. Will keep her on ALPS for ppx. Note pt is high risk for clotting events as she has 3 noted DVT in r. arm on previous US. She is also very sedentary due to terminal COPD and is at high risk for PE. * Will reasses AC tomorrow Deep venous thrombosis: Per RUE ultrasound on August 18/2018: pt has DVT in the right upper extremity with nonocclusive right axillary vein DVT, DVT in one of the paired brachial veinsand in the right basilic vein. Etiology likely due to r. sided passive congeston and pt moving very little. * Lovenox was started but now held (See above). * Re-visit AC tomorrow Metabolic Hypokalemia/ Hyperkalemia: Today K WNL. * Monitor clinically * Will recheck today in evening Relative Cortisol deficiency: Cortisol level was 10.7 but pt relatively hypotensive. Patient is on prednisone 15mg daily at home, which was not given to her since her admisson to the hospital. Patient was given stress dose of steroid and started on a prednisone taper starting from 40mg daily. Overnight patient's blood pressure dropped and she received 50 mg IV hydrocortison * Continue prednisone 30 mg Transaminitis and hyperbilirubinemia: Likely secondary to congestion in setting of right-sided heart failure.Transaminitis hyperbilirubinemia improving * Continue to monitor LFTs DM: One episode of hypoglycemia on 08/19 * Accu-Chek, insulin sliding scale * Levemir dose changed to 8 units BID, continue to monitor Hypothyroidism: TSH/freeT4 WNL. STABLE. * continue home dose of synthroid Musculoskeletal Frequent falls/unsteady gait * PT evaluation Alimantary Dysphagia: Patient choked on her medication on 08/14, states she has experienced the same before at home as well. * No events * Consider GI Consult for dysphagia is persistent inpt vs outpt Nephrology LISSETT-RESOLVED * Encourage PO intake * Continue to monitor Cr curve * Avoid nephrotoxins DVT prophylaxis with Alps and lovenox Code Status DNR/DNI Problem List: 1. COPD EXACERBATION 2. COPD Pain Ratin Tomorrow's Labs & Rationales: CBC ICU Plan DVT/Prophylaxis: mechanical, pharmacological Code Status: Do Not Resucitate/Intubat
--- NOTE | 2017-08-22 09:35 | PN- CRCU ---
Subjective HPI/Critical Care Issues: Doing relatively stable Was on BiPAP and sleeping this morning No other acute events noted Blood work reviewed creatinine has improved to 0.7 Adequate urine output noted Patient seems to be euvolemic at this time White count reduce Hemoglobin stable at 9.5 Platelets seems to be decreasing on Lovenox Objective Current Medications: Current Medications Sig/Vero Start time Last Medication Dose Route Stop Time Status Admin Acetaminophen 650 MG Q6P PRN 08/12 2030 AC PO Acetaminophen 1,000 MG Q6P PRN 08/12 2030 AC IV Albuterol Sulfate 3 ML Q4P PRN 08/17 1630 AC 08/21 INH 0809 Budesonide/ 2 PUF BID 08/13 1000 AC 08/21 Formoterol Fumarate INH 2148 Calcium Carbonate 500 MG TIDPRN PRN 08/21 0745 AC 08/21 PO 0939 Diltiazem HCl 180 MG DAILY 08/17 1500 AC 08/21 PO 0939 Dobutamine HCl 250 MG Q24H 08/19 1445 DC 08/22 Dextrose/Water 250 ML IV 08/22 0800 0020 Enoxaparin Sodium 60 MG DAILY 08/19 1525 AC 08/21 SC 1047 Furosemide 20 MG Q8 08/20 1400 AC 08/22 IV 0608 Guaifenesin 600 MG Q12 08/18 2200 AC 08/21 PO 2135 Insulin Detemir 7 UNITS BID 08/20 1000 AC 08/21 SC 2135 Ipratropium [place] 2.5 ML EVERY 4 HRS/AWAKE 08/17 2000 AC 08/22 INH 0812 Levothyroxine Sodium 0.112 MG DAILY AC 08/13 0700 AC 08/22 PO 0614 Lidocaine 1 PAT DAILY 08/14 2215 AC 08/21 EXT 0942 Magnesium Oxide 400 MG DAILY 08/13 1000 AC 08/21 PO 1155 Methylprednisolone 40 MG DAILY 08/18 1000 DC 08 IV 1008 Multivitamins 1 TAB DAILY 08/21 1000 AC 08/21 PO 1155 Pantoprazole Sodium 40 MG DAILY 08/18 1000 AC 08/21 IV 0738 Polyethylene Glycol 17 GM DAILY 08/13 1656 AC 08/21 PO 1406 Potassium Chloride 40 MEQ BID 08/21 1200 AC 08/21 PO 2137 Potassium Chloride 40 MEQ BID 08/21 1000 DC PO Prednisone 30 MG DAILY 08/21 1100 AC 08/21 PO 1406 Senna/Docusate Sodium 1 TAB BID PRN 08/13 1700 AC PO Sertraline HCl 50 MG 2200 08/13 2200 AC 08/21 PO 2146 Sodium Chloride 2 SPRAY Q4P PRN 08/14 0145 AC TAMIE Theophylline 200 MG AT BEDTIME 08/21 2200 AC 08/21 PO 2145 Tiotropium [place] 1 PUF DAILY 08/13 1000 AC 08/21 INH 1156 Tramadol HCl 25 MG Q4 HRS NEEDED PRN 08/13 1630 AC 08/22 PO 0654 Vital Signs & I&O Last 24 Hrs of Vitals and I&O: Vital Signs Date Time Temp Pulse Resp B/P B/P Pulse O2 O2 Flow FiO2 Mean Ox Delivery Rate 08/22 0815 97 Nasal 45% Cannula 08/22 0813 67 100 08/22 0523 71 98 08/22 0400 96 BIPAP 40% 08/22 0318 71 94 08/22 0051 77 95 08/22 0020 78 124/72 08/22 0000 95 BIPAP 40% 08/21 2347 801 92 08/21 2300 98.8 87 20 115/66 94 Nasal 55% Cannula 08/21 2203 92 Nasal 50% Cannula 08/21 2000 95 Nasal 55% Cannula 08/21 1913 94 Nasal 50% Cannula 08/21 1700 94 Nasal 55% Cannula 08/21 1700 98.9 88 24 114/60 94 Nasal 55% Cannula 08/21 1606 92 Nasal 50% Cannula 08/21 1448 94 Nasal 50% Cannula 08/21 1200 95 Nasal 55% Cannula 08/21 1146 97 Nasal 50% Cannula Intake & Output 08/22 1600 08/22 0800 08/22 0000 Intake Total 274.4 384 Output Total 820 365 Balance -545.6 19 Intake, IV 74.4 64 Intake, Oral 200 320 Output, Urine 820 365 Impression/Plan Impression/Plan Impression/Plan: General: Nontoxic, no apparent distress. on bipap HEENT: Sclera and conjunctiva within normal limits, without xanthelasmas. Neck: Carotids 2+ without bruits. Respiratory: Scattered rhonchi and rales, air movement is decreased at bases, without accessory respiratory muscle use. Heart: Regular rate and rhythm, 2/6 systolic ejection murmur left sternal border , without JVD. Abdomen: Soft, nontender, no masses, normoactive bowel sounds. Extremities: Without clubbing, cyanosis, without edema. Neuro: Nonfocal exam, strength, 5 out of 5 Skin: Within normal limits without lesions. 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 Her lower extremity edema is related to that. Pt has rt heart failure and now on dobutamine and lasix * Resolved Syncope or near sycope with multiple falls, pt with severe PUlm htn from copd, with sig corpulmonale, previous full work up for other causes are neg (no vte, no vasculitis etc) * Symtomatic anemia with sig eccymosis due to prednisone s/p transfusion * RElative cortisol def * End stage copd with chronic resp failure * REcurrent diastolic chf now euvolemic after ivf as she was dehydrated upon admission * Profound fatigue significant shortness of breath muscle weakness most likely related to cortisol deficiency as she's been on steroids for years * VTE upper ext now on lovenox with thrombocytopenia * CHest ct abormality wedge shaped (no pe, prob atx vs pna unlikely malignancy), will get a follow up ct in few weeks * History of lung cancer status post radiation therapy rule out recurrence * Diabetes on insulin * Hypothyroidism on appropriate supplementation therapy REC DC dobutamine Po lasix daily 40 mg Cxr today Reduce oxygen to keep sat at 90 percent Use ipratropium only for nebs, till heart rate is down and use albuterol only if needed for sever wheezing Prednisone 30 mg Cont dilt Hold lovenox as her platelets are dropping Follow sugar and titrate insulin Theophylline 200 mg at hs Pt continues to be critcally ill DNR and DNi and discussed with the family Code Status: Do Not Resucitate/Intubat
--- NOTE | 2017-08-22 10:41 | RADIOLOGY REPORT ---
EXAMINATION: XR PORTABLE CHEST CLINICAL INFORMATION: Shortness of breath and on high flow nasal cannula. Monitor pulmonary edema. COMPARISON: Several prior chest x-rays, most recent of which is dated 08/16/2017. TECHNIQUE: Portable AP semierect view of the chest was obtained. FINDINGS: Multiple EKG leads overlie the chest. The cardiac silhouette is unchanged with prominence of the pulmonary arterial contour again noted. Overall heart size appears normal. Low lung volumes are seen with persistent patchy parenchymal opacity in the left upper lung and in both lower lobes, unchanged. There is also dense chest wall calcification noted in the left upper chest, unchanged. Small bilateral pleural effusions are again noted. There is a vertically oriented line seen along the mid and lower left chest, which most likely represents a prominent skinfold. However, would recommend additional imaging to exclude a pneumothorax. Bony structures are stable. IMPRESSION: 1. Probably artifactual linear vertically oriented line seen in the left mid and lower hemithorax, likely related to a skin fold. Would recommend additional imaging with repeat frontal view of the chest and [id number] decubitus view of the chest to exclude a subtle pneumothorax. 2. No interval change in left upper lobe and bibasilar parenchymal opacities, suspicious for pneumonitis. 3. Stable enlarged pulmonary artery. 4. Stable left upper lobe chest wall calcification. This critical result was discussed with Dr. Ivy Caballero 08/22/2017, 10:35 AM and it was ascertained that the content and urgency of this report was understood at the time of direct communication.
[2017-08-22 16:00] VITALS: BP 100/60
--- NOTE | 2017-08-22 20:58 | PN- Cardiology ---
Subjective Subjective: * Breathing is improved. * hepatic transaminases are coming down Objective Vital Signs and I&Os Vital Signs Date Time Temp Pulse Resp B/P B/P Pulse O2 O2 Flow FiO2 Mean Ox Delivery Rate 08/22 2000 95 Nasal 45% Cannula 08/22 1632 92 Nasal 45% Cannula 08/22 1600 92 Nasal 45% Cannula 08/22 1600 97.8 84 20 100/60 92 Nasal 45% Cannula 08/22 1414 93 Nasal 45% Cannula 08/22 1211 93 Nasal 45% Cannula 08/22 1200 92 Nasal 45% Cannula 08/22 0815 97 Nasal 45% Cannula 08/22 0813 67 100 08/22 0800 97.6 81 20 110/60 96 Nasal 45% Cannula 08/22 0800 96 Nasal 45% Cannula 08/22 0523 71 98 08/22 0400 96 BIPAP 40% 08/22 0318 71 94 08/22 0051 77 95 08/22 0020 78 124/72 08/22 0000 95 BIPAP 40% 08/21 2347 801 92 08/21 2300 98.8 87 20 115/66 94 Nasal 55% Cannula 08/21 2203 92 Nasal 50% Cannula Intake & Output 08/22 1600 08/22 0800 08/22 0000 08/21 1600 08/21 0800 / 0000 Intake Total 369.2 274.4 384 430 202 433.6 Output Total 550 820 365 850 655 850 Balance -180.8 -545.6 19 -420 -453 -416.4 Intake, IV 9.2 74.4 64 70 152 73.6 Intake, Oral 360 200 320 360 50 360 Number 1 Bowel Movements Output, Urine 550 820 365 850 655 850 Patient 126 lb Weight Weight Bed scale Measurement Method Physical Exam: General: WD/WN female in NAD; alert and oriented x 3 Heart: RRR Lungs: clear bilaterally Extremities: no edema Assessment/Plan Assessment/Plan * Patient is improved following dobutamine therapy. Continue Lasix. Continue telemetry? Yes
[2017-08-22 23:00] VITALS: BP 108/62
[2017-08-23 06:08] LABS: HEMATOCRIT 31.5 % (37-47); MEAN CORPUSCULAR HGB 21.4 PG (27.0-31.0); MEAN CORPUSCULAR HGB CONC 31.1 G/DL (33.0-37.0); MEAN CORPUSCULAR VOLUME 68.7 FL (81.0-99.0); MEAN PLATELET VOLUME 9.8 FL (7.4-10.4); PLATELET COUNT 82 /CUMM (130-400); RBC DISTRIBUTION WIDTH 25.9 % (11.5-14.5); RED BLOOD CELL CT 4.59 /CUMM (4.20-5.40); WHITE BLOOD CELL COUNT 13.6 /CUMM (4.8-10.8)
[2017-08-23 08:00] VITALS: BP 104/56
--- NOTE | 2017-08-23 09:38 | PN- Infect Dx ---
Subjective Subjective: Afebrile on steroids. She does not offer any complaints Objective Last 24 Hrs of Vital Signs/I&O Vital Signs Date Time Temp Pulse Resp B/P B/P Pulse O2 O2 Flow FiO2 Mean Ox Delivery Rate 08/23 0835 69 95 08/23 0530 75 97 08/23 0400 97 BIPAP 40% 08/23 0325 68 97 08/23 0044 82 92 03 0000 97 BIPAP 40% 08/23 0000 98 BIPAP 40% 08/22 2300 97.4 82 20 108/62 98 BIPAP 40% 08/22 2211 90 Nasal 45% Cannula 08/22 2000 95 Nasal 45% Cannula 08/22 1632 92 Nasal 45% Cannula 08/22 1600 92 Nasal 45% Cannula 08/22 1600 97.8 84 20 100/60 92 Nasal 45% Cannula 08/22 1414 93 Nasal 45% Cannula 08/22 1211 93 Nasal 45% Cannula 08/22 1200 92 Nasal 45% Cannula Intake & Output 08/23 1600 08/23 0800 08/23 0000 Intake Total 110 330 Output Total 380 305 Balance -270 25 Intake, IV 10 10 Intake, Oral 100 320 Output, Urine 380 305 Patient 124 lb Weight Weight Bed scale Measurement Method Physical Exam Other Physical Findings: She appears comfortable on BiPAP in no acute distress Lungs are clear Heart regular rhythm with no murmur Extremities decreased edema of the lower extremities Mcguire catheter remains in place Results Last 24 Hours of Lab Results: Laboratory Tests 08/23 08/22 0530 1820 Chemistry Sodium (137 - 145 mmol/L) 134 L 136 L Potassium (3.5 - 5.1 mmol/L) 4.2 4.7 Chloride (98 - 107 mmol/L) 98 98 Carbon Dioxide (22 - 30 mmol/L) 30 32 H Anion Gap (5 - 16) 6 6 BUN (7 - 17 mg/dL) 31 H 31 H Creatinine (0.5 - 1.0 mg/dL) 0.9 0.9 Estimated GFR (>60 ml/min) > 60 > 60 BUN/Creatinine Ratio (7 - 25 %) 34.4 H Glucose (65 - 99 mg/dL) 274 H Calcium (8.4 - 10.2 mg/dL) 8.9 Phosphorus (2.5 - 4.5 mg/dL) 3.6 Magnesium (1.6 - 2.3 mg/dL) 1.9 Total Bilirubin (0.2 - 1.3 mg/dL) 1.3 AST (14 - 36 U/L) 32 ALT (9 - 52 U/L) 224 H Albumin (3.5 - 5.0 g/dL) 2.7 L Hematology CBC w Diff MAN DIFF ORDERED WBC (4.8 - 10.8 /CUMM) 13.6 H RBC (4.20 - 5.40 /CUMM) 4.59 Hgb (12.0 - 16.0 G/DL) 9.8 L Hct (37 - 47 %) 31.5 L MCV (81.0 - 99.0 FL) 68.7 L MCH (27.0 - 31.0 PG) 21.4 L MCHC (33.0 - 37.0 G/DL) 31.1 L RDW (11.5 - 14.5 %) 25.9 H Plt Count (130 - 400 /CUMM) 82 L MPV (7.4 - 10.4 FL) 9.8 Segmented Neutrophils (42.2 - 75.2 %) 94 H Band Neutrophils (0.0 - 5.0 %) 3 Monocytes (1.7 - 9.3 %) 3 Platelet Estimate (ADEQUATE) DECREASED Hypochromic-Microcytic 2+ Poikilocytosis 2+ Basophilic Stippling 1+ Anisocytosis 1+ Microcytic Cells 2+ Macrocytic Cells 1+ Target Cells RARE [place] Cells RARE Elliptocytes 1+ Toxicology Theophylline (10.0 - 20.0 uG/mL) 2.2 L Last 24 Hours of Rayo Results: Urine culture August 21 negative Recent Imaging Studies: Chest x-ray August 22 reveals persistent patchy parenchymal opacities in the left upper lobe and both lower lobes, with small bilateral pleural effusions Assessment/Plan ID Impression: Stable off antibiotics, with continued improvement in her respiratory status, likely related to diuresis. She remains afebrile (on steroids) with her white blood cell count decreasing with the steroid taper. She remains on Lovenox for a recently diagnosed right upper extremity DVT. Her liver enzymes continue to decrease. Suggestion: 1. Remove Mcguire catheter 2. Eventual follow-up CT of the chest per Radiology 3. Continue to follow off antibiotics
--- NOTE | 2017-08-23 12:00 | PN- Pulmonary ---
Subjective HPI/Critical Care Issues: Sleeping this morning Continues to be on BiPAP Fatigue Was on 40% doing better Afebrile on steroids No other complaints Objective Current Medications: Current Medications Sig/Vero Start time Last Medication Dose Route Stop Time Status Admin Acetaminophen 650 MG ONCE ONE 08/22 1815 CAN PO 08/22 1816 Acetaminophen 650 MG Q6P PRN 08/12 2030 AC PO Acetaminophen 1,000 MG Q6P PRN 08/12 2030 AC IV Albuterol Sulfate 3 ML Q4P PRN 08/17 1630 AC 08/21 INH 0809 Budesonide/ 2 PUF BID 08/13 1000 AC 08/22 Formoterol Fumarate INH 2128 Calcium Carbonate 500 MG TIDPRN PRN 08/21 0745 AC 08/22 PO 1309 Diltiazem HCl 180 MG DAILY 08/17 1500 AC 08/22 PO 1038 Furosemide 40 MG DAILY 08/22 1000 AC 08/22 PO 1317 Guaifenesin 600 MG Q12 08/18 2200 AC 08/22 PO 2127 Insulin Detemir 8 UNITS BID 08/22 1000 AC 08/22 SC 2144 Ipratropium [place] 2.5 ML EVERY 4 HRS/AWAKE 08/17 2000 AC 08/23 INH 1150 Levothyroxine Sodium 0.112 MG DAILY AC 08/13 0700 AC 08/23 PO 0636 Lidocaine 1 PAT DAILY 08/22 1801 DC EXT Lidocaine 1 PAT DAILY 08/14 2215 AC 08/22 EXT 1100 Magnesium Oxide 400 MG DAILY 08/13 1000 AC 08/22 PO 1320 Multivitamins 1 TAB DAILY 08/21 1000 AC 08/22 PO 1040 Pantoprazole Sodium 40 MG DAILY 08/18 1000 AC 08/22 IV 1041 Polyethylene Glycol 17 GM DAILY 08/13 1656 AC 08/21 PO 1406 Potassium Chloride 40 MEQ DAILY 08/23 1000 AC PO Potassium Chloride 40 MEQ BID 08/21 1200 DC 08/22 PO 1320 Prednisone 30 MG DAILY 08/21 1100 AC 08/22 PO 1039 Senna/Docusate Sodium 1 TAB BID PRN 08/13 1700 AC PO Sertraline HCl 50 MG 0 08/13 2200 AC 08/22 PO 2127 Sodium Chloride 2 SPRAY Q4P PRN 08/14 0145 AC TAMIE Theophylline 200 MG AT BEDTIME 08/21 2200 AC 08/22 PO 2128 Tiotropium [place] 1 PUF DAILY 08/13 1000 AC 08/22 INH 1043 Tramadol HCl 25 MG Q4 HRS NEEDED PRN 08/13 1630 AC 08/22 PO 0654 Vital Signs & I&O Last 24 Hrs of Vitals and I&O: Vital Signs Date Time Temp Pulse Resp B/P B/P Pulse O2 O2 Flow FiO2 Mean Ox Delivery Rate 08/23 0835 69 95 08/23 0800 97.0 69 24 104/56 99 BIPAP 40% 08/23 0800 99 BIPAP 40% 08/23 0530 75 97 08/23 0400 97 BIPAP 40% 08/23 0325 68 97 08/23 0044 82 92 08/23 0000 97 BIPAP 40% 08/23 0000 98 BIPAP 40% 08/22 2300 97.4 82 20 108/62 98 BIPAP 40% 08/22 2211 90 Nasal 45% Cannula 08/22 2000 95 Nasal 45% Cannula 08/22 1632 92 Nasal 45% Cannula 08/22 1600 92 Nasal 45% Cannula 08/22 1600 97.8 84 20 100/60 92 Nasal 45% Cannula 08/22 1414 93 Nasal 45% Cannula 08/22 1211 93 Nasal 45% Cannula 08/22 1200 92 Nasal 45% Cannula Intake & Output 08/23 1600 08/23 0800 08/23 0000 Intake Total 110 330 Output Total 380 305 Balance -270 25 Intake, IV 10 10 Intake, Oral 100 320 Output, Urine 380 305 Patient 124 lb Weight Weight Bed scale Measurement Method Impression/Plan Impression/Plan Impression/Plan: General: Nontoxic, no apparent distress. on bipap HEENT: Sclera and conjunctiva within normal limits, without xanthelasmas. Neck: Carotids 2+ without bruits. Respiratory: Scattered rhonchi and rales, air movement is decreased at bases, without accessory respiratory muscle use. Heart: Regular rate and rhythm, 2/6 systolic ejection murmur left sternal border , without JVD. Abdomen: Soft, nontender, no masses, normoactive bowel sounds. Extremities: Without clubbing, cyanosis, without edema. Neuro: Nonfocal exam, strength, 5 out of 5 Skin: Within normal limits without lesions. 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 S/p dobutamine and lasix * Resolved Syncope or near sycope with multiple falls, pt with severe PUlm htn from copd, with sig corpulmonale, previous full work up for other causes are neg (no vte, no vasculitis etc) * Symtomatic anemia with sig eccymosis due to prednisone s/p transfusion * RElative cortisol def * End stage copd with chronic resp failure * REcurrent diastolic chf now euvolemic after ivf as she was dehydrated upon admission * Profound fatigue significant shortness of breath muscle weakness most likely related to cortisol deficiency as she's been on steroids for years * VTE upper ext now on lovenox with thrombocytopenia and off anticoag and pt wishes to hold off anticoag as she has had sig bleeding before * CHest ct abormality wedge shaped (no pe, prob atx vs pna unlikely malignancy), will get a follow up ct in few weeks * History of lung cancer status post radiation therapy rule out recurrence * Diabetes on insulin * Hypothyroidism on appropriate supplementation therapy REC Po lasix daily 40 mg Cxr today Reduce oxygen to keep sat at 90 percent, change to nasal cannula Use ipratropium only for nebs, till heart rate is down and use albuterol only if needed for sever wheezing Prednisone reduce to 20 mg Cont dilt Hold lovenox as her platelets are dropping and pt wishes to hold anticoag Willl check platelets and HIT antibody and consider resuming anticoag Follow sugar and titrate insulin Theophylline 200 mg at hs OOB to chair
--- NOTE | 2017-08-23 13:59 | PN- Resident CRCU ---
Subjective HPI/CRCU Issues: Hypoxemic respiratory failure Long-standing history of COPD States feeling much better this afternoon. Breathing status better than yesterday. She is being diuresed. Negative balance 809/1235. Off pressors. 24 Hour Events: Afebrile. Sinus rhythm 65-80. Respiratory rate 18-24. Blood pressure 97/52. Overnight on BiPAP, respiratory rate 22, FiO2 40%, IPAP/EPAP 16/6, saturations 95%. Negative fluid balance. Objective Vital Signs & I&O Last 8 Hrs of Vitals and I&O: Afebrile. Sinus rhythm 65-80. Respiratory rate 18-24. Blood pressure 97/52. Overnight on BiPAP, respiratory rate 22, FiO2 40%, IPAP/EPAP 16/6, saturations 95%. Exam General Appearance: no apparent distress, alert, awake, comfortable Head: atraumatic Respiratory: normal breath sounds, chest non-tender, no respiratory distress Cardiovascular: regular rate/rhythm Gastrointestinal: normal bowel sounds, soft Extremities: normal inspection Current Medications: Current Medications Sig/Vero Start time Last Medication Dose Route Stop Time Status Admin Acetaminophen 650 MG ONCE ONE 08/22 1815 CAN PO 08/22 1816 Acetaminophen 650 MG Q6P PRN 08/12 2030 AC PO Acetaminophen 1,000 MG Q6P PRN 08/12 2030 AC IV Albuterol Sulfate 3 ML Q4P PRN 08/17 1630 AC 08/21 INH 0809 Budesonide/ 2 PUF BID 08/13 1000 AC 08/23 Formoterol Fumarate INH 1257 Calcium Carbonate 500 MG TIDPRN PRN 08/21 0745 AC 08/22 PO 1309 Diltiazem HCl 180 MG DAILY 08/17 1500 AC 08/23 PO 1354 Furosemide 40 MG DAILY 08/22 1000 AC 08/23 PO 1256 Guaifenesin 600 MG Q12 08/18 2200 AC 08/22 PO 2127 Insulin Detemir 8 UNITS BID 08/22 1000 AC 08/23 SC 1220 Ipratropium [place] 2.5 ML EVERY 4 HRS/AWAKE 08/17 2000 AC 08/23 INH 1150 Levothyroxine Sodium 0.112 MG DAILY AC 08/13 0700 AC 08/23 PO 0636 Lidocaine 1 PAT DAILY 08/22 1801 DC EXT Lidocaine 1 PAT DAILY 08/14 2215 AC 03/11 EXT 1353 Magnesium Oxide 400 MG DAILY 08/13 1000 AC 08/22 PO 1320 Multivitamins 1 TAB DAILY 08/21 1000 AC 08/22 PO 1040 Pantoprazole Sodium 40 MG DAILY 08/18 1000 AC 08/23 IV 1219 Polyethylene Glycol 17 GM DAILY 08/13 1656 AC 08/21 PO 1406 Potassium Chloride 40 MEQ DAILY 08/23 1000 AC PO Potassium Chloride 40 MEQ BID 08/21 1200 DC 08/22 PO 1320 Prednisone 30 MG DAILY 08/21 1100 AC 08/23 PO 1353 Senna/Docusate Sodium 1 TAB BID PRN 08/13 1700 AC PO Sertraline HCl 50 MG 2200 08/13 2200 AC 08/22 PO 2127 Sodium Chloride 2 SPRAY Q4P PRN 08/14 0145 AC TAMIE Theophylline 200 MG AT BEDTIME 08/21 2200 AC 08/22 PO 2128 Tiotropium [place] 1 PUF DAILY 08/13 1000 AC 08/23 INH 1255 Tramadol HCl 25 MG Q4 HRS NEEDED PRN 08/13 1630 AC 08/22 PO 0654 Impression/Plan Impression/Problem List Impression: 76-year-old woman with long-standing history of COPD (end-stage) with resultant cor pulmonale, history of lung cancer here with acute on chronic hypoxemic respiratory failure. 1. Acute on chronic hypoxemic respiratory failure. Repeat chest x-ray today to rule out subtle pneumothorax as seen on yesterday's x-ray. Stable respiratory status. Continue nocturnal BiPAP support. High flow oxygen. Continue Lasix. On prednisone. On theophylline. 2. Concern for heparin-induced thrombocytopenia. Lovenox on hold. Intermediate probability of HIT based on 4 T score. Platelet slight uptrend noted on discontinuation of Lovenox. HIplatelet antibody and heparin PF4 antibody pending. If negative, pantoprazole-induced thrombocytopenia may be a consideration. Resume anticoagulation pending above. 3. Continue Levemir and sliding scale. Continue other medications as is. DNR/DNI. Heart healthy diet. DVT prophylaxis-mechanical. Problem List: 1. Pulmonary hypertension 2. COPD exacerbation Pain Ratin Tomorrow's Labs & Rationales: Acute infection, off antibiotics. Concern for HIT. Plan DVT/Prophylaxis: mechanical Code Status: Do Not Resucitate/Intubat
[2017-08-23 16:00] VITALS: BP 106/50
--- NOTE | 2017-08-23 16:07 | RADIOLOGY REPORT ---
EXAMINATION: XR PORTABLE CHEST CLINICAL INFORMATION: Follow-up to exclude subtle pneumothorax on chest x-ray from 08/22/2017. COMPARISON: Portable chest x-rays dated 08/22/2017 and multiple older exams. TECHNIQUE: Portable AP portable view of the chest was obtained. FINDINGS: Multiple EKG leads overlie the chest. The cardiac silhouette is within normal limits in size with prominence of the pulmonary arterial contour again seen, unchanged. Calcification of the aortic arch is seen. Partial skin fold is again noted along the lateral left chest polo. No pneumothorax is seen. No interval change in patchy parenchymal opacities in the right mid and lower lung and in the left upper lobe is seen. No change in left upper lobe chest wall calcifications. Bony structures unremarkable. IMPRESSION: 1. No evidence of pneumothorax. 2. No change in bilateral pulmonary opacities, suspicious for pneumonia.
[2017-08-23 23:56] VITALS: BP 100/62
[2017-08-24 04:03] LABS: HEMATOCRIT 34.5 % (37-47); MEAN CORPUSCULAR HGB 21.3 PG (27.0-31.0); MEAN CORPUSCULAR HGB CONC 30.9 G/DL (33.0-37.0); MEAN CORPUSCULAR VOLUME 68.8 FL (81.0-99.0); MEAN PLATELET VOLUME 10.4 FL (7.4-10.4); RBC DISTRIBUTION WIDTH 25.6 % (11.5-14.5); RED BLOOD CELL CT 5.02 /CUMM (4.20-5.40); WHITE BLOOD CELL COUNT 16.4 /CUMM (4.8-10.8)
[2017-08-24 04:09] LABS: PLATELET COUNT 128 /CUMM (130-400)
--- NOTE | 2017-08-24 07:54 | PN- Resident CRCU ---
Subjective HPI/CRCU Issues: -Patient seen and examined on CPAP overnight -No overnight acute events Vitals MAXIMUM TEMPERATURE 98.9 heart rate 70s to 90s normal sinus rhythm, manual blood pressure readings ranging 90s-100s/60s to 50s Intake 809, output 1235 last 24h, total balance 88302/12739 Labs -Leukocytosis 16.4, No bands 2/2 sterods -H/H 10.7/34.5 -Platelet count 128 -K 4.0, HCO3 31 -Total bilirubin 1.3 AST 43 ALT 186 2/2 to congestion from right heart failure - improving -Finger sticks 24,211,293,324 -Theophyline level of 1.9 -HIT panel pending Interventions planed for today -Levemir 8 units BID -Lovenox on hold -Lasix 40 mg oral -Prednisone 30 mg -Theophylline 200 mg at bedtime -Continue cardizem -LOVENOX?? Objective Vital Signs & I&O Last 8 Hrs of Vitals and I&O: Vital Signs Date Time Temp Pulse Resp B/P B/P Pulse O2 O2 Flow FiO2 Mean Ox Delivery Rate 08/24 0834 96 Nasal 40% Cannula 08/24 0833 96 08/24 0544 78 99 08/24 0400 99 CPAP 40% 08/24 0329 75 99 08/24 0036 80 100 08/24 0000 99 CPAP 40% 08/23 2356 98.4 90 18 100/62 99 CPAP 40% 08/23 2129 87 95 08/23 2000 91 Nasal 40% Cannula 08/23 1833 92 Nasal 40% Cannula 08/23 1600 95 Nasal 40% Cannula 08/23 1600 97.3 79 22 106/50 95 Nasal 40% Cannula Intake & Output 08/24 1600 08/24 0800 03 0000 Intake Total 120 600 Output Total 400 160 Balance -280 440 Intake, Oral 120 600 Output, Urine 400 160 Exam General Appearance: no apparent distress Other Physical Findings: Head: atraumatic, normal appearance Ears, Nose, Throat: normal pharynx Neck: normal inspection, supple, full range of motion Respiratory: diminished air movmement bilat. sig rhonchi but no wheeze or crackles Cardiovascular: regular rate/rhythm Gastrointestinal: soft, non-tender Extremities: sig diuresis visible in bilat LE with new skinfolds Skin: sig ecchymoses in abdomen and pelvis and on r. shoulder and back Current Medications: Current Medications Sig/Vero Start time Last Medication Dose Route Stop Time Status Admin Acetaminophen 650 MG Q6P PRN 08/12 2030 AC PO Acetaminophen 1,000 MG Q6P PRN 08/12 2030 AC IV Albuterol Sulfate 3 ML Q4P PRN 08/17 1630 AC 08/21 INH 0809 Budesonide/ 2 PUF BID 08/13 1000 AC 08/24 Formoterol Fumarate INH 1052 Calcium Carbonate 500 MG TIDPRN PRN 08/21 0745 AC 08/24 PO 1052 Diltiazem HCl 180 MG DAILY 08/17 1500 AC 08/24 PO 1052 Enoxaparin Sodium 60 MG ONCE ONE 08/24 1245 UNVr SC 08/24 1246 Furosemide 40 MG DAILY 08/22 1000 AC 08/24 PO 1051 Guaifenesin 600 MG Q12 08/18 2200 AC 08/24 PO 1051 Insulin Detemir 8 UNITS BID 08/22 1000 AC 08/24 SC 1050 Ipratropium [place] 2.5 ML EVERY 4 HRS/AWAKE 08/17 2000 AC 08/24 INH 1225 Levothyroxine Sodium 0.112 MG DAILY AC 08/13 0700 AC 08/24 PO 0647 Lidocaine 1 PAT DAILY 08/14 2215 AC 08/24 EXT 1053 Magnesium Oxide 400 MG DAILY 08/13 1000 AC 08/24 PO 1051 Multivitamins 1 TAB DAILY 08/21 1000 AC 08/24 PO 1051 Pantoprazole Sodium 40 MG DAILY 08/18 1000 AC 08/24 IV 1053 Phosphate 250 MG ONE TIME ONE 08/23 1415 CAN PO 08/23 1416 Polyethylene Glycol 17 GM DAILY 08/13 1656 AC 08/24 PO 1052 Potassium Chloride 40 MEQ DAILY 08/23 1000 AC 08/24 PO 1051 Prednisone 20 MG DAILY 08/24 1000 AC 08/24 PO 1053 Prednisone 30 MG DAILY 08/21 1100 DC 08/23 PO 1353 Senna/Docusate Sodium 1 TAB BID PRN 08/13 1700 AC PO Sertraline HCl 50 MG 2200 08/13 2200 AC 08/23 PO 2201 Sodium Chloride 2 SPRAY Q4P PRN 08/14 0145 AC TAMIE Theophylline 200 MG AT BEDTIME 08/21 2200 AC 08/23 PO 2201 Tiotropium [place] 1 PUF DAILY 08/13 1000 AC 08/24 INH 1053 Tramadol HCl 25 MG Q4 HRS NEEDED PRN 08/13 1630 AC 08/22 PO 0654 Impression/Plan Impression/Problem List Impression: Patient is a 76 YO F with PMH significant for 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 The patient was transferred overnight to ICU for increased oxygen requirement and hypotension. Respiratory #Acute on chronic hypoxemic respiratory failure with end-stage COPD resulting in cor pulmonale/right-sided heart failure. -Transition to nasal cannula, off Cpap if possible -Goals greater than O2 88% -TRC/nebs. Only ipratropium for nebs, avoid albuterol unless severe wheezing. -Taper steroids prednisone 20 mg -Theophyline restarted 08/19 200mg at bedtime -theophyline level 1.9 Infection #Leukocytosis secondary to steroid use most likely, CT chest showed wedge-shaped opacity probably atelectasis, PNA, malignancy less likely -Continue to monitor -ID on board monitor off abx #Suspected UTI Patient was initially started on ceftriaxone which was later discontinued because urine culture was negative. Cardiology #Syncopal episode Likely multifactorial. Patient was hypokalemic which could have contributed to an arrhythmia. She has hx of severe pulmonary hypertension and is diuresed for peripheral edema . She has relative cortisol deficiency due to steroid use Orthostatics contributing to her episodes. She was also hypoglycemic on presentation. -Continue to monitor on telemetry -Maintain euvolemic state #Right sided heart failure -Dobutamine drip discontinued -Continue PO 40 mg -Continue potassium replacement with Lasix administration #Hypotension, resolved Patient's blood pressure dropped to she required 2500 mL fluid bolus and 50 mg IV hydrocortisone secondary to relative cortisol deficiency. #Relative bradycardia, Resolved -Initially Cardizem was held and has been restarted. Hematology # Symptomatic anemia Status post 1 unit PRBCs 08/13. Of note patient had history of GI bleed 2 years ago requiring 10 units of PRBC transfusion, likely diverticular. -Stool Guaiac - negative -H/H Stable continue to monitor Thrombocytopenia: Her plt has continuously trended down from 157-->104-->96--> 101-->90--> and today at 76. Sh was started on Lovenox on August 19 and since then her plt has been trending downwards. Likely of HIT is low but an antibody has been sent out. -Will keep her on ALPS for ppx. Note pt is high risk for clotting events as she has 3 noted DVT in r. arm on previous US. She is also very sedentary due to terminal COPD and is at high risk for PE. -Lovenox 60mg once today Deep venous thrombosis: Per RUE ultrasound on August 18/2018: pt has DVT in the right upper extremity with nonocclusive right axillary vein DVT, DVT in one of the paired brachial veinsand in the right basilic vein. Etiology likely due to r. sided passive congeston and pt moving very little. Metabolic #Hypokalemia/ Hyperkalemia Patient was initially hypokalemic and became hyperkalemic with repletion received calcium gluconate, insulin 10 units, dextrose 3 and Kayexalate 2 She became hypokalemic after diuresis, potassium has been replaced and today potassium is 4.0 -Continue to monitor and replete #Relative Cortisol deficiency Cortisol level was 10.7. Patient is on prednisone 15mg daily at home, which was not given to her since her admisson to the hospital. Patient was given stress dose of steroid and started on a prednisone taper starting from 40mg daily. Overnight patient's blood pressure dropped and she received 50 mg IV hydrocortisone -Taper steroids prednisone 20 mg #Transaminitis and hyperbilirubinemia Likely secondary to congestion in setting of right-sided heart failure.Transaminitis hyperbilirubinemia improving -Continue to monitor LFTs #DM One episode of hypoglycemia on 08/19 -Accu-Chek, insulin sliding scale -Levemir dose changed to 8 units BID, continue to monitor #Hypothyroidism -TSH/freeT4 WNL continue home dose of synthroid Musculoskeletal #Frequent falls/unsteady gait - PT evaluation; Pending Alimantary #Dysphagia Patient choked on her medication on 08/14, states she has experienced the same before at home as well. -No events -Consider GI Consult for dysphagia is persistent inpt vs outpt Nephrology #[facility]-Secondary to prerenal azotemia in setting of diuresis-resolved -Encourage PO intake -Continue to monitor Cr curve -Avoid nephrotoxins DVT prophylaxis with Alps and lovenox Code Status DNR/DNI Problem List: 1. CONGESTIVE HEART FAILURE Pain Ratin Tomorrow's Labs & Rationales: cbc icu bundle Plan DVT/Prophylaxis: mechanical Code Status: Do Not Resucitate/Intubat
[2017-08-24 08:00] VITALS: BP 110/70
--- NOTE | 2017-08-24 08:23 | RADIOLOGY REPORT ---
EXAMINATION: XR PORTABLE CHEST CLINICAL INFORMATION: Question of pneumothorax on prior chest x-ray. Please do another frontal and a lateral decubitus film to rule out pneumothorax. COMPARISON: Chest x-ray dated 08/22/2017. TECHNIQUE: Portable AP semierect view of the chest and a right side down decubitus view of the chest were obtained. FINDINGS: There is a persistent linear shadow seen in the left mid and lower chest The chest wall on the frontal view, unchanged from the previous exam. This is consistent with a skin fold, as on the decubitus view of the chest, no pneumothorax is seen. There is no change in the left upper lobe and both lower lobe parenchymal opacities and the left upper lobe chest wall calcification. No pneumothorax is seen. Small bilateral pleural effusions are likely present. Colonic interposition under the right hemidiaphragm is again seen. Bony structures are stable. IMPRESSION: 1. Finding in the left mid and lower lung is found to be artifactual and related to a skin fold. No pneumothorax is seen. 2. No change in left upper lobe and bibasilar lung parenchymal opacities or in small bilateral pleural effusions.
--- NOTE | 2017-08-24 10:20 | PN- Pulmonary ---
Subjective HPI/Critical Care Issues: -Patient seen and examined on CPAP overnight -No overnight acute events Vitals MAXIMUM TEMPERATURE 98.9 heart rate 70s to 90s normal sinus rhythm, manual blood pressure readings ranging 90s-100s/60s to 50s Intake 809, output 1235 last 24h, total balance [id number] Labs Objective Current Medications: Current Medications Sig/Vero Start time Last Medication Dose Route Stop Time Status Admin Acetaminophen 650 MG Q6P PRN 08/12 2030 AC PO Acetaminophen 1,000 MG Q6P PRN 08/12 2030 AC IV Albuterol Sulfate 3 ML Q4P PRN 08/17 1630 AC 08/21 INH 0809 Budesonide/ 2 PUF BID 08/13 1000 AC 08/23 Formoterol Fumarate INH 2201 Calcium Carbonate 500 MG TIDPRN PRN 08/21 0745 AC 08/22 PO 1309 Diltiazem HCl 180 MG DAILY 08/17 1500 AC 08/23 PO 1354 Furosemide 40 MG DAILY 08/22 1000 AC 08/23 PO 1256 Guaifenesin 600 MG Q12 08/18 2200 AC 08/23 PO 2201 Insulin Detemir 8 UNITS BID 08/22 1000 AC 08/23 SC 2201 Ipratropium [place] 2.5 ML EVERY 4 HRS/AWAKE 08/17 2000 AC 08/24 INH 0832 Levothyroxine Sodium 0.112 MG DAILY AC 08/13 0700 AC 08/24 PO 0647 Lidocaine 1 PAT DAILY 08/14 2215 AC 08/23 EXT 1353 Magnesium Oxide 400 MG DAILY 08/13 1000 AC 08/23 PO 1409 Multivitamins 1 TAB DAILY 08/21 1000 AC 08/23 PO 1409 Pantoprazole Sodium 40 MG DAILY 08/18 1000 AC 08/23 IV 1219 Phosphate 250 MG ONE TIME ONE 08/23 1415 CAN PO 08/23 1416 Polyethylene Glycol 17 GM DAILY 08/13 1656 AC 08/23 PO 1407 Potassium Chloride 40 MEQ DAILY 08/23 1000 AC 08/23 PO 1409 Prednisone 20 MG DAILY 08/24 1000 AC PO Prednisone 30 MG DAILY 08/21 1100 DC 08/23 PO 1353 Senna/Docusate Sodium 1 TAB BID PRN 08/13 1700 AC PO Sertraline HCl 50 MG 2200 08/13 2200 AC 08/23 PO 2201 Sodium Chloride 2 SPRAY Q4P PRN 03/02 0145 AC TAMIE Theophylline 200 MG AT BEDTIME 08/21 2200 AC 08/23 PO 2201 Tiotropium [place] 1 PUF DAILY 08/13 1000 AC 08/23 INH 1255 Tramadol HCl 25 MG Q4 HRS NEEDED PRN 08/13 1630 AC 08/22 PO 0654 Vital Signs & I&O Last 24 Hrs of Vitals and I&O: Vital Signs Date Time Temp Pulse Resp B/P B/P Pulse O2 O2 Flow FiO2 Mean Ox Delivery Rate 08/24 0834 96 Nasal 40% Cannula 08/24 0833 96 08/24 0544 78 99 08/24 0400 99 CPAP 40% 08/24 0329 75 99 08/24 0036 80 100 08/24 0000 99 CPAP 40% 08/23 2356 98.4 90 18 100/62 99 CPAP 40% 08/23 2129 87 95 08/23 2000 91 Nasal 40% Cannula 08/23 1833 92 Nasal 40% Cannula 08/23 1600 95 Nasal 40% Cannula 08/23 1600 97.3 79 22 106/50 95 Nasal 40% Cannula 08/23 1216 92 Nasal 40% Cannula 08/23 1215 98 08/23 1200 93 Nasal 40% Cannula Intake & Output 08/24 1600 08/24 0800 08/24 0000 Intake Total 120 600 Output Total 400 160 Balance -280 440 Intake, Oral 120 600 Output, Urine 400 160 Laboratory Tests 08/24 08/23 0315 0530 Chemistry Sodium (137 - 145 mmol/L) 139 134 L Potassium (3.5 - 5.1 mmol/L) 4.0 4.2 Chloride (98 - 107 mmol/L) 102 98 Carbon Dioxide (22 - 30 mmol/L) 31 H 30 Anion Gap (5 - 16) 6 6 BUN (7 - 17 mg/dL) 30 H 31 H Creatinine (0.5 - 1.0 mg/dL) 0.8 0.9 Estimated GFR (>60 ml/min) > 60 > 60 Glucose (65 - 99 mg/dL) 114 H 274 H Calcium (8.4 - 10.2 mg/dL) 8.3 L 8.9 Phosphorus (2.5 - 4.5 mg/dL) 3.3 3.6 Magnesium (1.6 - 2.3 mg/dL) 1.8 1.9 Total Bilirubin (0.2 - 1.3 mg/dL) 1.3 1.3 AST (14 - 36 U/L) 43 H 32 ALT (9 - 52 U/L) 186 H 224 H Albumin (3.5 - 5.0 g/dL) 2.7 L 2.7 L Hematology CBC w Diff MAN DIFF ORDERED MAN DIFF ORDERED WBC (4.8 - 10.8 /CUMM) 16.4 H 13.6 H RBC (4.20 - 5.40 /CUMM) 5.02 4.59 Hgb (12.0 - 16.0 G/DL) 10.7 L 9.8 L Hct (37 - 47 %) 34.5 L 31.5 L MCV (81.0 - 99.0 FL) 68.8 L 68.7 L MCH (27.0 - 31.0 PG) 21.3 L 21.4 L MCHC (33.0 - 37.0 G/DL) 30.9 L 31.1 L RDW (11.5 - 14.5 %) 25.6 H 25.9 H Plt Count (130 - 400 /CUMM) 128 L 82 L MPV (7.4 - 10.4 FL) 10.4 9.8 Segmented Neutrophils (42.2 - 75.2 %) 96 H 94 H Band Neutrophils (0.0 - 5.0 %) 3 Lymphocytes (20.5 - 51.1 %) 2 L Monocytes (1.7 - 9.3 %) 2 3 Platelet Estimate (ADEQUATE) ADEQUATE DECREASED Polychromasia 1+ Hypochromic-Microcytic 2+ 2+ Poikilocytosis 2+ 2+ Basophilic Stippling 1+ 1+ Anisocytosis 2+ 1+ Microcytic Cells 2+ 2+ Macrocytic Cells 1+ Target Cells RARE RARE Ovalocytes 1+ Stomatocytes FEW [place] Cells FEW RARE Elliptocytes 1+ 1+ Other Body Source Fld Total RBCs Counted (%) 100 Toxicology Theophylline (10.0 - 20.0 uG/mL) 1.9 L 2.2 L 10 1820 Chemistry Sodium (137 - 145 mmol/L) 136 L Potassium (3.5 - 5.1 mmol/L) 4.7 Chloride (98 - 107 mmol/L) 98 Carbon Dioxide (22 - 30 mmol/L) 32 H Anion Gap (5 - 16) 6 BUN (7 - 17 mg/dL) 31 H Creatinine (0.5 - 1.0 mg/dL) 0.9 Estimated GFR (>60 ml/min) > 60 BUN/Creatinine Ratio (7 - 25 %) 34.4 H Microbiology Date/Time Procedure - Status Source Growth 08/22 08 Urine Culture - CAN URINE ROUT Cancelled: NO SAMP[LE COLLECTED 08/21 1150 Urine Culture - COMP URINE ROUT Impression/Plan Impression/Plan Impression/Plan: General: Nontoxic, no apparent distress. on bipap HEENT: Sclera and conjunctiva within normal limits, without xanthelasmas. Neck: Carotids 2+ without bruits. Respiratory: Scattered rhonchi and rales, air movement is decreased at bases, without accessory respiratory muscle use. Heart: Regular rate and rhythm, 2/6 systolic ejection murmur left sternal border , without JVD. Abdomen: Soft, nontender, no masses, normoactive bowel sounds. Extremities: Without clubbing, cyanosis, without edema. Neuro: Nonfocal exam, strength, 5 out of 5 Skin: Within normal limits without lesions. 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 S/p dobutamine and lasix * Resolved Syncope or near sycope with multiple falls, pt with severe PUlm htn from copd, with sig corpulmonale, previous full work up for other causes are neg (no vte, no vasculitis etc) * Symtomatic anemia with sig eccymosis due to prednisone s/p transfusion * RElative cortisol def * End stage copd with chronic resp failure * REcurrent diastolic chf now euvolemic after ivf as she was dehydrated upon admission * Profound fatigue significant shortness of breath muscle weakness most likely related to cortisol deficiency as she's been on steroids for years * VTE upper ext now on lovenox with thrombocytopenia and off anticoag and pt wishes to hold off anticoag as she has had sig bleeding before * CHest ct abormality wedge shaped (no pe, prob atx vs pna unlikely malignancy), will get a follow up ct in few weeks * History of lung cancer status post radiation therapy rule out recurrence * Diabetes on insulin * Hypothyroidism on appropriate supplementation therapy REC Po lasix daily 40 mg Change to nasal cannula Try using no cpap tonight Use ipratropium only for nebs, till heart rate is down and use albuterol only if needed for sever wheezing Prednisone 20 mg Cont dilt Give one dose of 60 mg lovenox today Follow sugar and titrate insulin Theophylline 200 mg at hs OOB to chair TO tele if stable
--- NOTE | 2017-08-24 10:55 | PN- Infect Dx ---
Subjective Subjective: Afebrile on steroids. She complains of increased shortness of breath this morning. Objective Last 24 Hrs of Vital Signs/I&O Vital Signs Date Time Temp Pulse Resp B/P B/P Pulse O2 O2 Flow FiO2 Mean Ox Delivery Rate 08/24 0834 96 Nasal 40% Cannula 08/24 0833 96 08/24 0544 78 99 08/24 0400 99 CPAP 40% 08/24 0329 75 99 08/24 0036 80 100 08/24 0000 99 CPAP 40% 08/23 2356 98.4 90 18 100/62 99 CPAP 40% 08/23 2129 87 95 08/23 2000 91 Nasal 40% Cannula 08/23 1833 92 Nasal 40% Cannula 08/23 1600 95 Nasal 40% Cannula 08/23 1600 97.3 79 22 106/50 95 Nasal 40% Cannula 08/23 1216 92 Nasal 40% Cannula 08/23 1215 98 08/23 1200 93 Nasal 40% Cannula Intake & Output 08/24 1600 08/24 0800 08/24 0000 Intake Total 120 600 Output Total 400 160 Balance -280 440 Intake, Oral 120 600 Output, Urine 400 160 Physical Exam Other Physical Findings: She appears comfortable on high flow oxygen in no acute distress Lungs are clear Heart regular rhythm with no murmur Extremities no cyanosis, clubbing or edema Results Last 24 Hours of Lab Results: Laboratory Tests 08/24 0315 Chemistry Sodium (137 - 145 mmol/L) 139 Potassium (3.5 - 5.1 mmol/L) 4.0 Chloride (98 - 107 mmol/L) 102 Carbon Dioxide (22 - 30 mmol/L) 31 H Anion Gap (5 - 16) 6 BUN (7 - 17 mg/dL) 30 H Creatinine (0.5 - 1.0 mg/dL) 0.8 Estimated GFR (>60 ml/min) > 60 Glucose (65 - 99 mg/dL) 114 H Calcium (8.4 - 10.2 mg/dL) 8.3 L Phosphorus (2.5 - 4.5 mg/dL) 3.3 Magnesium (1.6 - 2.3 mg/dL) 1.8 Total Bilirubin (0.2 - 1.3 mg/dL) 1.3 AST (14 - 36 U/L) 43 H ALT (9 - 52 U/L) 186 H Albumin (3.5 - 5.0 g/dL) 2.7 L Hematology CBC w Diff MAN DIFF ORDERED WBC (4.8 - 10.8 /CUMM) 16.4 H RBC (4.20 - 5.40 /CUMM) 5.02 Hgb (12.0 - 16.0 G/DL) 10.7 L Hct (37 - 47 %) 34.5 L MCV (81.0 - 99.0 FL) 68.8 L MCH (27.0 - 31.0 PG) 21.3 L MCHC (33.0 - 37.0 G/DL) 30.9 L RDW (11.5 - 14.5 %) 25.6 H Plt Count (130 - 400 /CUMM) 128 L MPV (7.4 - 10.4 FL) 10.4 Segmented Neutrophils (42.2 - 75.2 %) 96 H Lymphocytes (20.5 - 51.1 %) 2 L Monocytes (1.7 - 9.3 %) 2 Platelet Estimate (ADEQUATE) ADEQUATE Polychromasia 1+ Hypochromic-Microcytic 2+ Poikilocytosis 2+ Basophilic Stippling 1+ Anisocytosis 2+ Microcytic Cells 2+ Target Cells RARE Ovalocytes 1+ Stomatocytes FEW [place] Cells FEW Elliptocytes 1+ Other Body Source Fld Total RBCs Counted (%) 100 Toxicology Theophylline (10.0 - 20.0 uG/mL) 1.9 L Last 24 Hours of Rayo Results: No new cultures Recent Imaging Studies: Chest x-ray August 23 slight increase density in the right lower lobe Assessment/Plan ID Impression: Stable off antibiotics, with overall improvement in her respiratory status, presumably related to diuresis. She remains afebrile (on steroids) but her white blood cell count has increased today, despite the steroid taper. She remains on Lovenox for a recently diagnosed right upper extremity DVT. Suggestion: 1. Eventual follow-up CT of the chest per Radiology 2. Continue to follow temperatures and white blood cell count off antibiotics
--- NOTE | 2017-08-24 11:20 | PN- Cardiology ---
Subjective Subjective: The patient is awake, alert, continues to feel dyspnea. The events of the last 24 hours as well as telemetry were reviewed. Review of Systems: The review of systems is negative for chest pains, palpitations nor lightheadedness. The remainder of the 14 point review of systems is noncontributory with the exception of above. Objective Vital Signs and I&Os Vital Signs Date Time Temp Pulse Resp B/P B/P Pulse O2 O2 Flow FiO2 Mean Ox Delivery Rate 08/24 0834 96 Nasal 40% Cannula 08/24 0833 96 08/24 0544 78 99 08/24 0400 99 CPAP 40% 08/24 0329 75 99 08/24 0036 80 100 08/24 0000 99 CPAP 40% 08/23 2356 98.4 90 18 100/62 99 CPAP 40% 08/23 2129 87 95 08/23 2000 91 Nasal 40% Cannula 08/23 1833 92 Nasal 40% Cannula 08/23 1600 95 Nasal 40% Cannula 08/23 1600 97.3 79 22 106/50 95 Nasal 40% Cannula 08/23 1216 92 Nasal 40% Cannula 08/23 1215 98 08/23 1200 93 Nasal 40% Cannula Intake & Output 08/24 1600 08/24 0800 08/24 0000 08/23 1600 08/23 0800 08/23 0000 Intake Total 120 600 300 110 330 Output Total 400 160 325 380 305 Balance -280 440 -25 -270 25 Intake, IV 10 10 Intake, Oral 120 600 300 100 320 Output, Urine 400 160 325 380 305 Patient 124 lb Weight Weight Bed scale Measurement Method Physical Exam: General: Nontoxic, no apparent distress. HEENT: Sclera and conjunctiva within normal limits, without xanthelasmas. Neck: Carotids 2+ without bruits. Respiratory: Scattered rhonchi, air movement is decreased throughout, without accessory respiratory muscle use. Heart: Regular rate and rhythm, without murmurs, without JVD. Abdomen: Soft, nontender, no masses, normoactive bowel sounds. Extremities: Without clubbing, cyanosis, without edema. Neuro: Nonfocal exam, strength, 5 out of 5 Skin: Within normal limits without lesions. Psych: Mood and affect: Normal Current Medications: Current Medications Sig/Vero Start time Last Medication Dose Route Stop Time Status Admin Acetaminophen 650 MG Q6P PRN 08/12 2029 AC PO Acetaminophen 1,000 MG Q6P PRN 02/28 2030 AC IV Albuterol Sulfate 3 ML Q4P PRN 08/17 1630 AC 08/21 INH 0809 Budesonide/ 2 PUF BID 08/13 1000 AC 08/24 Formoterol Fumarate INH 1052 Calcium Carbonate 500 MG TIDPRN PRN 08/21 0745 AC 08/24 PO 1052 Diltiazem HCl 180 MG DAILY 08/17 1500 AC 08/24 PO 1052 Furosemide 40 MG DAILY 08/22 1000 AC 08/24 PO 1051 Guaifenesin 600 MG Q12 08/18 2200 AC 08/24 PO 1051 Insulin Detemir 8 UNITS BID 08/22 1000 AC 08/24 SC 1050 Ipratropium [place] 2.5 ML EVERY 4 HRS/AWAKE 08/17 2000 AC 08/24 INH 0832 Levothyroxine Sodium 0.112 MG DAILY AC 08/13 0700 AC 08/24 PO 0647 Lidocaine 1 PAT DAILY 08/14 2215 AC 08/24 EXT 1053 Magnesium Oxide 400 MG DAILY 08/13 1000 AC 08/24 PO 1051 Multivitamins 1 TAB DAILY 08/21 1000 AC 08/24 PO 1051 Pantoprazole Sodium 40 MG DAILY 08/18 1000 AC 08/24 IV 1053 Phosphate 250 MG ONE TIME ONE 08/23 1415 CAN PO 08/23 1416 Polyethylene Glycol 17 GM DAILY 08/13 1656 AC 08/24 PO 1052 Potassium Chloride 40 MEQ DAILY 08/23 1000 AC 08/24 PO 1051 Prednisone 20 MG DAILY 08/24 1000 AC 08/24 PO 1053 Prednisone 30 MG DAILY 08/21 1100 DC 08/23 PO 1353 Senna/Docusate Sodium 1 TAB BID PRN 08/13 1700 AC PO Sertraline HCl 50 MG 08/13 2200 AC 08/23 PO 2201 Sodium Chloride 2 SPRAY Q4P PRN 08/14 0145 AC TAMIE Theophylline 200 MG AT BEDTIME 08/21 2200 AC 08/23 PO 2201 Tiotropium [place] 1 PUF DAILY 08/13 1000 AC 08/24 INH 1053 Tramadol HCl 25 MG Q4 HRS NEEDED PRN 08/13 1630 AC 08/22 PO 0654 Results Last 48 Hrs of Labs/Mics: Laboratory Tests 08/24/17 0315: Anion Gap 6, Estimated GFR > 60, Glucose 114 H, Calcium 8.3 L, Phosphorus 3.3, Magnesium 1.8, Total Bilirubin 1.3, AST 43 H, ALT 186 H, Albumin 2.7 L, CBC w Diff MAN DIFF ORDERED, RBC 5.02, MCV 68.8 L, MCH 21.3 L, MCHC 30.9 L, RDW 25.6 H, MPV 10.4, Segmented Neutrophils 96 H, Lymphocytes 2 L, Monocytes 2, Platelet Estimate ADEQUATE, Polychromasia 1+, Hypochromic-Microcytic 2+, Poikilocytosis 2+, Basophilic Stippling 1+, Anisocytosis 2+, Microcytic Cells 2+ , Target Cells RARE, Ovalocytes 1+, Stomatocytes FEW, [place] Cells FEW, Elliptocytes 1+, Fld Total RBCs Counted 100, Theophylline 1.9 L 08/23/17 0530: Anion Gap 6, Estimated GFR > 60, Glucose 274 H, Calcium 8.9, Phosphorus 3.6, Magnesium 1.9, Total Bilirubin 1.3, AST 32, ALT 224 H, Albumin 2.7 L, CBC w Diff MAN DIFF ORDERED, RBC 4.59, MCV 68.7 L, MCH 21.4 L, MCHC 31.1 L, RDW 25.9 H, MPV 9.8, Segmented Neutrophils 94 H, Band Neutrophils 3, Monocytes 3, Platelet Estimate DECREASED, Hypochromic-Microcytic 2+, Poikilocytosis 2+, Basophilic Stippling 1+, Anisocytosis 1+, Microcytic Cells 2+, Macrocytic Cells 1+, Target Cells RARE, [place] Cells RARE, Elliptocytes 1+, Theophylline 2.2 L 08/22/17 1820: Anion Gap 6, Estimated GFR > 60, BUN/Creatinine Ratio 34.4 H Assessment/Plan Assessment/Plan 76-year-old woman with a past medical history of severe COPD and (on home O2), severe pulmonary hypertension with RV dysfunction, diabetes mellitus, status post left upper lobe resection, prior GI bleed and documented congestive heart failure with preserved LV systolic function. She presents to our hospital with increasing dyspnea as well as possible syncopal episode. Syncope: Patient presents with syncope which may be multifactorial. She was profoundly hypokalemic on admission which has been subsequently repleted, and so arrhythmias may be an underlying etiology. She has well has known severe pulmonary hypertension and is diuresed for peripheral edema. This likely significantly affects her overall blood pressures and cardiac output predisposing her to significant orthostatic changes. Dehydration avoidance will need to be closely monitored. At this point, she appears euvolemic and not in acute congestive heart failure. I would therefore attempt to maintain an overall euvolemic state. Bradycardia: Following admission, the patient was corrected for electrolytes and became hyperkalemic with subsequent junctional rhythm/sinus bradycardia. She is currently improved. Her regimen of diltiazem has been restarted Dyspnea: Predominately due to severe underlying COPD and pulmonary hypertension. Given her pulmonary hypertension, anticoagulation should be considered; however, is currently contraindicated given her frequent falls. Continue telemetry? Yes
[2017-08-24 16:00] VITALS: BP 100/50
[2017-08-25] VITALS: BP 100/50
[2017-08-25 05:51] LABS: HEPARIN INDUCED PLATELET AB NEGATIVE (NEGATIVE)
[2017-08-25 05:59] LABS: HEMATOCRIT 31.6 % (37-47); MEAN CORPUSCULAR HGB 21.3 PG (27.0-31.0); MEAN CORPUSCULAR HGB CONC 30.8 G/DL (33.0-37.0); MEAN CORPUSCULAR VOLUME 69.1 FL (81.0-99.0); MEAN PLATELET VOLUME 10.4 FL (7.4-10.4); PLATELET COUNT 90 /CUMM (130-400); RED BLOOD CELL CT 4.58 /CUMM (4.20-5.40); WHITE BLOOD CELL COUNT 13.5 /CUMM (4.8-10.8)
--- NOTE | 2017-08-25 07:58 | PN- Resident CRCU ---
Subjective HPI/CRCU Issues: Patient seen and examined on CPAP overnight. Patient states she felt SOB and tired overnight. States she has had trouble sleeping due to difficulty finding a comfortable position as she has soreness around her buttock and cannot lie on it for a prolonged period of time. Vitals Tmax: 97.9, HR: 70s to 80s, normal sinus rhythm, BP: 100s/60s Intake 480, output 1300 Labs -Leukocytosis decreased from 16.4 to 13.5, no bands currently on sterods -H/H 9.7/31.6 -Platelet count 90 decreased from 128 -K 4.4, HCO3 30 -LFTS downtrending: Total bilirubin 1.1 AST 35 ALT 141 2/2 to congestion from right heart failure -improving -Finger sticks 200s to 300s -Theophyline level of 1.9 -HIT panel negative Interventions planed for today -Levemir 8 units BID -Lovenox- one dose given yesterday -Lasix 40 mg oral -Prednisone 20 mg -Theophylline 200 mg at bedtime -Continue cardizem Objective Vital Signs & I&O Last 8 Hrs of Vitals and I&O: Intake & Output 08/25 1600 Intake Total 430 Output Total 450 Balance -20 Intake, IV 30 Intake, Oral 400 Number 2 Bowel Movements Output, Urine 450 Exam General Appearance: well developed/nourished, alert, awake, anxious, mild distress Head: atraumatic, normal appearance Respiratory: chest non-tender, no respiratory distress, rhonchi, rales Cardiovascular: regular rate/rhythm Gastrointestinal: normal bowel sounds, soft, non-tender Extremities: normal inspection, normal capillary refill Back: normal inspection, normal range of motion, no vertebral tenderness, covered with dressing Current Medications: Current Medications Sig/Vero Start time Last Medication Dose Route Stop Time Status Admin Acetaminophen 650 MG Q6P PRN 08/12 2029 AC PO Acetaminophen 1,000 MG Q6P PRN 08/12 2030 AC IV Albuterol Sulfate 3 ML Q4P PRN 08/17 1630 AC 08/25 INH 1654 Budesonide/ 2 PUF BID 08/13 1000 AC 08/25 Formoterol Fumarate INH 1429 Calcium Carbonate 500 MG TIDPRN PRN 08/21 0745 AC 08/24 PO 1052 Diltiazem HCl 180 MG DAILY 08/17 1500 AC 08/25 PO 1018 Enoxaparin Sodium 60 MG ONCE ONE 08/25 1445 DC 08/25 SC 08/25 1446 1640 Furosemide 40 MG DAILY 08/22 1000 AC 08/25 PO 1018 Guaifenesin 600 MG Q12 08/18 2200 AC 08/25 PO 1018 Insulin Detemir 8 UNITS BID 08/22 1000 AC 08/25 SC 1041 Ipratropium [place] 2.5 ML EVERY 4 HRS/AWAKE 08/17 2000 AC 08/25 INH 1654 Levothyroxine Sodium 0.112 MG DAILY AC 08/13 0700 AC 08/25 PO 0633 Lidocaine 1 PAT DAILY 08/14 2215 AC 08/25 EXT 1015 Magnesium Oxide 400 MG DAILY 08/13 1000 AC 08/25 PO 1018 Multivitamins 1 TAB DAILY 08/21 1000 AC 08/25 PO 1018 Pantoprazole Sodium 40 MG DAILY 08/18 1000 AC 08/25 IV 1226 Polyethylene Glycol 17 GM DAILY 08/13 1656 AC 08/25 PO 1018 Potassium Chloride 40 MEQ DAILY 08/23 1000 AC 08/25 PO 1018 Prednisone 20 MG DAILY 08/24 1000 AC 08/25 PO 1018 Senna/Docusate Sodium 1 TAB BID PRN 08/13 1700 AC PO Sertraline HCl 50 MG 2200 08/13 2200 AC 08/24 PO 2109 Sodium Chloride 2 SPRAY Q4P PRN 08/14 0145 AC TAMIE Theophylline 200 MG AT BEDTIME 08/21 2200 AC 08/24 PO 2109 Tiotropium [place] 1 PUF DAILY 08/13 1000 AC 08/25 INH 1227 Tramadol HCl 25 MG Q4 HRS NEEDED PRN 08/13 1630 AC 08/22 PO 0654 Impression/Plan Impression/Problem List Impression: Patient is a 76 YO F with PMH significant for 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 The patient was transferred overnight to ICU for increased oxygen requirement and hypotension. Patient is currently being treated in ICU for the following: Respiratory #Acute on chronic hypoxemic respiratory failure with end-stage COPD resulting in cor pulmonale/right-sided heart failure. -Transition to nasal cannula, keep off CPAP if possible -Goals greater than O2 88% -TRC/nebs. Only ipratropium for nebs, avoid albuterol due to tachycardia unless severe wheezing. -Taper steroids currently at prednisone 20 mg -Theophyline restarted 08/19 200mg at bedtime -theophyline level 1.9 Infection #Leukocytosis secondary to steroid use most likely, CT chest showed wedge-shaped opacity probably atelectasis, PNA, malignancy less likely -Continue to monitor -ID on board monitor off abx #Suspected UTI Patient was initially started on ceftriaxone which was later discontinued because urine culture was negative. Cardiology #Syncopal episode Likely multifactorial. Patient was hypokalemic which could have contributed to an arrhythmia. She has hx of severe pulmonary hypertension and is diuresed for peripheral edema . She has relative cortisol deficiency due to steroid use Orthostatics contributing to her episodes. She was also hypoglycemic on presentation. -Continue to monitor on telemetry -Maintain euvolemic state #Right sided heart failure -Dobutamine drip discontinued -Continue PO 40 mg -Continue potassium replacement with Lasix administration #Hypotension, resolved Patient's blood pressure dropped to she required 2500 mL fluid bolus and 50 mg IV hydrocortisone secondary to relative cortisol deficiency. #Relative bradycardia, Resolved -Initially Cardizem was held and has been restarted. Hematology # Symptomatic anemia Status post 1 unit PRBCs 08/13. Of note patient had history of GI bleed 2 years ago requiring 10 units of PRBC transfusion, likely diverticular. -Stool Guaiac - negative -H/H Stable continue to monitor Thrombocytopenia: Patient's platelets have been downtrending, currently at 90, 000. Decline may be attributed to initiation of lovenox for anticoagulation. HIT planel was sent which was negative. Due to patient's significant bleeding risk, lovenox is the choice for anticoagualtion as it can be reversed with protamine. - Will dose lovenox today and continue to monitor platelets closely. - Will keep her on ALPS for ppx. Note pt is high risk for clotting events as she has 3 noted DVT in r. arm on previous US. She is also very sedentary due to terminal COPD and is at high risk for PE. - Lovenox 60mg once today Deep venous thrombosis: Per RUE ultrasound on August 18/2018: pt has DVT in the right upper extremity with nonocclusive right axillary vein DVT, DVT in one of the paired brachial veinsand in the right basilic vein. Etiology likely due to r. sided passive congeston and pt moving very little. Metabolic #Hypokalemia/ Hyperkalemia Patient was initially hypokalemic and became hyperkalemic with repletion received calcium gluconate, insulin 10 units, dextrose 3 and Kayexalate 2 She became hypokalemic after diuresis, potassium has been replaced and today potassium is 4.0 -Continue to monitor and replete #Relative Cortisol deficiency Cortisol level was 10.7. Patient is on prednisone 15mg daily at home, which was not given to her since her admisson to the hospital. Patient was given stress dose of steroid and started on a prednisone taper starting from 40mg daily. Overnight patient's blood pressure dropped and she received 50 mg IV hydrocortisone -Taper steroids prednisone 20 mg #Transaminitis and hyperbilirubinemia Likely secondary to congestion in setting of right-sided heart failure.Transaminitis hyperbilirubinemia improving -Continue to monitor LFTs #DM One episode of hypoglycemia on 08/19 -Accu-Chek, insulin sliding scale -Levemir dose changed to 8 units BID, continue to monitor #Hypothyroidism -TSH/freeT4 WNL continue home dose of synthroid Musculoskeletal #Frequent falls/unsteady gait - PT evaluation; Pending Alimentary #Dysphagia Patient choked on her medication on 08/14, states she has experienced the same before at home as well. -No events -Consider GI Consult for dysphagia is persistent inpt vs outpt Nephrology #[place]-Secondary to prerenal azotemia in setting of diuresis-resolved -Encourage PO intake -Continue to monitor Cr curve -Avoid nephrotoxins DVT prophylaxis: with Alps and lovenox Code Status: DNR/DNI Dispo: Patient at this time is stable for transfer to [facility]. Problem List: 1. COPD EXACERBATION Pain Ratin Pain Location: Back Tomorrow's Labs & Rationales: cbc - thrombocytopenia bep Plan DVT/Prophylaxis: mechanical Code Status: Do Not Resucitate/Intubat
[2017-08-25 08:00] VITALS: BP 108/54
--- NOTE | 2017-08-25 08:21 | PN- Cardiology ---
Subjective Subjective: Patient still complains of shortness of breath. She feels that she cannot get enough air. She denies chest pain. She is currently on high flow O2. Review of Systems: Eyes no blurred or double vision Ears no deafness or ringing Nose and throat no recurrent sinusitis Lungs per history of present illness Heart per history of present illness Abdomen no nausea vomiting Musculoskeletal occasional muscle and joint pains Psych no anxiety or depression Neuro without recurrent headache or seizures Endocrine no heat or cold intolerance Objective Vital Signs and I&Os Vital Signs Date Time Temp Pulse Resp B/P B/P Pulse O2 O2 Flow FiO2 Mean Ox Delivery Rate 08/25 0041 80 94 08/25 0000 96 Nasal 40% Cannula 08/25 0000 96.2 76 20 100/50 96 Nasal 40% Cannula 08/24 2338 94 Nasal 40% Cannula 08/24 2000 94 Nasal 40% Cannula 08/24 1722 94 Nasal 40% Cannula 08/24 1600 98 Nasal 40% Cannula 08/24 1600 98.0 80 20 100/50 93 Nasal 40% Cannula 08/24 0834 96 Nasal 40% Cannula 08/24 0833 96 Intake & Output 08/25 1600 08/25 0800 08/25 0000 08/24 1600 08/24 0800 08/24 0000 Intake Total 100 360 120 600 Output Total 300 600 400 160 Balance 100 -300 -240 -280 440 Intake, Oral 100 360 120 600 Number 0 Bowel Movements Output, Urine 300 600 400 160 Patient 124 lb Weight Physical Exam: Patient is a well-developed well-nourished female appearing in moderate to severe respiratory distress HEENT is unremarkable Neck is supple there is no JVD Lungs decreased air entry with wheezes bilaterally Heart regular rhythm S1 and S2 are normal no murmurs gallops or rubs Abdomen bowel sounds positive Extremities without edema Current Medications: Current Medications Sig/Vero Start time Last Medication Dose Route Stop Time Status Admin Acetaminophen 650 MG Q6P PRN 08/12 2030 AC PO Acetaminophen 1,000 MG Q6P PRN 08/12 2030 AC IV Albuterol Sulfate 3 ML Q4P PRN 08/17 1630 AC 08/21 INH 0809 Budesonide/ 2 PUF BID 08/13 1000 AC 08/24 Formoterol Fumarate INH 2109 Calcium Carbonate 500 MG TIDPRN PRN 08/21 0745 AC 08/24 PO 1052 Diltiazem HCl 180 MG DAILY 08/17 1500 AC 08/24 PO 1052 Enoxaparin Sodium 60 MG ONCE ONE 08/24 1400 DC 08/24 SC 08/24 1401 1719 Furosemide 40 MG DAILY 08/22 1000 AC 08/24 PO 1051 Guaifenesin 600 MG Q12 08/18 2200 AC 08/24 PO 2109 Insulin Detemir 8 UNITS BID 08/22 1000 AC 08/24 SC 2109 Ipratropium [place] 2.5 ML EVERY 4 HRS/AWAKE 08/17 2000 AC 08/24 INH 2128 Levothyroxine Sodium 0.112 MG DAILY AC 08/13 0700 AC 08/25 PO 0633 Lidocaine 1 PAT DAILY 08/14 2215 AC 08/24 EXT 1053 Magnesium Oxide 400 MG DAILY 08/13 1000 AC 08/24 PO 1051 Multivitamins 1 TAB DAILY 08/21 1000 AC 08/24 PO 1051 Pantoprazole Sodium 40 MG DAILY 08/18 1000 AC 08/24 IV 1053 Polyethylene Glycol 17 GM DAILY 08/13 1656 AC 08/24 PO 1052 Potassium Chloride 40 MEQ DAILY 08/23 1000 AC 08/24 PO 1051 Prednisone 20 MG DAILY 08/24 1000 AC 08/24 PO 1053 Senna/Docusate Sodium 1 TAB BID PRN 08/13 1700 AC PO Sertraline HCl 50 MG 2200 08/13 2200 AC 08/24 PO 2109 Sodium Chloride 2 SPRAY Q4P PRN 08/14 0145 AC TAMIE Theophylline 200 MG AT BEDTIME 08/21 2200 AC 08/24 PO 2109 Tiotropium [place] 1 PUF DAILY 08/13 1000 AC 08/24 INH 1053 Tramadol HCl 25 MG Q4 HRS NEEDED PRN 08/13 1630 AC 08/22 PO 0654 Results Last 48 Hrs of Labs/Mics: Laboratory Tests 08/25/17 0450: Anion Gap 4 L, Estimated GFR > 60, Glucose 241 H, Calcium 9.1, Phosphorus 3.1, Magnesium 1.9, Total Bilirubin 1.1, AST 35, ALT 141 H, Albumin 2.6 L, CBC w Diff MAN DIFF ORDERED, RBC 4.58, MCV 69.1 L, MCH 21.3 L, MCHC 30.8 L, RDW 26.0 H, MPV 10.4, Segmented Neutrophils 94 H, Band Neutrophils 2, Lymphocytes 2 L, Monocytes 2, Nucleated RBCs 1 H, Platelet Estimate DECREASED, Polychromasia 1+, Hypochromic-Microcytic 1+, Poikilocytosis 2+, Anisocytosis 2+, Microcytic Cells 2+, Target Cells 1+, Elliptocytes 2+ 08/24/17 0315: Anion Gap 6, Estimated GFR > 60, Glucose 114 H, Calcium 8.3 L, Phosphorus 3.3, Magnesium 1.8, Total Bilirubin 1.3, AST 43 H, ALT 186 H, Albumin 2.7 L, CBC w Diff MAN DIFF ORDERED, RBC 5.02, MCV 68.8 L, MCH 21.3 L, MCHC 30.9 L, RDW 25.6 H, MPV 10.4, Segmented Neutrophils 96 H, Lymphocytes 2 L, Monocytes 2, Platelet Estimate ADEQUATE, Polychromasia 1+, Hypochromic-Microcytic 2+, Poikilocytosis 2+, Basophilic Stippling 1+, Anisocytosis 2+, Microcytic Cells 2+ , Target Cells RARE, Ovalocytes 1+, Stomatocytes FEW, [place] Cells FEW, Elliptocytes 1+, Fld Total RBCs Counted 100, Theophylline 1.9 L Telemetry personally reviewed sinus rhythm Recent Imaging Studies: Echocardiogram of 08/13/2017 CONCLUSIONS Normal left ventricular systolic function. Dilated Right Ventricle and right atrium with severe Pulmonary hypertension. Assessment/Plan Assessment/Plan 1. Syncope multifactorial. She was hypokalemic on admission therefore arrhythmias are a consideration. She also has severe pulmonary hypertension and may have had an orthostatic hypotensive episode secondary to diuretics 2. Diastolic heart failure by history 3. 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 Diabetes 5. History of GI bleed 6. Bradycardia secondary to hyperkalemia stable. Recommendations 1. Continue current medications 2. Continue to monitor electrolytes closely 3. Aggressive pulmonary management per Dr. Rudolph 4. Given her pulmonary hypertension she would be considered a candidate for long-term anticoagulation but this is contraindicated due to her frequent falls and history of GI bleed. Continue telemetry? Yes
--- NOTE | 2017-08-25 10:14 | PN- Infect Dx ---
Subjective Subjective: Afebrile on steroids. She continues to report shortness of breath with no other complaints. Objective Last 24 Hrs of Vital Signs/I&O Vital Signs Date Time Temp Pulse Resp B/P B/P Pulse O2 O2 Flow FiO2 Mean Ox Delivery Rate 08/25 08 Nasal 40% Cannula 08/25 08 97.1 72 22 108/54 97 Nasal 40% Cannula 08/25 0041 80 94 08/25 0000 96 Nasal 40% Cannula 08/25 0000 96.2 76 20 100/50 96 Nasal 40% Cannula 08/24 2338 94 Nasal 40% Cannula 08/24 2000 94 Nasal 40% Cannula 08/24 1722 94 Nasal 40% Cannula 08/24 1600 98 Nasal 40% Cannula 08/24 1600 98.0 80 20 100/50 93 Nasal 40% Cannula Intake & Output 08/25 1600 08/25 0808/25 0000 Intake Total 100 Output Total 300 Balance 100 -300 Intake, Oral 100 Output, Urine 300 Patient 124 lb Weight Physical Exam Other Physical Findings: She appears comfortable on high flow oxygen in no acute distress Lungs are clear Heart regular rhythm with no murmur Extremities no cyanosis, clubbing or edema Results Last 24 Hours of Lab Results: Laboratory Tests 08/25 0450 Chemistry Sodium (137 - 145 mmol/L) 135 L Potassium (3.5 - 5.1 mmol/L) 4.4 Chloride (98 - 107 mmol/L) 101 Carbon Dioxide (22 - 30 mmol/L) 30 Anion Gap (5 - 16) 4 L BUN (7 - 17 mg/dL) 33 H Creatinine (0.5 - 1.0 mg/dL) 0.7 Estimated GFR (>60 ml/min) > 60 Glucose (65 - 99 mg/dL) 241 H Calcium (8.4 - 10.2 mg/dL) 9.1 Phosphorus (2.5 - 4.5 mg/dL) 3.1 Magnesium (1.6 - 2.3 mg/dL) 1.9 Total Bilirubin (0.2 - 1.3 mg/dL) 1.1 AST (14 - 36 U/L) 35 ALT (9 - 52 U/L) 141 H Albumin (3.5 - 5.0 g/dL) 2.6 L Hematology CBC w Diff MAN DIFF ORDERED WBC (4.8 - 10.8 /CUMM) 13.5 H RBC (4.20 - 5.40 /CUMM) 4.58 Hgb (12.0 - 16.0 G/DL) 9.7 L Hct (37 - 47 %) 31.6 L MCV (81.0 - 99.0 FL) 69.1 L MCH (27.0 - 31.0 PG) 21.3 L MCHC (33.0 - 37.0 G/DL) 30.8 L RDW (11.5 - 14.5 %) 26.0 H Plt Count (130 - 400 /CUMM) 90 L MPV (7.4 - 10.4 FL) 10.4 Segmented Neutrophils (42.2 - 75.2 %) 94 H Band Neutrophils (0.0 - 5.0 %) 2 Lymphocytes (20.5 - 51.1 %) 2 L Monocytes (1.7 - 9.3 %) 2 Nucleated RBCs (0.0 - 0.0 /100WBC) 1 H Platelet Estimate (ADEQUATE) DECREASED Polychromasia 1+ Hypochromic-Microcytic 1+ Poikilocytosis 2+ Anisocytosis 2+ Microcytic Cells 2+ Target Cells 1+ Elliptocytes 2+ Last 24 Hours of Rayo Results: No new cultures Assessment/Plan ID Impression: Stable off antibiotics, though she remains hypoxic, requiring high flow oxygen. She remains afebrile (on steroids) with her white blood cell count still elevated, though decreased today, most likely secondary to the steroids, which are being tapered. Suggestion: 1. Eventual follow-up CT of the chest per Radiology 2. Continue to follow temperatures and white blood cell count off antibiotics Will no longer follow at this time, but please call with any questions
--- NOTE | 2017-08-25 10:36 | PN- CRCU ---
Subjective HPI/Critical Care Issues: Afebrile on steroids. She continues to report shortness of breath with no other complaints. Objective Current Medications: Current Medications Sig/Vero Start time Last Medication Dose Route Stop Time Status Admin Acetaminophen 650 MG Q6P PRN 08/12 2030 AC PO Acetaminophen 1,000 MG Q6P PRN 08/12 2030 AC IV Albuterol Sulfate 3 ML Q4P PRN 08/17 1630 AC 08/25 INH 0859 Budesonide/ 2 PUF BID 08/13 1000 AC 08/24 Formoterol Fumarate INH 2109 Calcium Carbonate 500 MG TIDPRN PRN 08/21 0745 AC 08/24 PO 1052 Diltiazem HCl 180 MG DAILY 08/17 1500 AC 08/24 PO 1052 Enoxaparin Sodium 60 MG ONCE ONE 08/24 1400 DC 08/24 SC 08/24 1401 1719 Furosemide 40 MG DAILY 08/22 1000 AC 08/24 PO 1051 Guaifenesin 600 MG Q12 08/18 2200 AC 08/24 PO 2109 Insulin Detemir 8 UNITS BID 08/22 1000 AC 08/24 SC 2109 Ipratropium [place] 2.5 ML EVERY 4 HRS/AWAKE 08/17 2000 AC 08/25 INH 0859 Levothyroxine Sodium 0.112 MG DAILY AC 08/13 0700 AC 08/25 PO 0633 Lidocaine 1 PAT DAILY 08/14 2215 AC 08/24 EXT 1053 Magnesium Oxide 400 MG DAILY 08/13 1000 AC 08/24 PO 1051 Multivitamins 1 TAB DAILY 08/21 1000 AC 08/24 PO 1051 Pantoprazole Sodium 40 MG DAILY 08/18 1000 AC 08/24 IV 1053 Polyethylene Glycol 17 GM DAILY 08/13 1656 AC 08/24 PO 1052 Potassium Chloride 40 MEQ DAILY 08/23 1000 AC 08/24 PO 1051 Prednisone 20 MG DAILY 08/24 1000 AC 08/24 PO 1053 Senna/Docusate Sodium 1 TAB BID PRN 08/13 1700 AC PO Sertraline HCl 50 MG 08/13 2200 AC 08/24 PO 2109 Sodium Chloride 2 SPRAY Q4P PRN 08/14 0145 AC TAMIE Theophylline 200 MG AT BEDTIME 08/21 2200 AC 08/24 PO 2109 Tiotropium [place] 1 PUF DAILY 08/13 1000 AC 08/24 INH 1053 Tramadol HCl 25 MG Q4 HRS NEEDED PRN 08/13 1630 AC 08/22 PO 0654 Vital Signs & I&O Last 24 Hrs of Vitals and I&O: Vital Signs Date Time Temp Pulse Resp B/P B/P Pulse O2 O2 Flow FiO2 Mean Ox Delivery Rate 08/26 799 Nasal 40% Cannula 08/25 08 97.1 72 22 108/54 97 Nasal 40% Cannula 08/25 0041 80 94 08/25 0000 96 Nasal 40% Cannula 08/25 0000 96.2 76 20 100/50 96 Nasal 40% Cannula 08/24 2338 94 Nasal 40% Cannula 08/24 2000 94 Nasal 40% Cannula 08/24 1722 94 Nasal 40% Cannula 08/24 1600 98 Nasal 40% Cannula 08/24 1600 98.0 80 20 100/50 93 Nasal 40% Cannula Intake & Output 08/25 1600 08/25 0800 08/25 0000 Intake Total 100 Output Total 300 Balance 100 -300 Intake, Oral 100 Output, Urine 300 Patient 124 lb Weight Laboratory Tests 08/25 08/24 0450 0315 Chemistry Sodium (137 - 145 mmol/L) 135 L 139 Potassium (3.5 - 5.1 mmol/L) 4.4 4.0 Chloride (98 - 107 mmol/L) 101 102 Carbon Dioxide (22 - 30 mmol/L) 30 31 H Anion Gap (5 - 16) 4 L 6 BUN (7 - 17 mg/dL) 33 H 30 H Creatinine (0.5 - 1.0 mg/dL) 0.7 0.8 Estimated GFR (>60 ml/min) > 60 > 60 Glucose (65 - 99 mg/dL) 241 H 114 H Calcium (8.4 - 10.2 mg/dL) 9.1 8.3 L Phosphorus (2.5 - 4.5 mg/dL) 3.1 3.3 Magnesium (1.6 - 2.3 mg/dL) 1.9 1.8 Total Bilirubin (0.2 - 1.3 mg/dL) 1.1 1.3 AST (14 - 36 U/L) 35 43 H ALT (9 - 52 U/L) 141 H 186 H Albumin (3.5 - 5.0 g/dL) 2.6 L 2.7 L Hematology CBC w Diff MAN DIFF ORDERED MAN DIFF ORDERED WBC (4.8 - 10.8 /CUMM) 13.5 H 16.4 H RBC (4.20 - 5.40 /CUMM) 4.58 5.02 Hgb (12.0 - 16.0 G/DL) 9.7 L 10.7 L Hct (37 - 47 %) 31.6 L 34.5 L MCV (81.0 - 99.0 FL) 69.1 L 68.8 L MCH (27.0 - 31.0 PG) 21.3 L 21.3 L MCHC (33.0 - 37.0 G/DL) 30.8 L 30.9 L RDW (11.5 - 14.5 %) 26.0 H 25.6 H Plt Count (130 - 400 /CUMM) 90 L 128 L MPV (7.4 - 10.4 FL) 10.4 10.4 Segmented Neutrophils (42.2 - 75.2 %) 94 H 96 H Band Neutrophils (0.0 - 5.0 %) 2 Lymphocytes (20.5 - 51.1 %) 2 L 2 L Monocytes (1.7 - 9.3 %) 2 2 Nucleated RBCs (0.0 - 0.0 /100WBC) 1 H Platelet Estimate (ADEQUATE) DECREASED ADEQUATE Polychromasia 1+ 1+ Hypochromic-Microcytic 1+ 2+ Poikilocytosis 2+ 2+ Basophilic Stippling 1+ Anisocytosis 2+ 2+ Microcytic Cells 2+ 2+ Target Cells 1+ RARE Ovalocytes 1+ Stomatocytes FEW [place] Cells FEW Elliptocytes 2+ 1+ Other Body Source Fld Total RBCs Counted (%) 100 Toxicology Theophylline (10.0 - 20.0 uG/mL) 1.9 L Impression/Plan Impression/Plan Impression/Plan: General: Nontoxic, no apparent distress. on bipap HEENT: Sclera and conjunctiva within normal limits, without xanthelasmas. Neck: Carotids 2+ without bruits. Respiratory: Scattered rhonchi and rales, air movement is decreased at bases, without accessory respiratory muscle use. Heart: Regular rate and rhythm, 2/6 systolic ejection murmur left sternal border , without JVD. Abdomen: Soft, nontender, no masses, normoactive bowel sounds. Extremities: Without clubbing, cyanosis, without edema. Neuro: Nonfocal exam, strength, 5 out of 5 Skin: Within normal limits without lesions. 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 S/p dobutamine and lasix * Resolved Syncope or near sycope with multiple falls, pt with severe PUlm htn from copd, with sig corpulmonale, previous full work up for other causes are neg (no vte, no vasculitis etc) * Symtomatic anemia with sig eccymosis due to prednisone s/p transfusion * RElative cortisol def * End stage copd with chronic resp failure * REcurrent diastolic chf now euvolemic after ivf as she was dehydrated upon admission * Profound fatigue significant shortness of breath muscle weakness most likely related to cortisol deficiency as she's been on steroids for years * VTE upper ext now on lovenox with thrombocytopenia and off anticoag and pt wishes to hold off anticoag as she has had sig bleeding before. HIT antibody is neg and platelets are low again * CHest ct abormality wedge shaped (no pe, prob atx vs pna unlikely malignancy), will get a follow up ct in few weeks * History of lung cancer status post radiation therapy rule out recurrence * Diabetes on insulin * Hypothyroidism on appropriate supplementation therapy REC Po lasix daily 40 mg Change to nasal cannula Try using no cpap at hs only if pt asks Use ipratropium only for nebs, till heart rate is down and use albuterol only if needed for sever wheezing Prednisone 20 mg Cont dilt Give one dose of 60 mg lovenox today, follow platelets again in am and if low will consider warfarin if pt agrees Follow sugar and titrate insulin Theophylline 200 mg at hs OOB to chair TO tele Code Status: Do Not Resucitate/Intubat
[2017-08-25 16:00] VITALS: BP 104/60
[2017-08-26] VITALS: BP 104/60
[2017-08-26 05:37] LABS: HEMATOCRIT 32.9 % (37-47); MEAN CORPUSCULAR HGB 21.6 PG (27.0-31.0); MEAN CORPUSCULAR HGB CONC 31.4 G/DL (33.0-37.0); MEAN CORPUSCULAR VOLUME 68.9 FL (81.0-99.0); MEAN PLATELET VOLUME 10.4 FL (7.4-10.4); RBC DISTRIBUTION WIDTH 25.8 % (11.5-14.5); RED BLOOD CELL CT 4.78 /CUMM (4.20-5.40); WHITE BLOOD CELL COUNT 14.3 /CUMM (4.8-10.8)
[2017-08-26 05:45] LABS: PLATELET COUNT 144 /CUMM (130-400)
--- NOTE | 2017-08-26 07:28 | PN- Resident CRCU ---
Subjective HPI/CRCU Issues: Overnight Events/Issues: Patient states that she slept much better overnight compared to the day before. Patient states her breathing has improved. Denies any chest pain, palpitations, productive cough, fever/chills, nausea/vomiting, abdominal pain. Patient notes that her right arm swelling has improved from previous. Patient reports a little bit of lower extremity edema. Vitals: MAXIMUM TEMPERATURE 98.2, heart rate 70s to 80s, respiration rate 20 to 22, blood pressure 100s/60s to 70s. Pulse Ox: 93 to 95% down from 40% high flow to 5L NC. Labs: WBC 14.3 with 92 segmented neutrophils and no bands, H&H 10.3 and 32.9, platelets 144 increased from 90 the day before, Sodium 139 improved from 135, potassium 4.7, chloride 100, bicarbonate 32, BUN 27 decreased from 33, creatinine 0.8, T bili 1.4, AST 30, ALT 131, albumin 2.7 Microbiology: No growth in urine culture from 08/21 Imaging: Chest x-ray from 08/23 showing no evidence of pneumothorax or change in bilateral pulmonary opacities Objective Vital Signs & I&O Last 8 Hrs of Vitals and I&O: Vital Signs Date Time Temp Pulse Resp B/P B/P Pulse O2 O2 Flow FiO2 Mean Ox Delivery Rate 08/26 0800 95 Nasal 5.0L Cannula 08/26 0800 97.0 71 20 108/70 95 Nasal 5.0L Cannula 08/26 0057 93 Nasal 40% Cannula 08/26 0000 93 Nasal 40% Cannula 08/26 0000 98.2 81 20 104/60 93 Nasal 40% Cannula 08/25 1657 94 Nasal 40% Cannula 08/25 1600 92 Nasal 40% Cannula 08/25 1600 97.9 71 22 104/60 91 Nasal 40% Cannula 08/25 1200 96 Nasal 40% Cannula Exam General Appearance: well developed/nourished, no apparent distress, alert, awake , comfortable Head: atraumatic, normal appearance Ears, Nose, Throat: normal pharynx, normal ENT inspection, hearing grossly normal Respiratory: chest non-tender, no respiratory distress, decreased breath sounds Cardiovascular: regular rate/rhythm Gastrointestinal: normal bowel sounds, soft, non-tender Extremities: pedal edema, right arm swelling has improved from previous day Cranial Nerves: normal hearing, normal speech Current Medications: Current Medications Sig/Vero Start time Last Medication Dose Route Stop Time Status Admin Acetaminophen 650 MG Q6P PRN 08/12 2030 AC PO Acetaminophen 1,000 MG Q6P PRN 08/12 2030 AC IV Albuterol Sulfate 3 ML Q4P PRN 08/17 1630 AC 08/25 INH 1654 Budesonide/ 2 PUF BID 08/13 1000 AC 08/25 Formoterol Fumarate INH 2134 Calcium Carbonate 500 MG TIDPRN PRN 08/21 0745 AC 08/24 PO 1052 Diltiazem HCl 180 MG DAILY 08/17 1500 AC 08/25 PO 1018 Enoxaparin Sodium 60 MG ONCE ONE 08/25 1445 DC 08/25 SC 08/25 1446 1640 Furosemide 40 MG DAILY 08/22 1000 AC 08/25 PO 1018 Guaifenesin 600 MG Q12 08/18 2200 AC 08/25 PO 2135 Insulin Detemir 8 UNITS BID 08/22 1000 AC 08/25 SC 2135 Ipratropium [place] 2.5 ML EVERY 4 HRS/AWAKE 08/17 2000 AC 08/26 INH 0824 Levothyroxine Sodium 0.112 MG DAILY AC 08/13 0700 AC 08/26 PO 0731 Lidocaine 1 PAT DAILY 08/14 2215 AC 08/25 EXT 1015 Magnesium Oxide 400 MG DAILY 08/13 1000 AC 08/25 PO 1018 Multivitamins 1 TAB DAILY 08/21 1000 AC 08/25 PO 1018 Pantoprazole Sodium 40 MG DAILY 08/18 1000 AC 08/25 IV 1226 Polyethylene Glycol 17 GM DAILY 08/13 1656 AC 08/25 PO 1018 Potassium Chloride 40 MEQ DAILY 08/23 1000 AC 08/25 PO 1018 Prednisone 20 MG DAILY 08/24 1000 AC 08/25 PO 1018 Senna/Docusate Sodium 1 TAB BID PRN 08/13 1700 AC PO Sertraline HCl 50 MG 2200 08/13 2200 AC 08/25 PO 2135 Sodium Chloride 2 SPRAY Q4P PRN 08/14 0145 AC TAMIE Theophylline 200 MG AT BEDTIME 08/21 2200 AC 08/25 PO 2134 Tiotropium [place] 1 PUF DAILY 08/13 1000 AC 08/25 INH 1227 Tramadol HCl 25 MG BID PRN 08/25 2130 CAN PO Tramadol HCl 25 MG Q4 HRS NEEDED PRN 08/13 1630 AC 03/13 PO 2134 Impression/Plan Impression/Problem List Impression: Patient is a 76 YO F with PMH significant for 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 The patient was transferred overnight to ICU for increased oxygen requirement and hypotension. Patient is currently being treated in ICU as Tele hold for the following: Patient today remained stable on 5L NC. Platelets remained stable on lovenox. Patient worked with PT today who recommend STR. Respiratory #Acute on chronic hypoxemic respiratory failure with end-stage COPD resulting in cor pulmonale/right-sided heart failure. -Transition to nasal cannula, keep off CPAP if possible -Goals greater than O2 88% -TRC/nebs. Only ipratropium for nebs, avoid albuterol due to tachycardia unless severe wheezing. -Taper steroids currently at prednisone 20 mg -Theophyline restarted 08/19 200mg at bedtime -theophyline level 1.9 Infection #Leukocytosis secondary to steroid use most likely, CT chest showed wedge-shaped opacity probably atelectasis, PNA, malignancy less likely -Continue to monitor -ID on board monitor off abx #Suspected UTI Patient was initially started on ceftriaxone which was later discontinued because urine culture was negative. Cardiology #Syncopal episode Likely multifactorial. Patient was hypokalemic which could have contributed to an arrhythmia. She has hx of severe pulmonary hypertension and is diuresed for peripheral edema . She has relative cortisol deficiency due to steroid use Orthostatics contributing to her episodes. She was also hypoglycemic on presentation. -Continue to monitor on telemetry -Maintain euvolemic state #Right sided heart failure -Dobutamine drip discontinued -Continue PO 40 mg -Continue potassium replacement with Lasix administration #Hypotension, resolved Patient's blood pressure dropped to she required 2500 mL fluid bolus and 50 mg IV hydrocortisone secondary to relative cortisol deficiency. #Relative bradycardia, Resolved -Initially Cardizem was held and has been restarted. Hematology # Symptomatic anemia Status post 1 unit PRBCs 08/13. Of note patient had history of GI bleed 2 years ago requiring 10 units of PRBC transfusion, likely diverticular. -Stool Guaiac - negative -H/H Stable continue to monitor Thrombocytopenia: Patient's platelets have been downtrending, currently at 90, 000. Decline may be attributed to initiation of lovenox for anticoagulation. HIT planel was sent which was negative. Due to patient's significant bleeding risk, lovenox is the choice for anticoagualtion as it can be reversed with protamine. - Will dose lovenox today and continue to monitor platelets closely. - Will keep her on ALPS for ppx. Note pt is high risk for clotting events as she has 3 noted DVT in r. arm on previous US. She is also very sedentary due to terminal COPD and is at high risk for PE. - Lovenox 60mg once today Deep venous thrombosis: Per RUE ultrasound on August 18/2018: pt has DVT in the right upper extremity with nonocclusive right axillary vein DVT, DVT in one of the paired brachial veinsand in the right basilic vein. Etiology likely due to r. sided passive congeston and pt moving very little. Metabolic #Hypokalemia/ Hyperkalemia Patient was initially hypokalemic and became hyperkalemic with repletion received calcium gluconate, insulin 10 units, dextrose 3 and Kayexalate 2 She became hypokalemic after diuresis, potassium has been replaced and today potassium is 4.0 -Continue to monitor and replete #Relative Cortisol deficiency Cortisol level was 10.7. Patient is on prednisone 15mg daily at home, which was not given to her since her admisson to the hospital. Patient was given stress dose of steroid and started on a prednisone taper starting from 40mg daily. Overnight patient's blood pressure dropped and she received 50 mg IV hydrocortisone -Taper steroids prednisone 20 mg #Transaminitis and hyperbilirubinemia Likely secondary to congestion in setting of right-sided heart failure.Transaminitis hyperbilirubinemia improving -Continue to monitor LFTs #DM One episode of hypoglycemia on 08/19 -Accu-Chek, insulin sliding scale -Levemir dose changed to 8 units BID, continue to monitor #Hypothyroidism -TSH/freeT4 WNL continue home dose of synthroid Musculoskeletal #Frequent falls/unsteady gait - PT evaluation; Pending Alimentary #Dysphagia Patient choked on her medication on 08/14, states she has experienced the same before at home as well. -No events -Consider GI Consult for dysphagia is persistent inpt vs outpt Nephrology #LISSETT-Secondary to prerenal azotemia in setting of diuresis-resolved -Encourage PO intake -Continue to monitor Cr curve -Avoid nephrotoxins DVT prophylaxis: with Alps and lovenox Code Status: DNR/DNI Dispo: Patient at this time is stable for transfer to [facility]. Problem List: 1. COPD EXACERBATION Pain Ratin Pain Location: Back pain Tomorrow's Labs & Rationales: cbc bep Plan DVT/Prophylaxis: mechanical Code Status: Do Not Resucitate/Intubat
[2017-08-26 08:00] VITALS: BP 108/70
--- NOTE | 2017-08-26 09:57 | PN- Pulmonary ---
Subjective HPI/Critical Care Issues: Overnight Events/Issues: Patient states that she slept much better overnight compared to the day before. Patient states her breathing has improved. Denies any chest pain, palpitations, productive cough, fever/chills, nausea/vomiting, abdominal pain. Patient notes that her right arm swelling has improved from previous. Patient reports a little bit of lower extremity edema. Vitals: MAXIMUM TEMPERATURE 98.2, heart rate 70s to 80s, respiration rate 20 to 22, blood pressure 100s/60s to 70s. Pulse Ox: 93 to 95% down from 40% high flow to 5L NC. Labs: WBC 14.3 with 92 segmented neutrophils and no bands, H&H 10.3 and 32.9, platelets 144 increased from 90 the day before, Sodium 139 improved from 135, potassium 4.7, chloride 100, bicarbonate 32, BUN 27 decreased from 33, creatinine 0.8, T bili 1.4, AST 30, ALT 131, albumin 2.7 Microbiology: No growth in urine culture from 08/21 Imaging: Chest x-ray from 08/23 showing no evidence of pneumothorax or change in bilateral pulmonary opacities Objective Current Medications: Current Medications Sig/Vero Start time Last Medication Dose Route Stop Time Status Admin Acetaminophen 650 MG Q6P PRN 08/12 2030 AC PO Acetaminophen 1,000 MG Q6P PRN 08/12 2030 AC IV Albuterol Sulfate 3 ML Q4P PRN 08/17 1630 AC 08/25 INH 1654 Budesonide/ 2 PUF BID 08/13 1000 AC 08/25 Formoterol Fumarate INH 2134 Calcium Carbonate 500 MG TIDPRN PRN 08/21 0745 AC 08/24 PO 1052 Diltiazem HCl 180 MG DAILY 08/17 1500 AC 08/25 PO 1018 Enoxaparin Sodium 60 MG ONCE ONE 08/25 1445 DC 08/25 SC 08/25 1446 1640 Furosemide 40 MG DAILY 08/22 1000 AC 08/25 PO 1018 Guaifenesin 600 MG Q12 08/18 2200 AC 08/25 PO 2135 Insulin Detemir 8 UNITS BID 08/22 1000 AC 08/25 SC 2135 Ipratropium [place] 2.5 ML EVERY 4 HRS/AWAKE 08/17 2000 AC 08/26 INH 0824 Levothyroxine Sodium 0.112 MG DAILY AC 08/13 0700 AC 08/26 PO 0731 Lidocaine 1 PAT DAILY 08/14 2215 AC 08/25 EXT 1015 Magnesium Oxide 400 MG DAILY 08/13 1000 AC 08/25 PO 1018 Multivitamins 1 TAB DAILY 08/21 1000 AC 08/25 PO 1018 Pantoprazole Sodium 40 MG DAILY 08/18 1000 AC 08/25 IV 1226 Polyethylene Glycol 17 GM DAILY 08/13 1656 AC 08/25 PO 1018 Potassium Chloride 40 MEQ DAILY 08/23 1000 AC 08/25 PO 1018 Prednisone 20 MG DAILY 08/24 1000 AC 08/25 PO 1018 Senna/Docusate Sodium 1 TAB BID PRN 08/13 1700 AC PO Sertraline HCl 50 MG 08/13 2200 AC 08/25 PO 2135 Sodium Chloride 2 SPRAY Q4P PRN 08/14 0145 AC TAMIE Theophylline 200 MG AT BEDTIME 08/21 2200 AC 08/25 PO 2134 Tiotropium [place] 1 PUF DAILY 08/13 1000 AC 08/25 INH 1227 Tramadol HCl 25 MG BID PRN 08/25 2130 CAN PO Tramadol HCl 25 MG Q4 HRS NEEDED PRN 08/13 1630 AC 08/25 PO 2134 Vital Signs & I&O Last 24 Hrs of Vitals and I&O: Vital Signs Date Time Temp Pulse Resp B/P B/P Pulse O2 O2 Flow FiO2 Mean Ox Delivery Rate 08/26 0800 95 Nasal 5.0L Cannula 08/26 0800 97.0 71 20 108/70 95 Nasal 5.0L Cannula 08/26 0057 93 Nasal 40% Cannula 08/26 0000 93 Nasal 40% Cannula 08/26 0000 98.2 81 20 104/60 93 Nasal 40% Cannula 08/25 1657 94 Nasal 40% Cannula 08/25 1600 92 Nasal 40% Cannula 08/25 1600 97.9 71 22 104/60 91 Nasal 40% Cannula 08/25 1200 96 Nasal 40% Cannula Intake & Output 08/26 1600 08/26 0800 08/26 0000 Intake Total 100 280 Output Total 400 400 Balance -300 -120 Intake, Oral 100 280 Output, Urine 400 400 Patient 120 lb Weight Impression/Plan Impression/Plan Impression/Plan: General: Nontoxic, no apparent distress. on nasal cannula HEENT: Sclera and conjunctiva within normal limits, without xanthelasmas. Neck: Carotids 2+ without bruits. Respiratory: Scattered rhonchi and rales, air movement is decreased at bases, without accessory respiratory muscle use. Heart: Regular rate and rhythm, 2/6 systolic ejection murmur left sternal border , without JVD. Abdomen: Soft, nontender, no masses, normoactive bowel sounds. Extremities: Without clubbing, cyanosis, without edema. Neuro: Nonfocal exam, strength, 5 out of 5 Skin: Within normal limits without lesions. Psych: Mood and affect: Normal\ This is a lady with end-stage COPD, cor pulmonale, 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, history of lung cancer status post radiation to the left upper lobe with gamma knife therapy with stage I lung cancer presumed cure with no recurrent lesion noted in the recent CAT scan now here with * Acute Cor pulmonale with chronic right heart dysfunction with profound shortness of breath due to end-stage COPD and heart disease. S/p dobutamine and IV lasix * Resolved Syncope or near sycope with multiple falls, pt with severe PUlm htn from copd, with sig corpulmonale, previous full work up for other causes are neg (no vte, no vasculitis etc) * Symtomatic anemia with sig eccymosis due to prednisone s/p transfusion * RElative cortisol def * End stage copd with chronic resp failure * REcurrent diastolic chf now euvolemic after ivf as she was dehydrated upon admission * Profound fatigue significant shortness of breath muscle weakness most likely related to cortisol deficiency as she's been on steroids for years * VTE upper ext now on lovenox with thrombocytopenia and off anticoag and pt wishes to hold off anticoag as she has had sig bleeding before. HIT antibody is neg and platelets are low again * CHest ct abormality wedge shaped (no pe, prob atx vs pna unlikely malignancy), will get a follow up ct in few weeks * History of lung cancer status post radiation therapy rule out recurrence * Diabetes on insulin * Hypothyroidism on appropriate supplementation therapy REC Po lasix daily 40 mg Change to nasal cannula OOB to chair PT eval Dc cpap at hs and use it only if pt demands it Use ipratropium only for nebs Prednisone 20 mg Cont dilt Give one dose of 60 mg lovenox today, follow platelets and will consider warfarin later Follow sugar and titrate insulin Theophylline 200 mg at hs OOB to chair TO tele floor today
--- NOTE | 2017-08-26 12:37 | PN- Cardiology ---
Subjective Subjective: Doing well today. No new complaints. Objective Vital Signs and I&Os Vital Signs Date Time Temp Pulse Resp B/P B/P Pulse O2 O2 Flow FiO2 Mean Ox Delivery Rate 08/26 0830 94 Nasal 5.0L Cannula 08/26 0800 95 Nasal 5.0L Cannula 08/26 0800 97.0 71 20 108/70 95 Nasal 5.0L Cannula 08/26 0057 93 Nasal 40% Cannula 08/26 0000 93 Nasal 40% Cannula 08/26 0000 98.2 81 20 104/60 93 Nasal 40% Cannula 08/25 1657 94 Nasal 40% Cannula 08/25 1600 92 Nasal 40% Cannula 08/25 1600 97.9 71 22 104/60 91 Nasal 40% Cannula Intake & Output 08/26 1600 08/26 0800 08/26 0000 08/25 1600 08/25 0800 08/25 0000 Intake Total 100 280 430 100 Output Total 400 400 450 300 Balance -300 -120 -20 100 -300 Intake, IV 30 Intake, Oral 100 280 400 100 Number 2 Bowel Movements Output, Urine 400 400 450 300 Patient 120 lb 124 lb Weight Physical Exam: General: no apparent distress. Alert. On nasal cannula oxygen Eyes: No obvious scleral icterus. HEENT: No jugular venous distention or abnormal jugular venous pulsations. Cardiovascular: Normal intensity S1/S2. Regular Respiratory: Mildly decreased air entry Abdomen: Soft, nontender with no guarding or rebound tenderness. Musculoskeletal: No cyanosis noted, no edema Skin: Warm Neurologic: No gross focal deficits noted. Current Medications: Current Medications Sig/Vero Start time Last Medication Dose Route Stop Time Status Admin Acetaminophen 650 MG Q6P PRN 08/12 2030 AC PO Acetaminophen 1,000 MG Q6P PRN 08/12 2030 AC IV Albuterol Sulfate 3 ML Q4P PRN 08/17 1630 AC 08/25 INH 1654 Budesonide/ 2 PUF BID 08/13 1000 AC 08/26 Formoterol Fumarate INH 1024 Calcium Carbonate 500 MG TIDPRN PRN 08/21 0745 AC 08/24 PO 1052 Diltiazem HCl 180 MG DAILY 08/17 1500 AC 08/26 PO 1021 Enoxaparin Sodium 60 MG ONCE ONE 08/25 1445 DC 08/25 SC 08/25 1446 1640 Furosemide 40 MG DAILY 08/22 1000 AC 08/26 PO 1022 Guaifenesin 600 MG Q12 08/18 2200 AC 08/26 PO 1022 Insulin Detemir 8 UNITS BID 08/22 1000 AC 08/26 SC 1029 Ipratropium [place] 2.5 ML EVERY 4 HRS/AWAKE 08/18 1999 AC 08/26 INH 1150 Levothyroxine Sodium 0.112 MG DAILY AC 08/13 0700 AC 08/26 PO 0731 Lidocaine 1 PAT DAILY 08/14 2215 AC 08/26 EXT 1022 Magnesium Oxide 400 MG DAILY 08/13 1000 AC 08/26 PO 1022 Multivitamins 1 TAB DAILY 08/21 1000 AC 08/26 PO 1023 Pantoprazole Sodium 40 MG DAILY 08/18 1000 AC 08/26 IV 1022 Polyethylene Glycol 17 GM DAILY 08/13 1656 AC 08/26 PO 1022 Potassium Chloride 40 MEQ DAILY 08/23 1000 AC 08/26 PO 1021 Prednisone 20 MG DAILY 08/24 1000 AC 08/26 PO 1022 Senna/Docusate Sodium 1 TAB BID PRN 08/13 1700 AC PO Sertraline HCl 50 MG 2200 08/13 2200 AC 08/25 PO 2135 Sodium Chloride 2 SPRAY Q4P PRN 08/14 0145 AC TAMIE Theophylline 200 MG AT BEDTIME 08/21 2200 AC 08/25 PO 2134 Tiotropium [place] 1 PUF DAILY 08/13 1000 AC 08/26 INH 1023 Tramadol HCl 25 MG BID PRN 08/25 2130 CAN PO Tramadol HCl 25 MG Q4 HRS NEEDED PRN 08/13 1630 AC 08/25 PO 2134 Results Last 48 Hrs of Labs/Mics: Laboratory Tests 08/26/17 0400: Anion Gap 7, Estimated GFR > 60, Glucose 213 H, Calcium 9.0, Phosphorus 3.2, Magnesium 2.0, Total Bilirubin 1.4 H, AST 30, ALT 131 H, Albumin 2.7 L, CBC w Diff MAN DIFF ORDERED, RBC 4.78, MCV 68.9 L, MCH 21.6 L, MCHC 31.4 L, RDW 25.8 H, MPV 10.4, Segmented Neutrophils 92 H, Lymphocytes 3 L, Monocytes 5, Platelet Estimate ADEQUATE, Polychromasia 1+, Hypochromic-Microcytic 2+, Poikilocytosis 2+, Basophilic Stippling 1+, Anisocytosis 3+, Microcytic Cells 3+ , Ovalocytes 1+, Stomatocytes RARE, Bruce Cells FEW, Elliptocytes 1+, Fld Total RBCs Counted 100 08/25/17 0450: Anion Gap 4 L, Estimated GFR > 60, Glucose 241 H, Calcium 9.1, Phosphorus 3.1, Magnesium 1.9, Total Bilirubin 1.1, AST 35, ALT 141 H, Albumin 2.6 L, CBC w Diff MAN DIFF ORDERED, RBC 4.58, MCV 69.1 L, MCH 21.3 L, MCHC 30.8 L, RDW 26.0 H, MPV 10.4, Segmented Neutrophils 94 H, Band Neutrophils 2, Lymphocytes 2 L, Monocytes 2, Nucleated RBCs 1 H, Platelet Estimate DECREASED, Polychromasia 1+, Hypochromic-Microcytic 1+, Poikilocytosis 2+, Anisocytosis 2+, Microcytic Cells 2+, Target Cells 1+, Elliptocytes 2+ Recent Imaging Studies: Telemetry tracings were personally reviewed and shows sinus rhythm Assessment/Plan Assessment/Plan 1. Syncope multifactorial. She was hypokalemic on admission therefore arrhythmias are a consideration. She also has severe pulmonary hypertension and may have had an orthostatic hypotensive episode secondary to diuretics 2. Diastolic heart failure by history 3. 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 Diabetes 5. History of GI bleed 6. Bradycardia secondary to hyperkalemia stable. 7. Upper extremity DVT Doing well. Continue on oral Lasix. Platelets improved. Plan is to transition to oral anticoagulation with reversible agent for her DVT which could be either Coumadin or Pradaxa. Jamie Cope MD [facility] Continue telemetry? No
[2017-08-26 16:00] VITALS: BP 108/62
[2017-08-26 23:00] VITALS: BP 98/60
[2017-08-27 04:28] LABS: HEMATOCRIT 32.7 % (37-47); MEAN CORPUSCULAR HGB 21.7 PG (27.0-31.0); MEAN CORPUSCULAR HGB CONC 31.6 G/DL (33.0-37.0); MEAN CORPUSCULAR VOLUME 68.9 FL (81.0-99.0); MEAN PLATELET VOLUME 9.6 FL (7.4-10.4); PLATELET COUNT 106 /CUMM (130-400); RBC DISTRIBUTION WIDTH 25.7 % (11.5-14.5); RED BLOOD CELL CT 4.74 /CUMM (4.20-5.40); WHITE BLOOD CELL COUNT 14.6 /CUMM (4.8-10.8)
[2017-08-27 07:00] VITALS: BP 110/72
--- NOTE | 2017-08-27 07:39 | PN- Resident CRCU ---
Subjective HPI/CRCU Issues: Overnight issues: Patient states that she did not sleep well overnight. Patient reports feeling short of breath while standing up and walking to her chair with PT yesterday. Patient feels anxious about moving due to difficulty breathing with exertion. Patient denies any chest pain, palpitations, nausea/vomiting, fever/chills. Patient reports that her right arm swelling has improved however she now notes a large bruise on her forearm. Vitals: MAXIMUM TEMPERATURE 97.7, heart rate 75-6, respiration rate 21-26, blood pressure 98-110/62 neutrophils, 96-99% on 5 L nasal cannula Labs: WBC 14.6, H&H 10.3 and 32.7, platelets 106 (decreased from 144 ) Sodium 139, potassium 4.7, chloride 101, bicarbonate 30, BUN 30, creatinine 0.9, calcium 9.3, phosphorus 2.9, magnesium 2.0, total bili 1.3, AST 28, ALT 114 ( decreased from 131), albumin 2.8 Objective Vital Signs & I&O Last 8 Hrs of Vitals and I&O: Vital Signs Date Time Temp Pulse Resp B/P B/P Pulse O2 O2 Flow FiO2 Mean Ox Delivery Rate 08/27 0700 97.7 86 21 110/72 96 Nasal 5.0L Cannula Exam General Appearance: well developed/nourished, no apparent distress, awake Head: atraumatic, normal appearance Respiratory: chest non-tender, decreased breath sounds Cardiovascular: regular rate/rhythm Gastrointestinal: normal bowel sounds, soft, non-tender Extremities: right arm swelling as improved, large area of ecchymosis on the right forearm, no lower extremity edema Current Medications: Current Medications Sig/Vero Start time Last Medication Dose Route Stop Time Status Admin Acetaminophen 650 MG Q6P PRN 08/12 2029 AC PO Acetaminophen 1,000 MG Q6P PRN 08/12 2029 AC IV Albuterol Sulfate 3 ML Q4P PRN 08/17 1630 AC 08/25 INH 1654 Budesonide/ 2 PUF BID 08/13 1000 AC 08/26 Formoterol Fumarate INH 2103 Calcium Carbonate 500 MG TIDPRN PRN 08/21 0745 AC 08/24 PO 1052 Diltiazem HCl 180 MG DAILY 08/17 1500 AC 08/26 PO 1021 Enoxaparin Sodium 60 MG ONCE ONE 08/26 1500 DC 08/26 SC 08/26 1501 1546 Furosemide 40 MG DAILY 08/22 1000 AC 08/26 PO 1022 Guaifenesin 600 MG Q12 08/18 2200 AC 08/26 PO 2103 Insulin Detemir 8 UNITS BID 08/22 1000 AC 08/26 SC 2102 Ipratropium [place] 2.5 ML EVERY 4 HRS/AWAKE 08/17 2000 AC 08/26 INH 2044 Levothyroxine Sodium 0.112 MG DAILY AC 08/13 0700 AC 08/27 PO 0624 Lidocaine 1 PAT DAILY 08/14 2215 AC 08/26 EXT 1022 Magnesium Oxide 400 MG DAILY 08/13 1000 AC 08/26 PO 1022 Multivitamins 1 TAB DAILY 08/21 1000 AC 08/26 PO 1023 Pantoprazole Sodium 40 MG DAILY 08/18 1000 AC 08/26 IV 1022 Polyethylene Glycol 17 GM DAILY 08/13 1656 AC 08/26 PO 1022 Potassium Chloride 40 MEQ DAILY 08/23 1000 AC 08/26 PO 1021 Prednisone 20 MG DAILY 08/24 1000 AC 08/26 PO 1022 Senna/Docusate Sodium 1 TAB BID PRN 08/13 1700 AC PO Sertraline HCl 50 MG 2200 08/13 2200 AC 08/26 PO 2103 Sodium Chloride 2 SPRAY Q4P PRN 08/14 0145 AC TAMIE Theophylline 200 MG AT BEDTIME 08/21 2200 AC 08/26 PO 2103 Tiotropium [place] 1 PUF DAILY 08/13 1000 AC 08/26 INH 1023 Tramadol HCl 25 MG Q4 HRS NEEDED PRN 08/13 1630 AC 08/25 PO 2134 Impression/Plan Impression/Problem List Impression: Patient is a 76 YO F with PMH significant for 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 The patient was transferred overnight to ICU for increased oxygen requirement and hypotension. Patient is currently being treated in ICU as Tele hold for the following: Patient today remained stable on 5L NC however became dyspneic and anxious while working with PT yesterday. Patient has been receiving ipratroprium neb today. Patient is significantly weaker and will require STR per PT recommendations. This was discussed with the patient today. Patient is currently on lasix 40mg with no lower extremity edema. Platelets remained stable today on lovenox. Patient will require jail anticoagulation for DVT. Patient has had significant bleeding on NOAC. Will continue lovenox at this time. Respiratory #Acute on chronic hypoxemic respiratory failure with end-stage COPD resulting in cor pulmonale/right-sided heart failure. -Transition to nasal cannula, keep off CPAP if possible -Goals greater than O2 88% -TRC/nebs. Only ipratropium for nebs, avoid albuterol due to tachycardia unless severe wheezing. -Taper steroids currently at prednisone 20 mg -Theophyline restarted 08/19 200mg at bedtime -theophyline level 1.9 Infection #Leukocytosis secondary to steroid use most likely, CT chest showed wedge-shaped opacity probably atelectasis, PNA, malignancy less likely - Patient remains afebrile - Continue to monitor #Suspected UTI Patient was initially started on ceftriaxone which was later discontinued because urine culture was negative. Cardiology #Syncopal episode Likely multifactorial. Patient was hypokalemic which could have contributed to an arrhythmia. She has hx of severe pulmonary hypertension and is diuresed for peripheral edema . She has relative cortisol deficiency due to steroid use Orthostatics contributing to her episodes. She was also hypoglycemic on presentation. -Continue to monitor on telemetry -Maintain euvolemic state #Right sided heart failure -Dobutamine drip discontinued -Continue PO 40 mg lasix -Continue potassium replacement with Lasix administration #Hypotension, resolved Patient's blood pressure dropped and she required 2500 mL fluid bolus and 50 mg IV hydrocortisone secondary to relative cortisol deficiency. Patient is currently receiving 20mg prednisone daily. #Relative bradycardia, Resolved -Initially Cardizem was held and has been restarted. Hematology # Symptomatic anemia Status post 1 unit PRBCs 08/13. Of note patient had history of GI bleed 2 years ago requiring 10 units of PRBC transfusion, likely diverticular. -Stool Guaiac - negative -H/H Stable continue to monitor Thrombocytopenia: Patient's platelets have been downtrending, currently at 90, 000. Decline may be attributed to initiation of lovenox for anticoagulation. HIT planel was sent which was negative. Due to patient's significant bleeding risk, lovenox is the choice for anticoagualtion as it can be reversed with protamine. - Will dose lovenox today and continue to monitor platelets closely. - Will keep her on ALPS for ppx. Note pt is high risk for clotting events as she has 3 noted DVT in r. arm on previous US. She is also very sedentary due to terminal COPD and is at high risk for PE. - Lovenox 60mg once today Deep venous thrombosis: Per RUE ultrasound on August 18/2018: pt has DVT in the right upper extremity with nonocclusive right axillary vein DVT, DVT in one of the paired brachial veinsand in the right basilic vein. Etiology likely due to r. sided passive congeston and pt moving very little. Metabolic #Hypokalemia/ Hyperkalemia Patient was initially hypokalemic and became hyperkalemic with repletion received calcium gluconate, insulin 10 units, dextrose 3 and Kayexalate 2 She became hypokalemic after diuresis, potassium has been replaced and today potassium is 4.0 -Continue to monitor and replete #Relative Cortisol deficiency Cortisol level was 10.7. Patient is on prednisone 15mg daily at home, which was not given to her since her admisson to the hospital. Patient was given stress dose of steroid and started on a prednisone taper starting from 40mg daily. Overnight patient's blood pressure dropped and she received 50 mg IV hydrocortisone -Taper steroids prednisone 20 mg #Transaminitis and hyperbilirubinemia Likely secondary to congestion in setting of right-sided heart failure.Transaminitis hyperbilirubinemia improving -Continue to monitor LFTs #DM One episode of hypoglycemia on 08/19 -Accu-Chek, insulin sliding scale -Levemir dose changed to 8 units BID, continue to monitor #Hypothyroidism -TSH/freeT4 WNL continue home dose of synthroid Musculoskeletal #Frequent falls/unsteady gait - PT evaluation - patient is currently an assist of 2. Will require STR after discharge. Alimentary #Dysphagia Patient choked on her medication on 08/14, states she has experienced the same before at home as well. -No events -Consider GI Consult for dysphagia is persistent inpt vs outpt Nephrology #[place]T-Secondary to prerenal azotemia in setting of diuresis-resolved -Encourage PO intake -Continue to monitor Cr curve -Avoid nephrotoxins DVT prophylaxis: with Alps and lovenox Code Status: DNR/DNI Dispo: Patient at this time is stable for transfer to general medicine. Will require STR. Problem List: 1. COPD EXACERBATION Pain Ratin Tomorrow's Labs & Rationales: cbc- thrombocytopenia, anemia bep- on lasix Plan DVT/Prophylaxis: mechanical Code Status: Do Not Resucitate/Intubat
[2017-08-27 08:00] VITALS: BP 126/74
--- NOTE | 2017-08-27 11:21 | PN- Cardiology ---
Subjective Subjective: Patient looks better. Telemetry sinus rhythm. Awaiting short-term rehabilitation bed. Objective Vital Signs and I&Os Vital Signs Date Time Temp Pulse Resp B/P B/P Pulse O2 O2 Flow FiO2 Mean Ox Delivery Rate 08/27 0832 99 Nasal 5.0L Cannula 08/27 0800 98.8 80 18 126/74 100 Nasal 4.0L Cannula 08/27 0800 94 Nasal 4.0L Cannula 08/27 0700 97.7 86 21 110/72 96 Nasal 5.0L Cannula 08/27 0000 96 Nasal 5.0L Cannula 08/26 2300 97.5 75 26 98/60 95 Nasal 5.0L Cannula 08/26 1610 92 Nasal 5.0L Cannula 08/26 1600 91 Nasal 4.0L Cannula 08/26 1600 97.0 71 23 108/62 94 Nasal 4.0L Cannula 08/26 1559 Nasal 5.0L Cannula Intake & Output 08/27 1600 08/27 0800 08/27 0000 08/26 1600 08/26 0800 08/26 0000 Intake Total 280 250 250 600 100 280 Output Total 250 350 300 300 400 400 Balance 30 -100 -50 300 -300 -120 Intake, Oral 280 250 250 600 100 280 Number 1 Bowel Movements Output, Urine 250 350 300 300 400 400 Patient 131 lb 120 lb Weight Physical Exam: On general exam patient appeared comfortable but bitterly complains of shortness of breath on the least exertion Head normocephalic atraumatic Eyes sclera anicteric conjunctiva showed no pallor extraocular muscles were normal Chest lungs decreased air entry bilaterally Heart regular rhythm with 1 to 2/6 systolic murmur Abdomen soft no organomegaly bowel sounds normal Extremities no edema multiple ecchymotic patches. Neurological no gross motor deficits Assessment/Plan Assessment/Plan In summary this 76-year-old female is following problems 1. Syncope multifactorial. She was hypokalemic on admission therefore arrhythmias are a consideration. She also has severe pulmonary hypertension and may have had an orthostatic hypotensive episode secondary to diuretics 2. Diastolic heart failure by history 3. 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 Diabetes 5. History of GI bleed 6. Bradycardia secondary to hyperkalemia stable. 7. Upper extremity DVT Patient appears better than last week. Platelet counts improving. On Lovenox. Await short-term rehabilitation Continue telemetry? Yes
--- NOTE | 2017-08-27 13:31 | PN- Pulmonary ---
Subjective HPI/Critical Care Issues: Patient states that she did not sleep well overnight. Patient reports feeling short of breath while standing up and walking to her chair with PT yesterday. Patient feels anxious about moving due to difficulty breathing with exertion. Patient denies any chest pain, palpitations, nausea/vomiting, fever/chills. Patient reports that her right arm swelling has improved however she now notes a large bruise on her forearm. Vitals: MAXIMUM TEMPERATURE 97.7, heart rate 75-6, respiration rate 21-26, blood pressure 98-110/62 neutrophils, 96-99% on 5 L nasal cannula Labs: WBC 14.6, H&H 10.3 and 32.7, platelets 106 (decreased from 144 ) Sodium 139, potassium 4.7, chloride 101, bicarbonate 30, BUN 30, creatinine 0.9, calcium 9.3, phosphorus 2.9, magnesium 2.0, total bili 1.3, AST 28, ALT 114 ( decreased from 131), albumin 2.8 Objective Current Medications: Current Medications Sig/Vero Start time Last Medication Dose Route Stop Time Status Admin Acetaminophen 650 MG Q6P PRN 08/12 2030 AC PO Acetaminophen 1,000 MG Q6P PRN 08/12 2030 AC IV Albuterol Sulfate 3 ML Q4P PRN 08/17 1630 AC 08/25 INH 1654 Budesonide/ 2 PUF BID 08/13 1000 AC 08/27 Formoterol Fumarate INH 0855 Calcium Carbonate 500 MG TIDPRN PRN 08/21 0745 AC 08/24 PO 1052 Diltiazem HCl 180 MG DAILY 08/17 1500 AC 08/27 PO 0853 Enoxaparin Sodium 60 MG ONCE ONE 08/26 1500 DC 08/26 SC 08/26 1501 1546 Furosemide 40 MG DAILY 08/22 1000 AC 08/27 PO 0853 Guaifenesin 600 MG Q12 08/18 2200 AC 08/27 PO 0853 Insulin Aspart 0 TIDAC 08/27 1700 AC 08/27 SC 1322 Insulin Detemir 8 UNITS BID 08/22 1000 AC 08/27 SC 1150 Ipratropium [place] 2.5 ML EVERY 4 HRS/AWAKE 08/17 2000 AC 08/27 INH 1202 Levothyroxine Sodium 0.112 MG DAILY AC 08/13 0700 AC 08/27 PO 0624 Lidocaine 1 PAT DAILY 08/14 2215 AC 08/27 EXT 0854 Magnesium Oxide 400 MG DAILY 08/13 1000 AC 08/27 PO 0852 Multivitamins 1 TAB DAILY 08/21 1000 AC 08/27 PO 0853 Pantoprazole Sodium 40 MG DAILY 08/18 1000 AC 08/27 IV 0854 Polyethylene Glycol 17 GM DAILY 08/13 1656 AC 08/27 PO 0854 Potassium Chloride 40 MEQ DAILY 08/23 1000 AC 08/27 PO 0852 Prednisone 20 MG DAILY 08/24 1000 AC 08/27 PO 0853 Senna/Docusate Sodium 1 TAB BID PRN 08/13 1700 AC PO Sertraline HCl 50 MG 08/13 2200 AC 08/26 PO 2103 Sodium Chloride 2 SPRAY Q4P PRN 08/14 0145 AC TAMIE Theophylline 200 MG AT BEDTIME 08/21 2200 AC 08/26 PO 2103 Tiotropium [place] 1 PUF DAILY 08/13 1000 AC 08/27 INH 0855 Tramadol HCl 25 MG Q4 HRS NEEDED PRN 08/13 1630 DC 08/25 PO 2134 Vital Signs & I&O Last 24 Hrs of Vitals and I&O: Vital Signs Date Time Temp Pulse Resp B/P B/P Pulse O2 O2 Flow FiO2 Mean Ox Delivery Rate 08/27 1208 94 Nasal 4.0L Cannula 08/27 0832 99 Nasal 5.0L Cannula 08/27 08 98.8 80 18 126/74 100 Nasal 4.0L Cannula 08/27 0800 94 Nasal 4.0L Cannula 08/27 0700 97.7 86 21 110/72 96 Nasal 5.0L Cannula 08/27 0000 96 Nasal 5.0L Cannula 08/26 2300 97.5 75 26 98/60 95 Nasal 5.0L Cannula 08/26 1610 92 Nasal 5.0L Cannula 08/26 1600 91 Nasal 4.0L Cannula 08/26 1600 97.0 71 23 108/62 94 Nasal 4.0L Cannula 08/26 1559 Nasal 5.0L Cannula Intake & Output 08/27 1600 08/27 0800 08/27 0000 Intake Total 280 250 250 Output Total 250 350 300 Balance 30 -100 -50 Intake, Oral 280 250 250 Output, Urine 250 350 300 Patient 131 lb Weight Laboratory Tests 08/27 08/26 0345 0400 Chemistry Sodium (137 - 145 mmol/L) 139 139 Potassium (3.5 - 5.1 mmol/L) 4.7 4.7 Chloride (98 - 107 mmol/L) 101 100 Carbon Dioxide (22 - 30 mmol/L) 30 32 H Anion Gap (5 - 16) 8 7 BUN (7 - 17 mg/dL) 30 H 27 H Creatinine (0.5 - 1.0 mg/dL) 0.9 0.8 Estimated GFR (>60 ml/min) > 60 > 60 Glucose (65 - 99 mg/dL) 294 H 213 H Calcium (8.4 - 10.2 mg/dL) 9.3 9.0 Phosphorus (2.5 - 4.5 mg/dL) 3.9 3.2 Magnesium (1.6 - 2.3 mg/dL) 2.0 2.0 Total Bilirubin (0.2 - 1.3 mg/dL) 1.3 1.4 H AST (14 - 36 U/L) 28 30 ALT (9 - 52 U/L) 114 H 131 H Albumin (3.5 - 5.0 g/dL) 2.8 L 2.7 L Hematology CBC w Diff MAN DIFF ORDERED MAN DIFF ORDERED WBC (4.8 - 10.8 /CUMM) 14.6 H 14.3 H RBC (4.20 - 5.40 /CUMM) 4.74 4.78 Hgb (12.0 - 16.0 G/DL) 10.3 L 10.3 L Hct (37 - 47 %) 32.7 L 32.9 L MCV (81.0 - 99.0 FL) 68.9 L 68.9 L MCH (27.0 - 31.0 PG) 21.7 L 21.6 L MCHC (33.0 - 37.0 G/DL) 31.6 L 31.4 L RDW (11.5 - 14.5 %) 25.7 H 25.8 H Plt Count (130 - 400 /CUMM) 106 L 144 MPV (7.4 - 10.4 FL) 9.6 10.4 Segmented Neutrophils (42.2 - 75.2 %) 93 H 92 H Band Neutrophils (0.0 - 5.0 %) 3 Lymphocytes (20.5 - 51.1 %) 2 L 3 L Monocytes (1.7 - 9.3 %) 2 5 Nucleated RBCs (0.0 - 0.0 /100WBC) 2 H Platelet Estimate (ADEQUATE) DECREASED ADEQUATE Polychromasia 1+ 1+ Hypochromic-Microcytic 1+ 2+ Poikilocytosis 2+ 2+ Basophilic Stippling RARE 1+ Anisocytosis 1+ 3+ Microcytic Cells 1+ 3+ Target Cells 1+ Ovalocytes 1+ Stomatocytes 1+ RARE Triston Cells 1+ FEW Elliptocytes 1+ 1+ Other Body Source Fld Total RBCs Counted (%) 100 Impression/Plan Impression/Plan Impression/Plan: General: Nontoxic, no apparent distress. on nasal cannula HEENT: Sclera and conjunctiva within normal limits, without xanthelasmas. Neck: Carotids 2+ without bruits. Respiratory: Scattered rhonchi and rales, air movement is decreased at bases, without accessory respiratory muscle use. Heart: Regular rate and rhythm, 2/6 systolic ejection murmur left sternal border , without JVD. Abdomen: Soft, nontender, no masses, normoactive bowel sounds. Extremities: Without clubbing, cyanosis, without edema. Neuro: Nonfocal exam, strength, 5 out of 5 Skin: Within normal limits without lesions. Psych: Mood and affect: Normal\ This is a lady with end-stage COPD, cor pulmonale, 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, history of lung cancer status post radiation to the left upper lobe with gamma knife therapy with stage I lung cancer presumed cure with no recurrent lesion noted in the recent CAT scan now here with * Acute Cor pulmonale with chronic right heart dysfunction with profound shortness of breath due to end-stage COPD and heart disease. S/p dobutamine and IV lasix * Resolved Syncope or near sycope with multiple falls, pt with severe PUlm htn from copd, with sig corpulmonale, previous full work up for other causes are neg (no vte, no vasculitis etc) * Symtomatic anemia with sig eccymosis due to prednisone s/p transfusion * RElative cortisol def * End stage copd with chronic resp failure * REcurrent diastolic chf now euvolemic after ivf as she was dehydrated upon admission * Profound fatigue significant shortness of breath muscle weakness most likely related to cortisol deficiency as she's been on steroids for years * VTE upper ext now on lovenox with thrombocytopenia and off anticoag and pt wishes to hold off anticoag as she has had sig bleeding before. HIT antibody is neg and platelets are low again * CHest ct abormality wedge shaped (no pe, prob atx vs pna unlikely malignancy), will get a follow up ct in few weeks * History of lung cancer status post radiation therapy rule out recurrence * Diabetes on insulin * Hypothyroidism on appropriate supplementation therapy REC Po lasix daily 40 mg Change to nasal cannula OOB to chair PT eval Dc cpap at hs and use it only if pt demands it Use ipratropium only for nebs Prednisone 20 mg Cont dilt Give one dose of 60 mg lovenox today, follow platelets and will consider warfarin later Follow sugar and titrate insulin Theophylline 200 mg at hs OOB to chair TO tele floor today
[2017-08-27 16:00] VITALS: BP 96/60
[2017-08-27 22:44] VITALS: BP 118/58
[2017-08-28 06:48] VITALS: BP 116/64
[2017-08-28 08:17] LABS: HEMATOCRIT 33.1 % (37-47); MEAN CORPUSCULAR HGB 21.5 PG (27.0-31.0); MEAN CORPUSCULAR HGB CONC 31.1 G/DL (33.0-37.0); MEAN CORPUSCULAR VOLUME 68.9 FL (81.0-99.0); MEAN PLATELET VOLUME 9.9 FL (7.4-10.4); RBC DISTRIBUTION WIDTH 25.4 % (11.5-14.5); WHITE BLOOD CELL COUNT 14.5 /CUMM (4.8-10.8)
[2017-08-28 10:35] LABS: PLATELET COUNT 117 /CUMM (130-400)
--- NOTE | 2017-08-28 10:36 | PN- Housestaff ---
Subjective Follow-up For: Acute on chronic hypoxemic respiratory failure with end-stage COPD resulting in cor pulmonale/right-sided heart failure. Leukocytosis Syncopal episode Right sided heart failure Symptomatic anemia Deep venous thrombosis Tele-Events Since Last Visit: Off telemetry Subjective: Patient was seen and examined at bedside, she is anxious and continues to complain of shortness of breath and dizziness especially when she stands up. In addition she feels weak. Currently on 5 L oxygen Review of Systems Constitutional: Reports: see HPI. Objective Last 24 Hrs of Vital Signs/I&O Vital Signs Date Time Temp Pulse Resp B/P B/P Pulse O2 O2 Flow FiO2 Mean Ox Delivery Rate 08/28 0813 90 Nasal 4.0L Cannula 08/28 0800 90 Nasal 4.0L Cannula 08/28 0648 97.9 83 20 116/64 95 Nasal 4.0L Cannula 08/28 0310 Nasal 4.0L Cannula 08/28 0000 Nasal 4.0L Cannula 08/27 2244 98.3 81 18 118/58 92 08/27 2026 93 Nasal 4.0L Cannula 08/27 1600 Nasal 4.0L Cannula 08/27 1600 97.9 80 18 96/60 86 Nasal 4.0L Cannula 08/27 1208 94 Nasal 4.0L Cannula Intake & Output 08/28 1600 08/28 0800 08/28 0000 Intake Total 110 60 Output Total 500 Balance 110 -440 Intake, IV 10 Intake, Oral 100 60 Number 1 Bowel Movements Output, Urine 500 Physical Exam General Appearance: Alert, Oriented X3, Cooperative, Mild Distress Skin: multiple wide spread skin bruises HEENT: Atraumatic, PERRLA, EOMI, Mucous Membr. 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 The patient was transferred overnight to ICU for increased oxygen requirement and hypotension. #Acute on chronic hypoxemic respiratory failure with end-stage COPD resulting in cor pulmonale/right-sided heart failure. -Transition to nasal cannula, keep off CPAP if possible -Goals greater than O2 88% -TRC/nebs. Only ipratropium for nebs, avoid albuterol due to tachycardia unless severe wheezing. -Taper steroids currently at prednisone 20 mg -Theophyline restarted 08/19 200mg at bedtime -theophyline level 1.9 #Leukocytosis secondary to steroid use most likely, CT chest showed wedge-shaped opacity probably atelectasis, PNA, malignancy less likely - Patient remains afebrile - Continue to monitor #Suspected UTI Patient was initially started on ceftriaxone which was later discontinued because urine culture was negative. #Syncopal episode Likely multifactorial. Patient was hypokalemic which could have contributed to an arrhythmia. She has hx of severe pulmonary hypertension and is diuresed for peripheral edema . She has relative cortisol deficiency due to steroid use Orthostatics contributing to her episodes. She was also hypoglycemic on presentation. -Continue to monitor on telemetry -Maintain euvolemic state #Right sided heart failure -Continue PO 40 mg lasix -Continue potassium replacement with Lasix administration #Hypotension, resolved Patient's blood pressure dropped and she required 2500 mL fluid bolus and 50 mg IV hydrocortisone secondary to relative cortisol deficiency. Patient is currently receiving 20mg prednisone daily. #Relative bradycardia, Resolved -Initially Cardizem was held and has been restarted. # Symptomatic anemia Status post 1 unit PRBCs 08/13. Of note patient had history of GI bleed 2 years ago requiring 10 units of PRBC transfusion, likely diverticular. -Stool Guaiac - negative -H/H Stable continue to monitor Thrombocytopenia: Patient's platelets have been downtrending, currently at 90, 000. Decline may be attributed to initiation of lovenox for anticoagulation. HIT planel was sent which was negative. Due to patient's significant bleeding risk, lovenox is the choice for anticoagualtion as it can be reversed with protamine. - Will dose lovenox today and continue to monitor platelets closely. - Will keep her on ALPS for ppx. Note pt is high risk for clotting events as she has 3 noted DVT in r. arm on previous US. She is also very sedentary due to terminal COPD and is at high risk for PE. - Lovenox 60mg once today Deep venous thrombosis: Per RUE ultrasound on August 18/2018: pt has DVT in the right upper extremity with nonocclusive right axillary vein DVT, DVT in one of the paired brachial veinsand in the right basilic vein. Etiology likely due to r. sided passive congeston and pt moving very little. #Hypokalemia/ Hyperkalemia-improved Patient was initially hypokalemic and became hyperkalemic with repletion received calcium gluconate, insulin 10 units, dextrose 3 and Kayexalate 2 She became hypokalemic after diuresis, potassium has been replaced and today potassium is 4.2 -Continue to monitor and replete #Relative Cortisol deficiency Cortisol level was 10.7. Patient is on prednisone 15mg daily at home, which was not given to her since her admisson to the hospital. Patient was given stress dose of steroid and started on a prednisone taper starting from 40mg daily. Overnight patient's blood pressure dropped and she received 50 mg IV hydrocortisone -Taper steroids prednisone 20 mg #Transaminitis and hyperbilirubinemia Likely secondary to congestion in setting of right-sided heart failure.Transaminitis hyperbilirubinemia improving -Continue to monitor LFTs #DM One episode of hypoglycemia on 08/19 -Accu-Chek, insulin sliding scale -Levemir dose changed to 8 units BID, continue to monitor #Hypothyroidism -TSH/freeT4 WNL continue home dose of synthroid #Frequent falls/unsteady gait - PT evaluation - patient is currently an assist of 2. Will require STR after discharge. #Dysphagia Patient choked on her medication on 08/14, states she has experienced the same before at home as well. -No events -Consider GI Consult for dysphagia is persistent inpt vs outpt #[place]-Secondary to prerenal azotemia in setting of diuresis-resolved -Encourage PO intake -Continue to monitor Cr curve -Avoid nephrotoxins DVT prophylaxis: with Alps and lovenox Code Status: DNR/DNI Dispo: Patient at this time is stable for transfer to general medicine. Will require STR. Problem List: 1. COPD exacerbation Pain Ratin Pain Location: N/A Pain Goal: Remain pain free Pain Plan: Pathway Tomorrow's Labs & Rationales: cbc bep DVT/Prophylaxis: mechanical, pharmacological
--- NOTE | 2017-08-28 10:38 | PN- Att Addend ---
Attending Addendum Attending Brief Note Covering attending note. Patient in bed seems anxious nervous short of breath. Appreciate cardiology's input and recommendations Vital signs are stable still on oxygen. No major changes on physical, white count 14,500. Patient seen by PT probably would benefit from short-term rehabilitation in the meantime continue observation and treatment Intake & Output 08/28 1600 08/28 0400 08/27 1600 08/27 0400 08/26 1600 08/26 0400 Intake Total 110 60 530 250 700 280 Output Total 500 900 300 700 400 Balance 110 -440 -370 -50 0 -120 Intake, IV 10 Intake, Oral 100 60 530 250 700 280 Number 1 1 Bowel Movements Output, Urine 500 900 300 700 400 Patient 131 lb 120 lb Weight Current Medications Sig/Vero Start time Last Medication Dose Route Stop Time Status Admin Acetaminophen 650 MG Q6P PRN 08/12 2029 AC PO Acetaminophen 1,000 MG Q6P PRN 08/12 2030 AC IV Albuterol Sulfate 3 ML Q4P PRN 08/17 1630 AC 08/25 INH 1654 Budesonide/ 2 PUF BID 08/13 1000 AC 08/28 Formoterol Fumarate INH 1013 Calcium Carbonate 500 MG TIDPRN PRN 08/21 0745 AC 08/24 PO 1052 Diltiazem HCl 180 MG DAILY 08/17 1500 AC 08/28 PO 1015 Enoxaparin Sodium 60 MG ONCE ONE 08/27 1445 DC 08/27 SC 08/27 1446 1809 Furosemide 40 MG DAILY 08/22 1000 AC 08/28 PO 1015 Guaifenesin 600 MG Q12 08/18 2200 AC 08/28 PO 1015 Insulin Aspart 0 TIDAC 08/27 1700 AC 08/28 SC 0824 Insulin Detemir 8 UNITS BID 08/22 1000 AC 08/28 SC 1013 Ipratropium [place] 2.5 ML EVERY 4 HRS/AWAKE 08/17 2000 AC 08/28 INH 0810 Levothyroxine Sodium 0.112 MG DAILY AC 08/13 0700 AC 08/28 PO 0606 Lidocaine 1 PAT DAILY 08/14 2215 AC 08/28 EXT 1013 Magnesium Oxide 400 MG DAILY 08/13 1000 AC 08/28 PO 1015 Multivitamins 1 TAB DAILY 08/21 1000 AC 08/28 PO 1015 Pantoprazole Sodium 40 MG DAILY 08/18 1000 AC 08/28 IV 1014 Polyethylene Glycol 17 GM DAILY 08/13 1656 AC 08/27 PO 0854 Potassium Chloride 40 MEQ DAILY 08/23 1000 AC 08/28 PO 1015 Prednisone 20 MG DAILY 08/24 1000 AC 08/28 PO 1015 Senna/Docusate Sodium 1 TAB BID PRN 08/13 1700 AC PO Sertraline HCl 50 MG 08/13 2200 AC 08/27 PO 2135 Sodium Chloride 2 SPRAY Q4P PRN 08/14 0145 AC TAMIE Theophylline 200 MG AT BEDTIME 08/21 2199 AC 08/27 PO 2135 Tiotropium [place] 1 PUF DAILY 08/13 1000 AC 08/28 INH 1013 Tramadol HCl 25 MG Q4 HRS NEEDED PRN 08/28 0030 AC 08/28 PO 1029 Laboratory Tests 08/28/17 0620: Anion Gap 7, Estimated GFR > 60, Glucose 149 H, Calcium 9.7, Phosphorus 3.8, Magnesium 2.0, Total Bilirubin 1.3, AST 39 H, ALT 108 H, Albumin 2.9 L, CBC w Diff MAN DIFF ORDERED, RBC 4.80, MCV 68.9 L, MCH 21.5 L, MCHC 31.1 L, RDW 25.4 H, MPV 9.9, Segmented Neutrophils 92 H, Lymphocytes 3 L, Monocytes 5, Hypochromic-Microcytic 1+, Poikilocytosis 3+, Basophilic Stippling 1+, Anisocytosis 3+, Microcytic Cells 4+, Ovalocytes 2+, Schistocytes 1+ 08/27/17 0345: Anion Gap 8, Estimated GFR > 60, Glucose 294 H, Calcium 9.3, Phosphorus 3.9, Magnesium 2.0, Total Bilirubin 1.3, AST 28, ALT 114 H, Albumin 2.8 L, CBC w Diff MAN DIFF ORDERED, RBC 4.74, MCV 68.9 L, MCH 21.7 L, MCHC 31.6 L, RDW 25.7 H, MPV 9.6, Segmented Neutrophils 93 H, Band Neutrophils 3, Lymphocytes 2 L, Monocytes 2, Nucleated RBCs 2 H, Platelet Estimate DECREASED, Polychromasia 1+, Hypochromic-Microcytic 1+, Poikilocytosis 2+, Basophilic Stippling RARE, Anisocytosis 1+, Microcytic Cells 1+, Target Cells 1+, Stomatocytes 1+, Rowe Cells 1+, Elliptocytes 1+ 08/26/17 0400: Anion Gap 7, Estimated GFR > 60, Glucose 213 H, Calcium 9.0, Phosphorus 3.2, Magnesium 2.0, Total Bilirubin 1.4 H, AST 30, ALT 131 H, Albumin 2.7 L, CBC w Diff MAN DIFF ORDERED, RBC 4.78, MCV 68.9 L, MCH 21.6 L, MCHC 31.4 L, RDW 25.8 H, MPV 10.4, Segmented Neutrophils 92 H, Lymphocytes 3 L, Monocytes 5, Platelet Estimate ADEQUATE, Polychromasia 1+, Hypochromic-Microcytic 2+, Poikilocytosis 2+, Basophilic Stippling 1+, Anisocytosis 3+, Microcytic Cells 3+ , Ovalocytes 1+, Stomatocytes RARE, Rowe Cells FEW, Elliptocytes 1+, Fld Total RBCs Counted 100 Vital Signs Date Time Temp Pulse Resp B/P B/P Pulse O2 O2 Flow FiO2 Mean Ox Delivery Rate 08/28 0813 90 Nasal 4.0L Cannula 08/28 0800 90 Nasal 4.0L Cannula 08/28 0648 97.9 83 20 116/64 95 Nasal 4.0L Cannula 08/28 0310 Nasal 4.0L Cannula 08/28 0000 Nasal 4.0L Cannula 08/27 2244 98.3 81 18 118/58 92 08/27 2026 93 Nasal 4.0L Cannula 08/27 1600 Nasal 4.0L Cannula 08/27 1600 97.9 80 18 96/60 86 Nasal 4.0L Cannula 08/27 1208 94 Nasal 4.0L Cannula
--- NOTE | 2017-08-28 12:07 | PN- Cardiology ---
Subjective Subjective: Still reports feeling short of breath. No associated chest pain or dyspnea. Objective Vital Signs and I&Os Vital Signs Date Time Temp Pulse Resp B/P B/P Pulse O2 O2 Flow FiO2 Mean Ox Delivery Rate 08/28 0813 90 Nasal 4.0L Cannula 08/28 0800 90 Nasal 4.0L Cannula 08/28 0648 97.9 83 20 116/64 95 Nasal 4.0L Cannula 08/28 0310 Nasal 4.0L Cannula 08/28 0000 Nasal 4.0L Cannula 08/27 2244 98.3 81 18 118/58 92 08/27 2025 93 Nasal 4.0L Cannula 08/27 1600 Nasal 4.0L Cannula 08/27 1600 97.9 80 18 96/60 86 Nasal 4.0L Cannula 08/27 1208 94 Nasal 4.0L Cannula Intake & Output 08/28 1600 08/28 0800 08/28 0000 08/27 1600 08/27 0800 08/27 0000 Intake Total 110 60 280 250 250 Output Total 500 550 350 300 Balance 110 -440 -270 -100 -50 Intake, IV 10 Intake, Oral 100 60 280 250 250 Number 1 Bowel Movements Output, Urine 500 550 350 300 Patient 131 lb Weight Physical Exam: General: no apparent distress. Alert. On nasal cannula oxygen Eyes: No obvious scleral icterus. HEENT: No jugular venous distention or abnormal jugular venous pulsations. Cardiovascular: Normal intensity S1/S2. Regular Respiratory: Mildly decreased air entry Abdomen: Soft, nontender with no guarding or rebound tenderness. Musculoskeletal: No cyanosis noted, trace edema Skin: Warm Neurologic: No gross focal deficits noted. Current Medications: Current Medications Sig/Vero Start time Last Medication Dose Route Stop Time Status Admin Acetaminophen 650 MG Q6P PRN 08/12 2029 AC PO Acetaminophen 1,000 MG Q6P PRN 08/12 2029 AC IV Albuterol Sulfate 3 ML Q4P PRN 08/17 1630 AC 08/25 INH 1654 Budesonide/ 2 PUF BID 08/13 1000 AC 08/28 Formoterol Fumarate INH 1013 Calcium Carbonate 500 MG TIDPRN PRN 08/21 0745 AC 08/24 PO 1052 Diltiazem HCl 180 MG DAILY 08/17 1500 AC 08/28 PO 1015 Enoxaparin Sodium 60 MG ONCE ONE 08/27 1445 DC 08/27 SC 08/27 1446 1809 Furosemide 40 MG DAILY 08/22 1000 AC 08/28 PO 1015 Guaifenesin 600 MG Q12 08/18 2200 AC 08/28 PO 1015 Insulin Aspart 0 TIDAC 08/27 1700 AC 08/28 SC 0824 Insulin Detemir 8 UNITS BID 08/22 1000 AC 08/28 SC 1013 Ipratropium [place] 2.5 ML EVERY 4 HRS/AWAKE 08/17 2000 AC 08/28 INH 0810 Levothyroxine Sodium 0.112 MG DAILY AC 08/13 0700 AC 08/28 PO 0606 Lidocaine 1 PAT DAILY 08/14 2215 AC 08/28 EXT 1013 Magnesium Oxide 400 MG DAILY 08/13 1000 AC 08/28 PO 1015 Multivitamins 1 TAB DAILY 08/21 1000 AC 08/28 PO 1015 Pantoprazole Sodium 40 MG DAILY 08/18 1000 AC 08/28 IV 1014 Polyethylene Glycol 17 GM DAILY 08/13 1656 AC 08/27 PO 0854 Potassium Chloride 40 MEQ DAILY 08/23 1000 AC 08/28 PO 1015 Prednisone 20 MG DAILY 08/24 1000 AC 08/28 PO 1015 Senna/Docusate Sodium 1 TAB BID PRN 08/13 1700 AC PO Sertraline HCl 50 MG 22008/13 2200 AC 08/27 PO 2135 Sodium Chloride 2 SPRAY Q4P PRN 08/14 0145 AC TAMIE Theophylline 200 MG AT BEDTIME 08/21 2200 AC 08/27 PO 2135 Tiotropium [place] 1 PUF DAILY 08/13 1000 AC 08/28 INH 1013 Tramadol HCl 25 MG Q4 HRS NEEDED PRN 08/28 0030 AC 08/28 PO 1029 Results Last 48 Hrs of Labs/Mics: Laboratory Tests 08/28/17 0620: Anion Gap 7, Estimated GFR > 60, Glucose 149 H, Calcium 9.7, Phosphorus 3.8, Magnesium 2.0, Total Bilirubin 1.3, AST 39 H, ALT 108 H, Albumin 2.9 L, CBC w Diff MAN DIFF ORDERED, RBC 4.80, MCV 68.9 L, MCH 21.5 L, MCHC 31.1 L, RDW 25.4 H, MPV 9.9, Segmented Neutrophils 92 H, Lymphocytes 3 L, Monocytes 5, Hypochromic-Microcytic 1+, Poikilocytosis 3+, Basophilic Stippling 1+, Anisocytosis 3+, Microcytic Cells 4+, Ovalocytes 2+, Schistocytes 1+ 08/27/17 0345: Anion Gap 8, Estimated GFR > 60, Glucose 294 H, Calcium 9.3, Phosphorus 3.9, Magnesium 2.0, Total Bilirubin 1.3, AST 28, ALT 114 H, Albumin 2.8 L, CBC w Diff MAN DIFF ORDERED, RBC 4.74, MCV 68.9 L, MCH 21.7 L, MCHC 31.6 L, RDW 25.7 H, MPV 9.6, Segmented Neutrophils 93 H, Band Neutrophils 3, Lymphocytes 2 L, Monocytes 2, Nucleated RBCs 2 H, Platelet Estimate DECREASED, Polychromasia 1+, Hypochromic-Microcytic 1+, Poikilocytosis 2+, Basophilic Stippling RARE, Anisocytosis 1+, Microcytic Cells 1+, Target Cells 1+, Stomatocytes 1+, Triston Cells 1+, Elliptocytes 1+ Assessment/Plan Assessment/Plan 1. Syncope multifactorial. She was hypokalemic on admission therefore arrhythmias are a consideration. She also has severe pulmonary hypertension and may have had an orthostatic hypotensive episode secondary to diuretics 2. Diastolic heart failure by history 3. 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 Diabetes 5. History of GI bleed 6. Bradycardia secondary to hyperkalemia stable. 7. Upper extremity DVT Still feels short of breath. Appears grossly euvolemic on the oral Lasix but as she feels short of breath would give her an extra dose of Lasix 40 mg IV 1 today to see if it results in any symptom improvement. Remains hemodynamically stable. She has been receiving Lovenox for upper extremity DVT. Jamie Cope MD [facility] Continue telemetry? Not applicable
[2017-08-28 14:36] VITALS: BP 118/70
[2017-08-28 23:09] VITALS: BP 112/60
[2017-08-29 05:51] LABS: RBC DISTRIBUTION WIDTH 25.8 % (11.5-14.5)
[2017-08-29 05:57] LABS: MEAN CORPUSCULAR HGB CONC 30.3 G/DL (33.0-37.0); MEAN CORPUSCULAR VOLUME 69.4 FL (81.0-99.0); MEAN PLATELET VOLUME 9.7 FL (7.4-10.4); PLATELET COUNT 125 /CUMM (130-400); RED BLOOD CELL CT 5.54 /CUMM (4.20-5.40); WHITE BLOOD CELL COUNT 15.9 /CUMM (4.8-10.8)
[2017-08-29 06:05] LABS: HEMATOCRIT 38.5 % (37-47)
[2017-08-29 06:38] VITALS: BP 126/74
--- NOTE | 2017-08-29 08:37 | PN- Housestaff ---
See Addendum Subjective Follow-up For: #Acute on chronic hypoxemic respiratory failure with end-stage COPD resulting in cor pulmonale/right-sided heart failure. #Leukocytosis 3Syncopal episode #Right sided heart failure #Symptomatic anemia #Deep venous thrombosis Tele-Events Since Last Visit: Off tele Subjective: No overnight event. Patient is on high flow. would like some orange juice. NO other specific complaint. Review of Systems Constitutional: Reports: see HPI. Objective Last 24 Hrs of Vital Signs/I&O Vital Signs Date Time Temp Pulse Resp B/P B/P Pulse O2 O2 Flow FiO2 Mean Ox Delivery Rate 08/29 0816 96 Nasal 45% Cannula 08/29 0638 98.3 81 18 126/74 92 08/29 0049 91 Nasal 45% Cannula 08/29 0000 Nasal 45% Cannula 08/28 2309 98.9 89 16 112/60 91 Nasal Cannula 08/28 2214 93 Nasal 45% Cannula 08/28 1915 87 Nasal 50% Cannula 08/28 1630 95 Nasal 55% Cannula 08/28 1600 94 Nasal 50% Cannula 08/28 1510 90 Nasal 55% Cannula 08/28 1436 97.6 88 20 118/70 94 Nasal 4.0L Cannula Intake & Output 08/29 1600 08/29 0800 08/29 0000 Intake Total Output Total 400 800 Balance -400 -800 Output, Urine 400 800 Patient 52.617 kg Weight Physical Exam General Appearance: Alert, Oriented X3, Cooperative, No Acute Distress Cardiovascular: Regular Rate Lungs: Normal Air Movement, Coarse breathing sound with some accesory muscle use , on high flow O2. Abdomen: Soft, No Tenderness Extremities: No Edema Current Medications: Current Medications Sig/Vero Start time Last Medication Dose Route Stop Time Status Admin Acetaminophen 650 MG Q6P PRN 08/12 2030 AC PO Acetaminophen 1,000 MG Q6P PRN 08/12 2030 AC IV Albuterol Sulfate 3 ML Q4P PRN 08/17 1630 AC 08/25 INH 1654 Budesonide/ 2 PUF BID 08/13 1000 AC 08/29 Formoterol Fumarate INH 0917 Calcium Carbonate 500 MG TIDPRN PRN 08/21 0745 AC 08/24 PO 1052 Dextrose 25 GM ONCE ONE 08/29 0515 DC 08/29 IV 08/29 0516 0525 Diltiazem HCl 180 MG DAILY 08/17 1500 AC 08/29 PO 0919 Enoxaparin Sodium 60 MG ONCE ONE 08/28 1400 DC 08/28 SC 08/28 1401 1444 Furosemide 40 MG ONCE ONE 08/28 1315 DC 08/28 IV 08/28 1316 1443 Furosemide 40 MG DAILY 08/22 1000 AC 08/29 PO 0919 Guaifenesin 600 MG Q12 08/18 2200 AC 08/29 PO 0918 Insulin Aspart 0 TIDAC 08/27 1700 AC 08/29 SC 0818 Insulin Detemir 8 UNITS BID 08/22 1000 AC 08/29 SC 0931 Ipratropium [place] 2.5 ML EVERY 4 HRS/AWAKE 08/17 2000 AC 08/29 INH 0813 Levothyroxine Sodium 0.112 MG DAILY AC 08/13 0700 AC 08/29 PO 0632 Lidocaine 1 PAT DAILY 08/14 2215 AC 08/29 EXT 0919 Magnesium Oxide 400 MG DAILY 08/13 1000 AC 08/29 PO 0918 Multivitamins 1 TAB DAILY 08/21 1000 AC 08/29 PO 0918 Pantoprazole Sodium 40 MG DAILY 08/18 1000 AC 08/29 IV 0919 Polyethylene Glycol 17 GM DAILY 08/13 1656 AC 08/29 PO 0919 Potassium Chloride 40 MEQ DAILY 08/23 1000 AC 08/29 PO 0919 Prednisone 20 MG DAILY 08/24 1000 AC 08/29 PO 0918 Senna/Docusate Sodium 1 TAB BID PRN 08/13 1700 AC PO Sertraline HCl 50 MG 08/13 2200 AC 08/28 PO 2223 Sodium Chloride 2 SPRAY Q4P PRN 08/14 0145 AC TAMIE Theophylline 200 MG AT BEDTIME 08/21 2200 AC 08/28 PO 2223 Tiotropium [place] 1 PUF DAILY 08/13 1000 AC 08/29 INH 0917 Tramadol HCl 25 MG Q4 HRS NEEDED PRN 08/28 0030 AC 08/29 PO 0922 Last 24 Hrs of Lab/Rayo Results Last 24 Hrs of Labs/Mics: Laboratory Tests 08/29/17 0530: Glucose 65 08/29/17 0530: Anion Gap 8, Estimated GFR > 60, BUN/Creatinine Ratio 47.5 H, CBC w Diff MAN DIFF ORDERED, RBC 5.54 H, MCV 69.4 L, MCH 21.0 L, MCHC 30.3 L, RDW 25.8 H, MPV 9.7, Segmented Neutrophils 88 H, Band Neutrophils 1, Lymphocytes 7 L, Monocytes 4, Platelet Estimate DECREASED, Polychromasia 1+, Hypochromic- Microcytic 1+, Poikilocytosis 1+, Ovalocytes 1+ Assessment/Plan Assessment: Patient is a 76 YO F with PMH significant for 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 The patient was transferred overnight to ICU for increased oxygen requirement and hypotension. #Acute on chronic hypoxemic respiratory failure with end-stage COPD resulting in cor pulmonale/right-sided heart failure. -Transition to nasal cannula, keep off CPAP if possible, Currently on high flow. -Goals greater than O2 88% -TRC/nebs. Only ipratropium for nebs, avoid albuterol due to tachycardia unless severe wheezing. -Taper steroids currently at prednisone 20 mg -Theophyline restarted 08/19 200mg at bedtime -theophyline level 1.9 on 08/24, will reassess in the AM. #Leukocytosis secondary to steroid use most likely, CT chest showed wedge-shaped opacity probably atelectasis, PNA, malignancy less likely - Patient remains afebrile - Continue to monitor #Suspected UTI Patient was initially started on ceftriaxone which was later discontinued because urine culture was negative. #Syncopal episode Likely multifactorial. Patient was hypokalemic which could have contributed to an arrhythmia. She has hx of severe pulmonary hypertension and is diuresed for peripheral edema . She has relative cortisol deficiency due to steroid use Orthostatics contributing to her episodes. She was also hypoglycemic on presentation. -Continue to monitor on telemetry -Maintain euvolemic state #Right sided heart failure -Continue PO 40 mg lasix -Continue potassium replacement with Lasix administration #Hypotension, resolved Patient's blood pressure dropped and she required 2500 mL fluid bolus and 50 mg IV hydrocortisone secondary to relative cortisol deficiency. Patient is currently receiving 20mg prednisone daily. #Relative bradycardia, Resolved -Initially Cardizem was held and has been restarted at 180mg PO qd. # Symptomatic anemia Status post 1 unit PRBCs 08/13. Of note patient had history of GI bleed 2 years ago requiring 10 units of PRBC transfusion, likely diverticular. -Stool Guaiac - negative -H/H Stable continue to monitor #Thrombocytopenia: Patient's platelets have been downtrending, currently at 90, 000. Decline may be attributed to initiation of lovenox for anticoagulation. HIT planel was sent which was negative. Due to patient's significant bleeding risk, lovenox is the choice for anticoagualtion as it can be reversed with protamine. - Will dose lovenox 60mg SC once today again as his PLT has been stable, and continue to monitor platelets closely. - Will keep her on ALPS for ppx. Note pt is high risk for clotting events as she has 3 noted DVT in r. arm on previous US. She is also very sedentary due to terminal COPD and is at high risk for PE. #Deep venous thrombosis: Per RUE ultrasound on August 18/2018: pt has DVT in the right upper extremity with nonocclusive right axillary vein DVT, DVT in one of the paired brachial veinsand in the right basilic vein. Etiology likely due to r. sided passive congeston and pt moving very little. #Hypokalemia/ Hyperkalemia-improved Patient was initially hypokalemic and became hyperkalemic with repletion received calcium gluconate, insulin 10 units, dextrose 3 and Kayexalate 2 She became hypokalemic after diuresis, potassium has been replaced and today potassium is 4.2 -Continue to monitor and replete #Relative Cortisol deficiency Cortisol level was 10.7. Patient is on prednisone 15mg daily at home, which was not given to her since her admisson to the hospital. Patient was given stress dose of steroid and started on a prednisone taper starting from 40mg daily. Overnight patient's blood pressure dropped and she received 50 mg IV hydrocortisone -Taper steroids prednisone 20 mg, and continue as above. #Transaminitis and hyperbilirubinemia Likely secondary to congestion in setting of right-sided heart failure.Transaminitis hyperbilirubinemia improving -Continue to monitor LFTs #DM One episode of hypoglycemia on 08/19 -Accu-Chek, insulin sliding scale -Levemir dose changed to 8 units BID, continue to monitor #Hypothyroidism -TSH/freeT4 WNL continue home dose of synthroid #Frequent falls/unsteady gait - PT evaluation - patient is currently an assist of 2. Will require STR after discharge. #Dysphagia Patient choked on her medication on 08/14, states she has experienced the same before at home as well. -No events -Consider GI Consult for dysphagia is persistent inpt vs outpt #[place]-Secondary to prerenal azotemia in setting of diuresis-resolved -Encourage PO intake -Continue to monitor Cr curve -Avoid nephrotoxins DVT prophylaxis: with Alps and lovenox Code Status: DNR/DNI Dispo: Patient at this time is stable for transfer to general medicine. Will require STR. Problem List: 1. Cor pulmonale 2. COPD exacerbation Pain Ratin Pain Location: NA Pain Goal: Remain pain free Pain Plan: see AP Tomorrow's Labs & Rationales: CBC/BEP
--- NOTE | 2017-08-29 08:59 | PN- Pulmonary ---
Subjective HPI/Critical Care Issues: Patient remained short of breath extremely weak with poor appetite Objective Current Medications: Current Medications Sig/Vero Start time Last Medication Dose Route Stop Time Status Admin Acetaminophen 650 MG Q6P PRN 08/12 2030 AC PO Acetaminophen 1,000 MG Q6P PRN 08/12 2030 AC IV Albuterol Sulfate 3 ML Q4P PRN 08/17 1630 AC 08/25 INH 1654 Budesonide/ 2 PUF BID 08/13 1000 AC 08/28 Formoterol Fumarate INH 2223 Calcium Carbonate 500 MG TIDPRN PRN 08/21 0745 AC 08/24 PO 1052 Dextrose 25 GM ONCE ONE 08/29 0515 DC 08/29 IV 08/29 0516 0525 Diltiazem HCl 180 MG DAILY 08/17 1500 AC 08/28 PO 1015 Enoxaparin Sodium 60 MG ONCE ONE 08/28 1400 DC 08/28 SC 08/28 1401 1444 Furosemide 40 MG ONCE ONE 08/28 1315 DC 08/28 IV 08/28 1316 1443 Furosemide 40 MG DAILY 08/22 1000 AC 08/28 PO 1015 Guaifenesin 600 MG Q12 08/18 2200 AC 08/28 PO 2223 Insulin Aspart 0 TIDAC 08/27 1700 AC 08/29 SC 0818 Insulin Detemir 8 UNITS BID 08/22 1000 AC 08/28 SC 2223 Ipratropium [place] 2.5 ML EVERY 4 HRS/AWAKE 08/17 2000 AC 08/29 INH 0813 Levothyroxine Sodium 0.112 MG DAILY AC 08/13 0700 AC 08/29 PO 0632 Lidocaine 1 PAT DAILY 08/14 2215 AC 08/28 EXT 1013 Magnesium Oxide 400 MG DAILY 08/13 1000 AC 08/28 PO 1015 Multivitamins 1 TAB DAILY 08/21 1000 AC 08/28 PO 1015 Pantoprazole Sodium 40 MG DAILY 08/18 1000 AC 08/28 IV 1014 Polyethylene Glycol 17 GM DAILY 08/13 1656 AC 08/27 PO 0854 Potassium Chloride 40 MEQ DAILY 08/23 1000 AC 08/28 PO 1015 Prednisone 20 MG DAILY 08/24 1000 AC 08/28 PO 1015 Senna/Docusate Sodium 1 TAB BID PRN 08/13 1700 AC PO Sertraline HCl 50 MG 2200 08/13 2200 AC 08/28 PO 2223 Sodium Chloride 2 SPRAY Q4P PRN 08/14 0145 AC TAMIE Theophylline 200 MG AT BEDTIME 08/21 2200 AC 08/28 PO 2223 Tiotropium [place] 1 PUF DAILY 08/13 1000 AC 08/28 INH 1013 Tramadol HCl 25 MG Q4 HRS NEEDED PRN 08/28 0030 AC 08/28 PO 1029 Vital Signs & I&O Last 24 Hrs of Vitals and I&O: Vital Signs Date Time Temp Pulse Resp B/P B/P Pulse O2 O2 Flow FiO2 Mean Ox Delivery Rate 08/29 08 96 Nasal 45% Cannula 08/29 0638 98.3 81 18 126/74 92 08/29 0049 91 Nasal 45% Cannula 08/29 0000 Nasal 45% Cannula 08/28 2309 98.9 89 16 112/60 91 Nasal Cannula 08/28 2214 93 Nasal 45% Cannula 08/28 1915 87 Nasal 50% Cannula 08/28 1630 95 Nasal 55% Cannula 08/28 1600 94 Nasal 50% Cannula 08/28 1510 90 Nasal 55% Cannula 08/28 1436 97.6 88 20 118/70 94 Nasal 4.0L Cannula Intake & Output 08/29 1600 08/29 0800 08/29 0000 Intake Total Output Total 400 800 Balance -400 -800 Output, Urine 400 800 Patient 116 lb Weight And saturation 45% 96% exam of her chest markedly diminished breath sounds are no wheezes cardiac exam shows regular S1 and S2 without murmurs Impression/Plan Impression/Plan Impression/Plan: 76-year-old with severe COPD hypoxic respiratory failure continues to have severe shortness of breath Recommendations: Continue current regimen. Assess theophylline level. A per FiO2 his saturations allow.
[2017-08-29 14:34] VITALS: BP 90/60
--- NOTE | 2017-08-29 16:38 | PN- Att Addend ---
Attending Addendum Attending Brief Note Covering attending note. Patient in bed daughter at the bedside, still not feeling 100%, looks a little bit better than yesterday still short of breath on high flow oxygen. Patient is afebrile last BP 90/60 with no major changes on physical will continue treatment as per consultants Intake & Output 08/29 1600 08/29 0400 08/28 1600 08/28 0400 08/27 1600 08/27 0400 Intake Total 600 360 60 530 250 Output Total 1100 800 600 500 900 300 Balance -500 -800 -240 -440 -370 -50 Intake, IV 10 Intake, Oral 600 350 60 530 250 Number 1 Bowel Movements Output, Urine 1100 800 600 500 900 300 Patient 116 lb 131 lb Weight Current Medications Sig/Vero Start time Last Medication Dose Route Stop Time Status Admin Acetaminophen 650 MG Q6P PRN 08/12 2030 AC PO Acetaminophen 1,000 MG Q6P PRN 08/12 2030 AC IV Albuterol Sulfate 3 ML Q4P PRN 08/17 1630 AC 08/25 INH 1654 Budesonide/ 2 PUF BID 08/13 1000 AC 08/29 Formoterol Fumarate INH 0917 Calcium Carbonate 500 MG TIDPRN PRN 08/21 0745 AC 08/24 PO 1052 Dextrose 12.5 GM ONCE ONE 08/29 1315 DC 08/29 IV 08/29 1316 1314 Dextrose 25 GM ONCE ONE 08/29 0515 DC 08/29 IV 08/29 0516 0525 Diltiazem HCl 180 MG DAILY 08/17 1500 AC 08/29 PO 0919 Enoxaparin Sodium 60 MG ONCE ONE 08/29 1100 DC 08/29 SC 08/29 1101 1242 Furosemide 40 MG DAILY 08/22 1000 AC 08/29 PO 0919 Guaifenesin 600 MG Q12 08/18 2200 AC 08/29 PO 0918 Insulin Aspart 0 TIDAC 08/27 1700 AC 08/29 SC 0818 Insulin Detemir 8 UNITS BID 08/22 1000 AC 08/29 SC 0931 Ipratropium [place] 2.5 ML EVERY 4 HRS/AWAKE 08/17 2000 AC 08/29 INH 1541 Levothyroxine Sodium 0.112 MG DAILY AC 08/13 0700 AC 08/29 PO 0632 Lidocaine 1 PAT DAILY 08/14 2215 AC 08/29 EXT 0919 Magnesium Oxide 400 MG DAILY 08/13 1000 AC 08/29 PO 0918 Multivitamins 1 TAB DAILY 08/21 1000 AC 08/29 PO 0918 Pantoprazole Sodium 40 MG DAILY 08/18 1000 AC 08/29 IV 0919 Polyethylene Glycol 17 GM DAILY 08/13 1656 AC 08/29 PO 0919 Potassium Chloride 40 MEQ DAILY 08/23 1000 AC 08/29 PO 0919 Prednisone 20 MG DAILY 08/24 1000 AC 08/29 PO 0918 Senna/Docusate Sodium 1 TAB BID PRN 08/13 1700 AC PO Sertraline HCl 50 MG 08/13 2200 AC 08/28 PO 2223 Sodium Chloride 2 SPRAY Q4P PRN 08/14 0145 AC TAMIE Theophylline 200 MG AT BEDTIME 08/21 2200 AC 08/28 PO 2223 Tiotropium [place] 1 PUF DAILY 08/13 1000 AC 08/29 INH 0917 Tramadol HCl 25 MG Q4 HRS NEEDED PRN 08/28 0030 AC 08/29 PO 0922 Laboratory Tests 08/29/17 0530: Glucose 65 08/29/17 0530: Anion Gap 8, Estimated GFR > 60, BUN/Creatinine Ratio 47.5 H, CBC w Diff MAN DIFF ORDERED, RBC 5.54 H, MCV 69.4 L, MCH 21.0 L, MCHC 30.3 L, RDW 25.8 H, MPV 9.7, Segmented Neutrophils 88 H, Band Neutrophils 1, Lymphocytes 7 L, Monocytes 4, Platelet Estimate DECREASED, Polychromasia 1+, Hypochromic- Microcytic 1+, Poikilocytosis 1+, Ovalocytes 1+ 08/28/17 0620: Anion Gap 7, Estimated GFR > 60, Glucose 149 H, Calcium 9.7, Phosphorus 3.8, Magnesium 2.0, Total Bilirubin 1.3, AST 39 H, ALT 108 H, Albumin 2.9 L, CBC w Diff MAN DIFF ORDERED, RBC 4.80, MCV 68.9 L, MCH 21.5 L, MCHC 31.1 L, RDW 25.4 H, MPV 9.9, Segmented Neutrophils 92 H, Lymphocytes 3 L, Monocytes 5, Hypochromic-Microcytic 1+, Poikilocytosis 3+, Basophilic Stippling 1+, Anisocytosis 3+, Microcytic Cells 4+, Ovalocytes 2+, Schistocytes 1+ 08/27/17 0345: Anion Gap 8, Estimated GFR > 60, Glucose 294 H, Calcium 9.3, Phosphorus 3.9, Magnesium 2.0, Total Bilirubin 1.3, AST 28, ALT 114 H, Albumin 2.8 L, CBC w Diff MAN DIFF ORDERED, RBC 4.74, MCV 68.9 L, MCH 21.7 L, MCHC 31.6 L, RDW 25.7 H, MPV 9.6, Segmented Neutrophils 93 H, Band Neutrophils 3, Lymphocytes 2 L, Monocytes 2, Nucleated RBCs 2 H, Platelet Estimate DECREASED, Polychromasia 1+, Hypochromic-Microcytic 1+, Poikilocytosis 2+, Basophilic Stippling RARE, Anisocytosis 1+, Microcytic Cells 1+, Target Cells 1+, Stomatocytes 1+, [place] Cells 1+, Elliptocytes 1+ Vital Signs Date Time Temp Pulse Resp B/P B/P Pulse O2 O2 Flow FiO2 Mean Ox Delivery Rate 08/29 1600 89 Nasal 45% Cannula 08/29 1550 90 Nasal 45% Cannula 08/29 1434 98.0 88 20 90/60 93 Nasal Cannula 08/29 0816 96 Nasal 45% Cannula 08/29 0800 96 Nasal 45% Cannula 08/29 0638 98.3 81 18 126/74 92 08/29 0049 91 Nasal 45% Cannula 08/29 0000 Nasal 45% Cannula 08/28 2309 98.9 89 16 112/60 91 Nasal Cannula 08/28 2214 93 Nasal 45% Cannula 08/28 1915 87 Nasal 50% Cannula White count is up will monitor.
--- NOTE | 2017-08-29 18:21 | PN- Cardiology ---
Subjective Subjective: No significant change in cardiac status today Objective Vital Signs and I&Os Vital Signs Date Time Temp Pulse Resp B/P B/P Pulse O2 O2 Flow FiO2 Mean Ox Delivery Rate 08/30 0819 94 Nasal 50% Cannula 08/30 0800 97 Nasal 45% Cannula 08/30 0654 98.8 76 20 130/65 93 08/30 0126 93 Nasal 50% Cannula 08/30 0000 90 Nasal 45% Cannula 08/29 2228 98.5 87 22 110/68 84 08/29 1600 89 Nasal 45% Cannula 08/29 1550 90 Nasal 45% Cannula Intake & Output 08/30 1600 08/30 0800 08/30 0000 08/29 1600 08/29 0800 08/29 0000 Intake Total 480 240 450 600 Output Total 400 250 700 400 800 Balance 480 -160 200 -100 -400 -800 Intake, Oral 480 240 450 600 Number 1 Bowel Movements Output, Urine 400 250 700 400 800 Patient 119 lb 116 lb Weight Current Medications: Current Medications Sig/Vero Start time Last Medication Dose Route Stop Time Status Admin Acetaminophen 650 MG Q6P PRN 08/12 2030 AC PO Acetaminophen 1,000 MG Q6P PRN 08/12 2030 AC IV Albuterol Sulfate 3 ML Q4P PRN 08/17 1630 AC 08/25 INH 1654 Budesonide/ 2 PUF BID 08/13 1000 AC 08/30 Formoterol Fumarate INH 0833 Calcium Carbonate 500 MG TIDPRN PRN 08/21 0745 AC 08/24 PO 1052 Diltiazem HCl 180 MG DAILY 08/17 1500 AC 08/30 PO 0832 Enoxaparin Sodium 60 MG ONCE ONE 08/30 1415 DC SC 08/30 1416 Furosemide 40 MG DAILY 08/22 1000 AC 08/30 PO 0832 Guaifenesin 600 MG Q12 08/18 2200 AC 08/30 PO 0831 Insulin Aspart 0 TIDAC 08/27 1700 AC 08/30 SC 0830 Insulin Detemir 8 UNITS BID 08/22 1000 AC 08/30 SC 0850 Ipratropium [place] 2.5 ML EVERY 4 HRS/AWAKE 08/17 2000 AC 08/30 INH 1136 Levothyroxine Sodium 0.112 MG DAILY AC 08/13 0700 AC 08/30 PO 0618 Lidocaine 1 PAT DAILY 08/14 2215 AC 08/30 EXT 0832 Magnesium Oxide 400 MG DAILY 08/13 1000 AC 08/30 PO 0832 Multivitamins 1 TAB DAILY 08/21 1000 AC 08/30 PO 0832 Pantoprazole Sodium 40 MG DAILY 08/18 1000 AC 08/30 IV 0840 Polyethylene Glycol 17 GM DAILY 08/13 1656 AC 08/30 PO 0832 Potassium Chloride 40 MEQ DAILY 08/23 1000 AC 08/30 PO 0831 Prednisone 20 MG DAILY 08/24 1000 AC 08/30 PO 0832 Senna/Docusate Sodium 1 TAB BID PRN 08/13 1700 AC PO Sertraline HCl 50 MG 08/13 2200 AC 08/29 PO 2114 Sodium Chloride 2 SPRAY Q4P PRN 08/14 0145 AC TAMIE Theophylline 200 MG Q12 08/30 1000 AC 08/30 PO 1043 Theophylline 200 MG AT BEDTIME 08/21 2200 DC 08/29 PO 2115 Tiotropium [place] 1 PUF DAILY 08/13 1000 AC 08/30 INH 0851 Tramadol HCl 25 MG Q4 HRS NEEDED PRN 08/28 0030 AC 08/30 PO 0347 Results Last 48 Hrs of Labs/Mics: Laboratory Tests 08/30/17 0925: Anion Gap 9, Estimated GFR > 60, BUN/Creatinine Ratio 42.5 H, CBC w Diff MAN DIFF ORDERED, RBC 4.79, MCV 69.9 L, MCH 21.3 L, MCHC 30.5 L, RDW 26.1 H, MPV 10.1, Segmented Neutrophils 87 H, Band Neutrophils 1, Lymphocytes 7 L, Monocytes 5, Nucleated RBCs 1 H, Hypochromic-Microcytic 2+, Poikilocytosis 2+, Basophilic Stippling 1+, Anisocytosis 2+, Microcytic Cells 4+, Ovalocytes 1+, [place] Cells 1+, Theophylline 2.1 L 08/29/17 0530: Glucose 65 08/29/17 0530: Anion Gap 8, Estimated GFR > 60, BUN/Creatinine Ratio 47.5 H, CBC w Diff MAN DIFF ORDERED, RBC 5.54 H, MCV 69.4 L, MCH 21.0 L, MCHC 30.3 L, RDW 25.8 H, MPV 9.7, Segmented Neutrophils 88 H, Band Neutrophils 1, Lymphocytes 7 L, Monocytes 4, Platelet Estimate DECREASED, Polychromasia 1+, Hypochromic- Microcytic 1+, Poikilocytosis 1+, Ovalocytes 1+ Assessment/Plan Assessment/Plan Assessment: 1. Syncope multifactorial. She was hypokalemic on admission therefore arrhythmias are a consideration. She also has severe pulmonary hypertension and may have had an orthostatic hypotensive episode secondary to diuretics 2. Diastolic heart failure by history 3. 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 Diabetes 5. History of GI bleed 6. Bradycardia secondary to hyperkalemia stable. 7. Upper extremity DVT Recommendations: - COntinue as presently - Continue po lasix - Continue other medications - FOllowup labs in AM Continue telemetry? Yes
[2017-08-29 22:28] VITALS: BP 110/68
[2017-08-30 06:54] VITALS: BP 130/65
--- NOTE | 2017-08-30 07:55 | PN- Housestaff ---
Subjective Follow-up For: #Acute on chronic hypoxemic respiratory failure with end-stage COPD resulting in cor pulmonale/right-sided heart failure. #Leukocytosis 3Syncopal episode #Right sided heart failure #Symptomatic anemia #Deep venous thrombosis Tele-Events Since Last Visit: OFF TELE Subjective: Patient was seen and examined at bedside, she continues to complain of shortness of breath, currently on high flow oxygen Review of Systems Constitutional: Reports: see HPI. Objective Last 24 Hrs of Vital Signs/I&O Vital Signs Date Time Temp Pulse Resp B/P B/P Pulse O2 O2 Flow FiO2 Mean Ox Delivery Rate 08/30 0819 94 Nasal 50% Cannula 08/30 0654 98.8 76 20 130/65 93 08/30 0126 93 Nasal 50% Cannula 08/30 0000 90 Nasal 45% Cannula 08/29 2228 98.5 87 22 110/68 84 08/29 1600 89 Nasal 45% Cannula 08/29 1550 90 Nasal 45% Cannula 08/29 1434 98.0 88 20 90/60 93 Nasal Cannula Intake & Output 08/30 1600 08/30 0800 08/30 0000 Intake Total 240 450 Output Total 400 250 Balance -160 200 Intake, Oral 240 450 Number 1 Bowel Movements Output, Urine 400 250 Patient 119 lb Weight Physical Exam General Appearance: Alert, Oriented X3, Cooperative, Mild Distress HEENT: Atraumatic, PERRLA, EOMI, Mucous Membr. 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 The patient was transferred overnight to ICU for increased oxygen requirement and hypotension. #Acute on chronic hypoxemic respiratory failure with end-stage COPD resulting in cor pulmonale/right-sided heart failure. -Transition to nasal cannula, keep off CPAP if possible, Currently on high flow. -Goals greater than O2 88% -TRC/nebs. Only ipratropium for nebs, avoid albuterol due to tachycardia unless severe wheezing. -Taper steroids currently at prednisone 20 mg -Increase Theophyline to twice daily #Leukocytosis secondary to steroid use most likely, CT chest showed wedge-shaped opacity probably atelectasis, PNA, malignancy less likely - Patient remains afebrile - Continue to monitor #Suspected UTI Patient was initially started on ceftriaxone which was later discontinued because urine culture was negative. #Syncopal episode Likely multifactorial. Patient was hypokalemic which could have contributed to an arrhythmia. She has hx of severe pulmonary hypertension and is diuresed for peripheral edema . She has relative cortisol deficiency due to steroid use Orthostatics contributing to her episodes. She was also hypoglycemic on presentation. -Continue to monitor on telemetry -Maintain euvolemic state #Right sided heart failure -Continue PO 40 mg lasix -Continue potassium replacement with Lasix administration #Hypotension, resolved Patient's blood pressure dropped and she required 2500 mL fluid bolus and 50 mg IV hydrocortisone secondary to relative cortisol deficiency. Patient is currently receiving 20mg prednisone daily. #Relative bradycardia, Resolved -Initially Cardizem was held and has been restarted at 180mg PO qd. # Symptomatic anemia Status post 1 unit PRBCs 08/13. Of note patient had history of GI bleed 2 years ago requiring 10 units of PRBC transfusion, likely diverticular. -Stool Guaiac - negative -H/H Stable continue to monitor #Thrombocytopenia: Patient's platelets have been downtrending, currently at 90, 000. Decline may be attributed to initiation of lovenox for anticoagulation. HIT planel was sent which was negative. Due to patient's significant bleeding risk, lovenox is the choice for anticoagualtion as it can be reversed with protamine. - Will dose lovenox 60mg SC once today again as his PLT has been stable, and continue to monitor platelets closely. - Will keep her on ALPS for ppx. Note pt is high risk for clotting events as she has 3 noted DVT in r. arm on previous US. She is also very sedentary due to terminal COPD and is at high risk for PE. #Deep venous thrombosis: Per RUE ultrasound on August 18/2018: pt has DVT in the right upper extremity with nonocclusive right axillary vein DVT, DVT in one of the paired brachial veinsand in the right basilic vein. Etiology likely due to r. sided passive congeston and pt moving very little. #Hypokalemia/ Hyperkalemia-improved Patient was initially hypokalemic and became hyperkalemic with repletion received calcium gluconate, insulin 10 units, dextrose 3 and Kayexalate 2 She became hypokalemic after diuresis, potassium has been replaced and today potassium is 4.2 -Continue to monitor and replete #Relative Cortisol deficiency Cortisol level was 10.7. Patient is on prednisone 15mg daily at home, which was not given to her since her admisson to the hospital. Patient was given stress dose of steroid and started on a prednisone taper starting from 40mg daily. Overnight patient's blood pressure dropped and she received 50 mg IV hydrocortisone -Taper steroids prednisone 20 mg, and continue as above. #Transaminitis and hyperbilirubinemia Likely secondary to congestion in setting of right-sided heart failure.Transaminitis hyperbilirubinemia improving -Continue to monitor LFTs #DM One episode of hypoglycemia on 08/19 -Accu-Chek, insulin sliding scale -Levemir dose changed to 8 units BID, continue to monitor #Hypothyroidism -TSH/freeT4 WNL continue home dose of synthroid #Frequent falls/unsteady gait - PT evaluation - patient is currently an assist of 2. Will require STR after discharge. #Dysphagia Patient choked on her medication on 08/14, states she has experienced the same before at home as well. -No events -Consider GI Consult for dysphagia is persistent inpt vs outpt #LISSETT-Secondary to prerenal azotemia in setting of diuresis-resolved -Encourage PO intake -Continue to monitor Cr curve -Avoid nephrotoxins DVT prophylaxis: with Alps and lovenox Code Status: DNR/DNI Dispo: Patient at this time is stable for transfer to general medicine. Will require STR. Problem List: 1. Cor pulmonale 2. COPD exacerbation Pain Ratin Pain Location: N/A Pain Goal: Remain pain free Pain Plan: PATHWAY Tomorrow's Labs & Rationales: CBC BEP
--- NOTE | 2017-08-30 08:40 | PN- Pulmonary ---
Subjective HPI/Critical Care Issues: Patient continues to shortness of breath and remains on high flow nasal oxygen Objective Current Medications: Current Medications Sig/Vero Start time Last Medication Dose Route Stop Time Status Admin Acetaminophen 650 MG Q6P PRN 08/12 2030 AC PO Acetaminophen 1,000 MG Q6P PRN 08/12 2030 AC IV Albuterol Sulfate 3 ML Q4P PRN 08/17 1630 AC 08/25 INH 1654 Budesonide/ 2 PUF BID 08/13 1000 AC 08/29 Formoterol Fumarate INH 2115 Calcium Carbonate 500 MG TIDPRN PRN 08/21 0745 AC 08/24 PO 1052 Dextrose 12.5 GM ONCE ONE 08/29 1315 DC 08/29 IV 08/29 1316 1314 Diltiazem HCl 180 MG DAILY 08/17 1500 AC 08/29 PO 0919 Enoxaparin Sodium 60 MG ONCE ONE 08/29 1100 DC 08/29 SC 08/29 1101 1242 Furosemide 40 MG DAILY 08/22 1000 AC 08/29 PO 0919 Guaifenesin 600 MG Q12 08/18 2200 AC 08/29 PO 2114 Insulin Aspart 0 TIDAC 08/27 1700 AC 08/29 SC 0818 Insulin Detemir 8 UNITS BID 08/22 1000 AC 08/29 SC 2115 Ipratropium [place] 2.5 ML EVERY 4 HRS/AWAKE 08/17 2000 AC 08/30 INH 0810 Levothyroxine Sodium 0.112 MG DAILY AC 08/13 0700 AC 08/30 PO 0618 Lidocaine 1 PAT DAILY 08/14 2215 AC 08/29 EXT 0919 Magnesium Oxide 400 MG DAILY 08/13 1000 AC 08/29 PO 0918 Multivitamins 1 TAB DAILY 08/21 1000 AC 08/29 PO 0918 Pantoprazole Sodium 40 MG DAILY 08/18 1000 AC 08/29 IV 0919 Polyethylene Glycol 17 GM DAILY 08/13 1656 AC 08/29 PO 0919 Potassium Chloride 40 MEQ DAILY 08/23 1000 AC 08/29 PO 0919 Prednisone 20 MG DAILY 08/24 1000 AC 08/29 PO 0918 Senna/Docusate Sodium 1 TAB BID PRN 08/13 1700 AC PO Sertraline HCl 50 MG 2200 08/13 2200 AC 08/29 PO 2114 Sodium Chloride 2 SPRAY Q4P PRN 08/14 0145 AC TAMIE Theophylline 200 MG AT BEDTIME 08/21 2200 AC 08/29 PO 2115 Tiotropium [place] 1 PUF DAILY 08/13 1000 AC 08/29 INH 0917 Tramadol HCl 25 MG Q4 HRS NEEDED PRN 08/28 0030 AC 08/30 PO 0347 Vital Signs & I&O Last 24 Hrs of Vitals and I&O: Vital Signs Date Time Temp Pulse Resp B/P B/P Pulse O2 O2 Flow FiO2 Mean Ox Delivery Rate 08/30 0819 94 Nasal 50% Cannula 08/30 0654 98.8 76 20 130/65 93 08/30 0126 93 Nasal 50% Cannula 08/30 0000 90 Nasal 45% Cannula 08/29 2228 98.5 87 22 110/68 84 08/29 1600 89 Nasal 45% Cannula 08/29 1550 90 Nasal 45% Cannula 08/29 1434 98.0 88 20 90/60 93 Nasal Cannula Intake & Output 08/30 1600 08/30 0800 08/30 0000 Intake Total 240 450 Output Total 400 250 Balance -160 200 Intake, Oral 240 450 Number 1 Bowel Movements Output, Urine 400 250 Patient 119 lb Weight Since saturation 0.50-94% exam for chest shows scattered rhonchi cardiac exam shows normal S1 and S2 without murmurs Impression/Plan Impression/Plan Impression/Plan: 76-year-old with severe COPD hypoxic respiratory failure continues to have severe shortness of breath and pulmonary congestion theophylline level is subtherapeutic Recommendations: Continue current regimen. Increase theophylline to every 12 hours. Taper FiO2 his saturations allow. Address goals of care
--- NOTE | 2017-08-30 09:23 | PN- Cardiology ---
Subjective Subjective: No significant change in cardiac status. Objective Vital Signs and I&Os Vital Signs Date Time Temp Pulse Resp B/P B/P Pulse O2 O2 Flow FiO2 Mean Ox Delivery Rate 08/30 0819 94 Nasal 50% Cannula 08/30 0654 98.8 76 20 130/65 93 08/30 0126 93 Nasal 50% Cannula 08/30 0000 90 Nasal 45% Cannula 08/29 2228 98.5 87 22 110/68 84 08/29 1600 89 Nasal 45% Cannula 08/29 1550 90 Nasal 45% Cannula 08/29 1434 98.0 88 20 90/60 93 Nasal Cannula Intake & Output 08/30 1600 08/30 0800 08/30 0000 08/29 1600 08/29 0800 08/29 0000 Intake Total 240 450 600 Output Total 400 250 700 400 800 Balance -160 200 -100 -400 -800 Intake, Oral 240 450 600 Number 1 Bowel Movements Output, Urine 400 250 700 400 800 Patient 119 lb 116 lb Weight Physical Exam: Physical Exam: Head: normocephalic atraumatic Eyes: sclera anicteric conjunctiva showed no pallor extraocular muscles were normal Chest: Scattered rhonchi with decreased breath sounds bilaterally Heart: Regular S1, S2, distant heart sounds Abdomen: soft no organomegaly bowel sounds normal Extremities: no clubbing, cyanosis or edema Neurological: Grossly normal/nonfocal Current Medications: Current Medications Sig/Vero Start time Last Medication Dose Route Stop Time Status Admin Acetaminophen 650 MG Q6P PRN 08/12 2030 AC PO Acetaminophen 1,000 MG Q6P PRN 08/12 2030 AC IV Albuterol Sulfate 3 ML Q4P PRN 08/17 1630 AC 08/25 INH 1654 Budesonide/ 2 PUF BID 08/13 1000 AC 08/30 Formoterol Fumarate INH 0833 Calcium Carbonate 500 MG TIDPRN PRN 08/21 0745 AC 08/24 PO 1052 Dextrose 12.5 GM ONCE ONE 08/29 1315 DC 08/29 IV 08/29 1316 1314 Diltiazem HCl 180 MG DAILY 08/17 1500 AC 08/30 PO 0832 Enoxaparin Sodium 60 MG ONCE ONE 08/29 1100 DC 08/29 SC 08/29 1101 1242 Furosemide 40 MG DAILY 08/22 1000 AC 08/30 PO 0832 Guaifenesin 600 MG Q12 08/18 2200 AC 08/30 PO 0831 Insulin Aspart 0 TIDAC 08/27 1700 AC 08/30 SC 0830 Insulin Detemir 8 UNITS BID 08/22 1000 AC 08/30 SC 0850 Ipratropium [place] 2.5 ML EVERY 4 HRS/AWAKE 08/17 2000 AC 08/30 INH 0810 Levothyroxine Sodium 0.112 MG DAILY AC 08/13 0700 AC 08/30 PO 0618 Lidocaine 1 PAT DAILY 08/14 2215 AC 08/30 EXT 0832 Magnesium Oxide 400 MG DAILY 08/13 1000 AC 08/30 PO 0832 Multivitamins 1 TAB DAILY 08/21 1000 AC 08/30 PO 0832 Pantoprazole Sodium 40 MG DAILY 08/18 1000 AC 08/30 IV 0840 Polyethylene Glycol 17 GM DAILY 08/13 1656 AC 08/30 PO 0832 Potassium Chloride 40 MEQ DAILY 08/23 1000 AC 08/30 PO 0831 Prednisone 20 MG DAILY 08/24 1000 AC 08/30 PO 0832 Senna/Docusate Sodium 1 TAB BID PRN 08/13 1700 AC PO Sertraline HCl 50 MG 08/13 2200 AC 08/29 PO 2114 Sodium Chloride 2 SPRAY Q4P PRN 08/14 0145 AC TAMIE Theophylline 200 MG AT BEDTIME 08/21 2200 AC 08/29 PO 2115 Tiotropium [place] 1 PUF DAILY 08/13 1000 AC 08/30 INH 0851 Tramadol HCl 25 MG Q4 HRS NEEDED PRN 08/28 0030 AC 08/30 PO 0347 Results Last 48 Hrs of Labs/Mics: Laboratory Tests 08/29/17 0530: Glucose 65 08/29/17 0530: Anion Gap 8, Estimated GFR > 60, BUN/Creatinine Ratio 47.5 H, CBC w Diff MAN DIFF ORDERED, RBC 5.54 H, MCV 69.4 L, MCH 21.0 L, MCHC 30.3 L, RDW 25.8 H, MPV 9.7, Segmented Neutrophils 88 H, Band Neutrophils 1, Lymphocytes 7 L, Monocytes 4, Platelet Estimate DECREASED, Polychromasia 1+, Hypochromic- Microcytic 1+, Poikilocytosis 1+, Ovalocytes 1+ Assessment/Plan Assessment/Plan Assessment: 1. Syncope multifactorial. She was hypokalemic on admission therefore arrhythmias are a consideration. She also has severe pulmonary hypertension and may have had an orthostatic hypotensive episode secondary to diuretics 2. Diastolic heart failure by history 3. 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 Diabetes 5. History of GI bleed 6. Bradycardia secondary to hyperkalemia stable. 7. Upper extremity DVT Recommendations: - COntinue as presently - Continue po lasix - Continue other medications - FOllowup labs in AM Continue telemetry? No
[2017-08-30 10:16] LABS: MEAN CORPUSCULAR HGB 21.3 PG (27.0-31.0); MEAN CORPUSCULAR HGB CONC 30.5 G/DL (33.0-37.0); MEAN CORPUSCULAR VOLUME 69.9 FL (81.0-99.0); MEAN PLATELET VOLUME 10.1 FL (7.4-10.4); PLATELET COUNT 165 /CUMM (130-400); RBC DISTRIBUTION WIDTH 26.1 % (11.5-14.5); RED BLOOD CELL CT 4.79 /CUMM (4.20-5.40); WHITE BLOOD CELL COUNT 13.1 /CUMM (4.8-10.8)
[2017-08-30 10:47] LABS: HEMATOCRIT 33.5 % (37-47)
[2017-08-30 14:00] VITALS: BP 110/60
--- NOTE | 2017-08-30 14:43 | PN- Att Addend ---
Attending Addendum Attending Brief Note Covering attending note. Patient feels a little better. Still afraid to get out of bed because any little movement makes her short of breath. Vital signs are stable no fever no major changes on physical white count 13,000. New treatment as per pulmonary recommendations. Intake & Output 08/30 1600 08/30 0400 08/29 1600 08/29 0400 08/28 1600 08/28 0400 Intake Total 720 450 600 360 60 Output Total 085 025 2907 800 600 500 Balance 320 200 -500 -800 -240 -440 Intake, IV 10 Intake, Oral 720 450 600 350 60 Number 1 1 Bowel Movements Output, Urine 613 752 6004 800 600 500 Patient 119 lb 116 lb Weight Current Medications Sig/Vero Start time Last Medication Dose Route Stop Time Status Admin Acetaminophen 650 MG Q6P PRN 08/12 2030 AC PO Acetaminophen 1,000 MG Q6P PRN 08/12 2030 AC IV Albuterol Sulfate 3 ML Q4P PRN 08/17 1630 AC 08/25 INH 1654 Budesonide/ 2 PUF BID 08/13 1000 AC 08/30 Formoterol Fumarate INH 0833 Calcium Carbonate 500 MG TIDPRN PRN 08/21 0745 AC 08/24 PO 1052 Diltiazem HCl 180 MG DAILY 08/17 1500 AC 08/30 PO 0832 Enoxaparin Sodium 60 MG ONCE ONE 08/30 1415 DC SC 08/30 1416 Furosemide 40 MG DAILY 08/22 1000 AC 08/30 PO 0832 Guaifenesin 600 MG Q12 08/18 2200 AC 08/30 PO 0831 Insulin Aspart 0 TIDAC 08/27 1700 AC 08/30 SC 0830 Insulin Detemir 8 UNITS BID 08/22 1000 AC 08/30 SC 0850 Ipratropium [place] 2.5 ML EVERY 4 HRS/AWAKE 08/17 2000 AC 08/30 INH 1136 Levothyroxine Sodium 0.112 MG DAILY AC 08/13 0700 AC 08/30 PO 0618 Lidocaine 1 PAT DAILY 08/14 2215 AC 08/30 EXT 0832 Magnesium Oxide 400 MG DAILY 08/13 1000 AC 08/30 PO 0832 Multivitamins 1 TAB DAILY 08/21 1000 AC 08/30 PO 0832 Pantoprazole Sodium 40 MG DAILY 08/18 1000 AC 08/30 IV 0840 Polyethylene Glycol 17 GM DAILY 08/13 1656 AC 08/30 PO 0832 Potassium Chloride 40 MEQ DAILY 08/23 1000 AC 08/30 PO 0831 Prednisone 20 MG DAILY 08/24 1000 AC 08/30 PO 0832 Senna/Docusate Sodium 1 TAB BID PRN 08/13 1700 AC PO Sertraline HCl 50 MG 2200 08/13 2200 AC 08/29 PO 211 Sodium Chloride 2 SPRAY Q4P PRN 08/14 0145 AC TAMIE Theophylline 200 MG Q12 08/30 1000 AC 08/30 PO 1043 Theophylline 200 MG AT BEDTIME 08/21 220 DC 08/29 PO 211 Tiotropium [place] 1 PUF DAILY 08/13 1000 AC 08/30 INH 0851 Tramadol HCl 25 MG Q4 HRS NEEDED PRN 08/28 0030 AC 08/30 PO 0347 Laboratory Tests 08/30/17 0925: Anion Gap 9, Estimated GFR > 60, BUN/Creatinine Ratio 42.5 H, CBC w Diff MAN DIFF ORDERED, RBC 4.79, MCV 69.9 L, MCH 21.3 L, MCHC 30.5 L, RDW 26.1 H, MPV 10.1, Segmented Neutrophils 87 H, Band Neutrophils 1, Lymphocytes 7 L, Monocytes 5, Nucleated RBCs 1 H, Hypochromic-Microcytic 2+, Poikilocytosis 2+, Basophilic Stippling 1+, Anisocytosis 2+, Microcytic Cells 4+, Ovalocytes 1+, Triston Cells 1+, Theophylline 2.1 L 08/29/17 0530: Glucose 65 08/29/17 0530: Anion Gap 8, Estimated GFR > 60, BUN/Creatinine Ratio 47.5 H, CBC w Diff MAN DIFF ORDERED, RBC 5.54 H, MCV 69.4 L, MCH 21.0 L, MCHC 30.3 L, RDW 25.8 H, MPV 9.7, Segmented Neutrophils 88 H, Band Neutrophils 1, Lymphocytes 7 L, Monocytes 4, Platelet Estimate DECREASED, Polychromasia 1+, Hypochromic- Microcytic 1+, Poikilocytosis 1+, Ovalocytes 1+ 08/28/17 0620: Anion Gap 7, Estimated GFR > 60, Glucose 149 H, Calcium 9.7, Phosphorus 3.8, Magnesium 2.0, Total Bilirubin 1.3, AST 39 H, ALT 108 H, Albumin 2.9 L, CBC w Diff MAN DIFF ORDERED, RBC 4.80, MCV 68.9 L, MCH 21.5 L, MCHC 31.1 L, RDW 25.4 H, MPV 9.9, Segmented Neutrophils 92 H, Lymphocytes 3 L, Monocytes 5, Hypochromic-Microcytic 1+, Poikilocytosis 3+, Basophilic Stippling 1+, Anisocytosis 3+, Microcytic Cells 4+, Ovalocytes 2+, Schistocytes 1+ Vital Signs Date Time Temp Pulse Resp B/P B/P Pulse O2 O2 Flow FiO2 Mean Ox Delivery Rate 08/30 0819 94 Nasal 50% Cannula 08/30 0800 97 Nasal 45% Cannula 08/30 0654 98.8 76 20 130/65 93 08/30 0126 93 Nasal 50% Cannula 08/30 0000 90 Nasal 45% Cannula 08/29 2228 98.5 87 22 110/68 84 08/29 1600 89 Nasal 45% Cannula 08/29 1550 90 Nasal 45% Cannula
[2017-08-30 22:05] VITALS: BP 100/60
[2017-08-31 06:19] VITALS: BP 97/64
--- NOTE | 2017-08-31 07:38 | PN- Housestaff ---
Subjective Follow-up For: #Acute on chronic hypoxemic respiratory failure with end-stage COPD resulting in cor pulmonale/right-sided heart failure. #Leukocytosis 3Syncopal episode #Right sided heart failure #Symptomatic anemia #Deep venous thrombosis Tele-Events Since Last Visit: OFF TELE Subjective: Patient was seen and examined at bedside, she continues to complain of shortness of breath, currently on high flow oxygen him in addition to complain of severe itchiness in her right arm Review of Systems Constitutional: Reports: see HPI. Objective Last 24 Hrs of Vital Signs/I&O Vital Signs Date Time Temp Pulse Resp B/P B/P Pulse O2 O2 Flow FiO2 Mean Ox Delivery Rate 08/31 0920 92 Nasal 50% Cannula 08/31 0800 90 Nasal 50% Cannula 08/31 0619 98.0 93 18 97/64 91 08/31 0218 91 Nasal 50% Cannula 08/31 0000 90 Nasal 50% Cannula 08/30 2205 98.4 91 20 100/60 97 08/30 2028 94 Nasal 50% Cannula 08/30 1600 96 Nasal 45% Cannula 08/30 1400 98.0 88 20 110/60 95 Intake & Output 08/31 1600 08/31 0800 08/31 0000 Intake Total 200 400 Output Total 600 Balance -400 400 Intake, Oral 200 400 Output, Urine 600 Patient 120 lb Weight Physical Exam General Appearance: Alert, Oriented X3, Cooperative, Mild Distress HEENT: Atraumatic, PERRLA, EOMI, Mucous Membr. moist/pink Neck: Supple, No JVD Cardiovascular: Normal S1, Normal S2, No Murmurs Lungs: bilateral rales and wheezes Abdomen: Normal Bowel Sounds, Soft, No Tenderness Neurological: Normal Speech Extremities: No Clubbing, No Cyanosis, No Edema Vascular: Normal Pulses Assessment/Plan Assessment: Patient is a 76 YO F with PMH significant for 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 The patient was transferred overnight to ICU for increased oxygen requirement and hypotension. #Acute on chronic hypoxemic respiratory failure with end-stage COPD resulting in cor pulmonale/right-sided heart failure. -Transition to nasal cannula, keep off CPAP if possible, Currently on high flow. -Goals greater than O2 88% -TRC/nebs. Only ipratropium for nebs, avoid albuterol due to tachycardia unless severe wheezing. -Taper steroids currently at prednisone 20 mg -Increase Theophyline to twice daily #Leukocytosis secondary to steroid use most likely, CT chest showed wedge-shaped opacity probably atelectasis, PNA, malignancy less likely - Patient remains afebrile - Continue to monitor #Suspected UTI Patient was initially started on ceftriaxone which was later discontinued because urine culture was negative. #Syncopal episode Likely multifactorial. Patient was hypokalemic which could have contributed to an arrhythmia. She has hx of severe pulmonary hypertension and is diuresed for peripheral edema . She has relative cortisol deficiency due to steroid use Orthostatics contributing to her episodes. She was also hypoglycemic on presentation. -Continue to monitor on telemetry -Maintain euvolemic state #Right sided heart failure -Continue PO 40 mg lasix -Continue potassium replacement with Lasix administration #Hypotension, resolved Patient's blood pressure dropped and she required 2500 mL fluid bolus and 50 mg IV hydrocortisone secondary to relative cortisol deficiency. Patient is currently receiving 20mg prednisone daily. #Relative bradycardia, Resolved -Initially Cardizem was held and has been restarted at 180mg PO qd. # Symptomatic anemia Status post 1 unit PRBCs 08/13. Of note patient had history of GI bleed 2 years ago requiring 10 units of PRBC transfusion, likely diverticular. -Stool Guaiac - negative -H/H Stable continue to monitor #Thrombocytopenia: Patient's platelets have been downtrending, currently at 90, 000. Decline may be attributed to initiation of lovenox for anticoagulation. HIT planel was sent which was negative. Due to patient's significant bleeding risk, lovenox is the choice for anticoagualtion as it can be reversed with protamine. - Will dose lovenox 60mg SC once today again as his PLT has been stable, and continue to monitor platelets closely. - Will keep her on ALPS for ppx. Note pt is high risk for clotting events as she has 3 noted DVT in r. arm on previous US. She is also very sedentary due to terminal COPD and is at high risk for PE. #Deep venous thrombosis: Per RUE ultrasound on August 18/2018: pt has DVT in the right upper extremity with nonocclusive right axillary vein DVT, DVT in one of the paired brachial veinsand in the right basilic vein. Etiology likely due to r. sided passive congeston and pt moving very little. #Hypokalemia/ Hyperkalemia-improved Patient was initially hypokalemic and became hyperkalemic with repletion received calcium gluconate, insulin 10 units, dextrose 3 and Kayexalate 2 She became hypokalemic after diuresis, potassium has been replaced and today potassium is 4.2 -Continue to monitor and replete #Relative Cortisol deficiency Cortisol level was 10.7. Patient is on prednisone 15mg daily at home, which was not given to her since her admisson to the hospital. Patient was given stress dose of steroid and started on a prednisone taper starting from 40mg daily. Overnight patient's blood pressure dropped and she received 50 mg IV hydrocortisone -Taper steroids prednisone 20 mg, and continue as above. #Transaminitis and hyperbilirubinemia Likely secondary to congestion in setting of right-sided heart failure.Transaminitis hyperbilirubinemia improving -Continue to monitor LFTs #DM One episode of hypoglycemia on 08/19 -Accu-Chek, insulin sliding scale -Levemir dose changed to 8 units BID, continue to monitor #Hypothyroidism -TSH/freeT4 WNL continue home dose of synthroid #Frequent falls/unsteady gait - PT evaluation - patient is currently an assist of 2. Will require STR after discharge. #Dysphagia Patient choked on her medication on 08/14, states she has experienced the same before at home as well. -No events -Consider GI Consult for dysphagia is persistent inpt vs outpt #[place]ISSETT-Secondary to prerenal azotemia in setting of diuresis-resolved -Encourage PO intake -Continue to monitor Cr curve -Avoid nephrotoxins DVT prophylaxis: with Alps and lovenox Code Status: DNR/DNI Problem List: 1. COPD exacerbation Pain Ratin Pain Location: N/A Pain Goal: Remain pain free Pain Plan: PATHWAY Tomorrow's Labs & Rationales: CBC BEP
[2017-08-31 08:18] LABS: HEMATOCRIT 31.1 % (37-47); MEAN CORPUSCULAR HGB 21.6 PG (27.0-31.0); MEAN CORPUSCULAR HGB CONC 30.9 G/DL (33.0-37.0); MEAN CORPUSCULAR VOLUME 70.1 FL (81.0-99.0); MEAN PLATELET VOLUME 10.1 FL (7.4-10.4); PLATELET COUNT 149 /CUMM (130-400); RED BLOOD CELL CT 4.44 /CUMM (4.20-5.40); WHITE BLOOD CELL COUNT 11.6 /CUMM (4.8-10.8)
--- NOTE | 2017-08-31 10:57 | PN- Cardiology ---
Subjective Subjective: Currently on high flow nasal cannula oxygen which she feels does help. Objective Vital Signs and I&Os Vital Signs Date Time Temp Pulse Resp B/P B/P Pulse O2 O2 Flow FiO2 Mean Ox Delivery Rate 08/31 0800 90 Nasal 50% Cannula 08/31 0619 98.0 93 18 97/64 91 08/31 0218 91 Nasal 50% Cannula 08/31 0000 90 Nasal 50% Cannula 08/30 2205 98.4 91 20 100/60 97 08/30 2028 94 Nasal 50% Cannula 08/30 1600 96 Nasal 45% Cannula 08/30 1400 98.0 88 20 110/60 95 Intake & Output 08/31 1600 08/31 0800 08/31 0000 08/30 1600 08/30 0800 08/30 0000 Intake Total 200 400 480 240 450 Output Total 600 400 400 250 Balance -400 400 80 -160 200 Intake, Oral 200 400 480 240 450 Number 1 Bowel Movements Output, Urine 600 400 400 250 Patient 120 lb 119 lb Weight Physical Exam: General: no apparent distress. Alert. On high flow O2. Eyes: No obvious scleral icterus. HEENT: No jugular venous distention or abnormal jugular venous pulsations. Cardiovascular: Normal intensity S1/S2. Regular Respiratory: Mildly decreased air entry Abdomen: Soft, nontender with no guarding or rebound tenderness. Musculoskeletal: No cyanosis noted, no edema Skin: Warm Neurologic: No gross focal deficits noted. Current Medications: Current Medications Sig/Vero Start time Last Medication Dose Route Stop Time Status Admin Acetaminophen 650 MG Q6P PRN 08/12 2030 AC PO Acetaminophen 1,000 MG Q6P PRN 08/12 2030 AC IV Albuterol Sulfate 3 ML Q4P PRN 08/17 1630 AC 08/25 INH 1654 Budesonide/ 2 PUF BID 08/13 1000 AC 08/31 Formoterol Fumarate INH 0906 Calcium Carbonate 500 MG TIDPRN PRN 08/21 0745 AC 08/24 PO 1052 Diltiazem HCl 180 MG DAILY 08/17 1500 AC 08/31 PO 0904 Diphenhydramine HCl 1 DEBBIE TID 08/31 1000 AC TOP Enoxaparin Sodium 60 MG ONCE ONE 08/30 1415 DC 08/30 SC 08/30 1416 1741 Furosemide 40 MG DAILY 08/22 1000 AC 08/31 PO 0905 Glycerin/Mineral Oil 1 DEBBIE TID 08/31 1000 AC 08/31 EXT 0931 Guaifenesin 600 MG Q12 08/18 2200 AC 08/31 PO 0905 Insulin Aspart 0 TIDAC 08/27 1700 AC 08/31 SC 0941 Insulin Detemir 8 UNITS BID 08/22 1000 AC 08/31 SC 0904 Ipratropium [place] 2.5 ML EVERY 4 HRS/AWAKE 08/17 2000 AC 08/31 INH 0923 Levothyroxine Sodium 0.112 MG DAILY AC 08/13 0700 AC 08/31 PO 0724 Lidocaine 1 PAT DAILY 08/14 2215 AC 08/30 EXT 0832 Magnesium Oxide 400 MG DAILY 08/13 1000 AC 08/31 PO 0905 Multivitamins 1 TAB DAILY 08/21 1000 AC 08/31 PO 0905 Pantoprazole Sodium 40 MG DAILY 08/18 1000 AC 08/31 IV 0906 Polyethylene Glycol 17 GM DAILY 08/13 1656 AC 08/31 PO 0903 Potassium Chloride 40 MEQ DAILY 08/23 1000 AC 08/31 PO 0905 Prednisone 20 MG DAILY 08/24 1000 AC 08/31 PO 0905 Senna/Docusate Sodium 1 TAB BID PRN 08/13 1700 AC PO Sertraline HCl 50 MG 08/13 2200 AC 08/30 PO 2049 Sodium Chloride 2 SPRAY Q4P PRN 08/14 0145 AC TAMIE Theophylline 200 MG Q48 09/01 1000 AC PO Theophylline 400 MG Q48 08/31 1000 AC 08/31 PO 0905 Theophylline 200 MG Q12 08/30 1000 DC 08/30 PO 1043 Tiotropium [place] 1 PUF DAILY 08/13 1000 AC 08/31 INH 0905 Tramadol HCl 25 MG Q4 HRS NEEDED PRN 08/28 0030 AC 08/31 PO 0917 Results Last 48 Hrs of Labs/Mics: Laboratory Tests 08/31/17 0725: Anion Gap 7, Estimated GFR > 60, BUN/Creatinine Ratio 50.0 H, CBC w Diff MAN DIFF ORDERED, RBC 4.44, MCV 70.1 L, MCH 21.6 L, MCHC 30.9 L, RDW 25.0 H, MPV 10.1, Segmented Neutrophils 86 H, Lymphocytes 9 L, Monocytes 5, Nucleated RBCs 1 H, Platelet Estimate DECREASED, Hypochromic-Microcytic 1+, Poikilocytosis 1+, Basophilic Stippling 1+, Microcytic Cells 2+, Elliptocytes 1+ 08/30/17 0925: Anion Gap 9, Estimated GFR > 60, BUN/Creatinine Ratio 42.5 H, CBC w Diff MAN DIFF ORDERED, RBC 4.79, MCV 69.9 L, MCH 21.3 L, MCHC 30.5 L, RDW 26.1 H, MPV 10.1, Segmented Neutrophils 87 H, Band Neutrophils 1, Lymphocytes 7 L, Monocytes 5, Nucleated RBCs 1 H, Hypochromic-Microcytic 2+, Poikilocytosis 2+, Basophilic Stippling 1+, Anisocytosis 2+, Microcytic Cells 4+, Ovalocytes 1+, [place]iston Cells 1+, Theophylline 2.1 L Recent Imaging Studies: Not on Tele Assessment/Plan Assessment/Plan 1. Syncope multifactorial. She was hypokalemic on admission therefore arrhythmias are a consideration. She also has severe pulmonary hypertension and may have had an orthostatic hypotensive episode secondary to diuretics 2. Diastolic heart failure by history 3. 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 Diabetes 5. History of GI bleed 6. Bradycardia secondary to hyperkalemia stable. 7. Upper extremity DVT Patient is resting comfortably on high flow nasal cannula oxygen. Continue on the oral Lasix as she appears grossly euvolemic today. She has been receiving Lovenox for upper extremity DVT. Jamie Cope MD [facility] Continue telemetry? Not applicable Continue telemetry? Not applicable
--- NOTE | 2017-08-31 13:40 | PN- Pulmonary ---
Subjective HPI/Critical Care Issues: Status quo No improvement Objective Current Medications: Current Medications Sig/Vero Start time Last Medication Dose Route Stop Time Status Admin Acetaminophen 650 MG Q6P PRN 08/12 2030 AC PO Acetaminophen 1,000 MG Q6P PRN 08/12 2030 AC IV Albuterol Sulfate 3 ML Q4P PRN 08/17 1630 AC 08/25 INH 1654 Budesonide/ 2 PUF BID 08/13 1000 AC 08/31 Formoterol Fumarate INH 0906 Calcium Carbonate 500 MG TIDPRN PRN 08/21 0745 AC 08/24 PO 1052 Diltiazem HCl 180 MG DAILY 08/17 1500 AC 08/31 PO 0904 Diphenhydramine HCl 1 DEBBIE TID 08/31 1000 AC 08/31 TOP 1056 Enoxaparin Sodium 80 MG 1700 08/31 1700 AC SC Enoxaparin Sodium 80 MG DAILY 08/31 1138 DC SC Enoxaparin Sodium 60 MG ONCE ONE 08/31 1130 CAN SC 08/31 1131 Enoxaparin Sodium 60 MG ONCE ONE 08/30 1415 DC 08/30 SC 08/30 1416 1741 Furosemide 40 MG DAILY 08/22 1000 AC 08/31 PO 0905 Glycerin/Mineral Oil 1 DEBBIE TID 08/31 1000 AC 08/31 EXT 0931 Guaifenesin 600 MG Q12 08/18 2200 AC 08/31 PO 0905 Insulin Aspart 0 TIDAC 08/27 1700 AC 08/31 SC 0941 Insulin Detemir 8 UNITS BID 08/22 1000 AC 08/31 SC 0904 Ipratropium [place] 2.5 ML EVERY 4 HRS/AWAKE 08/17 2000 AC 08/31 INH 1319 Levothyroxine Sodium 0.112 MG DAILY AC 08/13 0700 AC 08/31 PO 0724 Lidocaine 1 PAT DAILY 08/14 2215 AC 08/31 EXT 1056 Magnesium Oxide 400 MG DAILY 08/13 1000 AC 08/31 PO 0905 Multivitamins 1 TAB DAILY 08/21 1000 AC 08/31 PO 0905 Pantoprazole Sodium 40 MG DAILY 08/18 1000 AC 08/31 IV 0906 Polyethylene Glycol 17 GM DAILY 08/13 1656 AC 08/31 PO 0903 Potassium Chloride 40 MEQ DAILY 08/23 1000 AC 08/31 PO 0905 Prednisone 20 MG DAILY 08/24 1000 AC 08/31 PO 0905 Senna/Docusate Sodium 1 TAB BID PRN 08/13 1700 AC PO Sertraline HCl 50 MG 2200 08/13 2200 AC 08/30 PO 2049 Sodium Chloride 2 SPRAY Q4P PRN 08/14 0145 AC TAMIE Theophylline 200 MG Q48 09/01 1000 AC PO Theophylline 400 MG Q48 08/31 1000 AC 08/31 PO 0905 Theophylline 200 MG Q12 08/30 1000 DC 08/30 PO 1043 Tiotropium [place] 1 PUF DAILY 08/13 1000 AC 08/31 INH 0905 Tramadol HCl 25 MG Q4 HRS NEEDED PRN 08/28 0030 AC 08/31 PO 0917 Vital Signs & I&O Last 24 Hrs of Vitals and I&O: Vital Signs Date Time Temp Pulse Resp B/P B/P Pulse O2 O2 Flow FiO2 Mean Ox Delivery Rate 08/31 0920 92 Nasal 50% Cannula 08/31 0800 90 Nasal 50% Cannula 08/31 0619 98.0 93 18 97/64 91 08/31 0218 91 Nasal 50% Cannula 08/31 0000 90 Nasal 50% Cannula 08/30 2205 98.4 91 20 100/60 97 08/30 2028 94 Nasal 50% Cannula 08/30 1600 96 Nasal 45% Cannula 08/30 1400 98.0 88 20 110/60 95 Intake & Output 08/31 1600 08/31 0800 08/31 0000 Intake Total 200 400 Output Total 600 Balance -400 400 Intake, Oral 200 400 Output, Urine 600 Patient 120 lb Weight Impression/Plan Impression/Plan Impression/Plan: Laboratory Tests 08/31 08/30 0725 0925 Chemistry Sodium (137 - 145 mmol/L) 142 142 Potassium (3.5 - 5.1 mmol/L) 3.9 4.2 Chloride (98 - 107 mmol/L) 102 102 Carbon Dioxide (22 - 30 mmol/L) 33 H 30 Anion Gap (5 - 16) 7 9 BUN (7 - 17 mg/dL) 40 H 34 H Creatinine (0.5 - 1.0 mg/dL) 0.8 0.8 Estimated GFR (>60 ml/min) > 60 > 60 BUN/Creatinine Ratio (7 - 25 %) 50.0 H 42.5 H Hematology CBC w Diff MAN DIFF ORDERED MAN DIFF ORDERED WBC (4.8 - 10.8 /CUMM) 11.6 H 13.1 H RBC (4.20 - 5.40 /CUMM) 4.44 4.79 Hgb (12.0 - 16.0 G/DL) 9.6 L 10.2 L Hct (37 - 47 %) 31.1 L 33.5 L MCV (81.0 - 99.0 FL) 70.1 L 69.9 L MCH (27.0 - 31.0 PG) 21.6 L 21.3 L MCHC (33.0 - 37.0 G/DL) 30.9 L 30.5 L RDW (11.5 - 14.5 %) 25.0 H 26.1 H Plt Count (130 - 400 /CUMM) 149 165 MPV (7.4 - 10.4 FL) 10.1 10.1 Segmented Neutrophils (42.2 - 75.2 %) 86 H 87 H Band Neutrophils (0.0 - 5.0 %) 1 Lymphocytes (20.5 - 51.1 %) 9 L 7 L Monocytes (1.7 - 9.3 %) 5 5 Nucleated RBCs (0.0 - 0.0 /100WBC) 1 H 1 H Platelet Estimate (ADEQUATE) DECREASED Hypochromic-Microcytic 1+ 2+ Poikilocytosis 1+ 2+ Basophilic Stippling 1+ 1+ Anisocytosis 2+ Microcytic Cells 2+ 4+ Ovalocytes 1+ [place] Cells 1+ Elliptocytes 1+ Toxicology Theophylline (10.0 - 20.0 uG/mL) 2.1 L General: Nontoxic, no apparent distress. on nasal cannula HEENT: Sclera and conjunctiva within normal limits, without xanthelasmas. Neck: Carotids 2+ without bruits. Respiratory: Scattered rhonchi and rales, air movement is decreased at bases, without accessory respiratory muscle use. Heart: Regular rate and rhythm, 2/6 systolic ejection murmur left sternal border , without JVD. Abdomen: Soft, nontender, no masses, normoactive bowel sounds. Extremities: Without clubbing, cyanosis, without edema. Neuro: Nonfocal exam, strength, 5 out of 5 Skin: Within normal limits without lesions. Psych: Mood and affect: Normal\ This is a lady with end-stage COPD, cor pulmonale, 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, history of lung cancer status post radiation to the left upper lobe with gamma knife therapy with stage I lung cancer presumed cure with no recurrent lesion noted in the recent CAT scan now here with * Acute Cor pulmonale with chronic right heart dysfunction with profound shortness of breath due to end-stage COPD and heart disease. S/p dobutamine and IV lasix now back to baseline * Resolved Syncope or near sycope with multiple falls, pt with severe PUlm htn from copd, with sig corpulmonale, previous full work up for other causes are neg (no vte, no vasculitis etc) * Symtomatic anemia with sig eccymosis due to prednisone s/p transfusion * RElative cortisol def * End stage copd with chronic resp failure * REcurrent diastolic chf now euvolemic after ivf as she was dehydrated upon admission * Profound fatigue significant shortness of breath muscle weakness most likely related to cortisol deficiency as she's been on steroids for years * VTE upper ext now on lovenox with thrombocytopenia and off anticoag and pt wishes to hold off anticoag as she has had sig bleeding before. HIT antibody is neg and platelets are low again * CHest ct abormality wedge shaped (no pe, prob atx vs pna unlikely malignancy), will get a follow up ct in few weeks * History of lung cancer status post radiation therapy rule out recurrence * Diabetes on insulin * Hypothyroidism on appropriate supplementation therapy REC Po lasix daily 40 mg Check cbc in am Change to nasal cannula if able OOB to chair PT eval Use ipratropium only for nebs Prednisone 20 mg Cont dilt Reduce lovenox to 60 mg daily Follow sugar and titrate insulin OOB to chair TO tele floor today
[2017-08-31 14:56] VITALS: BP 96/58
[2017-08-31 23:09] VITALS: BP 112/62
[2017-09-01 06:05] VITALS: BP 100/62
--- NOTE | 2017-09-01 06:59 | PN- Housestaff ---
Subjective Follow-up For: #Acute on chronic hypoxemic respiratory failure with end-stage COPD resulting in cor pulmonale/right-sided heart failure. #Leukocytosis 3Syncopal episode #Right sided heart failure #Symptomatic anemia #Deep venous thrombosis Tele-Events Since Last Visit: OFF TELE Subjective: Patient was seen and examined at bedside, afebrile, still on high flow oxygen and complains of shortness of breath and right arm itchiness. Review of Systems Constitutional: Reports: see HPI. Objective Last 24 Hrs of Vital Signs/I&O Vital Signs Date Time Temp Pulse Resp B/P B/P Pulse O2 O2 Flow FiO2 Mean Ox Delivery Rate 09/01 0605 97.6 79 20 100/62 91 50% 09/01 0419 90 Nasal 50% Cannula 09/01 0000 91 50% 08/31 2309 98.0 85 18 112/62 88 Nasal Cannula 08/31 2215 88 Nasal 50% Cannula 08/31 1911 88 Nasal 50% Cannula 08/31 1645 91 Nasal 50% Cannula 08/31 1600 91 50% 08/31 1506 91 Nasal Cannula 08/31 1456 97.8 76 18 96/58 08/31 0920 92 Nasal 50% Cannula Intake & Output 09/01 1600 09/01 0800 09/01 0000 Intake Total 110 Output Total 200 Balance -90 Intake, IV 10 Intake, Oral 100 Output, Urine 200 Patient 117 lb Weight Physical Exam General Appearance: Alert, Oriented X3, Cooperative, No Acute Distress HEENT: Atraumatic, PERRLA, EOMI, Mucous Membr. moist/pink Neck: Supple, No JVD Cardiovascular: Normal S1, Normal S2, No Murmurs Lungs: Clear to Auscultation, Normal Air Movement Abdomen: Normal Bowel Sounds, Soft, No Tenderness Extremities: No Clubbing, No Cyanosis, No Edema, RIGHT UPPER EXTREMITY EXTENSIVE BLUISH DISCOLORATION Vascular: Normal Pulses Sepsis Peripheral Pulse Location: Radial Assessment/Plan Assessment: Patient is a 76 YO F with PMH significant for 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 The patient was transferred overnight to ICU for increased oxygen requirement and hypotension. #Acute on chronic hypoxemic respiratory failure with end-stage COPD resulting in cor pulmonale/right-sided heart failure. -Transition to nasal cannula, keep off CPAP if possible, Currently on high flow. -Goals greater than O2 88% -TRC/nebs. Only ipratropium for nebs, avoid albuterol due to tachycardia unless severe wheezing. -Taper steroids currently at prednisone 20 mg -Continue Theophyline -home dose #Leukocytosis secondary to steroid use most likely, CT chest showed wedge-shaped opacity probably atelectasis, PNA, malignancy less likely - Patient remains afebrile - Continue to monitor #Suspected UTI Patient was initially started on ceftriaxone which was later on discontinued Continue to monitor off antibiotics #Syncopal episode Likely multifactorial. Patient was hypokalemic which could have contributed to an arrhythmia. She has hx of severe pulmonary hypertension and is diuresed for peripheral edema . She has relative cortisol deficiency due to steroid use Orthostatics contributing to her episodes. She was also hypoglycemic on presentation. -Continue to monitor on telemetry -Maintain euvolemic state #Right sided heart failure -Continue PO 40 mg lasix -Continue potassium replacement with Lasix administration #Hypotension, resolved Patient's blood pressure dropped and she required 2500 mL fluid bolus and 50 mg IV hydrocortisone secondary to relative cortisol deficiency. Patient is currently receiving 20mg prednisone daily. #Relative bradycardia, Resolved -continue p.o. Cardizem 180 mg daily # Symptomatic anemia Status post 1 unit PRBCs 08/13. Of note patient had history of GI bleed 2 years ago requiring 10 units of PRBC transfusion, likely diverticular. -Stool Guaiac - negative -H/H Stable continue to monitor #Thrombocytopenia: Patient's platelets have been downtrending, currently at 90, 000. Decline may be attributed to initiation of lovenox for anticoagulation. HIT planel was sent which was negative. Due to patient's significant bleeding risk, lovenox is the choice for anticoagualtion as it can be reversed with protamine. Platelets has been stable -Continue Lovenox 60 mg daily #Deep venous thrombosis: Per RUE ultrasound on August 18/2018: pt has DVT in the right upper extremity with nonocclusive right axillary vein DVT, DVT in one of the paired brachial veinsand in the right basilic vein. Etiology likely due to r. sided passive congeston and pt moving very little. #Hypokalemia/ Hyperkalemia-improved Patient was initially hypokalemic and became hyperkalemic with repletion received calcium gluconate, insulin 10 units, dextrose 3 and Kayexalate 2 She became hypokalemic after diuresis, potassium has been replaced and today potassium is 4.2 -Continue to monitor and replete #Relative Cortisol deficiency Cortisol level was 10.7. Patient is on prednisone 15mg daily at home, which was not given to her since her admisson to the hospital. Patient was given stress dose of steroid and started on a prednisone taper starting from 40mg daily. Overnight patient's blood pressure dropped and she received 50 mg IV hydrocortisone Continue p.o. prednisone 20 mg, and continue as above. #Transaminitis and hyperbilirubinemia Likely secondary to congestion in setting of right-sided heart failure.Transaminitis hyperbilirubinemia improving -Continue to monitor LFTs #DM One episode of hypoglycemia on 08/19 -Accu-Chek, insulin sliding scale -Levemir dose changed to 8 units BID, continue to monitor #Hypothyroidism -TSH/freeT4 WNL continue home dose of synthroid #Frequent falls/unsteady gait - PT evaluation - patient is currently an assist of 2. Will require STR after discharge. #Dysphagia Patient choked on her medication on 08/14, states she has experienced the same before at home as well. -No events -Consider GI Consult for dysphagia is persistent inpt vs outpt #[place]-Secondary to prerenal azotemia in setting of diuresis-resolved -Encourage PO intake -Continue to monitor Cr curve -Avoid nephrotoxins DVT prophylaxis: with Alps and lovenox Code Status: DNR/DNI Problem List: 1. Acute and chronic respiratory failure with hypoxia 2. CHF (congestive heart failure) Pain Ratin Pain Location: N/A Pain Goal: Remain pain free Pain Plan: PATHWAY Tomorrow's Labs & Rationales: CBC BEP
[2017-09-01 08:26] LABS: HEMATOCRIT 32.3 % (37-47); MEAN CORPUSCULAR HGB 21.5 PG (27.0-31.0); MEAN CORPUSCULAR HGB CONC 30.7 G/DL (33.0-37.0); MEAN CORPUSCULAR VOLUME 70.2 FL (81.0-99.0); MEAN PLATELET VOLUME 10.1 FL (7.4-10.4); PLATELET COUNT 159 /CUMM (130-400); RBC DISTRIBUTION WIDTH 24.6 % (11.5-14.5); WHITE BLOOD CELL COUNT 11.8 /CUMM (4.8-10.8)
--- NOTE | 2017-09-01 09:03 | PN- Cardiology ---
Subjective Subjective: Patient complains of severe shortness of breath. She states that at times she is unable to catch her breath and feels as if she is going to . Dr. Rudolph has had multiple conversations with her regarding her end-stage COPD. Review of Systems: Eyes no blurred or double vision Ears no deafness or ringing Nose and throat no recurrent sinusitis Lungs per history of present illness Heart per history of present illness Abdomen no nausea vomiting Musculoskeletal occasional muscle and joint pains Psych no anxiety or depression Neuro without recurrent headache or seizures Endocrine no heat or cold intolerance Objective Vital Signs and I&Os Vital Signs Date Time Temp Pulse Resp B/P B/P Pulse O2 O2 Flow FiO2 Mean Ox Delivery Rate 09/01 0605 97.6 79 20 100/62 91 50% 09/01 0419 90 Nasal 50% Cannula 09/01 0000 91 50% 08/31 2309 98.0 85 18 112/62 88 Nasal Cannula 08/31 2215 88 Nasal 50% Cannula 08/31 1911 88 Nasal 50% Cannula 08/31 1645 91 Nasal 50% Cannula 08/31 1600 91 50% 08/31 1506 91 Nasal Cannula 08/31 1456 97.8 76 18 96/58 08/31 0920 92 Nasal 50% Cannula Intake & Output 09/01 1600 09/01 0800 09/01 0000 08/31 1600 08/31 0800 08/31 0000 Intake Total 110 450 200 400 Output Total 200 350 600 Balance -90 100 -400 400 Intake, IV 10 Intake, Oral 100 450 200 400 Output, Urine 200 350 600 Patient 117 lb 120 lb Weight Physical Exam: Patient is a well-developed well-nourished female appearing in no acute distress HEENT is unremarkable Neck is supple there is no JVD Lungs decreased air entry bilaterally with few scattered rhonchi Heart regular rhythm S1 and S2 are normal no murmurs gallops or rubs Abdomen bowel sounds positive Extremities trace edema Current Medications: Current Medications Sig/Vero Start time Last Medication Dose Route Stop Time Status Admin Acetaminophen 650 MG Q6P PRN 08/12 2029 AC PO Acetaminophen 1,000 MG Q6P PRN 08/12 2029 AC IV Albuterol Sulfate 3 ML Q4P PRN 08/17 1630 AC 08/25 INH 1654 Budesonide/ 2 PUF BID 08/13 1000 AC 08/31 Formoterol Fumarate INH 2247 Calcium Carbonate 500 MG TIDPRN PRN 08/21 0745 AC 08/24 PO 1052 Diltiazem HCl 180 MG DAILY 08/17 1500 AC 08/31 PO 0904 Diphenhydramine HCl 1 DEBBIE TID 08/31 1000 AC 08/31 TOP 2249 Enoxaparin Sodium 80 MG 1700 08/31 1700 DC SC Enoxaparin Sodium 60 MG 1700 08/31 1700 AC 08/31 SC 1700 Enoxaparin Sodium 80 MG DAILY 08/31 1138 DC SC Enoxaparin Sodium 60 MG ONCE ONE 08/31 1130 CAN SC 08/31 1131 Furosemide 40 MG DAILY 08/22 1000 AC 08/31 PO 0905 Glycerin/Mineral Oil 1 DEBBIE TID 08/31 1000 AC 08/31 EXT 2200 Guaifenesin 600 MG Q12 08/18 2200 AC 08/31 PO 2200 Insulin Aspart 0 TIDAC 08/27 1700 AC 08/31 SC 0941 Insulin Detemir 8 UNITS BID 08/22 1000 AC 08/31 SC 2246 Ipratropium [place] 2.5 ML EVERY 4 HRS/AWAKE 08/17 2000 AC 08/31 INH 2040 Levothyroxine Sodium 0.112 MG DAILY AC 08/13 0700 AC 09/01 PO 0645 Lidocaine 1 PAT DAILY 08/14 2215 AC 08/31 EXT 1808 Magnesium Oxide 400 MG DAILY 08/13 1000 AC 08/31 PO 0905 Multivitamins 1 TAB DAILY 08/21 1000 AC 08/31 PO 0905 Pantoprazole Sodium 40 MG DAILY 08/18 1000 AC 08/31 IV 0906 Polyethylene Glycol 17 GM DAILY 08/13 1656 AC 08/31 PO 0903 Potassium Chloride 40 MEQ DAILY 08/23 1000 AC 08/31 PO 0905 Prednisone 20 MG DAILY 08/24 1000 AC 08/31 PO 0905 Senna/Docusate Sodium 1 TAB BID PRN 08/13 1700 AC PO Sertraline HCl 50 MG 2200 08/13 2200 AC 08/31 PO 2200 Sodium Chloride 2 SPRAY Q4P PRN 08/14 0145 AC TAMIE Theophylline 200 MG Q48 09/01 1000 AC PO Theophylline 400 MG Q48 08/31 1000 AC 08/31 PO 0905 Tiotropium [place] 1 PUF DAILY 08/13 1000 AC 08/31 INH 0905 Tramadol HCl 25 MG Q4 HRS NEEDED PRN 08/28 0030 AC 09/01 PO 0328 Results Last 48 Hrs of Labs/Mics: Laboratory Tests 09/01/17 0648: Anion Gap 7, Estimated GFR > 60, BUN/Creatinine Ratio 46.3 H, CBC w Diff Pending, WBC Pending, RBC Pending, Hgb Pending, Hct Pending, MCV Pending, MCH Pending, MCHC Pending, RDW Pending, Plt Count Pending, MPV Pending 08/31/17 0725: Anion Gap 7, Estimated GFR > 60, BUN/Creatinine Ratio 50.0 H, CBC w Diff MAN DIFF ORDERED, RBC 4.44, MCV 70.1 L, MCH 21.6 L, MCHC 30.9 L, RDW 25.0 H, MPV 10.1, Segmented Neutrophils 86 H, Lymphocytes 9 L, Monocytes 5, Nucleated RBCs 1 H, Platelet Estimate DECREASED, Hypochromic-Microcytic 1+, Poikilocytosis 1+, Basophilic Stippling 1+, Microcytic Cells 2+, Elliptocytes 1+ 08/30/17 0925: Anion Gap 9, Estimated GFR > 60, BUN/Creatinine Ratio 42.5 H, CBC w Diff MAN DIFF ORDERED, RBC 4.79, MCV 69.9 L, MCH 21.3 L, MCHC 30.5 L, RDW 26.1 H, MPV 10.1, Segmented Neutrophils 87 H, Band Neutrophils 1, Lymphocytes 7 L, Monocytes 5, Nucleated RBCs 1 H, Hypochromic-Microcytic 2+, Poikilocytosis 2+, Basophilic Stippling 1+, Anisocytosis 2+, Microcytic Cells 4+, Ovalocytes 1+, [place] Cells 1+, Theophylline 2.1 L Assessment/Plan Assessment/Plan 1. Syncope multifactorial. She was hypokalemic on admission therefore arrhythmias are a consideration. She also has severe pulmonary hypertension and may have had an orthostatic hypotensive episode secondary to diuretics 2. Diastolic heart failure by history 3. 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 Diabetes 5. History of GI bleed 6. Bradycardia secondary to hyperkalemia stable. 7. Upper extremity DVT Recommendations 1. Continue high flow O2 2. Continue oral Lasix 3. Patient wants to consider [facility] for pulmonary rehabilitation. She has very high but seemingly unreasonable expectations. Continue telemetry? Not applicable
[2017-09-01] MEDS ORDERED: CALCIUM CARBON200 MG PO (15:48)
[2017-09-01] MEDS ORDERED: OFIRMEV1000 MG/10 IV (15:48)
[2017-09-01] MEDS ORDERED: NOVOLOG100 UNIT/2 SC (15:48)
[2017-09-01] MEDS ORDERED: LUBRIDERM DAIL177 ML EXT (15:48)
[2017-09-01] MEDS ORDERED: LIDODERM1 EACH EXT (15:48)
[2017-09-01] MEDS ORDERED: LASIX40 M1 PO (15:48)
[2017-09-01] MEDS ORDERED: LOVENOX60 MG/0.1 SC (15:48)
[2017-09-01] MEDS ORDERED: DEEP SEA44 ML NAS (15:48)
[2017-09-01] MEDS ORDERED: GUAIFENESIN ER600 MG PO (15:48)
[2017-09-01] MEDS ORDERED: MIRALAX119 GM PO (15:48)
[2017-09-01] MEDS ORDERED: SENNA PLUS TAB1 EACH PO (15:48)
[2017-09-01] MEDS ORDERED: PREDNISONE20 M1 PO (15:48)
[2017-09-01] MEDS ORDERED: ITCH RELIEF CRE28 GM TOP (15:48)
[2017-09-01] MEDS ORDERED: ONE DAILY MULT1 EAC2 PO (15:48)
[2017-09-01] MEDS ORDERED: TYLENOL325 M1 PO (15:48)
--- NOTE | 2017-09-01 16:31 | PN- Pulmonary ---
Subjective HPI/Critical Care Issues: Sleeping when i saw her still on high flow stable other guerra Objective Current Medications: Current Medications Sig/Vero Start time Last Medication Dose Route Stop Time Status Admin Acetaminophen 650 MG Q6P PRN 08/12 2030 AC PO Acetaminophen 1,000 MG Q6P PRN 08/12 2030 AC IV Albuterol Sulfate 3 ML Q4P PRN 08/17 1630 AC 08/25 INH 1654 Budesonide/ 2 PUF BID 08/13 1000 AC 09/01 Formoterol Fumarate INH 0945 Calcium Carbonate 500 MG TIDPRN PRN 08/21 0745 AC 08/24 PO 1052 Diltiazem HCl 180 MG DAILY 08/17 1500 AC 09/01 PO 0944 Diphenhydramine HCl 1 DEBBIE TID 08/31 1000 AC 09/01 TOP 0946 Enoxaparin Sodium 60 MG 1700 08/31 1700 AC 08/31 SC 1700 Furosemide 40 MG DAILY 08/22 1000 AC 09/01 PO 0943 Glycerin/Mineral Oil 1 DEBBIE TID 08/31 1000 AC 09/01 EXT 0945 Guaifenesin 600 MG Q12 08/18 2200 AC 09/01 PO 0943 Insulin Aspart 0 TIDAC 08/27 1700 AC 08/31 SC 0941 Insulin Detemir 8 UNITS BID 08/22 1000 AC 09/01 SC 1002 Ipratropium [place] 2.5 ML EVERY 4 HRS/AWAKE 08/17 2000 AC 09/01 INH 1428 Levothyroxine Sodium 0.112 MG DAILY AC 08/13 0700 AC 09/01 PO 0645 Lidocaine 1 PAT DAILY 08/14 2215 AC 08/31 EXT 1808 Magnesium Oxide 400 MG DAILY 08/13 1000 AC 09/01 PO 0943 Multivitamins 1 TAB DAILY 08/21 1000 AC 09/01 PO 0945 Pantoprazole Sodium 40 MG DAILY 08/18 1000 AC 09/01 IV 0945 Polyethylene Glycol 17 GM DAILY 08/13 1656 AC 09/01 PO 0945 Potassium Chloride 40 MEQ DAILY 08/23 1000 AC 09/01 PO 0944 Prednisone 20 MG DAILY 08/24 1000 AC 09/01 PO 0943 Senna/Docusate Sodium 1 TAB BID PRN 08/13 1700 AC PO Sertraline HCl 50 MG 2200 08/13 2200 AC 08/31 PO 2200 Sodium Chloride 2 SPRAY Q4P PRN 08/14 0145 AC TAMIE Theophylline 200 MG Q48 09/01 1000 AC 09/01 PO 0944 Theophylline 400 MG Q48 08/31 1000 AC 08/31 PO 0905 Tiotropium [place] 1 PUF DAILY 08/13 1000 AC 09/01 INH 0945 Tramadol HCl 25 MG Q4 HRS NEEDED PRN 08/28 0030 AC 09/01 PO 0328 Vital Signs & I&O Last 24 Hrs of Vitals and I&O: Vital Signs Date Time Temp Pulse Resp B/P B/P Pulse O2 O2 Flow FiO2 Mean Ox Delivery Rate 09/01 1627 94 Venti Mask 50% 09/01 1613 Venti Mask 50% 09/01 1439 90 Nasal 50% Cannula 09/01 0916 92 Nasal 50% Cannula 09/01 0800 91 Nasal 50% Cannula 09/01 0605 97.6 79 20 100/62 91 50% 09/01 0419 90 Nasal 50% Cannula 09/01 0000 91 50% 08/31 2309 98.0 85 18 112/62 88 Nasal Cannula 08/31 2215 88 Nasal 50% Cannula 08/31 1911 88 Nasal 50% Cannula 08/31 1645 91 Nasal 50% Cannula Intake & Output 09/01 1600 09/01 0800 09/01 0000 Intake Total 400 110 Output Total 500 200 Balance -100 -90 Intake, IV 10 Intake, Oral 400 100 Output, Urine 500 200 Patient 117 lb Weight Impression/Plan Impression/Plan Impression/Plan: General: Nontoxic, no apparent distress. on nasal cannula high flow HEENT: Sclera and conjunctiva within normal limits, without xanthelasmas. Neck: Carotids 2+ without bruits. Respiratory: Scattered rhonchi and rales, air movement is decreased at bases, without accessory respiratory muscle use. Heart: Regular rate and rhythm, 2/6 systolic ejection murmur left sternal border , without JVD. Abdomen: Soft, nontender, no masses, normoactive bowel sounds. Extremities: Without clubbing, cyanosis, without edema. Neuro: Nonfocal exam, strength, 5 out of 5 Skin: Within normal limits without lesions. 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 S/p dobutamine and IV lasix now back to baseline Resolved Syncope or near sycope with multiple falls, pt with severe PUlm htn from copd, with sig corpulmonale, previous full work up for other causes are neg (no vte, no vasculitis etc) Symtomatic anemia with sig eccymosis due to prednisone s/p transfusion RElative cortisol def End stage copd with chronic resp failure REcurrent diastolic chf now euvolemic after ivf as she was dehydrated upon admission Profound fatigue significant shortness of breath muscle weakness most likely related to cortisol deficiency as she's been on steroids for years VTE upper ext now on lovenox with thrombocytopenia and off anticoag and pt wishes to hold off anticoag as she has had sig bleeding before. HIT antibody is neg and platelets are low again CHest ct abormality wedge shaped (no pe, prob atx vs pna unlikely malignancy), will get a follow up ct in few weeks History of lung cancer status post radiation therapy rule out recurrence Diabetes on insulin Hypothyroidism on appropriate supplementation therapy REC Po lasix daily 40 mg Change to nasal cannula if able OOB to chair to [facility] Start warfarin 5 mg with lovenox and will hold lovenox once inr is more than 2 and pt has more than 24 hr overlap Use ipratropium only for nebs Prednisone 20 mg indef Cont dilt Ok to go to [facility] if bed available OOB to chair
[2017-09-01 16:33] VITALS: BP 100/62
== END 2017-09-01 16:53 | DRG 189 ==
LOC: ERH 13:01 → CRI 19:19 → ERHI 19:19 → 1NO 19:19 → ERH 19:22 → ENRESERV 08-13 13:45 → ENTRNSPT 08-13 14:52 → EDTRNSPTSTS 08-13 15:34 → 1NO 08-13 15:50 → CMPTRNSPT 08-13 15:59 → CRI 08-14 21:55 → 1NO 08-27 22:34
PROVIDERS: Internal Medicine; Internal Medicine Endocrinology, Diabetes & Metabolism; Internal Medicine Hematology & Oncology; Internal Medicine Pulmonary Disease; Physician Assistant; Student in an Organized Health Care Education/Training Program
PROC: 30233N1 Transfusion of Nonautologous Red Blood Cells into Peripheral Vein, Percutaneous Approach (ICD-10-PCS; 2017-08-14)
PROC: 5A09457 Assistance with Respiratory Ventilation, 24-96 Consecutive Hours, Continuous Positive Airway Pressure (ICD-10-PCS; principal; 2017-08-15)
DX: J96.21 Acute and chronic respiratory failure with hypoxia (principal); I26.09 Other pulmonary embolism with acute cor pulmonale; N17.9 Acute kidney failure, unspecified; I82.621 Acute embolism and thrombosis of deep veins of right upper extremity; E11.649 Type 2 diabetes mellitus with hypoglycemia without coma; D69.6 Thrombocytopenia, unspecified; I13.0 Hypertensive heart and chronic kidney disease with heart failure and stage 1 through stage 4 chronic kidney disease, or unspecified chronic kidney disease; I50.32 Chronic diastolic (congestive) heart failure; E27.40 Unspecified adrenocortical insufficiency; E87.6 Hypokalemia; E86.0 Dehydration; I27.20 Pulmonary hypertension, unspecified; J44.9 Chronic obstructive pulmonary disease, unspecified; Z99.81 Dependence on supplemental oxygen; R26.81 Unsteadiness on feet; N18.9 Chronic kidney disease, unspecified; D64.9 Anemia, unspecified; R60.0 Localized edema; E03.9 Hypothyroidism, unspecified; Z85.118 Personal history of other malignant neoplasm of bronchus and lung; Z88.6 Allergy status to analgesic agent; Z88.5 Allergy status to narcotic agent; Z88.8 Allergy status to other drugs, medicaments and biological substances; Z79.4 Long term (current) use of insulin; Z79.51 Long term (current) use of inhaled steroids; Z79.52 Long term (current) use of systemic steroids; Z91.81 History of falling; D72.829 Elevated white blood cell count, unspecified; R00.1 Bradycardia, unspecified; Z92.3 Personal history of irradiation; Z66 Do not resuscitate; R74.0 Nonspecific elevation of levels of transaminase and lactic acid dehydrogenase [LDH]; R13.10 Dysphagia, unspecified
CPT/HCPCS: 1NP; 84133; 84300; CCU; ERO; 36415; 36592; 71045; 73030-LT; 73030-RT; 74177; 81001; 82436; 82570; 86920; 87070; 87086; 87449; 87450; 93005; 93010; 93306; 93970; 96361; 96374; 97161-GP; 97530-GO; 99291; J0610; J0696; J1650; J1720; J1815; J1940; J2405; J2920; J3101; J3490; J7040; J7060; J7512; P9016